=== PATIENT | male | born 1940 | race Caucasian/White ===

== ENCOUNTER → 2016-08-18 | Outpatient (CLI) | payer MEDICARE ==
[~2016-08-18] MED LIST: ACET160S5 PO; ACET65SU PO; ALBU17IN INH; ASPI81TA45 PO; ASPIRIN PO; BACITAB3 PO; CEFD1CAP8 PO; CEPA0.05 PO; COLA100C PO; COUM1TAB14 PO; COUM1TAB17 PO; COUM1TAB19 PO; COUM2TAB10 PO; DULC10SU2 PR; FINA5TAB2 PO; FINACRY PO; FLEEENE4 PR; GABA600T PO; KEFL500C7 PO; LIDO5DIS36 TD; LIPI20TA PO; LISI-542 PO; LOSARTAN PO; LOVA40TA PO; MAGN500T6 PO; META28.35 PO; METO50TA2 PO; METOPROL PO; MILKSUS PO; MIRA3350 PO; MULTCAP PO; PLAV75TA38 PO; PROS5TAB OR; PROT1TAB2 PO; PROTPAK PO; SENITAB2 PO; SENN-23 PO; SENO8.6T2 PO; STOO100C PO; TAMS0.4C2 PO; TRAM50TA2 PO; TRAMADOL PO; TYLE167L OR; TYLE325T5 PO; TYLE500T78 PO; ULTR50TA PO; VICO5TAB16 PO; VICO7.5T11 PO; ZOFR20TA PO; [UNRECOGNIZED DRUG - CODE] PO
--- NOTE | 2016-09-07 02:12 | ECWPNPC ---
PATIENT NAME: NAYA MCMAHON : 1940 GENDER: MALE VISIT DATE: 08/18/2016 DISCHARGE DATE: 08/18/16 1249 VISIT LOCKED DATE TIME: PHYSICIAN: BISI BARROS PHYSICIAN PAGER NO: [phone] RESOURCE: BISI BARROS REASON FOR APPOINTMENT 1. TRIGEMINAL NEURALGIA HISTORY OF PRESENT ILLNESS FALL RISK SCREENIN76 Y/O WITH LONG HISTORY OF LEFT NECK AND LEFT SHOULDER PAIN.FELL ON SHOULDE AT HOME APROXIMATLEY SIX YEARS AGO.HAD LEFT SHOULDE SURGERY IN 2013.HAS HAD MULTIPLE MEDICATION TRIALS AND CONSERVATIVE CARE WITHOUT IMPROVEMENT.HISTORY OF CARDIAC VALVE SURGERY O 2015 AND ALSO PACEMEAKER INSERTION IN 2015.THERE WAS LENGTHY HOSPITAL STAY AND COMPLICATIONS AFTER THIS SURGERY.PAIN HAS BECOME DISABLING LATELY.ALSO SUFFERS FROM DIMENTIA.ACCOMPANIED IN ROOM WITH AND SON.RECENT TRIALS OF MEDICATION HAVE BEEN UNSUCCESSFUL.RATING PAIN VAS 7/10.CURRENTLY USING TRAMADOL 100MG TID. SCREENING :NO FALLS IN THE PAST YEAR PAIN SCREENING: PATIENT HAS A COMPLAINT OF ACUTE OR CHRONIC PAIN YES CURRENT MEDICATIONS TAKING LIPITOR 40 MG TABLET 1 TABLET ORALLY ONCE A DAY TAKING ASPIRIN 81 MG TABLET 1 TABLET ORALLY ONCE A DAY TAKING MULTIVITAMINS TABLET 1TAB ORALLY DAILY TAKING COLACE 100 MG CAPSULE 2 CAPSULE ORALLY ONCE A DAY TAKING MIRALAX - POWDER DIRECTED ORALLY TAKING FLOMAX 0.4 MG CAPSULE 1 CAPSULE ORALLY AT BEDTIME TAKING FINASTERIDE 5 MG TABLET 1 TABLET ORALLY ONCE A DAY TAKING TYLENOL 500 MG TABLET 2 TABLET ORALLY 3 TIMES A DAY TAKING TRAMADOL HCL 50 MG TABLET 2 TABLET ORALLY TID TAKING PLAVIX 75 MG TABLET 1 TABLET ORALLY ONCE A DAY NOT-TAKING CARBAMAZEPINE 100 MG TABLET CHEWABLE 1/2 TABLET ORALLY BEFORE BEDTIME MEDICATION LIST REVIEWED AND RECONCILED WITH THE PATIENT PAST MEDICAL HISTORY CAD S/P CABG 1995-DR. 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 RAMUS BRANCH-11/2015 [facility]SHA CAROTID ARTERY DISEASE S/P B CEA (L X 2) OA, MULTI-JOINT MAGDALENA L SHOULDER BPH C LUTS CH/O URINARY RETENTION C MCNEAL PLACEMENT 07/2013 HYPERLIPIDEMIA 2B H/O NICOTINE [id number] YO, SOLELY PIPE IRON DEFIECIENCY-NO PREVIOUS EGD/COLONOSCOPY SCALP AKS MCI-12/16/2013 MRI MILD GENERALIZED ATROPHY, OLD R BG CVA ESSENTIAL HYPERTENSION H/O ORSTATIC HYPOTENSION WHILE ON BP RX PROBABLY MAINLY 2 MODERATE ATAXIA H/O R FOOT CELLULITIS RXED 11/2013 C IV ANCEF CERVICAL CNS-BUAKB-XSKWO, WORST C5/6 C R HNP DORSALLY DISPLACING CORD BY 03/2015 MRI CRITCIAL AND SA NODE DYSFUNCTION S/P TAVR/DUAL [id number]-01/2016 ALLERGIES CIPRO: FRAYING OF ACHILLES TENDON - PER DR BAUER DO NOT TAKE: CONTRAINDICATION LEVAQUIN: FRAYING OF ACHILLES TENDON - PER DR BAUER DO NOT TAKE: CONTRAINDICATION AVELOX: FRAYING OF ACHILLES TENDON - PER DR BAUER DO NOT TAKE: CONTRAINDICATION SURGICAL HISTORY APPENDECTOMY TONSILLECTOMY KNEE SURGERY - LEFT CABG X 4-NAZEM C POSTOPMEDIASTINAL WOUND INFECTION REQUIRING PARTIAL STERNECOMY, RIB REMOVAL, MUSCLE FLAP 1995 R CEA-[facility] WITH POST-OP HEMATOMA S/P EVACUATION S ACTIVE BLEEDING//11/07/14 CTA NECK EBER 80% STENOSIS, LICA OCCLUSION, DECREASED L VERTEBRAL CALIBER, THEREFORE S/P R ICA STENT 11/13/14-LASHONDA 07/17/13, 11/13/14 L CEA X 2-11/11/2013 SECOND L CEA COMPLICATED BY 2L BLOOD LOSS/HYPOTENSION/NQWMI C PEAK TROPONIN 3.8 1993, 11/11/2013 R FEMORAL NECK FRACTURE - S/P CLOSED REDUCTION, PERCUTANEOUS PINNING-JOSELINE LAWSON 01/21/14 L SHOULDER REVERSE TOTAL ARTHROPLASTY-LESLIE 07/15/14 RIGHT CHOROID ARTERY 06/2013 LEFT CHOROID ARTERY 10/2013 RIGHT CAROTID STENT PLACED 10/2014 L MANDIBULAR WISDOM TOOTH EXTRACTION- ALFONZO DONE 2 L MANDIBULAR PAIN 03/16/2015 AORTIC VALVE REPLACED 02/05/2016 PACEMAKER INSERTED 02/07/2016 FAMILY HISTORY FATHER: , DIAGNOSED WITH HEART DISEASE, STROKE MOTHER: , DIAGNOSED WITH HEART DISEASE SON(S): ALIVE, DIAGNOSED WITH HYPERTENSION, HEART DISEASE DAUGHTER(S): ALIVE 2DAUGHTER(S) - HEALTHY. 1ST SON HTN,SVT2ND SON HTN AND CILIAC DISEASE. SOCIAL HISTORY GENERAL: TOBACCO USE ARE YOU A:: FORMER SMOKER , HOW LONG HAS IT BEEN SINCE YOU LAST SMOKED?: > 10 YEARS, ADDITIONAL FINDINGS: TOBACCO USER: PIPE SMOKER. ALCOHOL SCREENING POINTS: 1, INTERPRETATION: NEGATIVE. RECREATIONAL DRUG USE DENIES. CAFFEINE 1-2/DAY. SEXUAL HX HAD SEX IN THE LAST 12 MONTHS (VAGINAL, ORAL, OR ANAL)?: NO, HAVE YOU EVER HAD AN STD?: NO. 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 DIET: LOW FAT, LOW CHOLESTEROL. EXERCISE: NO REGULAR EXERCISE. MARITAL STATUS: /LIZETTE DE LA CRUZ 1962. BUDDHISM: NO GNOSTICISM BELIEFS THAT WOULD IMPACT HEALTH CARE. LANGUAGE: LATVIAN. EDUCATION: PLAN OF CARE FOR PAIN CLINIC REVIEWED WITH PATIENT AND FAMILY. . LEARNING BARRIERS / SPECIAL NEEDS CHANGE FROM LAST VISIT?YES EAR PAIN BARRIERS TO LEARNING?NO HEARING IMPAIRED?YES :HEARING AIDES DOSENT USE VISION IMPAIRED?YES :CORRECTIVE LENSES MISCELLANEOUS: HE IDENTIFIES LIZETTE MCMAHON, , JOSE MCMAHON, , HIS ALTERNATE DECISION-MAKER SHOULD HE BE UNABLE TO MAKE HIS OWN MEDICAL DECISIONS.. ADVANCED DIRECTIVES HEALTH CARE PROXY?YES NAME OF HCP LIZETTE BENITO CONTACT # FOR HCP [phone] IF YES, DO YOU HAVE A COPY WITH YOU?NO POWER OF TENNIS BALL COVERER HAND?YES NAME OF POA? 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 TRAVEL OUTSIDE US: DENIES. DOMESTIC VIOLENCE: NONE. PATIENT IS FULL CODE. HOSPITALIZATION/MAJOR DIAGNOSTIC PROCEDURE GENERALIZED WEAKNESS-BB DISCONTINUED 12/10/2013 R FOOT CELLULITIS-RXED C ANCEF 12/14- R FEMORAL NECK FRACTURE S/P MECHANICAL FALL 01/18/2014 OBSTIPATION 2 POST-OP TSR HYDROCODONE, DEVELOPED URINARY RETENTION FOR WHICH MCNEAL WAS PLACED, CT A/P C RECTAL IMPACTION, UCX >100K E. FAECALIS RXED C CEPHALEXIN 10D 08/01-01/12 [facility]-PACEMAKER/TAVR-MARSHA 02/04-02/09/16 REVIEW OF SYSTEMS CONSTITUTIONAL: RECENT ILLNESS DENIES . ANY CHANGE IN YOUR MEDICAL CONDITION? NO . CHILLS NO . FEVER NO, DENIES . WEIGHT LOSS DENIES . INFECTION: DO YOU HAVE NEW INFECTIONS? NO . DO YOU HAVE HISTORY OF MRSA? NO . MUSCULOSKELETAL: ANY NEW PATTERNS OF PAIN OR NUMBNESS? NO . SYTEMIC LUPUS NO . JOINT PAIN DENIES . JOINT STIFFNESS DENIES . GASTROENTEROLOGY: BOWEL INCONTINENCE DENIES . ANY NEW CHANGE IN BOWEL CONTROL? NO . BARRETTS ESOPHAGUS NO . CIRRHOSIS NO . HEPATITIS NO . LIVER FAILURE NO . ACID REFLUX NO . BLOOD IN STOOL DENIES . UNEXPLAINED WEIGHT LOSS NO . GENITOURINARY: ANY NEW CHANGE IN BLADDER CONTROL? NO . IS THERE A CHANCE YOU COULD BE ? NO . HEMATOLOGY/LYMPH: DENIES . BLEEDING DISORDER DENIES . DO YOU TAKE ANY BLOOD THINNERS? (FOR EXAMPLE- COUMADIN, PLAVIX, AGGRENOX, PLATEL, PRADAXA, OR XARELTO) YES, PLAVIX . WHEN WAS YOUR LAST DOSE? DATE: TIME: . LOW PLATELET COUNT NO . SICKLE CELL DISEASE NO . VON WILLIEBRANDS NO . FACTOR V LEIDEN NO . THALLASEMIA NO . ANEMIA NO . EASY BRUISING ON ANTICOAGULANTS, ON ASPIRIN . NEUROLOGY: HAVE YOU FALLEN IN THE PAST 6 MONTHS? NO . ANY NEW EXTREMITY NUMBNESS OR WEAKNESS? NO . HEAD INJURY NO . DEMENTIA YES . CEREBRAL PALSY NO . MULTIPLE SCLEROSIS NO . DIZZINESS INTERMITTENT OFTEN TIMES WHEN HE IS GETTING UP . HEADACHE NO, DENIES . SEIZURES DENIES . STROKES NO . VERTIGO NO . CARDIOLOGY: DO YOU HAVE A PACEMAKER OR DEFIBRILLATOR? YES, PACEMAKER . ANGINA NO . HEART ATTACK YES, SILENT ONE PRIOR TO 1984 . HEART SURGERY YES, BYPASS GRAFTS, STENTS PLACED . CONGESTIVE HEART FAILURE/FLUID OVERLOAD NO . CHEST PAIN NO, DENIES . HIGH BLOOD PRESSURE NO . IRREGULAR HEART BEAT YES STATES IT IS CONSTANT . SHORTNESS OF BREATH DENIES . RESPIRATORY: HAVE YOU BEEN SICK IN THE PAST WEEK? NO . FEVER NO . FLU LIKE SYMPTOMS? NO . CPAP NO . BYPAP NO . ASTHMA NO . EMPHYSEMA NO . CHRONIC LUNG DISEASES NO . SHORTNESS OF BREATH ON EXERTION NO . COUGH NO, DENIES . SHORTNESS OF BREATH DENIES . SNORING NO . INTEGUMENTARY: DO YOU HAVE ANY RASHES OR OPEN SORES? NO . ALLERGIC/IMMUNO: ARE YOU ALLERGIC TO SHELLFISH OR IV DYE? NO . ANY NEW ALLERGIES? NO . PSYCHIATRIC: DO YOU HAVE THOUGHTS OF HURTING YOURSELF OR SOMEONE ELSE? NO DOES HAVE DEPRESSION . ARE YOU ABUSED, NEGLECTED, OR IN AN UNSAFE ENVIRONMENT? NO . ENDOCRINOLOGY: THYROID DISEASE DENIES . ARE YOU DIABETIC? NO . DIABETES DENIES . THYROID DISORDER NO . OTHER: DO YOU NEED ANY PRESCRIPTIONS? NO . IF YES, PLEASE LIST: ____ . ANY NEW PROBLEMS WITH YOUR MEDICATIONS? NO . WHEN DID YOU LAST EAT? ____ . WHEN DID YOU LAST DRINK? ____ . WHAT DID YOU LAST DRINK? ____ . NAME OF PERSON DRIVING YOU HOME? ____ . DO YOU HAVE ANY OTHER QUESTIONS OR CONCERNS NO . HEENT: CHANGE IN VISION DENIES . LOSS OF HEARING DENIES . TROUBLE SWALLOWING DENIES . PSYCHOLOGY: ANXIETY DENIES . DEPRESSION DENIES . UROLOGY: URINARY INCONTINENCE DENIES . BLOOD IN URINE DENIES . REVIEWED BY: PROVIDER: BISI ROMERO . VITAL SIGNS WT 173.4 LBS, HT 70 IN, BMI 24.88 INDEX, BP 150/71 MM HG, HR 61 /MIN, RR 18 /MIN, TEMP 97.1 F, OXYGEN SAT % 94%, NA INITIALS SC SC 11:33, REVIEWED BY: AD. EXAMINATION GENERAL EXAMINATION: HEENT:HEAD:, NORMOCEPHALIC, EYES:, EYES NORMAL, NOSE:, NOSE CLEAR, THROAT: NORMAL. LUNGS:LUNG SOUNDS ARE CLEAR. HEART:HEART RATE REGULAR. ABDOMEN:SOFT AND NOT TENDER, NON-DISTENDED. MUSCULOSKELETAL:*. LUMBAR SACRAL SPINEMUSCLE STRENGTH TESTING 5/5 BILATERAL, PALPATION: NEGATIVE FOR PAIN OVER L/S SPINE. NEGATIVE FOR PAIN OVER L/S PARSPINALS. THORACIC SPINENEGATIVE FOR PAIN WITH PALPATION OF THORACIC SPINE. NEGATIVE FOR PAIN WITH PALPATION OF THORACIC PARASPINAL. CERVICALPOSITIVE FOR PAIN WITH PALPATION OF CERVICAL SPINE. POSITIVE FOR PAIN WITH PALPATION OF CERVICAL PARASPINALS. POSITIVE FOR PAIN WITH PALPATION OF TRAPEZIUS BILAT L>R.. SKIN:NORMAL, NO RASH. NEUROLOGIC EXAM:ALERT AND ORIENTED X 3, DTRS 1-2+ IN ALL 4 EXTREMITIES, DENIES UPPER EXTREMETIES SENSORY LOSS, DENIES LOWER EXTREMETIES SENSORY LOSS. ASSESSMENTS PAIN IN LEFT SHOULDER - M25.512 (PRIMARY) MYALGIA - M79.1 TREATMENT PAIN IN LEFT SHOULDER START BUTRANS PATCH WEEKLY, 5 MCG/HR, 1 PATCH TO SKIN, TRANSDERMAL, 1 PATCH Q7 DAYS=MDD, 30 DAY(S), 4, REFILLS 1 PREVENTIVE MEDICINE PAIN CLINIC TEACHING: MEDICATIONS PRINTED INFORMATION ON BUTRANS PATCH GIVEN TO AND REVIEWED WITH PATEINT.. PROCEDURE CODES FA211 ESTABILISHED PATIENT THE [facility] FACILITY CHARGE G8730 PAIN ASSESS POS TOOL F/U PLAN DOC G8427 DOC MEDS VERIFIED W/PT OR RE FOLLOW UP 10 DAYS ELECTRONICALLY SIGNED BY HEATHER LEE ON 09/06/2016 AT 03:01 PM EST DISCLAIMER : THIS IS A VISIT SUMMARY EXTRACTED FROM THE [employer] CHART. IT IS NOT A COPY OF THE [employer] PROGRESS NOTE. JENNIFER
== END ==
LOC: M PAIN 11:20
PROVIDERS: ATTEND Nurse Practitioner Family
DX: Z09 Encounter for follow-up examination after completed treatment for conditions other than malignant neoplasm (principal); G89.29 Other chronic pain; M79.1 Myalgia; M25.512 Pain in left shoulder; F03.90 Unspecified dementia, unspecified severity, without behavioral disturbance, psychotic disturbance, mood disturbance, and anxiety; I25.10 Atherosclerotic heart disease of native coronary artery without angina pectoris; I10 Essential (primary) hypertension; M19.212 Secondary osteoarthritis, left shoulder; E78.5 Hyperlipidemia, unspecified; E61.1 Iron deficiency; R27.0 Ataxia, unspecified; M50.30 Other cervical disc degeneration, unspecified cervical region; Z88.8 Allergy status to other drugs, medicaments and biological substances; Z79.82 Long term (current) use of aspirin; Z79.891 Long term (current) use of opiate analgesic; Z79.899 Other long term (current) drug therapy; Z87.891 Personal history of nicotine dependence; Z87.2 Personal history of diseases of the skin and subcutaneous tissue; Z95.0 Presence of cardiac pacemaker

== ENCOUNTER 2016-08-19 08:21 | Emergency (ER) | payer MEDICARE ==
--- NOTE | 2016-08-19 09:40 | REP ---
CT HEAD WITHOUT CONTRAST: HISTORY: Trauma. COMPARISON: 07/01/2016. An area of decreased attenuation is present in the right basal ganglia. This represents an old lacunar infarction. Areas of decreased attenuation are present in the periventricular white matter. This represents small vessel ischemic disease. There is no intraparenchymal hemorrhage, mass or midline shift. The ventricular system and cortical sulci are dilated consistent with mild volume loss. There is no extracerebral collection. There is no fracture. Mucosal thickening is present in the ethmoid sinuses. IMPRESSION: 1. 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 2. Small vessel ischemic disease. 3. Mild volume loss. Signed by Kj Bobby MD 08/19/2016 10:06 A
[2016-08-19 09:43] LABS: BASO # 0.1 K/mm3 (0.0-0.2); BASO % 1.2 % (0.0-1.0); EOS # 0.6 K/mm3 (0.0-0.50); EOS % 5.9 % (0.0-3.0); LARGE UNSTAINED CELL # 0.2 K/mm3 (0.0-0.4); LARGE UNSTAINED CELL % 1.6 % (0.0-4.0); LYMPH # 1.4 K/mm3 (1.5-4.5); LYMPH % 12.9 % (24.0-44.0); MEAN CORPUSCULAR HEMOGLOBIN 31.2 pg (27.0-33.0); MEAN CORPUSCULAR VOLUME 97.6 fl (80.0-96.0); MONO # 0.7 K/mm3 (0.0-0.8); MONO % 7.5 % (0.0-5.0); NEUTROPHILS # 6.7 K/mm3 (1.8-7.7); NEUTROPHILS % 70.9 % (36.0-66.0); PLATELET COUNT, AUTOMATED 169 k/mm3 (150-450); RED CELL DISTRIBUTION WIDTH 13.9 % (11.5-14.5); WHITE BLOOD COUNT 9.5 K/mm3 (4.0-10.0)
--- NOTE | 2016-08-19 09:45 | REP ---
CT CERVICAL SPINE WITHOUT CONTRAST: HISTORY: Trauma. There is no acute fracture or subluxation. The disc bulges are present at the C3-4 and C4-5 levels. Disc bulges with associated osteophyte formation are present at the C5-6 and C6-7 levels. There is minimal narrowing of the spinal canal. Uncinate process and/or facet hypertrophy are present at the C2-3 through C6-7 levels. These findings produce minimal to severe narrowing of the neural foramina. The C2-3 through C6-7 intervertebral discs are decreased in height consistent with disc degeneration. There is loss of the normal lordotic curve. There is loss of the normal lordotic curve. The patient is status post stenting of the right common internal carotid arteries. IMPRESSION: 1. There is no acute fracture or subluxation. 2. There is cervical spondylosis at the C2-3 through C6-7 levels. Signed by Kj Bobby MD 08/19/2016 10:06 A
[2016-08-19] MEDS ORDERED: MORPHINE 2 MG/ML 1ML SYRINGE As Ordered ONE (09:47)
[2016-08-19 10:06] LABS: ANION GAP 6 MEQ/L (8-16); BLOOD UREA NITROGEN 16 MG/DL (7-18); CALCIUM LEVEL 9.5 MG/DL (8.8-10.2); CARBON DIOXIDE LEVEL 32 MEQ/L (21-32); CHLORIDE LEVEL 105 MEQ/L (98-107); CREATININE FOR GFR 0.66 MG/DL (0.70-1.30); GLOMERULAR FILTRATION RATE > 60.0 (>42); GLUCOSE, FASTING 82 MG/DL (83-110); POTASSIUM SERUM 4.5 MEQ/L (3.5-5.1); SODIUM LEVEL 143 MEQ/L (136-145)
[2016-08-19] MEDS ORDERED: ISOVUE-370 76% 100ML VIAL (Q9967) As Ordered ONE (10:38)
--- NOTE | 2016-08-19 11:11 | REP ---
Left shoulder series: Four views. History: Trauma. Findings: Four views of the left shoulder demonstrate a left shoulder arthroplasty in place. A dual lead pacemaker is noted on the left as well. There are surgical clips in the soft tissues of the left neck. The prosthetic shoulder joint and the AC joint are normally aligned. There is an area of heterotopic bone formation at the inferior and medial aspect of the left shoulder joint. This is visible on prior chest x-ray from February 2016. Impression: Left shoulder arthroplasty in place. Heterotopic bone formation adjacent to the shoulder joint. No acute fracture. Signed by Rojas Pro MD 08/19/2016 02:39 P
--- NOTE | 2016-08-19 11:13 | REP ---
LEFT FOREARM: Two views. HISTORY: Trauma. FINDINGS: AP and lateral views of the left forearm demonstrate an intravenous cannula in the dorsal soft tissues at the wrist. There is diffuse osteopenia. 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 No fracture or subluxation is seen. IMPRESSION: No fracture noted. Signed by Rojas Pro MD 08/19/2016 02:39 P
--- NOTE | 2016-08-19 11:38 | REP ---
CT study of the abdomen and pelvis with IV but without oral contrast: History: Trauma. Comparison CT study is from August 01, 2014. CT contrast dose: 100 ml of Isovue [address] findings: Lung bases show mild fibrotic changes but are otherwise clear. No pleural effusion is seen. The liver and the spleen are normal in size, homogeneous in texture. There is a small accessory splenule noted in the left upper quadrant unchanged. The gallbladder is unremarkable. No adrenal lesion is seen. No pancreatic abnormality is observed. Normal caliber aorta is seen. There is a cyst in the upper pole of the left kidney measuring 2.4 cm again noted unchanged. There is minimal hydronephrosis affecting the right kidney unchanged from the prior study. No hydronephrosis noted on the left. Small and large intestinal bowel loops are normal in the abdomen. In the pelvis, there is left colonic diverticulosis without CT evidence of diverticulitis. Dystrophic calcifications are seen in the prostate. Urinary bladder is intact. Bone window settings demonstrate osteoporosis. There is osteoporotic wedge compression deformity at L3 unchanged from the August 01, 2014 prior study. There is approximately 50% loss of anterior vertebral body height due to wedging at T12. This is new from the July 2014 prior study although I do not see any acute step-off or perivertebral swelling to suggest that this is an acute fracture. No pelvic fracture seen or sacral fracture. There are pins in the right hip. No hip fracture is appreciated. Impression: Diffuse osteopenia. Wedging at L3 which is old and at T12 which does not appear to be acute although it is a change from July 2014 prior study. Small left renal cyst noted. No other significant abnormality. Signed by Rojas Pro MD 08/19/2016 02:40 P
--- NOTE | 2016-08-19 13:16 | EDDOCDS ---
Physician Documentation Name: Manuel Christina Age: 76 yrs Sex: Male : 1940 Arrival Date: 08/19/2016 Time: 08:21 Bed 17 Private MD: Fredy Suárez Disposition: 08/19/16 12:57 Discharged to Home/Self Care. Impression: Unspecified injury of head, Abrasion of forearm. - Condition is Stable. - Discharge Instructions: Head Injury, Adult, Skin Tear Care. - Medication Reconciliation, Local Pharmacy Hours form. - Follow up: Fredy Suárez MD; When: 2 - 3 days; Reason: Recheck today's complaints. - Problem is new. - Symptoms have improved. - Notes: You were seen in the ED for a fall. CT scan of the head and neck showed along with CT of the abdomen, Xray of the shoulder, elbow, forearm, ribs, and hip showed no other acute injuries. Keep the skin tears clean and dry with a clean dressing daily. Call your primary doctor to arrange to be seen this week for recheck in the office. Return to the ED for any new pain, worse pain, confusion, vomiting, or any other concerns. Historical: - Allergies: Ciprofloxacin; moxifloxacin; Levofloxacin; Oxycodone HCl; - Home Meds: 1. aspirin 81 mg Oral chew 1 tab once daily (Last dose: 08/19/2016) 2. finasteride 1 mg oral tab 1 tab once daily (Last dose: 08/18/2016) 3. Flomax 0.4 mg Oral cp24 2 caps once daily (Last dose: 08/19/2016) 4. Lipitor 40 mg Oral tab 1 tab once daily (Last dose: 08/18/2016) 5. multivitamin Oral tab daily (Last dose: 08/19/2016) 6. Plavix 75 mg Oral tab 1 tab once daily (Last dose: 08/18/2016) 7. tramadol 100 mg oral TM24 tid (Last dose: 08/19/2016) - PMHx: BPH; Hypercholesterolemia; Hypertension; - PSHx: Aortic valve replacent 2015; Pacemaker insertion 2015; CABG; Bilateral carotid endarderectomy; Right femur repair; Left shoulder replacement; - Social history: Smoking status: Patient states former smoker of tobacco. No barriers to communication noted, The patient speaks fluent [place]. - Family history: Not pertinent. - : The pt / caregiver states he / she is on anticoagulants: Plavix. Home medication list is obtained from the patient. - Exposure Risk Screening:: None identified. Vital Signs: 08/19 08:35 BP 133 / 73; Pulse 61; Resp 16; Temp 97.4(T); Pulse Ox 94% on R/A; Weight 78.93 kg / dwg 174.01 lbs; Height 5 ft. 10 in. (177.80 cm); Pain 8/10; 08:49 BP 127 / 60 (auto/); pml 08:50 Pulse Ox 92% ; pml 09:49 Pulse Ox 94% ; pml 09:49 BP 127 / 63 (auto/); pml 10:04 Pulse Ox 95% ; pml 10:04 BP 125 / 71 (auto/); pml 10:19 Pulse Ox 97% ; pml 10:19 BP 143 / 68 (auto/); pml 10:34 Pulse Ox 98% ; pml 10:34 BP 140 / 71 (auto/); pml 13:13 BP 138 / 72; Pulse 65; Resp 18; Temp 97.0; Pulse Ox 95% on R/A; Pain 4/10; ttb 08:35 Body Mass Index 24.97 (78.93 kg, 177.80 cm) dwg MDM: 08:41 CT Head Without Contrast Ordered. EDMS 08:42 CT Spine,Cervical W/o Contrast Ordered. EDMS 09:16 IV Saline Lock ordered. br1 09:17 Rib Unilat W/PA Chest Only Ordered. EDMS 09:17 Hip,AP,LAT to include Pelvis Ordered. EDMS 09:17 Shoulder, Complete Ordered. EDMS 09:17 morphine 2 mg IVP once ordered. br1 09:18 Misc. Nursing Order ordered. br1 09:18 CBC with Diff Ordered. EDMS 09:18 BMP Ordered. EDMS 09:18 Elbow, Complete Ordered. EDMS 09:18 Forearm (radius/ulna) Ordered. EDMS 09:18 CT ABD & PELVIS: IV Contrast Only Ordered. EDMS 10:09 CBC with Diff Reviewed. br1 10:09 CT Head Without Contrast Reviewed. br1 10:51 Financial registration complete. mm15 11:42 [facility] [place] Agreement was scanned into [employer] and attached to record. mm15 11:58 BMP Reviewed. br1 11:58 CT Head Without Contrast Reviewed. br1 11:58 CT Spine,Cervical W/o Contrast Reviewed. br1 11:58 Shoulder, Complete Reviewed. br1 11:58 Forearm (radius/ulna) Reviewed. br1 12:05 Ambulate Patient to Assess Patient Safety ordered. br1 Administered Medications: 09:51 Drug: morphine 2 mg [morphine 2 mg/mL intravenous cartridge (1 mL)] Route: IVP; Site: [facility] left hand; Signatures: Dispatcher [employer] Pradeep Basilio RN RN dwg Roggie, Brian, MD MD br1 Dayanna Rueda RN RN pml Emely Kate RN RN ttJavon Tinoco mm15 The chart was reviewed and I authenticate all verbal orders and agree with the evaluation and treatment provided.Attachments: 11:42 [facility] Payment Agreement mm15 MTDD
--- NOTE | 2016-08-19 13:16 | EDDOCDS ---
Nurse's Notes [facility] Name: Manuel Christina Age: 76 yrs Sex: Male : 1940 Arrival Date: 08/19/2016 Time: 08:21 Bed 17 Private MD: Fredy Suárez Diagnosis: Unspecified injury of head;Abrasion of forearm Presentation: 08/19 08:28 Presenting complaint: Patient states: Fell at 630AM today, pain to left shoulder and dwg hip, also hit left side of head, on Plavix. Presenting complaint: Patient states: No LOC. Adult Sepsis Screening: The patient does not have new or worsening altered mentation. Patient's respiratory rate is less than 22. Systolic blood pressure is greater than 100. Patient has a qSOFA score of 0- Negative Sepsis Screen. Suicide/Homicide risk assessment- the patient denies having any suicidal and/or homicidal ideations and does not present with any other emotional, behavioral or mental health complaints. Status: Patient is not a early childhood services coordinator or dependent. Transition of care: patient was not received from another setting of care. Red Flag criteria, patient assessed and taken directly to a bed. 08:28 Acuity: IGGY Level 2 dwg 08:28 Method Of Arrival: Wheelchair dwg Triage Assessment: 08:35 General: Appears in no apparent distress. Pain: Pain currently is 8 out of 10 on a pain dwg scale. Historical: - Allergies: Ciprofloxacin; moxifloxacin; Levofloxacin; Oxycodone HCl; - Home Meds: 1. aspirin 81 mg Oral chew 1 tab once daily (Last dose: 08/19/2016) 2. finasteride 1 mg oral tab 1 tab once daily (Last dose: 08/18/2016) 3. Flomax 0.4 mg Oral cp24 2 caps once daily (Last dose: 08/19/2016) 4. Lipitor 40 mg Oral tab 1 tab once daily (Last dose: 08/18/2016) 5. multivitamin Oral tab daily (Last dose: 08/19/2016) 6. Plavix 75 mg Oral tab 1 tab once daily (Last dose: 08/18/2016) 7. tramadol 100 mg oral TM24 tid (Last dose: 08/19/2016) - PMHx: BPH; Hypercholesterolemia; Hypertension; - PSHx: Aortic valve replacent 2016; Pacemaker insertion 2016; CABG; Bilateral carotid endarderectomy; Right femur repair; Left shoulder replacement; - Social history: Smoking status: Patient states former smoker of tobacco. No barriers to communication noted, The patient speaks fluent Setswana. - Family history: Not pertinent. - : The pt / caregiver states he / she is on anticoagulants: Plavix. Home medication list is obtained from the patient. - Exposure Risk Screening:: None identified. Screenin:50 Screening information is obtained from the patient. Fall risk: No risks identified. pml Assistance ADL's: requires no assistance with activities of daily living. Abuse/DV Screen: The patient / caregiver reports he/she is: not in a situation that causes fear, pain or injury. Nutritional screening: No deficits noted. Advance Directives: Currently, there is no health care proxy. home support is adequate. Assessment: 08:50 General: Appears in no apparent distress, comfortable, Behavior is appropriate for age, pml cooperative. Pain: Location: anterior aspect of left shoulder Pain currently is 8 out of 10 on a pain scale. Neurological: Level of Consciousness is awake, alert, Oriented to person, place, time. Neurological: Denies blurred vision dizziness. Neurological: Speech is normal, Pupils are PERRLA. Cardiovascular: Capillary refill < 3 seconds. Respiratory: Airway is patent Respiratory effort is even, unlabored. GI: Abdomen is non- distended. Derm: Skin is pink, warm & dry. Musculoskeletal: Circulation, motion, and sensation intact Capillary refill < 3 seconds. Injury Description: Laceration sustained to palmar aspect of left forearm is jagged, superficial, 2.6 to 7.5 cm long, not bleeding, skin tears is bleeding a small amount. 09:54 General: resting on stretcher, resps easy and unlabored, skin p/w/d. pml 10:37 General: Appears in no apparent distress, comfortable, Behavior is appropriate for age, pml cooperative. Pain: Location: anterior aspect of left shoulder Pain currently is 5 out of 10 on a pain scale. Neurological: Level of Consciousness is awake, alert, Oriented to person, place, time. Cardiovascular: Capillary refill < 3 seconds. Respiratory: Airway is patent Respiratory effort is even, unlabored. Derm: Skin is pink, warm & dry. 11:06 General: pt to CT tolerated without complaints. . pml 11:30 General: report received from DANELLE Alan to continue care. Pt resting on stretcher ttb with family at bedside. NAD noted.. Pain: Location: left arm. Neurological: Level of Consciousness is awake, alert, Oriented to person, place, time, Speech is normal, Facial symmetry appears normal, Pupils are PERRLA. Cardiovascular: Heart tones S1 S2 present Chest pain is denied. Respiratory: Airway is patent Respiratory effort is even, unlabored, Respiratory pattern is regular, symmetrical, Breath sounds are clear bilaterally. Denies cough, shortness of breath. GI: Abdomen is non- distended. Derm: Skin is normal. Musculoskeletal: Range of motion limited in left shoulder. Injury Description: pt fell from standing Laceration sustained to left arm is superficial, not bleeding. 12:22 General: Appears ambulated approx 50 feet with cane and stand by assist, shuffling jjr gait, pt denies pain. 13:13 Reassessment: Patient appears in no apparent distress at this time. Patient states ttb feeling better. Patient states symptoms have improved. pt continues to complain of shoulder pain -- instructed on meds for today and to f/u with MD and pain clinic.. General: Appears in no apparent distress, comfortable, Behavior is appropriate for age, cooperative, pleasant, quiet. Neurological: Level of Consciousness is awake, alert, Oriented to person, place, time, Speech is normal. Cardiovascular: Chest pain is denied. Respiratory: No deficits noted. Airway is patent Respiratory effort is even, unlabored. Vital Signs: 08:35 BP 133 / 73; Pulse 61; Resp 16; Temp 97.4(T); Pulse Ox 94% on R/A; Weight 78.93 kg; dwg Height 5 ft. 10 in. (177.80 cm); Pain 8/10; 08:49 BP 127 / 60 (auto/); pml 08:50 Pulse Ox 92% ; pml 09:49 Pulse Ox 94% ; pml 09:49 BP 127 / 63 (auto/); pml 10:04 Pulse Ox 95% ; pml 10:04 BP 125 / 71 (auto/); pml 10:19 Pulse Ox 97% ; pml 10:19 BP 143 / 68 (auto/); pml 10:34 Pulse Ox 98% ; pml 10:34 BP 140 / 71 (auto/); pml 13:13 BP 138 / 72; Pulse 65; Resp 18; Temp 97.0; Pulse Ox 95% on R/A; Pain 4/10; ttb 08:35 Body Mass Index 24.97 (78.93 kg, 177.80 cm) [facility] Vitals: 08:35 Log In Time: August 19, 2016 at 08:20. [facility] ED Course: 08:22 Patient visited by Javon Welch. mm15 08:22 Fredy Suárez MD is Private Physician. mm15 08:22 Patient moved to Waiting mm15 08:27 Patient moved to Triage 1 dwg 08:31 Triage Initiated dwg 08:37 Patient moved to 17 dwg 08:47 Stanford Redmond MD is Attending Physician. br1 08:50 The patient / caregiver is instructed regarding the plan of care and ED course. Patient pml has correct armband on for positive identification. Placed in gown. Bed in low position. Call light in reach. Side rails up X2. 08:52 Patient visited by Dayanna Rueda RN. pml 09:15 Patient visited by Stanford Redmond MD. br1 09:45 CT Head Without Contrast Returned. EDMS 09:55 Patient visited by Dayanna Rueda RN. pml 10:30 CT Head Without Contrast Returned. EDMS 10:30 CT Spine,Cervical W/o Contrast Returned. EDMS 11:06 Patient visited by Dayanna Rueda RN. pml 11:17 Shoulder, Complete Returned. EDMS 11:17 Forearm (radius/ulna) Returned. EDMS 11:30 Inserted peripheral IV: 20gauge IV in left forearm. Labs drawn. (by ED staff). ttb 11:33 Patient visited by Emely Kate RN. ttb 11:42 [facility] Payment Agreement was scanned into [employer] and attached to record. mm15 12:05 CT ABD & PELVIS: IV Contrast Only Returned. EDMS 12:22 Patient visited by Rita Banks RN. jjr 12:54 Patient visited by Stanford Redmond MD. br1 12:55 Fredy Suárez MD is Referral Physician. br1 13:02 Patient visited by Emely Kate RN. ttb 13:02 Discontinued IV lock intact, bleeding controlled, pressure dressing applied, No ttb redness/swelling at site. No procedures done that require assistance. 13:15 Patient visited by Emely Kate RN. ttb Administered Medications: 09:51 Drug: morphine 2 mg [morphine 2 mg/mL intravenous cartridge (1 mL)] Route: IVP; Site: pml left hand; Order Results: Lab Order: CBC with Diff; SPEC'M 08/19/16 09:30 Test: WHITE BLOOD COUNT; Value: 9.5; Range: 4.0-10.0; Units: K/mm3; Status: F Test: RED BLOOD COUNT; Value: 4.87; Range: 4.30-6.10; Units: M/mm3; Status: F Test: HEMOGLOBIN; Value: 15.2; Range: 14.0-18.0; Units: g/dl; Status: F Test: HEMATOCRIT; Value: 47.6; Range: 42.0-52.0; Units: %; Status: F Test: MEAN CORPUSCULAR VOLUME; Value: 97.6; Range: 80.0-96.0; Abnormal: Above high normal; Units: fl; Status: F Test: MEAN CORPUSCULAR HEMOGLOBIN; Value: 31.2; Range: 27.0-33.0; Units: pg; Status: F Test: MEAN CORPUSCULAR HGB CONC; Value: 32.0; Range: 32.0-36.5; Units: g/dl; Status: F Test: RED CELL DISTRIBUTION WIDTH; Value: 13.9; Range: 11.5-14.5; Units: %; Status: F Test: PLATELET COUNT, AUTOMATED; Value: 169; Range: 150-450; Units: k/mm3; Status: F Test: NEUTROPHILS %; Value: 70.9; Range: 36.0-66.0; Abnormal: Above high normal; Units: %; Status: F Test: LYMPH %; Value: 12.9; Range: 24.0-44.0; Abnormal: Below low normal; Units: %; Status: F Test: MONO %; Value: 7.5; Range: 0.0-5.0; Abnormal: Above high normal; Units: %; Status: F Test: EOS %; Value: 5.9; Range: 0.0-3.0; Abnormal: Above high normal; Units: %; Status: F Test: BASO %; Value: 1.2; Range: 0.0-1.0; Abnormal: Above high normal; Units: %; Status: F Test: LARGE UNSTAINED CELL %; Value: 1.6; Range: 0.0-4.0; Units: %; Status: F Test: NEUTROPHILS #; Value: 6.7; Range: 1.8-7.7; Units: K/mm3; Status: F Test: LYMPH #; Value: 1.4; Range: 1.5-4.5; Abnormal: Below low normal; Units: K/mm3; Status: F Test: MONO #; Value: 0.7; Range: 0.0-0.8; Units: K/mm3; Status: F Test: EOS #; Value: 0.6; Range: 0.0-0.50; Abnormal: Above high normal; Units: K/mm3; Status: F Test: BASO #; Value: 0.1; Range: 0.0-0.2; Units: K/mm3; Status: F Test: LARGE UNSTAINED CELL #; Value: 0.2; Range: 0.0-0.4; Units: K/mm3; Status: F Lab Order: [facility]; SPEC'M 08/19/16 09:30 Test: GLUCOSE, FASTING; Value: 82; Range: 83-110; Abnormal: Below low normal; Units: MG/DL; Status: F Test: BLOOD UREA NITROGEN; Value: 16; Range: 7-18; Units: MG/DL; Status: F Test: CREATININE FOR GFR; Value: 0.66; Range: 0.70-1.30; Abnormal: Below low normal; Units: MG/DL; Status: F Test: GLOMERULAR FILTRATION RATE; Value: > 60.0; Range: >42; Status: F Test: SODIUM LEVEL; Value: 143; Range: 136-145; Units: MEQ/L; Status: F Test: POTASSIUM SERUM; Value: 4.5; Range: 3.5-5.1; Units: MEQ/L; Status: F Test: CHLORIDE LEVEL; Value: 105; Range: 98-107; Units: MEQ/L; Status: F Test: CARBON DIOXIDE LEVEL; Value: 32; Range: 21-32; Units: MEQ/L; Status: F Test: ANION GAP; Value: 6; Range: 8-16; Abnormal: Below low normal; Units: MEQ/L; Status: F Test: CALCIUM LEVEL; Value: 9.5; Range: 8.8-10.2; Units: MG/DL; Status: F Test Note: ; Units are mL/min/1.73 m2 Chronic Kidney Disease Staging per NKF: Stage I & II GFR >=60 Normal to Mildly Decreased Stage III GFR 30-59 Moderately Decreased Stage IV GFR 15-29 Severely Decreased Stage V GFR <15 Very Little GFR Left ESRD GFR <15 on CMA Radiology Order: CT Head Without Contrast Test: CT Head Without Contrast REASON FOR EXAMINATION: Fall on Plavix; CT HEAD WITHOUT CONTRAST:; ; HISTORY: Trauma.; ; COMPARISON: 07/01/2016.; ; An area of decreased attenuation is present in the right basal ganglia. This; represents an old lacunar infarction. Areas of decreased attenuation are present; in the periventricular white matter. This represents small vessel ischemic; disease. There is no intraparenchymal hemorrhage, mass or midline shift. The; ventricular system and cortical sulci are dilated consistent with mild volume; loss. There is no extracerebral collection. There is no fracture. Mucosal; thickening is present in the ethmoid sinuses.; ; IMPRESSION:; ; 1. 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 Small vessel ischemic disease.; ; 3. Mild volume loss.; ; ; Signed by; Kj Bobby MD 08/19/2016 10:06 A; Radiology Order: CT Spine,Cervical W/o Contrast Test: CT Spine,Cervical W/o Contrast REASON FOR EXAMINATION: Trauma; CT CERVICAL SPINE WITHOUT CONTRAST:; ; HISTORY: Trauma.; ; There is no acute fracture or subluxation. The disc bulges are present at the; C3-4 and C4-5 levels. Disc bulges with associated osteophyte formation are; present at the C5-6 and C6-7 levels. There is minimal narrowing of the spinal; canal. Uncinate process and/or facet hypertrophy are present at the C2-3 through; C6-7 levels. These findings produce minimal to severe narrowing of the neural; foramina. The C2-3 through C6-7 intervertebral discs are decreased in height; consistent with disc degeneration. There is loss of the normal lordotic curve.; There is loss of the normal lordotic curve. The patient is status post stenting; of the right common internal carotid arteries.; ; IMPRESSION:; ; 1. There is no acute fracture or subluxation.; ; 2. There is cervical spondylosis at the C2-3 through C6-7 levels.; ; ; Signed by; Kj Bobby MD 08/19/2016 10:06 A; Radiology Order: Shoulder, Complete Test: Shoulder, Complete REASON FOR EXAMINATION: Trauma; Left shoulder series: Four views.; ; History: Trauma.; ; Findings: Four views of the left shoulder demonstrate a left shoulder; arthroplasty in place. A dual lead pacemaker is noted on the left as well.; There are surgical clips in the soft tissues of the left neck. The prosthetic; shoulder joint and the AC joint are normally aligned. There is an area of; heterotopic bone formation at the inferior and medial aspect of the left shoulder; joint. This is visible on prior chest x-ray from February 2016.; ; Impression:; ; Left shoulder arthroplasty in place. Heterotopic bone formation adjacent to the; shoulder joint. No acute fracture.; ; ; ; ; Unreviewed; Radiology Order: Forearm (radius/ulna) Test: Forearm (radius/ulna) REASON FOR EXAMINATION: Trauma; LEFT FOREARM:; ; Two views.; ; HISTORY: Trauma.; ; FINDINGS: AP and lateral views of the left forearm demonstrate an intravenous; cannula in the dorsal soft tissues at the wrist. 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 No fracture or; subluxation is seen.; ; IMPRESSION:; No fracture noted.; ; ; ; ; Unreviewed; Radiology Order: CT ABD & PELVIS: IV Contrast Only Test: CT ABD & PELVIS: IV Contrast Only REASON FOR EXAMINATION: Trauma; CT study of the abdomen and pelvis with IV but without oral contrast:; ; History: Trauma. Comparison CT study is from August 01, 2014.; ; CT contrast dose: 100 ml of Isovue 370 is administered intravenously.; ; CT findings: Lung bases show mild fibrotic changes but are otherwise clear. No; pleural effusion is seen. The liver and the spleen are normal in size,; homogeneous in texture. There is a small accessory splenule noted in the left; upper quadrant unchanged. The gallbladder is unremarkable. No adrenal lesion is; seen. No pancreatic abnormality is observed. Normal caliber aorta is seen.; There is a cyst in the upper pole of the left kidney measuring 2.4 cm again noted; unchanged. There is minimal hydronephrosis affecting the right kidney unchanged; from the prior study. No hydronephrosis noted on the left. Small and large; intestinal bowel loops are normal in the abdomen. In the pelvis, there is left; colonic diverticulosis without CT evidence of diverticulitis. Dystrophic; calcifications are seen in the prostate. Urinary bladder is intact.; ; Bone window settings demonstrate osteoporosis. There is osteoporotic wedge; compression deformity at L3 unchanged from the August 01, 2014 prior study.; There is approximately 50% loss of anterior vertebral body height due to wedging; at T12. This is new from the July 2014 prior study although I do not see any; acute step-off or perivertebral swelling to suggest that this is an acute; fracture. No pelvic fracture seen or sacral fracture. There are pins in the; right hip. No hip fracture is appreciated.; ; Impression:; ; Diffuse osteopenia. Wedging at L3 which is old and at T12 which does not appear; to be acute although it is a change from July 2014 prior study. Small left; renal cyst noted. No other significant abnormality.; ; ; ; ; Unreviewed; Outcome: 11:30 CT Study completed. ttb 12:57 Discharge ordered by Provider. br1 13:13 Discharge Assessment: Patient awake, alert and oriented x 3. No cognitive and/or ttb functional deficits noted. Patient verbalized understanding of disposition instructions. Patient awake and alert. patient administered narcotics - yes. Pt provided with safe discharge. The following High Risk Discharge criteria are identified: None. Discharged to home ambulatory, via wheelchair, with family, with significant other. Condition: good Condition: stable Condition: improved. Discharge instructions given to patient, family, significant other, Instructed on discharge instructions, follow up and referral plans. medication usage, wound care, safety practices, Demonstrated understanding of instructions, medications, wound care, safety, supplies given Pt was receptive of discharge instructions/ teaching. Property :Personal belongings accompany Pt. 13:15 Patient left the ED. ttb Signatures: Dispatcher [employer] Pradeep Basilio RN RN dwg Roggie, Brian, MD MD br1 Rita Banks RN RN jjr Quay, Paulina, RN RN pml Conner, Teresa, RN RN ttb Javon Welch mm15 ALPHONSED
--- NOTE | 2016-08-19 15:37 | REP ---
Supine chest radiograph and supine left rib series 08/19/2016 Indication trauma Comparison: Portable sitting chest radiograph 03/05/2016 Findings: Right atrial and ventricular pacer leads are again identified satisfactory position. Intravascular stent is projected over the heart, possibly within the aortic outflow tract. This represents interval change. There is ectasia and tortuosity within the thoracic aorta. The lung swartz are clear bilaterally. The left ribs are without acute fracture or displacement. Deformity within the left fourth lateral rib is most compatible with an old healed fracture. There has been previous left total shoulder arthroplasty which is unchanged. Visualized portions of the left clavicle and scapula are within normal limits. Surgical clips are seen within the left lower neck. Impression: ectatic tortuous thoracic aorta with atherosclerotic changes and right atrial and ventricular pacer leads, unchanged . Intravascular stent. likely within the aortic outflow tract. Lungs are clear. If however there is any clinical concern for pneumothorax, then consider upright chest radiograph. Left ribs without acute fracture or displacement. Contour deformity in the left 4th lateral rib most compatible with old healed fracture Signed by Patricia Coelho MD 08/19/2016 03:28 P
--- NOTE | 2016-08-19 16:32 | REP ---
Left hip series to include AP and frog-leg views left hip and AP pelvis 08/19/[address] abdomen pelvis also performed 08/19/2016 Findings: The bony pelvic ring is intact. There is no pelvic diastases. The left hip is without acute fracture or dislocation. There has been previous ORIF of the right hip with three fixation screws. Alignment is anatomic. Impression: Left hip without acute fracture dislocation. Bony pelvic ring is intact. Previous ORIF of the right hip with three fixation screws Signed by Patricia Coelho MD 08/19/2016 04:24 P
--- NOTE | 2016-08-20 22:06 | REP ---
Four view left elbow series, Indication: Trauma Findings: Left elbow is without acute fracture subluxation or dislocation. Small amount of dystrophic calcifications/ chondrocalcinosis noted at elbow joint . There is no elbow joint effusion. Impression: mild osteoarthritic changes/ chondrocalcinosis in the left elbow. No acute fracture or joint effusion. Signed by Patricia Coelho MD 08/20/2016 09:58 P
--- NOTE | 2016-08-21 14:16 | EDDOCDS ---
Physician Documentation [facility] Name: Manuel Christina Age: 76 yrs Sex: Male : 1940 Arrival Date: 08/19/2016 Time: 08:21 Bed 17 Private MD: Fredy Suárez Disposition: 08/19/16 12:57 Discharged to Home/Self Care. Impression: Unspecified injury of head, Abrasion of forearm. - Condition is Stable. - Discharge Instructions: Head Injury, Adult, Skin Tear Care. - Medication Reconciliation, Local Pharmacy Hours form. - Follow up: Fredy Suárez MD; When: 2 - 3 days; Reason: Recheck today's complaints. - Problem is new. - Symptoms have improved. - Notes: You were seen in the ED for a fall. CT scan of the head and neck showed along with CT of the abdomen, Xray of the shoulder, elbow, forearm, ribs, and hip showed no other acute injuries. Keep the skin tears clean and dry with a clean dressing daily. Call your primary doctor to arrange to be seen this week for recheck in the office. Return to the ED for any new pain, worse pain, confusion, vomiting, or any other concerns. Historical: - Allergies: Ciprofloxacin; moxifloxacin; Levofloxacin; Oxycodone HCl; - Home Meds: 1. aspirin 81 mg Oral chew 1 tab once daily (Last dose: 08/19/2016) 2. finasteride 1 mg oral tab 1 tab once daily (Last dose: 08/18/2016) 3. Flomax 0.4 mg Oral cp24 2 caps once daily (Last dose: 08/19/2016) 4. Lipitor 40 mg Oral tab 1 tab once daily (Last dose: 08/18/2016) 5. multivitamin Oral tab daily (Last dose: 08/19/2016) 6. Plavix 75 mg Oral tab 1 tab once daily (Last dose: 08/18/2016) 7. tramadol 100 mg oral TM24 tid (Last dose: 08/19/2016) - PMHx: BPH; Hypercholesterolemia; Hypertension; - PSHx: Aortic valve replacent 2015; Pacemaker insertion 2015; CABG; Bilateral carotid endarderectomy; Right femur repair; Left shoulder replacement; - Social history: Smoking status: Patient states former smoker of tobacco. No barriers to communication noted, The patient speaks fluent [place]. - Family history: Not pertinent. - : The pt / caregiver states he / she is on anticoagulants: Plavix. Home medication list is obtained from the patient. - Exposure Risk Screening:: None identified. Vital Signs: 08/19 08:35 BP 133 / 73; Pulse 61; Resp 16; Temp 97.4(T); Pulse Ox 94% on R/A; Weight 78.93 kg / dwg 174.01 lbs; Height 5 ft. 10 in. (177.80 cm); Pain 8/10; 08:49 BP 127 / 60 (auto/); pml 08:50 Pulse Ox 92% ; pml 09:49 Pulse Ox 94% ; pml 09:49 BP 127 / 63 (auto/); pml 10:04 Pulse Ox 95% ; pml 10:04 BP 125 / 71 (auto/); pml 10:19 Pulse Ox 97% ; pml 10:19 BP 143 / 68 (auto/); pml 10:34 Pulse Ox 98% ; pml 10:34 BP 140 / 71 (auto/); pml 13:13 BP 138 / 72; Pulse 65; Resp 18; Temp 97.0; Pulse Ox 95% on R/A; Pain 4/10; ttb 08:35 Body Mass Index 24.97 (78.93 kg, 177.80 cm) dwg MDM: 08:41 CT Head Without Contrast Ordered. EDMS 08:42 CT Spine,Cervical W/o Contrast Ordered. EDMS 09:16 IV Saline Lock ordered. br1 09:17 Rib Unilat W/PA Chest Only Ordered. EDMS 09:17 Hip,AP,LAT to include Pelvis Ordered. EDMS 09:17 Shoulder, Complete Ordered. EDMS 09:17 morphine 2 mg IVP once ordered. br1 09:18 Misc. Nursing Order ordered. br1 09:18 CBC with Diff Ordered. EDMS 09:18 BMP Ordered. EDMS 09:18 Elbow, Complete Ordered. EDMS 09:18 Forearm (radius/ulna) Ordered. EDMS 09:18 CT ABD & PELVIS: IV Contrast Only Ordered. EDMS 10:09 CBC with Diff Reviewed. br1 10:09 CT Head Without Contrast Reviewed. br1 10:51 Financial registration complete. mm15 11:42 [facility] was scanned into [employer] and attached to record. mm15 11:58 BMP Reviewed. br1 11:58 CT Head Without Contrast Reviewed. br1 11:58 CT Spine,Cervical W/o Contrast Reviewed. br1 11:58 Shoulder, Complete Reviewed. br1 11:58 Forearm (radius/ulna) Reviewed. br1 12:05 Ambulate Patient to Assess Patient Safety ordered. br1 14:19 T-Sheet-- Draft Copy was scanned into [employer] and attached to record. gb 14:19 Radiology Report was scanned into [employer] and attached to record. gb Administered Medications: 09:51 Drug: morphine 2 mg [morphine 2 mg/mL intravenous cartridge (1 mL)] Route: IVP; Site: [facility] left hand; Signatures: Dispatcher [employer] EDMS Pradeep Avalos RN RN dwg Barnhardt, Gloria, Reg Reg gb Stanford Redmond MD MD br1 Dayanna Rueda RN RN pml Conner, Teresa, RN RN ttb Javon Welch mm15 The chart was reviewed and I authenticate all verbal orders and agree with the evaluation and treatment provided.Attachments: 11:42 [facility] Payment Agreement mm15 14:19 T-Sheet-- Draft Copy gb Chart Complete [facility]
--- NOTE | 2016-08-21 14:16 | EDDOCDS ---
Nurse's Notes [facility] Name: Manuel Christina Age: 76 yrs Sex: Male : 1940 Arrival Date: 08/19/2016 Time: 08:21 Bed 17 Private MD: Fredy Suárez Diagnosis: Unspecified injury of head;Abrasion of forearm Presentation: 08/19 08:28 Presenting complaint: Patient states: Fell at 630AM today, pain to left shoulder and dwg hip, also hit left side of head, on Plavix. Presenting complaint: Patient states: No LOC. Adult Sepsis Screening: The patient does not have new or worsening altered mentation. Patient's respiratory rate is less than 22. Systolic blood pressure is greater than 100. Patient has a qSOFA score of 0- Negative Sepsis Screen. Suicide/Homicide risk assessment- the patient denies having any suicidal and/or homicidal ideations and does not present with any other emotional, behavioral or mental health complaints. 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 Transition of care: patient was not received from another setting of care. Red Flag criteria, patient assessed and taken directly to a bed. 08:28 Acuity: IGGY Level 2 dwg 08:28 Method Of Arrival: Wheelchair dwg Triage Assessment: 08:35 General: Appears in no apparent distress. Pain: Pain currently is 8 out of 10 on a pain dwg scale. Historical: - Allergies: Ciprofloxacin; moxifloxacin; Levofloxacin; Oxycodone HCl; - Home Meds: 1. aspirin 81 mg Oral chew 1 tab once daily (Last dose: 08/19/2016) 2. finasteride 1 mg oral tab 1 tab once daily (Last dose: 08/18/2016) 3. Flomax 0.4 mg Oral cp24 2 caps once daily (Last dose: 08/19/2016) 4. Lipitor 40 mg Oral tab 1 tab once daily (Last dose: 08/18/2016) 5. multivitamin Oral tab daily (Last dose: 08/19/2016) 6. Plavix 75 mg Oral tab 1 tab once daily (Last dose: 08/18/2016) 7. tramadol 100 mg oral TM24 tid (Last dose: 08/19/2016) - PMHx: BPH; Hypercholesterolemia; Hypertension; - PSHx: Aortic valve replacent 2016; Pacemaker insertion 2016; CABG; Bilateral carotid endarderectomy; Right femur repair; Left shoulder replacement; - Social history: Smoking status: Patient states former smoker of tobacco. No barriers to communication noted, The patient speaks fluent Frisian. - Family history: Not pertinent. - : The pt / caregiver states he / she is on anticoagulants: Plavix. Home medication list is obtained from the patient. - Exposure Risk Screening:: None identified. Screenin:50 Screening information is obtained from the patient. Fall risk: No risks identified. pml Assistance ADL's: requires no assistance with activities of daily living. Abuse/DV Screen: The patient / caregiver reports he/she is: not in a situation that causes fear, pain or injury. Nutritional screening: No deficits noted. Advance Directives: Currently, there is no health care proxy. home support is adequate. Assessment: 08:50 General: Appears in no apparent distress, comfortable, Behavior is appropriate for age, pml cooperative. Pain: Location: anterior aspect of left shoulder Pain currently is 8 out of 10 on a pain scale. Neurological: Level of Consciousness is awake, alert, Oriented to person, place, time. Neurological: Denies blurred vision dizziness. Neurological: Speech is normal, Pupils are PERRLA. Cardiovascular: Capillary refill < 3 seconds. Respiratory: Airway is patent Respiratory effort is even, unlabored. GI: Abdomen is non- distended. Derm: Skin is pink, warm & dry. Musculoskeletal: Circulation, motion, and sensation intact Capillary refill < 3 seconds. Injury Description: Laceration sustained to palmar aspect of left forearm is jagged, superficial, 2.6 to 7.5 cm long, not bleeding, skin tears is bleeding a small amount. 09:54 General: resting on stretcher, resps easy and unlabored, skin p/w/d. pml 10:37 General: Appears in no apparent distress, comfortable, Behavior is appropriate for age, pml cooperative. Pain: Location: anterior aspect of left shoulder Pain currently is 5 out of 10 on a pain scale. Neurological: Level of Consciousness is awake, alert, Oriented to person, place, time. Cardiovascular: Capillary refill < 3 seconds. Respiratory: Airway is patent Respiratory effort is even, unlabored. Derm: Skin is pink, warm & dry. 11:06 General: pt to CT tolerated without complaints. . pml 11:30 General: report received from DANELLE Alan to continue care. Pt resting on stretcher ttb with family at bedside. NAD noted.. Pain: Location: left arm. Neurological: Level of Consciousness is awake, alert, Oriented to person, place, time, Speech is normal, Facial symmetry appears normal, Pupils are PERRLA. Cardiovascular: Heart tones S1 S2 present Chest pain is denied. Respiratory: Airway is patent Respiratory effort is even, unlabored, Respiratory pattern is regular, symmetrical, Breath sounds are clear bilaterally. Denies cough, shortness of breath. GI: Abdomen is non- distended. Derm: Skin is normal. Musculoskeletal: Range of motion limited in left shoulder. Injury Description: pt fell from standing Laceration sustained to left arm is superficial, not bleeding. 12:22 General: Appears ambulated approx 50 feet with cane and stand by assist, shuffling jjr gait, pt denies pain. 13:13 Reassessment: Patient appears in no apparent distress at this time. Patient states ttb feeling better. Patient states symptoms have improved. pt continues to complain of shoulder pain -- instructed on meds for today and to f/u with MD and pain clinic.. General: Appears in no apparent distress, comfortable, Behavior is appropriate for age, cooperative, pleasant, quiet. Neurological: Level of Consciousness is awake, alert, Oriented to person, place, time, Speech is normal. Cardiovascular: Chest pain is denied. Respiratory: No deficits noted. Airway is patent Respiratory effort is even, unlabored. Vital Signs: 08:35 BP 133 / 73; Pulse 61; Resp 16; Temp 97.4(T); Pulse Ox 94% on R/A; Weight 78.93 kg; dwg Height 5 ft. 10 in. (177.80 cm); Pain 8/10; 08:49 BP 127 / 60 (auto/); pml 08:50 Pulse Ox 92% ; pml 09:49 Pulse Ox 94% ; pml 09:49 BP 127 / 63 (auto/); pml 10:04 Pulse Ox 95% ; pml 10:04 BP 125 / 71 (auto/); pml 10:19 Pulse Ox 97% ; pml 10:19 BP 143 / 68 (auto/); pml 10:34 Pulse Ox 98% ; pml 10:34 BP 140 / 71 (auto/); pml 13:13 BP 138 / 72; Pulse 65; Resp 18; Temp 97.0; Pulse Ox 95% on R/A; Pain 4/10; ttb 08:35 Body Mass Index 24.97 (78.93 kg, 177.80 cm) [facility] Vitals: 08:35 Log In Time: August 19, 2016 at 08:20. [facility] ED Course: 08:22 Patient visited by Javon Welch. mm15 08:22 Fredy Suárez MD is Private Physician. mm15 08:22 Patient moved to Waiting mm15 08:27 Patient moved to Triage 1 dwg 08:31 Triage Initiated dwg 08:37 Patient moved to 17 dwg 08:47 Stanford Redmond MD is Attending Physician. br1 08:50 The patient / caregiver is instructed regarding the plan of care and ED course. Patient pml has correct armband on for positive identification. Placed in gown. Bed in low position. Call light in reach. Side rails up X2. 08:52 Patient visited by Dayanna Rueda RN. pml 09:15 Patient visited by Stanford Redmond MD. br1 09:45 CT Head Without Contrast Returned. EDMS 09:55 Patient visited by Dayanna Rueda RN. pml 10:30 CT Head Without Contrast Returned. EDMS 10:30 CT Spine,Cervical W/o Contrast Returned. EDMS 11:06 Patient visited by Dayanna Rueda RN. pml 11:17 Shoulder, Complete Returned. EDMS 11:17 Forearm (radius/ulna) Returned. EDMS 11:30 Inserted peripheral IV: 20gauge IV in left forearm. Labs drawn. (by ED staff). ttb 11:33 Patient visited by Emely Kate RN. ttb 11:42 [facility] Payment Agreement was scanned into [employer] and attached to record. mm15 12:05 CT ABD & PELVIS: IV Contrast Only Returned. EDMS 12:22 Patient visited by Rita Banks RN. jjr 12:54 Patient visited by Stanford Redmond MD. br1 12:55 Fredy Suárez MD is Referral Physician. br1 13:02 Patient visited by Emely Kate RN. ttb 13:02 Discontinued IV lock intact, bleeding controlled, pressure dressing applied, No ttb redness/swelling at site. No procedures done that require assistance. 13:15 Patient visited by Emely Kate RN. ttb 14:19 T-Sheet-- Draft Copy was scanned into [employer] and attached to record. gb 14:19 Radiology Report was scanned into [employer] and attached to record. gb 15:30 Shoulder, Complete Returned. EDMS 15:30 Forearm (radius/ulna) Returned. EDMS 16:26 Rib Unilat W/PA Chest Only Returned. EDMS 17:23 Hip,AP,LAT to include Pelvis Returned. EDMS 08/20 22:57 Elbow, Complete Returned. EDMS Administered Medications: 08/19 09:51 Drug: morphine 2 mg [morphine 2 mg/mL intravenous cartridge (1 mL)] Route: IVP; Site: pml left hand; Order Results: Lab Order: CBC with Diff; SPEC'M 08/19/16 09:30 Test: WHITE BLOOD COUNT; Value: 9.5; Range: 4.0-10.0; Units: K/mm3; Status: F Test: RED BLOOD COUNT; Value: 4.87; Range: 4.30-6.10; Units: M/mm3; Status: F Test: HEMOGLOBIN; Value: 15.2; Range: 14.0-18.0; Units: g/dl; Status: F Test: HEMATOCRIT; Value: 47.6; Range: 42.0-52.0; Units: %; Status: F Test: MEAN CORPUSCULAR VOLUME; Value: 97.6; Range: 80.0-96.0; Abnormal: Above high normal; Units: fl; Status: F Test: MEAN CORPUSCULAR HEMOGLOBIN; Value: 31.2; Range: 27.0-33.0; Units: pg; Status: F Test: MEAN CORPUSCULAR HGB CONC; Value: 32.0; Range: 32.0-36.5; Units: g/dl; Status: F Test: RED CELL DISTRIBUTION WIDTH; Value: 13.9; Range: 11.5-14.5; Units: %; Status: F Test: PLATELET COUNT, AUTOMATED; Value: 169; Range: 150-450; Units: k/mm3; Status: F Test: NEUTROPHILS %; Value: 70.9; Range: 36.0-66.0; Abnormal: Above high normal; Units: %; Status: F Test: LYMPH %; Value: 12.9; Range: 24.0-44.0; Abnormal: Below low normal; Units: %; Status: F Test: MONO %; Value: 7.5; Range: 0.0-5.0; Abnormal: Above high normal; Units: %; Status: F Test: EOS %; Value: 5.9; Range: 0.0-3.0; Abnormal: Above high normal; Units: %; Status: F Test: BASO %; Value: 1.2; Range: 0.0-1.0; Abnormal: Above high normal; Units: %; Status: F Test: LARGE UNSTAINED CELL %; Value: 1.6; Range: 0.0-4.0; Units: %; Status: F Test: NEUTROPHILS #; Value: 6.7; Range: 1.8-7.7; Units: K/mm3; Status: F Test: LYMPH #; Value: 1.4; Range: 1.5-4.5; Abnormal: Below low normal; Units: K/mm3; Status: F Test: MONO #; Value: 0.7; Range: 0.0-0.8; Units: K/mm3; Status: F Test: EOS #; Value: 0.6; Range: 0.0-0.50; Abnormal: Above high normal; Units: K/mm3; Status: F Test: BASO #; Value: 0.1; Range: 0.0-0.2; Units: K/mm3; Status: F Test: LARGE UNSTAINED CELL #; Value: 0.2; Range: 0.0-0.4; Units: K/mm3; Status: F Lab Order: [facility]; SPEC'M 08/19/16 09:30 Test: GLUCOSE, FASTING; Value: 82; Range: 83-110; Abnormal: Below low normal; Units: MG/DL; Status: F Test: BLOOD UREA NITROGEN; Value: 16; Range: 7-18; Units: MG/DL; Status: F Test: CREATININE FOR GFR; Value: 0.66; Range: 0.70-1.30; Abnormal: Below low normal; Units: MG/DL; Status: F Test: GLOMERULAR FILTRATION RATE; Value: > 60.0; Range: >42; Status: F Test: SODIUM LEVEL; Value: 143; Range: 136-145; Units: MEQ/L; Status: F Test: POTASSIUM SERUM; Value: 4.5; Range: 3.5-5.1; Units: MEQ/L; Status: F Test: CHLORIDE LEVEL; Value: 105; Range: 98-107; Units: MEQ/L; Status: F Test: CARBON DIOXIDE LEVEL; Value: 32; Range: 21-32; Units: MEQ/L; Status: F Test: ANION GAP; Value: 6; Range: 8-16; Abnormal: Below low normal; Units: MEQ/L; Status: F Test: CALCIUM LEVEL; Value: 9.5; Range: 8.8-10.2; Units: MG/DL; Status: F Test Note: ; Units are mL/min/1.73 m2 Chronic Kidney Disease Staging per NKF: Stage I & II GFR >=60 Normal to Mildly Decreased Stage III GFR 30-59 Moderately Decreased Stage IV GFR 15-29 Severely Decreased Stage V GFR <15 Very Little GFR Left ESRD GFR <15 on PROBATION MANAGER Radiology Order: CT Head Without Contrast Test: CT Head Without Contrast REASON FOR EXAMINATION: Fall on Plavix; CT HEAD WITHOUT CONTRAST:; ; HISTORY: Trauma.; ; COMPARISON: 07/01/2016.; ; An area of decreased attenuation is present in the right basal ganglia. This; represents an old lacunar infarction. Areas of decreased attenuation are present; in the periventricular white matter. This represents small vessel ischemic; disease. There is no intraparenchymal hemorrhage, mass or midline shift. The; ventricular system and cortical sulci are dilated consistent with mild volume; loss. There is no extracerebral collection. There is no fracture. Mucosal; thickening is present in the ethmoid sinuses.; ; IMPRESSION:; ; 1. 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 Small vessel ischemic disease.; ; 3. Mild volume loss.; ; ; Signed by; Kj Bobby MD 08/19/2016 10:06 A; Radiology Order: CT Spine,Cervical W/o Contrast Test: CT Spine,Cervical W/o Contrast REASON FOR EXAMINATION: Trauma; CT CERVICAL SPINE WITHOUT CONTRAST:; ; HISTORY: Trauma.; ; There is no acute fracture or subluxation. The disc bulges are present at the; C3-4 and C4-5 levels. Disc bulges with associated osteophyte formation are; present at the C5-6 and C6-7 levels. There is minimal narrowing of the spinal; canal. Uncinate process and/or facet hypertrophy are present at the C2-3 through; C6-7 levels. These findings produce minimal to severe narrowing of the neural; foramina. The C2-3 through C6-7 intervertebral discs are decreased in height; consistent with disc degeneration. There is loss of the normal lordotic curve.; There is loss of the normal lordotic curve. The patient is status post stenting; of the right common internal carotid arteries.; ; IMPRESSION:; ; 1. There is no acute fracture or subluxation.; ; 2. There is cervical spondylosis at the C2-3 through C6-7 levels.; ; ; Signed by; Kj Bobby MD 08/19/2016 10:06 A; Radiology Order: Rib Unilat W/PA Chest Only Test: Rib Unilat W/PA Chest Only REASON FOR EXAMINATION: Trauma; Supine chest radiograph and supine left rib series 08/19/2016; ; Indication trauma; ; Comparison: Portable sitting chest radiograph 03/05/2016; ; Findings: Right atrial and ventricular pacer leads are again identified; satisfactory position. Intravascular stent is projected over the heart, possibly; within the aortic outflow tract. This represents interval change. There is; ectasia and tortuosity within the thoracic aorta. The lung swartz are clear; bilaterally. The left ribs are without acute fracture or displacement.; Deformity within the left fourth lateral rib is most compatible with an old; healed fracture.; ; There has been previous left total shoulder arthroplasty which is unchanged.; Visualized portions of the left clavicle and scapula are within normal limits.; Surgical clips are seen within the left lower neck.; ; Impression: ectatic tortuous thoracic aorta with atherosclerotic changes and; right atrial and ventricular pacer leads, unchanged . Intravascular stent. likely; within the aortic outflow tract.; ; Lungs are clear. If however there is any clinical concern for pneumothorax, then; consider upright chest radiograph.; ; Left ribs without acute fracture or displacement. Contour deformity in the left; 4th lateral rib most compatible with old healed fracture; ; ; Signed by; Patricia Coelho MD 08/19/2016 03:28 P; Radiology Order: Hip,AP,LAT to include Pelvis Test: Hip,AP,LAT to include Pelvis REASON FOR EXAMINATION: Trauma; Left hip series to include AP and frog-leg views left hip and AP pelvis; 08/19/2016; ; Comparison CT abdomen pelvis also performed 08/19/2016; ; Findings: The bony pelvic ring is intact. There is no pelvic diastases. The; left hip is without acute fracture or dislocation. There has been previous ORIF; of the right hip with three fixation screws. Alignment is anatomic.; ; Impression: Left hip without acute fracture dislocation. Bony pelvic ring is; intact. Previous ORIF of the right hip with three fixation screws; ; ; Signed by; Patricia Coelho MD 08/19/2016 04:24 P; Radiology Order: Shoulder, Complete Test: Shoulder, Complete REASON FOR EXAMINATION: Trauma; Left shoulder series: Four views.; ; History: Trauma.; ; Findings: Four views of the left shoulder demonstrate a left shoulder; arthroplasty in place. A dual lead pacemaker is noted on the left as well.; There are surgical clips in the soft tissues of the left neck. The prosthetic; shoulder joint and the AC joint are normally aligned. There is an area of; heterotopic bone formation at the inferior and medial aspect of the left shoulder; joint. This is visible on prior chest x-ray from February 2016.; ; Impression:; ; Left shoulder arthroplasty in place. Heterotopic bone formation adjacent to the; shoulder joint. No acute fracture.; ; ; Signed by; Rojas Pro MD 08/19/2016 02:39 P; Radiology Order: Elbow, Complete Test: Elbow, Complete REASON FOR EXAMINATION: Trauma; Four view left elbow series, ; ; Indication: Trauma; ; Findings: Left elbow is without acute fracture subluxation or dislocation.; Small amount of dystrophic calcifications/ chondrocalcinosis noted at elbow joint; . 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 No fracture or; subluxation is seen.; ; IMPRESSION: No fracture noted.; ; ; Signed by; Rojas Pro MD 08/19/2016 02:39 P; Radiology Order: CT ABD & PELVIS: IV Contrast Only Test: CT ABD & PELVIS: IV Contrast Only REASON FOR EXAMINATION: Trauma; CT study of the abdomen and pelvis with IV but without oral contrast:; ; History: Trauma. Comparison CT study is from August 01, 2014.; ; CT contrast dose: 100 ml of Isovue 370 is administered intravenously.; ; CT findings: Lung bases show mild fibrotic changes but are otherwise clear. No; pleural effusion is seen. The liver and the spleen are normal in size,; homogeneous in texture. There is a small accessory splenule noted in the left; upper quadrant unchanged. The gallbladder is unremarkable. No adrenal lesion is; seen. No pancreatic abnormality is observed. Normal caliber aorta is seen.; There is a cyst in the upper pole of the left kidney measuring 2.4 cm again noted; unchanged. There is minimal hydronephrosis affecting the right kidney unchanged; from the prior study. No hydronephrosis noted on the left. Small and large; intestinal bowel loops are normal in the abdomen. In the pelvis, there is left; colonic diverticulosis without CT evidence of diverticulitis. Dystrophic; calcifications are seen in the prostate. Urinary bladder is intact.; ; Bone window settings demonstrate osteoporosis. There is osteoporotic wedge; compression deformity at L3 unchanged from the August 01, 2014 prior study.; There is approximately 50% loss of anterior vertebral body height due to wedging; at T12. This is new from the July 2014 prior study although I do not see any; acute step-off or perivertebral swelling to suggest that this is an acute; fracture. No pelvic fracture seen or sacral fracture. There are pins in the; right hip. No hip fracture is appreciated.; ; Impression:; ; Diffuse osteopenia. Wedging at L3 which is old and at T12 which does not appear; to be acute although it is a change from July 2014 prior study. Small left; renal cyst noted. No other significant abnormality.; ; ; Signed by; Rojas Pro MD 08/19/2016 02:40 P; Outcome: 11:30 CT Study completed. ttb 12:57 Discharge ordered by Provider. br1 13:13 Discharge Assessment: Patient awake, alert and oriented x 3. No cognitive and/or ttb functional deficits noted. Patient verbalized understanding of disposition instructions. Patient awake and alert. patient administered narcotics - yes. Pt provided with safe discharge. The following High Risk Discharge criteria are identified: None. Discharged to home ambulatory, via wheelchair, with family, with significant other. Condition: good Condition: stable Condition: improved. Discharge instructions given to patient, family, significant other, Instructed on discharge instructions, follow up and referral plans. medication usage, wound care, safety practices, Demonstrated understanding of instructions, medications, wound care, safety, supplies given Pt was receptive of discharge instructions/ teaching. Property :Personal belongings accompany Pt. 13:15 Patient left the ED. ttb Signatures: Dispatcher [employer] Pradeep Basilio, RN RN Suzette Carvajal, Reg Stanford Holley MD MD br1 Rita Banks RN RN jjr Quay, Paulina, RN RN pml Conner, Teresa, RN RN ttb Javon Welch mm15 Chart Complete JENNIFER
--- NOTE | 2016-08-21 14:16 | EDDOCDS ---
Physician Documentation [facility] Name: Manuel Christina Age: 76 yrs Sex: Male : 1940 Arrival Date: 08/19/2016 Time: 08:21 Bed 17 Private MD: Fredy Suárez Disposition: 08/19/16 12:57 Discharged to Home/Self Care. Impression: Unspecified injury of head, Abrasion of forearm. - Condition is Stable. - Discharge Instructions: Head Injury, Adult, Skin Tear Care. - Medication Reconciliation, Local Pharmacy Hours form. - Follow up: Fredy Suárez MD; When: 2 - 3 days; Reason: Recheck today's complaints. - Problem is new. - Symptoms have improved. - Notes: You were seen in the ED for a fall. CT scan of the head and neck showed along with CT of the abdomen, Xray of the shoulder, elbow, forearm, ribs, and hip showed no other acute injuries. Keep the skin tears clean and dry with a clean dressing daily. Call your primary doctor to arrange to be seen this week for recheck in the office. Return to the ED for any new pain, worse pain, confusion, vomiting, or any other concerns. Historical: - Allergies: Ciprofloxacin; moxifloxacin; Levofloxacin; Oxycodone HCl; - Home Meds: 1. aspirin 81 mg Oral chew 1 tab once daily (Last dose: 08/19/2016) 2. finasteride 1 mg oral tab 1 tab once daily (Last dose: 08/18/2016) 3. Flomax 0.4 mg Oral cp24 2 caps once daily (Last dose: 08/19/2016) 4. Lipitor 40 mg Oral tab 1 tab once daily (Last dose: 08/18/2016) 5. multivitamin Oral tab daily (Last dose: 08/19/2016) 6. Plavix 75 mg Oral tab 1 tab once daily (Last dose: 08/18/2016) 7. tramadol 100 mg oral TM24 tid (Last dose: 08/19/2016) - PMHx: BPH; Hypercholesterolemia; Hypertension; - PSHx: Aortic valve replacent 2015; Pacemaker insertion 2015; CABG; Bilateral carotid endarderectomy; Right femur repair; Left shoulder replacement; - Social history: Smoking status: Patient states former smoker of tobacco. No barriers to communication noted, The patient speaks fluent Micronesian. - Family history: Not pertinent. - : The pt / caregiver states he / she is on anticoagulants: Plavix. Home medication list is obtained from the patient. - Exposure Risk Screening:: None identified. Vital Signs: 08/19 08:35 BP 133 / 73; Pulse 61; Resp 16; Temp 97.4(T); Pulse Ox 94% on R/A; Weight 78.93 kg / dwg 174.01 lbs; Height 5 ft. 10 in. (177.80 cm); Pain 8/10; 08:49 BP 127 / 60 (auto/); pml 08:50 Pulse Ox 92% ; pml 09:49 Pulse Ox 94% ; pml 09:49 BP 127 / 63 (auto/); pml 10:04 Pulse Ox 95% ; pml 10:04 BP 125 / 71 (auto/); pml 10:19 Pulse Ox 97% ; pml 10:19 BP 143 / 68 (auto/); pml 10:34 Pulse Ox 98% ; pml 10:34 BP 140 / 71 (auto/); pml 13:13 BP 138 / 72; Pulse 65; Resp 18; Temp 97.0; Pulse Ox 95% on R/A; Pain 4/10; ttb 08:35 Body Mass Index 24.97 (78.93 kg, 177.80 cm) dwg MDM: 08:41 CT Head Without Contrast Ordered. EDMS 08:42 CT Spine,Cervical W/o Contrast Ordered. EDMS 09:16 IV Saline Lock ordered. br1 09:17 Rib Unilat W/PA Chest Only Ordered. EDMS 09:17 Hip,AP,LAT to include Pelvis Ordered. EDMS 09:17 Shoulder, Complete Ordered. EDMS 09:17 morphine 2 mg IVP once ordered. br1 09:18 Misc. Nursing Order ordered. br1 09:18 CBC with Diff Ordered. EDMS 09:18 BMP Ordered. EDMS 09:18 Elbow, Complete Ordered. EDMS 09:18 Forearm (radius/ulna) Ordered. EDMS 09:18 CT ABD & PELVIS: IV Contrast Only Ordered. EDMS 10:09 CBC with Diff Reviewed. br1 10:09 CT Head Without Contrast Reviewed. br1 10:51 Financial registration complete. mm15 11:42 [facility] [place] Payment Agreement was scanned into [employer] (formerly [employer]) and attached to record. mm15 11:58 BMP Reviewed. br1 11:58 CT Head Without Contrast Reviewed. br1 11:58 CT Spine,Cervical W/o Contrast Reviewed. br1 11:58 Shoulder, Complete Reviewed. br1 11:58 Forearm (radius/ulna) Reviewed. br1 12:05 Ambulate Patient to Assess Patient Safety ordered. br1 14:19 T-Sheet-- Draft Copy was scanned into [employer] (formerly [employer]) and attached to record. gb 14:19 Radiology Report was scanned into [employer] (formerly [employer]) and attached to record. gb Administered Medications: 09:51 Drug: morphine 2 mg [morphine 2 mg/mL intravenous cartridge (1 mL)] Route: IVP; Site: [facility] left hand; Signatures: Dispatcher [employer] EDMS Pradeep Avalos RN RN dwg Barnhardt, Gloria, Reg Reg gb Stanford Redmond MD MD br1 Dayanna Rueda RN RN pml Conner, Teresa, RN RN ttb Javon Welch mm15 The chart was reviewed and I authenticate all verbal orders and agree with the evaluation and treatment provided.Attachments: 11:42 [facility] Payment Agreement mm15 14:19 T-Sheet-- Draft Copy gb Chart Complete [facility]
== END 2016-08-19 13:15 | disposition home or self-care (01) ==
LOC: M ED 08:21
DX: S09.90XA Unspecified injury of head, initial encounter (principal); S50.812A Abrasion of left forearm, initial encounter; W06.XXXA Fall from bed, initial encounter; Y92.013 Bedroom of single-family (private) house as the place of occurrence of the external cause; Y93.89 Activity, other specified; I10 Essential (primary) hypertension; E78.00 Pure hypercholesterolemia, unspecified; N40.0 Benign prostatic hyperplasia without lower urinary tract symptoms; Z87.891 Personal history of nicotine dependence; Z95.1 Presence of aortocoronary bypass graft; Z95.0 Presence of cardiac pacemaker; Z79.899 Other long term (current) drug therapy; Z79.82 Long term (current) use of aspirin; Z79.01 Long term (current) use of anticoagulants; Z88.1 Allergy status to other antibiotic agents; Z88.5 Allergy status to narcotic agent
CPT/HCPCS: 36415; 70450; 71101; 72125; 73030; 73080; 73090; 73502; 74177; 80048; 85025; 96374; 99284; Q9967

== ENCOUNTER 2016-08-24 09:05 | Emergency (ER) | payer MEDICARE ==
[2016-08-24 09:55] LABS: BASO % 0.4 % (0.0-1.0); EOS # 0.6 K/mm3 (0.0-0.50); EOS % 8.3 % (0.0-3.0); LARGE UNSTAINED CELL # 0.1 K/mm3 (0.0-0.4); LARGE UNSTAINED CELL % 2.1 % (0.0-4.0); LYMPH # 1.1 K/mm3 (1.5-4.5); LYMPH % 16.1 % (24.0-44.0); MEAN CORPUSCULAR HEMOGLOBIN 32.3 pg (27.0-33.0); MEAN CORPUSCULAR HGB CONC 33.8 g/dl (32.0-36.5); MEAN CORPUSCULAR VOLUME 95.6 fl (80.0-96.0); MONO # 0.4 K/mm3 (0.0-0.8); MONO % 6.4 % (0.0-5.0); NEUTROPHILS # 4.5 K/mm3 (1.8-7.7); NEUTROPHILS % 66.7 % (36.0-66.0); PLATELET COUNT, AUTOMATED 186 k/mm3 (150-450); WHITE BLOOD COUNT 6.7 K/mm3 (4.0-10.0)
[2016-08-24] MEDS ORDERED: ISOVUE-370 76% 100ML VIAL (Q9967) As Ordered ONE (10:05)
[2016-08-24 10:28] LABS: ANION GAP 6 MEQ/L (8-16); BLOOD UREA NITROGEN 13 MG/DL (7-18); CALCIUM LEVEL 9.4 MG/DL (8.8-10.2); CARBON DIOXIDE LEVEL 32 MEQ/L (21-32); CHLORIDE LEVEL 105 MEQ/L (98-107); CREATININE FOR GFR 0.78 MG/DL (0.70-1.30); GLOMERULAR FILTRATION RATE > 60.0 (>42); GLUCOSE, FASTING 84 MG/DL (83-110); POTASSIUM SERUM 4.1 MEQ/L (3.5-5.1); SODIUM LEVEL 143 MEQ/L (136-145)
--- NOTE | 2016-08-24 10:56 | REP ---
Chest x-ray: Two views. History: Shortness of breath. Comparison chest x-ray is from August 19, 2016. A bipolar pacemaker is seen in place. There is a stent graft device in the aortic root at the level of the aortic valve suggesting aortic valve replacement. Heart is not enlarged. The aorta is calcific and tortuous as before. There is no evidence of pneumothorax or hydrothorax. Lung swartz are clear. Pleural angles are sharp. A prosthetic shoulder joint is noted on the left. There are clips in the soft tissues of the left neck. Impression: No active disease. The patient is status post aortic root stent graft versus aortic valve replacement. Pacemaker. Signed by Rojas Pro MD 08/24/2016 06:34 P
--- NOTE | 2016-08-24 10:56 | REP ---
CT ANGIO CHEST: HISTORY: Shortness of breath. CONTRAST: Isovue 370, 75 mL. There are no filling defects in the main , right and left pulmonary arteries or their branches. Calcified granuloma are present in the lungs. There is no pleural effusion. Calcified lymph nodes are present in the mediastinum. The patient is status post aortic valve replacement . Atherosclerotic calcification is present in the thoracic aorta. There is aneurysmal dilatation of the thoracic aorta measuring 3.5 cm. IMPRESSION: 1. There is no pulmonary embolism. 2. Old granulomatous disease. 3. There is aneurysmal dilatation of the thoracic aorta measuring 3.5 cm. Signed by Kj Bobby MD 08/24/2016 10:57 A
--- NOTE | 2016-08-24 12:02 | EDDOCDS ---
Physician Documentation [facility] Name: Manuel Christina Age: 76 yrs Sex: Male : 1940 Arrival Date: 08/24/2016 Time: 09:05 Bed 9 Private MD: Fredy Suárez Disposition: 08/24/16 11:27 Discharged to Home/Self Care. Impression: Acute combined systolic (congestive) and diastolic (congestive) heart failure, Shortness of breath. - Condition is Stable. - Discharge Instructions: Heart Failure, Shortness of Breath, [id number]. - Prescriptions for Lasix 20 mg Oral Tablet - take 1 tablet by ORAL route once daily; 10 tablet. Potassium Chloride 10 mEq Oral Capsule, Sustained Release - take 1 tablet by ORAL route once daily; 10 tablet. - Medication Reconciliation, Local Pharmacy Hours form. - Follow up: Raghu Orellana; When: Call to arrange an appointment; Reason: Further diagnostic work-up, Recheck today's complaints, Continuance of care. - Problem is new. - Symptoms are unchanged. Historical: - Allergies: Ciprofloxacin; Levofloxacin; moxifloxacin; Oxycodone HCl; - Home Meds: 1. aspirin 81 mg Oral chew 1 tab once daily 2. finasteride 1 mg oral tab 1 tab once daily 3. Flomax 0.4 mg Oral cp24 2 caps once daily 4. Lipitor 40 mg Oral tab 1 tab once daily 5. multivitamin Oral tab daily 6. Plavix 75 mg Oral tab 1 tab once daily 7. tramadol 100 mg Oral tab tid - PMHx: BPH; Hypercholesterolemia; Hypertension; - PSHx: Aortic valve replacent 2015; Pacemaker insertion 2015; CABG; Bilateral carotid endarderectomy; Right femur repair; Left shoulder replacement; - Social history: Smoking status: Patient states former smoker of tobacco. No barriers to communication noted, The patient speaks fluent Telugu. - Family history: Not pertinent. - : The pt / caregiver states he / she is on anticoagulants: Plavix. Home medication list is obtained from the patient, family members. - Exposure Risk Screening:: None identified. Vital Signs: 08/24 09:14 BP 116 / 60; Pulse 62; Resp 18; Temp 96.9; Pulse Ox 96% on R/A; Weight 77.11 kg / 170 mcp lbs; Height 5 ft. 9 in. (175.26 cm); Pain 810; 09:40 BP 145 / 71 (auto/); dsf 09:42 Pulse 70 MON; Pulse Ox 92% ; dsf 09:55 BP 134 / 62 (auto/); dsf 09:56 Pulse 68 MON; Pulse Ox 95% ; dsf 10:10 BP 144 / 68 (auto/); dsf 10:10 Pulse 66 MON; Pulse Ox 96% ; dsf 10:25 BP 166 / 80 (auto/); dsf 10:25 Pulse 70 MON; Pulse Ox 99% ; dsf 10:40 BP 150 / 81 (auto/); dsf 10:40 Pulse 66 MON; Pulse Ox 96% ; dsf 11:43 BP 143 / 100 RA Supine (auto/reg); Pulse 67; Resp 18; Temp 96.7; Pulse Ox 97% on 2 lpm jrd NC; Pain 8; 09:14 Body Mass Index 25.10 (77.11 kg, 175.26 cm) mcp MDM: 09:29 Financial registration complete. lg 09:32 -Blood Culture (Adults Only), peripheral from different site, or from device/port/PICC btw etc. if present ordered. 09:32 Improvement Coordinator/Pulse Ox/q 15 min VS ordered. btw 09:32 IV Saline Lock ordered. btw 09:32 Oxygen at 4L/Min NC or Home dosage ordered. btw 09:32 Rhythm Strip to chart ordered. btw 09:33 -Blood Culture Ordered. EDMS 09:33 B-Type Natiuretic Peptide Ordered. EDMS 09:33 Basic Metabolic Profile Ordered. EDMS 09:33 CBC with Diff Ordered. EDMS 09:33 Cardiac Injury Profile Ordered. EDMS 09:33 D-Dimer Quant Ordered. EDMS 09:33 Troponin Ordered. EDMS 09:34 Chest, 2 View (pa\E\lat) Ordered. EDMS 09:34 ECG WITH READING ER PHYS+CARDIAG ordered. EDMS 09:34 [facility] Payment Agreement was scanned into [employer] and attached to record. lg 09:38 -Blood Culture (Adults Only), peripheral from different site, or from device/port/PICC lbd etc. if present complete. 09:41 BLOOD CULTURES Ordered. EDMS 09:47 CT Chest Angio R/O PE Ordered. EDMS 10:02 CBC with Diff Reviewed. btw 10:20 B-Type Natiuretic Peptide Reviewed. btw 10:20 D-Dimer Quant Reviewed. btw 10:52 Basic Metabolic Profile Reviewed. btw 10:52 Cardiac Injury Profile Reviewed. btw 10:52 Troponin Reviewed. btw 11:08 Chest, 2 View (pa\E\lat) Reviewed. btw 11:08 CT Chest Angio R/O PE Reviewed. btw Signatures: Dispatcher [employer] EDMS Priscilla Pritchett, Upsetter Unit lbd Ricarda Vaughan, RN RN Maurice Moreno, Reg Reg lg Alfonso Arreguin PA PA btw Jacqueline Manuel RN RN dsf The chart was reviewed and I authenticate all verbal orders and agree with the evaluation and treatment provided.Attachments: 09:34 [facility] Payment Agreement lg MTDD
--- NOTE | 2016-08-24 12:02 | EDDOCDS ---
Nurse's Notes [facility] Name: Manuel Christina Age: 76 yrs Sex: Male : 1940 Arrival Date: 08/24/2016 Time: 09:05 Bed 9 Private MD: Fredy Suárez Diagnosis: Acute combined systolic (congestive) and diastolic (congestive) heart failure;Shortness of breath Presentation: 08/24 09:10 Presenting complaint: Patient states: Was seen here Monday after falling--xrays mcp negative per . Left arm and hand swollen--yellow ring removed from left ring finger and given to . Open areas on elbow with gauze dressings dry and intact. also states pt having difficulty taking deep breath--resp unlabored in triage. Adult Sepsis Screening: The patient does not have new or worsening altered mentation. Patient's respiratory rate is less than 22. Systolic blood pressure is greater than 100. Patient has a qSOFA score of 0- Negative Sepsis Screen. Suicide/Homicide risk assessment- the patient denies having any suicidal and/or homicidal ideations and does not present with any other emotional, behavioral or mental health complaints. Status: Patient is not a customer service dispatcher or dependent. Transition of care: patient was not received from another setting of care. 09:10 Acuity: IGGY Level 4 [facility] 09:10 Method Of Arrival: Wheelchair [facility] 09:32 Acuity level changed due to complexity of care. [facility] 09:32 Acuity: IGGY Level 3 [facility] Triage Assessment: 09:16 General: Appears uncomfortable, Behavior is cooperative. Pain: Location: left arm Pain [facility] currently is 8 out of 10 on a pain scale. Neurological: No deficits noted. Respiratory: Airway is patent Respiratory effort is even, unlabored. Derm: Skin is pink, warm & dry. Bruising that is dark purple, on left hand and left arm. Musculoskeletal: Circulation, motion, and sensation intact Swelling present in left hand and left arm. Historical: - Allergies: Ciprofloxacin; Levofloxacin; moxifloxacin; Oxycodone HCl; - Home Meds: 1. aspirin 81 mg Oral chew 1 tab once daily 2. finasteride 1 mg oral tab 1 tab once daily 3. Flomax 0.4 mg Oral cp24 2 caps once daily 4. Lipitor 40 mg Oral tab 1 tab once daily 5. multivitamin Oral tab daily 6. Plavix 75 mg Oral tab 1 tab once daily 7. tramadol 100 mg Oral tab tid - PMHx: BPH; Hypercholesterolemia; Hypertension; - PSHx: Aortic valve replacent 2015; Pacemaker insertion 2016; CABG; Bilateral carotid endarderectomy; Right femur repair; Left shoulder replacement; - Social history: Smoking status: Patient states former smoker of tobacco. No barriers to communication noted, The patient speaks fluent Sinhala. - Family history: Not pertinent. - : The pt / caregiver states he / she is on anticoagulants: Plavix. Home medication list is obtained from the patient, family members. - Exposure Risk Screening:: None identified. Screenin:41 Screening information is obtained from the patient. Fall risk: No risks identified. dsf Assistance ADL's: requires no assistance with activities of daily living. Abuse/DV Screen: The patient / caregiver reports he/she is: not in a situation that causes fear, pain or injury. Nutritional screening: No deficits noted. Advance Directives: Currently, there is no health care proxy. home support is adequate. Assessment: 09:41 Adult Sepsis Screening: The patient does not have new or worsening altered mentation. dsf Patient's respiratory rate is less than 22. Systolic blood pressure is greater than 100. Patient has a qSOFA score of 0- Negative Sepsis Screen. General: Appears in no apparent distress, comfortable, Behavior is appropriate for age, cooperative. Pain: Location: left hand and left arm Pain currently is 7 out of 10 on a pain scale. Quality of pain is described as "cant describe it". Neurological: Level of Consciousness is awake, alert, Oriented to person, place, time. Cardiovascular: Capillary refill < 3 seconds Heart tones S1 S2 present. Respiratory: Airway is patent Respiratory effort is even, unlabored, Respiratory pattern is regular, symmetrical, Breath sounds are clear bilaterally. Denies shortness of breath pain with respiration. GI: Abdomen is non- distended Bowel sounds present X 4 quads. Abd is soft X 4 quads Abd is tender to palpation in right lower quadrant. Derm: Skin is pink, warm & dry. left hand swollen. 10:41 General: Appears in no apparent distress, comfortable, Behavior is appropriate for age, dsf cooperative. Pain: Location: left hand and left arm Pain currently is 7 out of 10 on a pain scale. Quality of pain is described as "cant describe". Neurological: Level of Consciousness is awake, alert, Oriented to person, place, time. Cardiovascular: Capillary refill < 3 seconds Rhythm is sinus rhythm No ectopy. Respiratory: Airway is patent Respiratory effort is even, unlabored, Respiratory pattern is regular, symmetrical. Derm: Skin is pink, warm & dry. 11:41 Adult Sepsis Screening: The patient does not have new or worsening altered mentation. dsf Patient's respiratory rate is less than 22. Systolic blood pressure is greater than 100. Patient has a qSOFA score of 0- Negative Sepsis Screen. General: Appears in no apparent distress, Behavior is appropriate for age, cooperative. Neurological: Level of Consciousness is awake, alert, Oriented to person, place, time. Cardiovascular: Capillary refill < 3 seconds Heart tones S1 S2 present Rhythm is sinus rhythm No ectopy. Respiratory: Airway is patent Respiratory effort is even, unlabored, Respiratory pattern is regular, symmetrical, Breath sounds are clear bilaterally. Derm: Skin is pink, warm & dry. 12:00 General: Appears in no apparent distress, comfortable, Behavior is appropriate for age, dsf cooperative. Neurological: Level of Consciousness is awake, alert. Cardiovascular: Capillary refill < 3 seconds. Respiratory: Airway is patent Respiratory effort is even, unlabored, Respiratory pattern is regular, symmetrical. Derm: Skin is pink, warm & dry. Vital Signs: 09:14 BP 116 / 60; Pulse 62; Resp 18; Temp 96.9; Pulse Ox 96% on R/A; Weight 77.11 kg; Height mcp 5 ft. 9 in. (175.26 cm); Pain 8/10; 09:40 BP 145 / 71 (auto/); dsf 09:42 Pulse 70 MON; Pulse Ox 92% ; dsf 09:55 BP 134 / 62 (auto/); dsf 09:56 Pulse 68 MON; Pulse Ox 95% ; dsf 10:10 BP 144 / 68 (auto/); dsf 10:10 Pulse 66 MON; Pulse Ox 96% ; dsf 10:25 BP 166 / 80 (auto/); dsf 10:25 Pulse 70 MON; Pulse Ox 99% ; dsf 10:40 BP 150 / 81 (auto/); dsf 10:40 Pulse 66 MON; Pulse Ox 96% ; dsf 11:43 BP 143 / 100 RA Supine (auto/reg); Pulse 67; Resp 18; Temp 96.7; Pulse Ox 97% on 2 lpm jrd NC; Pain 8/10; 09:14 Body Mass Index 25.10 (77.11 kg, 175.26 cm) [facility] Vitals: 09:14 Log In Time: August 24, 2016 at 09:00. [facility] ED Course: 09:06 Patient visited by Javon Welch. mm15 09:06 Patient moved to Waiting mm15 09:07 Fredy Suárez MD is Private Physician. mm15 09:10 Patient moved to Triage 1 mcp 09:13 Triage Initiated mcp 09:17 Patient visited by Ricarda Vaughan, DANELLE. mcp 09:26 Alfonso Arreguin PA is PHCP. btw 09:26 Grei Manzo MD is Attending Physician. btw 09:26 Patient visited by Alfonso Arreguin PA. btw 09:32 Kiera Herron,DANELLE is Primary Nurse. ead 09:32 Patient moved to 9 ead 09:34 [facility] Payment Agreement was scanned into [employer] and attached to record. lg 09:43 Pt greeted and oriented to ED. Patient advised of names of staff involved in care, bnb location of call deng, wait times and NPO status. Patient has correct armband on for positive identification. Placed in gown. Bed in low position. Call light in reach. Side rails up X2. system manager on. Pulse ox on. NIBP on. 09:43 EKG done. (by ED staff). Reviewed by Alfonso WILLSON. bnb 09:44 Patient visited by Ely Patton PCA. bnb 09:45 Patient visited by Jacqueline Manuel RN. dsf 09:51 -Blood Culture Sent. dsf 09:51 B-Type Natiuretic Peptide Sent. dsf 09:51 Basic Metabolic Profile Sent. dsf 09:51 CBC with Diff Sent. dsf 09:51 Cardiac Injury Profile Sent. dsf 09:51 D-Dimer Quant Sent. dsf 09:51 Troponin Sent. dsf 09:51 Inserted saline lock: 20 gauge in right antecubital area The patient tolerated the dsf procedure well. started by Meka MCCLENDON. 09:53 O2 via nasal cannula \\T\\ 3L/min. dsf 10:02 Patient visited by Ely Patton PCA. bnb 10:02 BLOOD CULTURES Sent. bnb 10:02 Labs drawn. (by ED staff). Sent per order to lab. Labs/Blood culture drawn. bnb 10:41 The patient / caregiver is instructed regarding the plan of care and ED course. dsf 10:53 Patient visited by Jacqueline Manuel RN. dsf 11:04 CT Chest Angio R/O PE Returned. EDMS 11:04 Chest, 2 View (pa\\E\\lat) Returned. EDMS 11:26 Raghu Orellana is Referral Physician. btw 11:43 Patient visited by Lance Gaona PCA. jrd 11:52 CT Chest Angio R/O PE Returned. EDMS 11:58 Discontinued lock intact, bleeding controlled, pressure dressing applied, No dsf redness/swelling at site. No procedures done that require assistance. Output: 10:58 Urine: 150.00ml (Voided); Total: 150.00ml. dsf Order Results: Lab Order: B-Type Natiuretic Peptide; SPEC'M 08/24/16 09:38 Test: BRAIN NATRIURETIC PEPTIDE; Value: 237; Range: <100; Abnormal: Above high normal; Units: PG/ML; Status: F Lab Order: Basic Metabolic Profile; SPEC'M 08/24/16 09:38 Test: GLUCOSE, FASTING; Value: 84; Range: 83-110; Units: MG/DL; Status: F Test: BLOOD UREA NITROGEN; Value: 13; Range: 7-18; Units: MG/DL; Status: F Test: CREATININE FOR GFR; Value: 0.78; Range: 0.70-1.30; Units: MG/DL; Status: F Test: GLOMERULAR FILTRATION RATE; Value: > 60.0; Range: >42; Status: F Test: SODIUM LEVEL; Value: 143; Range: 136-145; Units: MEQ/L; Status: F Test: POTASSIUM SERUM; Value: 4.1; Range: 3.5-5.1; Units: MEQ/L; Status: F Test: CHLORIDE LEVEL; Value: 105; Range: 98-107; Units: MEQ/L; Status: F Test: CARBON DIOXIDE LEVEL; Value: 32; Range: 21-32; Units: MEQ/L; Status: F Test: ANION GAP; Value: 6; Range: 8-16; Abnormal: Below low normal; Units: MEQ/L; Status: F Test: CALCIUM LEVEL; Value: 9.4; Range: 8.8-10.2; Units: MG/DL; Status: F Test Note: ; Units are mL/min/1.73 m2 Chronic Kidney Disease Staging per NKF: Stage I & II GFR >=60 Normal to Mildly Decreased Stage III GFR 30-59 Moderately Decreased Stage IV GFR 15-29 Severely Decreased Stage V GFR <15 Very Little GFR Left ESRD GFR <15 on DEBURRING MACHINE OPERATOR Lab Order: CBC with Diff; SPEC'M 08/24/16 09:38 Test: WHITE BLOOD COUNT; Value: 6.7; Range: 4.0-10.0; Units: K/mm3; Status: F Test: RED BLOOD COUNT; Value: 4.81; Range: 4.30-6.10; Units: M/mm3; Status: F Test: HEMOGLOBIN; Value: 15.6; Range: 14.0-18.0; Units: g/dl; Status: F Test: HEMATOCRIT; Value: 46.0; Range: 42.0-52.0; Units: %; Status: F Test: MEAN CORPUSCULAR VOLUME; Value: 95.6; Range: 80.0-96.0; Units: fl; Status: F Test: MEAN CORPUSCULAR HEMOGLOBIN; Value: 32.3; Range: 27.0-33.0; Units: pg; Status: F Test: MEAN CORPUSCULAR HGB CONC; Value: 33.8; Range: 32.0-36.5; Units: g/dl; Status: F Test: RED CELL DISTRIBUTION WIDTH; Value: 13.0; Range: 11.5-14.5; Units: %; Status: F Test: PLATELET COUNT, AUTOMATED; Value: 186; Range: 150-450; Units: k/mm3; Status: F Test: NEUTROPHILS %; Value: 66.7; Range: 36.0-66.0; Abnormal: Above high normal; Units: %; Status: F Test: LYMPH %; Value: 16.1; Range: 24.0-44.0; Abnormal: Below low normal; Units: %; Status: F Test: MONO %; Value: 6.4; Range: 0.0-5.0; Abnormal: Above high normal; Units: %; Status: F Test: EOS %; Value: 8.3; Range: 0.0-3.0; Abnormal: Above high normal; Units: %; Status: F Test: BASO %; Value: 0.4; Range: 0.0-1.0; Units: %; Status: F Test: LARGE UNSTAINED CELL %; Value: 2.1; Range: 0.0-4.0; Units: %; Status: F Test: NEUTROPHILS #; Value: 4.5; Range: 1.8-7.7; Units: K/mm3; Status: F Test: LYMPH #; Value: 1.1; Range: 1.5-4.5; Abnormal: Below low normal; Units: K/mm3; Status: F Test: MONO #; Value: 0.4; Range: 0.0-0.8; Units: K/mm3; Status: F Test: EOS #; Value: 0.6; Range: 0.0-0.50; Abnormal: Above high normal; Units: K/mm3; Status: F Test: BASO #; Value: 0.0; Range: 0.0-0.2; Units: K/mm3; Status: F Test: LARGE UNSTAINED CELL #; Value: 0.1; Range: 0.0-0.4; Units: K/mm3; Status: F Lab Order: Cardiac Injury Profile; SPEC'M 08/24/16 09:38 Test: CPK CREATINE PHOSPHOKINASE; Value: 32; Range: 39-308; Abnormal: Below low normal; Units: U/L; Status: F Test: CK-MB VALUE MASS; Value: 1.3; Range: 0.0-3.6; Units: NG/ML; Status: F Test: MB/CK RELATIVE INDEX; Value: 4.06; Range: < OR =4; Abnormal: Above high normal; Status: F Test Note: ; DIAGNOSIS CRITERIA MMB ng/ml Relative Index (RI) NON-AMI < or = 5 N/A MARIE ZONE > 5 < or = 4 AMI > 5 > 4 Lab Order: D-Dimer Quant; SPEC'M 08/24/16 09:38 Test: D-DIMER QUANT; Value: 1123.2; Range: <500; Abnormal: Above high normal; Units: ng/ml; Status: F Lab Order: Troponin; SPEC'M 08/24/16 09:38 Test: TROPONIN I; Value: < 0.02; Range: < 0.10; Units: NG/ML; Status: F Test Note: ; Troponin I Reference Interval for [employer] LOCI: 99th Percentile= 0.00-0.045 ng/ml Risk Stratification: <= 0.10 ng/ml Decreased Risk for Adverse Clinical Events. 0.10-1.50 ng/ml Increased Risk for Adverse Clinical Events. Evaluation of additional criterion and/or repeat testing in 2-6 hours is suggested to rule out myocardial damage. >= 1.50 ng/ml Indicative of Myocardial Injury. Radiology Order: Chest, 2 View (pa\\E\\lat) Test: Chest, 2 View (pa\\E\\lat) REASON FOR EXAMINATION: Shortness of Breath; Chest x-ray: Two views.; ; History: Shortness of breath.; ; Comparison chest x-ray is from August 19, 2016. A bipolar pacemaker is seen in; place. There is a stent graft device in the aortic root at the level of the; aortic valve suggesting aortic valve replacement. Heart is not enlarged. The; aorta is calcific and tortuous as before. There is no evidence of pneumothorax; or hydrothorax. Lung swartz are clear. Pleural angles are sharp. A prosthetic; shoulder joint is noted on the left. There are clips in the soft tissues of the; left neck.; ; Impression:; ; No active disease. The patient is status post aortic root stent graft versus; aortic valve replacement. Pacemaker.; ; ; ; ; Unreviewed; Radiology Order: CT Chest Angio R/O PE Test: CT Chest Angio R/O PE REASON FOR EXAMINATION: Shortness of Breath; CT ANGIO CHEST:; ; HISTORY: Shortness of breath.; ; CONTRAST: Isovue 370, 75 mL.; ; There are no filling defects in the main , right and left pulmonary arteries or; their branches. Calcified granuloma are present in the lungs. There is no; pleural effusion. Calcified lymph nodes are present in the mediastinum. The; patient is status post aortic valve replacement . Atherosclerotic calcification; is present in the thoracic aorta. There is aneurysmal dilatation of the thoracic; aorta measuring 3.5 cm.; ; IMPRESSION:; ; 1. There is no pulmonary embolism.; ; 2. Old granulomatous disease.; ; 3. 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 ck1 11:27 Discharge ordered by Provider. btw 11:58 Discharge Assessment: Patient awake, alert and oriented x 3. No cognitive and/or dsf functional deficits noted. Patient verbalized understanding of disposition instructions. patient administered narcotics - no. The following High Risk Discharge criteria are identified: None. Discharged to home via wheelchair, with family. Condition: good. Discharge instructions given to patient, significant other, Instructed on discharge instructions, follow up and referral plans. medication usage, Demonstrated understanding of instructions, medications, Pt was receptive of discharge instructions/ teaching. Prescriptions given X 2. Property sent home with patient. 12:01 Patient left the ED. dsf Signatures: Dispatcher [employer] EDMS Ricarda Vaughan, RN RN Maurice Moreno, Mark Reg Yanira Gutierres RN RN ck1 Alfonso Arreguin PA PA btJacqueline Mcpherson RN RN dsf Javon Welch mm15 China EasleyRN RN Lance Murry, MILL OPERATOR HELPER MILL OPERATOR HELPER jrd Ely Patton, MILL OPERATOR HELPER MILL OPERATOR HELPER bnb Corrections: (The following items were deleted from the chart) 09:54 09:53 O2 via nasal cannula \\T\\ 4L/min dsf dsf 10:06 09:41 Respiratory: Airway is patent Respiratory effort is even, unlabored, Respiratory dsf pattern is regular, symmetrical, Breath sounds are clear bilaterally. dsf 10:06 09:41 Derm: Skin is pink, warm & dry. dsf dsf MTDD
--- NOTE | 2016-08-25 06:44 | ECGEPIP ---
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
--- NOTE | 2016-08-26 13:01 | EDDOCDS ---
Physician Documentation [facility] Name: Manuel Christina Age: 76 yrs Sex: Male : 1940 Arrival Date: 08/24/2016 Time: 09:05 Bed 9 Private MD: Fredy Suárez Disposition: 08/24/16 11:27 Discharged to Home/Self Care. Impression: Acute combined systolic (congestive) and diastolic (congestive) heart failure, Shortness of breath. - Condition is Stable. - Discharge Instructions: Heart Failure, Shortness of Breath, [id number]. - Prescriptions for Lasix 20 mg Oral Tablet - take 1 tablet by ORAL route once daily; 10 tablet. Potassium Chloride 10 mEq Oral Capsule, Sustained Release - take 1 tablet by ORAL route once daily; 10 tablet. - Medication Reconciliation, Local Pharmacy Hours form. - Follow up: Raghu Orellana; When: Call to arrange an appointment; Reason: Further diagnostic work-up, Recheck today's complaints, Continuance of care. - Problem is new. - Symptoms are unchanged. Historical: - Allergies: Ciprofloxacin; Levofloxacin; moxifloxacin; Oxycodone HCl; - Home Meds: 1. aspirin 81 mg Oral chew 1 tab once daily 2. finasteride 1 mg oral tab 1 tab once daily 3. Flomax 0.4 mg Oral cp24 2 caps once daily 4. Lipitor 40 mg Oral tab 1 tab once daily 5. multivitamin Oral tab daily 6. Plavix 75 mg Oral tab 1 tab once daily 7. tramadol 100 mg Oral tab tid - PMHx: BPH; Hypercholesterolemia; Hypertension; - PSHx: Aortic valve replacent 2015; Pacemaker insertion 2015; CABG; Bilateral carotid endarderectomy; Right femur repair; Left shoulder replacement; - Social history: Smoking status: Patient states former smoker of tobacco. No barriers to communication noted, The patient speaks fluent Maltese. - Family history: Not pertinent. - : The pt / caregiver states he / she is on anticoagulants: Plavix. Home medication list is obtained from the patient, family members. - Exposure Risk Screening:: None identified. Vital Signs: 08/24 09:14 BP 116 / 60; Pulse 62; Resp 18; Temp 96.9; Pulse Ox 96% on R/A; Weight 77.11 kg / 170 mcp lbs; Height 5 ft. 9 in. (175.26 cm); Pain 8/10; 09:40 BP 145 / 71 (auto/); dsf 09:42 Pulse 70 MON; Pulse Ox 92% ; dsf 09:55 BP 134 / 62 (auto/); dsf 09:56 Pulse 68 MON; Pulse Ox 95% ; dsf 10:10 BP 144 / 68 (auto/); dsf 10:10 Pulse 66 MON; Pulse Ox 96% ; dsf 10:25 BP 166 / 80 (auto/); dsf 10:25 Pulse 70 MON; Pulse Ox 99% ; dsf 10:40 BP 150 / 81 (auto/); dsf 10:40 Pulse 66 MON; Pulse Ox 96% ; dsf 10:55 BP 141 / 72 (auto/); dsf 10:56 Pulse 64 MON; Pulse Ox 97% ; dsf 11:10 BP 140 / 70 (auto/); dsf 11:11 Pulse 64 MON; Pulse Ox 96% ; dsf 11:25 BP 139 / 77 (auto/); dsf 11:26 Pulse 66 MON; Pulse Ox 98% ; dsf 11:40 BP 148 / 103 (auto/); dsf 11:40 Pulse 68 MON; Pulse Ox 97% ; dsf 11:43 BP 143 / 100 RA Supine (auto/reg); Pulse 67; Resp 18; Temp 96.7; Pulse Ox 97% on 2 lpm jrd NC; Pain 8/10; 11:53 BP 142 / 71 (auto/); dsf 11:55 Pulse 56 MON; Resp 20; Temp 97.8(O); Pulse Ox 98% on R/A; Pain 7/10; dsf 09:14 Body Mass Index 25.10 (77.11 kg, 175.26 cm) mcp MDM: 09:29 Financial registration complete. lg 09:32 -Blood Culture (Adults Only), peripheral from different site, or from device/port/PICC btw etc. if present ordered. 09:32 Automobile Parts Assembler/Pulse Ox/q 15 min VS ordered. btw 09:32 IV Saline Lock ordered. btw 09:32 Oxygen at 4L/Min NC or Home dosage ordered. btw 09:32 Rhythm Strip to chart ordered. btw 09:33 -Blood Culture Ordered. EDMS 09:33 B-Type Natiuretic Peptide Ordered. EDMS 09:33 Basic Metabolic Profile Ordered. EDMS 09:33 CBC with Diff Ordered. EDMS 09:33 Cardiac Injury Profile Ordered. EDMS 09:33 D-Dimer Quant Ordered. EDMS 09:33 Troponin Ordered. EDMS 09:34 Chest, 2 View (pa\E\lat) Ordered. EDMS 09:34 ECG WITH READING ER PHYS+CARDIAG ordered. EDMS 09:34 [facility] Payment Agreement was scanned into MED[employer] and attached to record. lg 09:38 -Blood Culture (Adults Only), peripheral from different site, or from device/port/PICC lbd etc. if present complete. 09:41 BLOOD CULTURES Ordered. EDMS 09:47 CT Chest Angio R/O PE Ordered. EDMS 10:02 CBC with Diff Reviewed. btw 10:20 B-Type Natiuretic Peptide Reviewed. btw 10:20 D-Dimer Quant Reviewed. btw 10:52 Basic Metabolic Profile Reviewed. btw 10:52 Cardiac Injury Profile Reviewed. btw 10:52 Troponin Reviewed. btw 11:08 Chest, 2 View (pa\E\lat) Reviewed. btw 11:08 CT Chest Angio R/O PE Reviewed. btw 13:59 T-Sheet-- Draft Copy was scanned into [employer] and attached to record. gb 14:00 ECG/EKG was scanned into [employer] and attached to record. gb Signatures: Dispatcher [employer] Priscilla Doe, Talent Coordinator Unit lbd Ricarda Vaughan RN RN mcp Barnhardt, Gloria, Reg Reg gb Maurice Gabriel, Reg Reg lg Alfonso Arreguin PA PA btw Fuller, Desiree, RN RN dsf The chart was reviewed and I authenticate all verbal orders and agree with the evaluation and treatment provided.Attachments: 09:34 [facility] Payment Agreement lg 13:59 T-Sheet-- Draft Copy gb 14:00 ECG/EKG gb Chart Complete MTDD
--- NOTE | 2016-08-26 13:02 | EDDOCDS ---
Physician Documentation [facility] Name: Manuel Christina Age: 76 yrs Sex: Male : 1940 Arrival Date: 08/24/2016 Time: 09:05 Bed 9 Private MD: Fredy Suárez Disposition: 08/24/16 11:27 Discharged to Home/Self Care. Impression: Acute combined systolic (congestive) and diastolic (congestive) heart failure, Shortness of breath. - Condition is Stable. - Discharge Instructions: Heart Failure, Shortness of Breath, [id number]. - Prescriptions for Lasix 20 mg Oral Tablet - take 1 tablet by ORAL route once daily; 10 tablet. Potassium Chloride 10 mEq Oral Capsule, Sustained Release - take 1 tablet by ORAL route once daily; 10 tablet. - Medication Reconciliation, Local Pharmacy Hours form. - Follow up: Raghu Orellana; When: Call to arrange an appointment; Reason: Further diagnostic work-up, Recheck today's complaints, Continuance of care. - Problem is new. - Symptoms are unchanged. Historical: - Allergies: Ciprofloxacin; Levofloxacin; moxifloxacin; Oxycodone HCl; - Home Meds: 1. aspirin 81 mg Oral chew 1 tab once daily 2. finasteride 1 mg oral tab 1 tab once daily 3. Flomax 0.4 mg Oral cp24 2 caps once daily 4. Lipitor 40 mg Oral tab 1 tab once daily 5. multivitamin Oral tab daily 6. Plavix 75 mg Oral tab 1 tab once daily 7. tramadol 100 mg Oral tab tid - PMHx: BPH; Hypercholesterolemia; Hypertension; - PSHx: Aortic valve replacent 2015; Pacemaker insertion 2015; CABG; Bilateral carotid endarderectomy; Right femur repair; Left shoulder replacement; - Social history: Smoking status: Patient states former smoker of tobacco. No barriers to communication noted, The patient speaks fluent Faroese. - Family history: Not pertinent. - : The pt / caregiver states he / she is on anticoagulants: Plavix. Home medication list is obtained from the patient, family members. - Exposure Risk Screening:: None identified. Vital Signs: 08/24 09:14 BP 116 / 60; Pulse 62; Resp 18; Temp 96.9; Pulse Ox 96% on R/A; Weight 77.11 kg / 170 mcp lbs; Height 5 ft. 9 in. (175.26 cm); Pain 8/10; 09:40 BP 145 / 71 (auto/); dsf 09:42 Pulse 70 MON; Pulse Ox 92% ; dsf 09:55 BP 134 / 62 (auto/); dsf 09:56 Pulse 68 MON; Pulse Ox 95% ; dsf 10:10 BP 144 / 68 (auto/); dsf 10:10 Pulse 66 MON; Pulse Ox 96% ; dsf 10:25 BP 166 / 80 (auto/); dsf 10:25 Pulse 70 MON; Pulse Ox 99% ; dsf 10:40 BP 150 / 81 (auto/); dsf 10:40 Pulse 66 MON; Pulse Ox 96% ; dsf 10:55 BP 141 / 72 (auto/); dsf 10:56 Pulse 64 MON; Pulse Ox 97% ; dsf 11:10 BP 140 / 70 (auto/); dsf 11:11 Pulse 64 MON; Pulse Ox 96% ; dsf 11:25 BP 139 / 77 (auto/); dsf 11:26 Pulse 66 MON; Pulse Ox 98% ; dsf 11:40 BP 148 / 103 (auto/); dsf 11:40 Pulse 68 MON; Pulse Ox 97% ; dsf 11:43 BP 143 / 100 RA Supine (auto/reg); Pulse 67; Resp 18; Temp 96.7; Pulse Ox 97% on 2 lpm jrd NC; Pain 8/10; 11:53 BP 142 / 71 (auto/); dsf 11:55 Pulse 56 MON; Resp 20; Temp 97.8(O); Pulse Ox 98% on R/A; Pain 7/10; dsf 09:14 Body Mass Index 25.10 (77.11 kg, 175.26 cm) mcp MDM: 09:29 Financial registration complete. lg 09:32 -Blood Culture (Adults Only), peripheral from different site, or from device/port/PICC btw etc. if present ordered. 09:32 Supervisor [employer]/Pulse Ox/q 15 min VS ordered. btw 09:32 IV Saline Lock ordered. btw 09:32 Oxygen at 4L/Min NC or Home dosage ordered. btw 09:32 Rhythm Strip to chart ordered. btw 09:33 -Blood Culture Ordered. EDMS 09:33 B-Type Natiuretic Peptide Ordered. EDMS 09:33 Basic Metabolic Profile Ordered. EDMS 09:33 CBC with Diff Ordered. EDMS 09:33 Cardiac Injury Profile Ordered. EDMS 09:33 D-Dimer Quant Ordered. EDMS 09:33 Troponin Ordered. EDMS 09:34 Chest, 2 View (pa\E\lat) Ordered. EDMS 09:34 ECG WITH READING ER PHYS+CARDIAG ordered. EDMS 09:34 [facility] [place] Payment Agreement was scanned into [employer] and attached to record. lg 09:38 -Blood Culture (Adults Only), peripheral from different site, or from device/port/PICC lbd etc. if present complete. 09:41 BLOOD CULTURES Ordered. EDMS 09:47 CT Chest Angio R/O PE Ordered. EDMS 10:02 CBC with Diff Reviewed. btw 10:20 B-Type Natiuretic Peptide Reviewed. btw 10:20 D-Dimer Quant Reviewed. btw 10:52 Basic Metabolic Profile Reviewed. btw 10:52 Cardiac Injury Profile Reviewed. btw 10:52 Troponin Reviewed. btw 11:08 Chest, 2 View (pa\E\lat) Reviewed. btw 11:08 CT Chest Angio R/O PE Reviewed. btw 13:59 T-Sheet-- Draft Copy was scanned into [employer] and attached to record. gb 14:00 ECG/EKG was scanned into [employer] and attached to record. gb Signatures: Dispatcher [employer] Priscilla Doe, Livestock Inspector Unit lbd Ricarda Vaughan RN RN mcp Barnhardt, Gloria, Reg Reg gb Maurice Gabriel, Reg Reg lg Alfonso Arreguin PA PA btw Fuller, Desiree, RN RN dsf The chart was reviewed and I authenticate all verbal orders and agree with the evaluation and treatment provided.Attachments: 09:34 [facility] Payment Agreement lg 13:59 T-Sheet-- Draft Copy gb 14:00 ECG/EKG gb Chart Complete MTDD
--- NOTE | 2016-08-26 13:03 | EDDOCDS ---
Nurse's Notes [facility] Name: Naya Christina Age: 76 yrs Sex: Male : 1940 Arrival Date: 08/24/2016 Time: 09:05 Bed 9 Private MD: Fredy Suárez Diagnosis: Acute combined systolic (congestive) and diastolic (congestive) heart failure;Shortness of breath Presentation: 08/24 09:10 Presenting complaint: Patient states: Was seen here Monday after falling--xrays mcp negative per . Left arm and hand swollen--yellow ring removed from left ring finger and given to . Open areas on elbow with gauze dressings dry and intact. also states pt having difficulty taking deep breath--resp unlabored in triage. Adult Sepsis Screening: The patient does not have new or worsening altered mentation. Patient's respiratory rate is less than 22. Systolic blood pressure is greater than 100. Patient has a qSOFA score of 0- Negative Sepsis Screen. Suicide/Homicide risk assessment- the patient denies having any suicidal and/or homicidal ideations and does not present with any other emotional, behavioral or mental health complaints. Status: Patient is not a room service attendant or dependent. Transition of care: patient was not received from another setting of care. 09:10 Acuity: IGGY Level 4 [facility] 09:10 Method Of Arrival: Wheelchair [facility] 09:32 Acuity level changed due to complexity of care. [facility] 09:32 Acuity: IGGY Level 3 [facility] Triage Assessment: 09:16 General: Appears uncomfortable, Behavior is cooperative. Pain: Location: left arm Pain [facility] currently is 8 out of 10 on a pain scale. Neurological: No deficits noted. Respiratory: Airway is patent Respiratory effort is even, unlabored. Derm: Skin is pink, warm & dry. Bruising that is dark purple, on left hand and left arm. Musculoskeletal: Circulation, motion, and sensation intact Swelling present in left hand and left arm. Historical: - Allergies: Ciprofloxacin; Levofloxacin; moxifloxacin; Oxycodone HCl; - Home Meds: 1. aspirin 81 mg Oral chew 1 tab once daily 2. finasteride 1 mg oral tab 1 tab once daily 3. Flomax 0.4 mg Oral cp24 2 caps once daily 4. Lipitor 40 mg Oral tab 1 tab once daily 5. multivitamin Oral tab daily 6. Plavix 75 mg Oral tab 1 tab once daily 7. tramadol 100 mg Oral tab tid - PMHx: BPH; Hypercholesterolemia; Hypertension; - PSHx: Aortic valve replacent 2015; Pacemaker insertion 2016; CABG; Bilateral carotid endarderectomy; Right femur repair; Left shoulder replacement; - Social history: Smoking status: Patient states former smoker of tobacco. No barriers to communication noted, The patient speaks fluent Kyrgyz. - Family history: Not pertinent. - : The pt / caregiver states he / she is on anticoagulants: Plavix. Home medication list is obtained from the patient, family members. - Exposure Risk Screening:: None identified. Screenin:41 Screening information is obtained from the patient. Fall risk: No risks identified. dsf Assistance ADL's: requires no assistance with activities of daily living. Abuse/DV Screen: The patient / caregiver reports he/she is: not in a situation that causes fear, pain or injury. Nutritional screening: No deficits noted. Advance Directives: Currently, there is no health care proxy. home support is adequate. Assessment: 09:41 Adult Sepsis Screening: The patient does not have new or worsening altered mentation. dsf Patient's respiratory rate is less than 22. Systolic blood pressure is greater than 100. Patient has a qSOFA score of 0- Negative Sepsis Screen. General: Appears in no apparent distress, comfortable, Behavior is appropriate for age, cooperative. Pain: Location: left hand and left arm Pain currently is 7 out of 10 on a pain scale. Quality of pain is described as "cant describe it". Neurological: Level of Consciousness is awake, alert, Oriented to person, place, time. Cardiovascular: Capillary refill < 3 seconds Heart tones S1 S2 present. Respiratory: Airway is patent Respiratory effort is even, unlabored, Respiratory pattern is regular, symmetrical, Breath sounds are clear bilaterally. Denies shortness of breath pain with respiration. GI: Abdomen is non- distended Bowel sounds present X 4 quads. Abd is soft X 4 quads Abd is tender to palpation in right lower quadrant. Derm: Skin is pink, warm & dry. left hand swollen. 10:41 General: Appears in no apparent distress, comfortable, Behavior is appropriate for age, dsf cooperative. Pain: Location: left hand and left arm Pain currently is 7 out of 10 on a pain scale. Quality of pain is described as "cant describe". Neurological: Level of Consciousness is awake, alert, Oriented to person, place, time. Cardiovascular: Capillary refill < 3 seconds Rhythm is sinus rhythm No ectopy. Respiratory: Airway is patent Respiratory effort is even, unlabored, Respiratory pattern is regular, symmetrical. Derm: Skin is pink, warm & dry. 11:41 Adult Sepsis Screening: The patient does not have new or worsening altered mentation. dsf Patient's respiratory rate is less than 22. Systolic blood pressure is greater than 100. Patient has a qSOFA score of 0- Negative Sepsis Screen. General: Appears in no apparent distress, Behavior is appropriate for age, cooperative. Neurological: Level of Consciousness is awake, alert, Oriented to person, place, time. Cardiovascular: Capillary refill < 3 seconds Heart tones S1 S2 present Rhythm is sinus rhythm No ectopy. Respiratory: Airway is patent Respiratory effort is even, unlabored, Respiratory pattern is regular, symmetrical, Breath sounds are clear bilaterally. Derm: Skin is pink, warm & dry. 12:00 General: Appears in no apparent distress, comfortable, Behavior is appropriate for age, dsf cooperative. Neurological: Level of Consciousness is awake, alert. Cardiovascular: Capillary refill < 3 seconds. Respiratory: Airway is patent Respiratory effort is even, unlabored, Respiratory pattern is regular, symmetrical. Derm: Skin is pink, warm & dry. Vital Signs: 09:14 BP 116 / 60; Pulse 62; Resp 18; Temp 96.9; Pulse Ox 96% on R/A; Weight 77.11 kg; Height mcp 5 ft. 9 in. (175.26 cm); Pain 8/10; 09:40 BP 145 / 71 (auto/); dsf 09:42 Pulse 70 MON; Pulse Ox 92% ; dsf 09:55 BP 134 / 62 (auto/); dsf 09:56 Pulse 68 MON; Pulse Ox 95% ; dsf 10:10 BP 144 / 68 (auto/); dsf 10:10 Pulse 66 MON; Pulse Ox 96% ; dsf 10:25 BP 166 / 80 (auto/); dsf 10:25 Pulse 70 MON; Pulse Ox 99% ; dsf 10:40 BP 150 / 81 (auto/); dsf 10:40 Pulse 66 MON; Pulse Ox 96% ; dsf 10:55 BP 141 / 72 (auto/); dsf 10:56 Pulse 64 MON; Pulse Ox 97% ; dsf 11:10 BP 140 / 70 (auto/); dsf 11:11 Pulse 64 MON; Pulse Ox 96% ; dsf 11:25 BP 139 / 77 (auto/); dsf 11:26 Pulse 66 MON; Pulse Ox 98% ; dsf 11:40 BP 148 / 103 (auto/); dsf 11:40 Pulse 68 MON; Pulse Ox 97% ; dsf 11:43 BP 143 / 100 RA Supine (auto/reg); Pulse 67; Resp 18; Temp 96.7; Pulse Ox 97% on 2 lpm jrd NC; Pain 8/10; 11:53 BP 142 / 71 (auto/); dsf 11:55 Pulse 56 MON; Resp 20; Temp 97.8(O); Pulse Ox 98% on R/A; Pain 7/10; dsf 09:14 Body Mass Index 25.10 (77.11 kg, 175.26 cm) [facility] Vitals: 09:14 Log In Time: August 24, 2016 at 09:00. [facility] ED Course: 09:06 Patient visited by Javon Welch. mm15 09:06 Patient moved to Waiting mm15 09:07 Fredy Suárez MD is Private Physician. mm15 09:10 Patient moved to Triage 1 mcp 09:13 Triage Initiated mcp 09:17 Patient visited by Ricarda Vaughan, DANELLE. mcp 09:26 Jacqueline Arreguin PA is PHCP. btw 09:26 Geri Manzo MD is Attending Physician. btw 09:26 Patient visited by Jacqueline Arreguin PA. btw 09:32 Kiera Herron,RN is Primary Nurse. ead 09:32 Patient moved to 9 ead 09:34 [facility] Payment Agreement was scanned into [employer] and attached to record. lg 09:43 Pt greeted and oriented to ED. Patient advised of names of staff involved in care, bnb location of call deng, wait times and NPO status. Patient has correct armband on for positive identification. Placed in gown. Bed in low position. Call light in reach. Side rails up X2. monitor and storage bin tender on. Pulse ox on. NIBP on. 09:43 EKG done. (by ED staff). Reviewed by Jacqueline WILLSON. bnb 09:44 Patient visited by Ely Patton PCA. bnb 09:45 Patient visited by Jacqueline Manuel RN. dsf 09:51 -Blood Culture Sent. dsf 09:51 B-Type Natiuretic Peptide Sent. dsf 09:51 Basic Metabolic Profile Sent. dsf 09:51 CBC with Diff Sent. dsf 09:51 Cardiac Injury Profile Sent. dsf 09:51 D-Dimer Quant Sent. dsf 09:51 Troponin Sent. dsf 09:51 Inserted saline lock: 20 gauge in right antecubital area The patient tolerated the dsf procedure well. started by Meka MCCLENDON. 09:53 O2 via nasal cannula \\T\\ 3L/min. dsf 10:02 Patient visited by Ely Patton PCA. bnb 10:02 BLOOD CULTURES Sent. bnb 10:02 Labs drawn. (by ED staff). Sent per order to lab. Labs/Blood culture drawn. bnb 10:41 The patient / caregiver is instructed regarding the plan of care and ED course. dsf 10:53 Patient visited by Jacqueline Manuel RN. dsf 11:04 CT Chest Angio R/O PE Returned. EDMS 11:04 Chest, 2 View (pa\\E\\lat) Returned. EDMS 11:26 Raghu Orellana is Referral Physician. btw 11:43 Patient visited by Lance Gaona PCA. jrd 11:52 CT Chest Angio R/O PE Returned. EDMS 11:58 Discontinued lock intact, bleeding controlled, pressure dressing applied, No dsf redness/swelling at site. No procedures done that require assistance. 13:59 T-Sheet-- Draft Copy was scanned into [employer] and attached to record. gb 14:00 ECG/EKG was scanned into [employer] and attached to record. gb 19:10 Chest, 2 View (pa\\E\\lat) Returned. EDMS 01 06:53 EKG-ADULT Returned. EDMS Output: 08/24 10:58 Urine: 150.00ml (Voided); Total: 150.00ml. dsf Order Results: Lab Order: -Blood Culture; SPEC'M 08/24/16 09:38 Test: BLOOD CULTURE; Value: No growth after 24 hours . All specimens observed; Status: F Test: BLOOD CULTURE; Value: for 5 days. Results final at that time.; Status: F Test: BLOOD CULTURE; Value: No Growth after 48 hours. All Specimens observed; Status: F Test: BLOOD CULTURE; Value: for 7 days. Results final at that time.; Status: F Lab Order: B-Type Natiuretic Peptide; SPEC'M 08/24/16 09:38 Test: BRAIN NATRIURETIC PEPTIDE; Value: 237; Range: <100; Abnormal: Above high normal; Units: PG/ML; Status: F Lab Order: Basic Metabolic Profile; SPEC'M 08/24/16 09:38 Test: GLUCOSE, FASTING; Value: 84; Range: 83-110; Units: MG/DL; Status: F Test: BLOOD UREA NITROGEN; Value: 13; Range: 7-18; Units: MG/DL; Status: F Test: CREATININE FOR GFR; Value: 0.78; Range: 0.70-1.30; Units: MG/DL; Status: F Test: GLOMERULAR FILTRATION RATE; Value: > 60.0; Range: >42; Status: F Test: SODIUM LEVEL; Value: 143; Range: 136-145; Units: MEQ/L; Status: F Test: POTASSIUM SERUM; Value: 4.1; Range: 3.5-5.1; Units: MEQ/L; Status: F Test: CHLORIDE LEVEL; Value: 105; Range: 98-107; Units: MEQ/L; Status: F Test: CARBON DIOXIDE LEVEL; Value: 32; Range: 21-32; Units: MEQ/L; Status: F Test: ANION GAP; Value: 6; Range: 8-16; Abnormal: Below low normal; Units: MEQ/L; Status: F Test: CALCIUM LEVEL; Value: 9.4; Range: 8.8-10.2; Units: MG/DL; Status: F Test Note: ; Units are mL/min/1.73 m2 Chronic Kidney Disease Staging per NKF: Stage I & II GFR >=60 Normal to Mildly Decreased Stage III GFR 30-59 Moderately Decreased Stage IV GFR 15-29 Severely Decreased Stage V GFR <15 Very Little GFR Left ESRD GFR <15 on SURFACE BOSS Lab Order: CBC with Diff; SPEC'M 08/24/16 09:38 Test: WHITE BLOOD COUNT; Value: 6.7; Range: 4.0-10.0; Units: K/mm3; Status: F Test: RED BLOOD COUNT; Value: 4.81; Range: 4.30-6.10; Units: M/mm3; Status: F Test: HEMOGLOBIN; Value: 15.6; Range: 14.0-18.0; Units: g/dl; Status: F Test: HEMATOCRIT; Value: 46.0; Range: 42.0-52.0; Units: %; Status: F Test: MEAN CORPUSCULAR VOLUME; Value: 95.6; Range: 80.0-96.0; Units: fl; Status: F Test: MEAN CORPUSCULAR HEMOGLOBIN; Value: 32.3; Range: 27.0-33.0; Units: pg; Status: F Test: MEAN CORPUSCULAR HGB CONC; Value: 33.8; Range: 32.0-36.5; Units: g/dl; Status: F Test: RED CELL DISTRIBUTION WIDTH; Value: 13.0; Range: 11.5-14.5; Units: %; Status: F Test: PLATELET COUNT, AUTOMATED; Value: 186; Range: 150-450; Units: k/mm3; Status: F Test: NEUTROPHILS %; Value: 66.7; Range: 36.0-66.0; Abnormal: Above high normal; Units: %; Status: F Test: LYMPH %; Value: 16.1; Range: 24.0-44.0; Abnormal: Below low normal; Units: %; Status: F Test: MONO %; Value: 6.4; Range: 0.0-5.0; Abnormal: Above high normal; Units: %; Status: F Test: EOS %; Value: 8.3; Range: 0.0-3.0; Abnormal: Above high normal; Units: %; Status: F Test: BASO %; Value: 0.4; Range: 0.0-1.0; Units: %; Status: F Test: LARGE UNSTAINED CELL %; Value: 2.1; Range: 0.0-4.0; Units: %; Status: F Test: NEUTROPHILS #; Value: 4.5; Range: 1.8-7.7; Units: K/mm3; Status: F Test: LYMPH #; Value: 1.1; Range: 1.5-4.5; Abnormal: Below low normal; Units: K/mm3; Status: F Test: MONO #; Value: 0.4; Range: 0.0-0.8; Units: K/mm3; Status: F Test: EOS #; Value: 0.6; Range: 0.0-0.50; Abnormal: Above high normal; Units: K/mm3; Status: F Test: BASO #; Value: 0.0; Range: 0.0-0.2; Units: K/mm3; Status: F Test: LARGE UNSTAINED CELL #; Value: 0.1; Range: 0.0-0.4; Units: K/mm3; Status: F Lab Order: Cardiac Injury Profile; [facility] 08/24/16 09:38 Test: CPK CREATINE PHOSPHOKINASE; Value: 32; Range: 39-308; Abnormal: Below low normal; Units: U/L; Status: F Test: CK-MB VALUE MASS; Value: 1.3; Range: 0.0-3.6; Units: NG/ML; Status: F Test: MB/CK RELATIVE INDEX; Value: 4.06; Range: < OR =4; Abnormal: Above high normal; Status: F Test Note: ; DIAGNOSIS CRITERIA MMB ng/ml Relative Index (RI) NON-AMI < or = 5 N/A MARIE ZONE > 5 < or = 4 AMI > 5 > 4 Lab Order: D-Dimer Quant; [facility] 08/24/16 09:38 Test: D-DIMER QUANT; Value: 1123.2; Range: <500; Abnormal: Above high normal; Units: ng/ml; Status: F Lab Order: Troponin; [facility] 08/24/16 09:38 Test: TROPONIN I; Value: < 0.02; Range: < 0.10; Units: NG/ML; Status: F Test Note: ; Troponin I Reference Interval for [employer] LOCI: 99th Percentile= 0.00-0.045 ng/ml Risk Stratification: <= 0.10 ng/ml Decreased Risk for Adverse Clinical Events. 0.10-1.50 ng/ml Increased Risk for Adverse Clinical Events. Evaluation of additional criterion and/or repeat testing in 2-6 hours is suggested to rule out myocardial damage. >= 1.50 ng/ml Indicative of Myocardial Injury. Lab Order: BLOOD CULTURES; [facility] 08/24/16 10:01 Test: BLOOD CULTURE; Value: No growth after 24 hours . All specimens observed; Status: F Test: BLOOD CULTURE; Value: for 5 days. Results final at that time.; Status: F Test: BLOOD CULTURE; Value: No Growth after 48 hours. All Specimens observed; Status: F Test: BLOOD CULTURE; Value: for 7 days. Results final at that time.; Status: F Radiology Order: Chest, 2 View (pa\\E\\lat) Test: Chest, 2 View (pa\\E\\lat) REASON FOR EXAMINATION: Shortness of Breath; Chest x-ray: Two views.; ; History: Shortness of breath.; ; Comparison chest x-ray is from August 19, 2016. A bipolar pacemaker is seen in; place. There is a stent graft device in the aortic root at the level of the; aortic valve suggesting aortic valve replacement. Heart is not enlarged. The; aorta is calcific and tortuous as before. There is no evidence of pneumothorax; or hydrothorax. Lung swartz are clear. Pleural angles are sharp. A prosthetic; shoulder joint is noted on the left. There are clips in the soft tissues of the; left neck.; ; Impression:; ; No active disease. The patient is status post aortic root stent graft versus; aortic valve replacement. Pacemaker.; ; ; Signed by; Rojas Pro MD 08/24/2016 06:34 P; Radiology Order: EKG-ADULT Test: EKG-ADULT REASON FOR EXAMINATION: Shortness of Breath; Stationary ECG Study; [facility] - ED; ; Test Date: 2016-08-24; Pat Name: NAYA CHRISTINA Department:; Room: -; Gender: M Straw Baler: vidal; : 1940 Requested By: JACQUELINE Hong PA-C; Order Number: [id number] Reading MD: Carri Henderson; Measurements; Intervals [place]; Rate: 76 P: 11; OK: 253 QRS: -80; QRSD: 142 T: 73; QT: 436; QTc: 493; Interpretive Statements; SINUS RHYTHM WITH FIRST DEGREE AV BLOCK WITH FREQUENT VENTRICULAR PREMATURE; COMPLEXES; RIGHT BUNDLE BRANCH BLOCK; MINIMAL VOLTAGE CRITERIA FOR LVH, CONSIDER NORMAL VARIANT; INFERIOR MYOCARDIAL INFARCTION, OF INDETERMINATE AGE; ; Electronically Signed On 08-25-2016 6:44:09 EST by Carri Henderson; Radiology Order: CT Chest Angio R/O PE Test: CT Chest Angio R/O PE REASON FOR EXAMINATION: Shortness of Breath; CT ANGIO CHEST:; ; HISTORY: Shortness of breath.; ; CONTRAST: Isovue 370, 75 mL.; ; There are no filling defects in the main , right and left pulmonary arteries or; their branches. Calcified granuloma are present in the lungs. There is no; pleural effusion. Calcified lymph nodes are present in the mediastinum. The; patient is status post aortic valve replacement . Atherosclerotic calcification; is present in the thoracic aorta. There is aneurysmal dilatation of the thoracic; aorta measuring 3.5 cm.; ; IMPRESSION:; ; 1. There is no pulmonary embolism.; ; 2. Old granulomatous disease.; ; 3. 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 ck1 11:27 Discharge ordered by Provider. btw 11:58 Discharge Assessment: Patient awake, alert and oriented x 3. No cognitive and/or dsf functional deficits noted. Patient verbalized understanding of disposition instructions. patient administered narcotics - no. The following High Risk Discharge criteria are identified: None. Discharged to home via wheelchair, with family. Condition: good. Discharge instructions given to patient, significant other, Instructed on discharge instructions, follow up and referral plans. medication usage, Demonstrated understanding of instructions, medications, Pt was receptive of discharge instructions/ teaching. Prescriptions given X 2. Property sent home with patient. 12:01 Patient left the ED. dsf Signatures: Dispatcher [employer] Ricarda Weber, RN RN Suzette Escalera, Reg Reg gb Maurice Gabriel, Reg Reg lg Yanira Gutierres RN RN ck1 Jacqueline Arreguin PA PA btw Jacqueline Manuel RN RN dsf Javon Welch mm15 China Easley,DANELLE RN Lance Murry, PILL MAKER PILL MAKER jrEly Barahona, PILL MAKER PILL MAKER bnb Corrections: (The following items were deleted from the chart) 09:54 09:53 O2 via nasal cannula \\T\\ 4L/min dsf dsf Respiratory: Airway is patent Respiratory effort is even, unlabored, Respiratory dsf pattern is regular, symmetrical, Breath sounds are clear bilaterally. dsf Derm: Skin is pink, warm & dry. dsf dsf Chart Complete MTDD
--- NOTE | 2016-08-29 13:38 | EDDOCDS ---
Physician Documentation [facility] Name: Manuel Christina Age: 76 yrs Sex: Male : 1940 Arrival Date: 08/24/2016 Time: 09:05 Bed 9 Private MD: Fredy Suárez Disposition: 08/24/16 11:27 Discharged to Home/Self Care. Impression: Acute combined systolic (congestive) and diastolic (congestive) heart failure, Shortness of breath. - Condition is Stable. - Discharge Instructions: Heart Failure, Shortness of Breath, Alfj-oe-Srho. - Prescriptions for Lasix 20 mg Oral Tablet - take 1 tablet by ORAL route once daily; 10 tablet. Potassium Chloride 10 mEq Oral Capsule, Sustained Release - take 1 tablet by ORAL route once daily; 10 tablet. - Medication Reconciliation, Local Pharmacy Hours form. - Follow up: Raghu Orellana; When: Call to arrange an appointment; Reason: Further diagnostic work-up, Recheck today's complaints, Continuance of care. - Problem is new. - Symptoms are unchanged. Historical: - Allergies: Ciprofloxacin; Levofloxacin; moxifloxacin; Oxycodone HCl; - Home Meds: 1. aspirin 81 mg Oral chew 1 tab once daily 2. finasteride 1 mg oral tab 1 tab once daily 3. Flomax 0.4 mg Oral cp24 2 caps once daily 4. Lipitor 40 mg Oral tab 1 tab once daily 5. multivitamin Oral tab daily 6. Plavix 75 mg Oral tab 1 tab once daily 7. tramadol 100 mg Oral tab tid - PMHx: BPH; Hypercholesterolemia; Hypertension; - PSHx: Aortic valve replacent 2015; Pacemaker insertion 2015; CABG; Bilateral carotid endarderectomy; Right femur repair; Left shoulder replacement; - Social history: Smoking status: Patient states former smoker of tobacco. No barriers to communication noted, The patient speaks fluent Spanish. - Family history: Not pertinent. - : The pt / caregiver states he / she is on anticoagulants: Plavix. Home medication list is obtained from the patient, family members. - Exposure Risk Screening:: None identified. Vital Signs: 08/24 09:14 BP 116 / 60; Pulse 62; Resp 18; Temp 96.9; Pulse Ox 96% on R/A; Weight 77.11 kg / 170 mcp lbs; Height 5 ft. 9 in. (175.26 cm); Pain 8/10; 09:40 BP 145 / 71 (auto/); dsf 09:42 Pulse 70 MON; Pulse Ox 92% ; dsf 09:55 BP 134 / 62 (auto/); dsf 09:56 Pulse 68 MON; Pulse Ox 95% ; dsf 10:10 BP 144 / 68 (auto/); dsf 10:10 Pulse 66 MON; Pulse Ox 96% ; dsf 10:25 BP 166 / 80 (auto/); dsf 10:25 Pulse 70 MON; Pulse Ox 99% ; dsf 10:40 BP 150 / 81 (auto/); dsf 10:40 Pulse 66 MON; Pulse Ox 96% ; dsf 10:55 BP 141 / 72 (auto/); dsf 10:56 Pulse 64 MON; Pulse Ox 97% ; dsf 11:10 BP 140 / 70 (auto/); dsf 11:11 Pulse 64 MON; Pulse Ox 96% ; dsf 11:25 BP 139 / 77 (auto/); dsf 11:26 Pulse 66 MON; Pulse Ox 98% ; dsf 11:40 BP 148 / 103 (auto/); dsf 11:40 Pulse 68 MON; Pulse Ox 97% ; dsf 11:43 BP 143 / 100 RA Supine (auto/reg); Pulse 67; Resp 18; Temp 96.7; Pulse Ox 97% on 2 lpm jrd NC; Pain 8/10; 11:53 BP 142 / 71 (auto/); dsf 11:55 Pulse 56 MON; Resp 20; Temp 97.8(O); Pulse Ox 98% on R/A; Pain 7/10; dsf 09:14 Body Mass Index 25.10 (77.11 kg, 175.26 cm) mcp MDM: 09:29 Financial registration complete. lg 09:32 -Blood Culture (Adults Only), peripheral from different site, or from device/port/PICC btw etc. if present ordered. 09:32 Public Safety Teacher/Pulse Ox/q 15 min VS ordered. btw 09:32 IV Saline Lock ordered. btw 09:32 Oxygen at 4L/Min NC or Home dosage ordered. btw 09:32 Rhythm Strip to chart ordered. btw 09:33 -Blood Culture Ordered. EDMS 09:33 B-Type Natiuretic Peptide Ordered. EDMS 09:33 Basic Metabolic Profile Ordered. EDMS 09:33 CBC with Diff Ordered. EDMS 09:33 Cardiac Injury Profile Ordered. EDMS 09:33 D-Dimer Quant Ordered. EDMS 09:33 Troponin Ordered. EDMS 09:34 Chest, 2 View (pa\E\lat) Ordered. EDMS 09:34 ECG WITH READING ER PHYS+CARDIAG ordered. EDMS 09:34 [facility] Payment Agreement was scanned into [employer] and attached to record. lg 09:38 -Blood Culture (Adults Only), peripheral from different site, or from device/port/PICC lbd etc. if present complete. 09:41 BLOOD CULTURES Ordered. EDMS 09:47 CT Chest Angio R/O PE Ordered. EDMS 10:02 CBC with Diff Reviewed. btw 10:20 B-Type Natiuretic Peptide Reviewed. btw 10:20 D-Dimer Quant Reviewed. btw 10:52 Basic Metabolic Profile Reviewed. btw 10:52 Cardiac Injury Profile Reviewed. btw 10:52 Troponin Reviewed. btw 11:08 Chest, 2 View (pa\E\lat) Reviewed. btw 11:08 CT Chest Angio R/O PE Reviewed. btw 13:59 T-Sheet-- Draft Copy was scanned into [employer] and attached to record. gb 14:00 ECG/EKG was scanned into [employer] and attached to record. gb Addendum: 08/29/2016 13:36 Radiology Callback: Radiology results faxed to primary care physician/provider. dr rebeca suárez and dr orellana faxed formal report of cta for fu mlg. Signatures: Dispatcher [employer] [facility] Mamadou Sanchez MD MD ml Daly, Linda, [facility] Counselor Unit lbd Ricarda Vaughan RN RN mcp Barnhardt, Gloria, Reg Reg gb Maurice Gabriel, Reg Reg lg Alfonso Arreguin PA PA btw Fuller, Desiree, RN RN dsf The chart was reviewed and I authenticate all verbal orders and agree with the evaluation and treatment provided.Attachments: 08/24 09:34 [facility] Payment Agreement lg 13:59 T-Sheet-- Draft Copy gb 14:00 ECG/EKG gb MTDD
--- NOTE | 2016-08-29 13:38 | EDDOCDS ---
Nurse's Notes [facility] Name: Naya Christina Age: 76 yrs Sex: Male : 1940 Arrival Date: 08/24/2016 Time: 09:05 Bed 9 Private MD: Fredy Suárez Diagnosis: Acute combined systolic (congestive) and diastolic (congestive) heart failure;Shortness of breath Presentation: 08/24 09:10 Presenting complaint: Patient states: Was seen here Monday after falling--xrays mcp negative per . Left arm and hand swollen--yellow ring removed from left ring finger and given to . Open areas on elbow with gauze dressings dry and intact. also states pt having difficulty taking deep breath--resp unlabored in triage. Adult Sepsis Screening: The patient does not have new or worsening altered mentation. Patient's respiratory rate is less than 22. Systolic blood pressure is greater than 100. Patient has a qSOFA score of 0- Negative Sepsis Screen. Suicide/Homicide risk assessment- the patient denies having any suicidal and/or homicidal ideations and does not present with any other emotional, behavioral or mental health complaints. Status: Patient is not a service dog trainer or dependent. Transition of care: patient was not received from another setting of care. 09:10 Acuity: IGGY Level 4 [facility] 09:10 Method Of Arrival: Wheelchair [facility] 09:32 Acuity level changed due to complexity of care. [facility] 09:32 Acuity: IGGY Level 3 [facility] Triage Assessment: 09:16 General: Appears uncomfortable, Behavior is cooperative. Pain: Location: left arm Pain [facility] currently is 8 out of 10 on a pain scale. Neurological: No deficits noted. Respiratory: Airway is patent Respiratory effort is even, unlabored. Derm: Skin is pink, warm & dry. Bruising that is dark purple, on left hand and left arm. Musculoskeletal: Circulation, motion, and sensation intact Swelling present in left hand and left arm. Historical: - Allergies: Ciprofloxacin; Levofloxacin; moxifloxacin; Oxycodone HCl; - Home Meds: 1. aspirin 81 mg Oral chew 1 tab once daily 2. finasteride 1 mg oral tab 1 tab once daily 3. Flomax 0.4 mg Oral cp24 2 caps once daily 4. Lipitor 40 mg Oral tab 1 tab once daily 5. multivitamin Oral tab daily 6. Plavix 75 mg Oral tab 1 tab once daily 7. tramadol 100 mg Oral tab tid - PMHx: BPH; Hypercholesterolemia; Hypertension; - PSHx: Aortic valve replacent 2015; Pacemaker insertion 2016; CABG; Bilateral carotid endarderectomy; Right femur repair; Left shoulder replacement; - Social history: Smoking status: Patient states former smoker of tobacco. No barriers to communication noted, The patient speaks fluent Setswana. - Family history: Not pertinent. - : The pt / caregiver states he / she is on anticoagulants: Plavix. Home medication list is obtained from the patient, family members. - Exposure Risk Screening:: None identified. Screenin:41 Screening information is obtained from the patient. Fall risk: No risks identified. dsf Assistance ADL's: requires no assistance with activities of daily living. Abuse/DV Screen: The patient / caregiver reports he/she is: not in a situation that causes fear, pain or injury. Nutritional screening: No deficits noted. Advance Directives: Currently, there is no health care proxy. home support is adequate. Assessment: 09:41 Adult Sepsis Screening: The patient does not have new or worsening altered mentation. dsf Patient's respiratory rate is less than 22. Systolic blood pressure is greater than 100. Patient has a qSOFA score of 0- Negative Sepsis Screen. General: Appears in no apparent distress, comfortable, Behavior is appropriate for age, cooperative. Pain: Location: left hand and left arm Pain currently is 7 out of 10 on a pain scale. Quality of pain is described as "cant describe it". Neurological: Level of Consciousness is awake, alert, Oriented to person, place, time. Cardiovascular: Capillary refill < 3 seconds Heart tones S1 S2 present. Respiratory: Airway is patent Respiratory effort is even, unlabored, Respiratory pattern is regular, symmetrical, Breath sounds are clear bilaterally. Denies shortness of breath pain with respiration. GI: Abdomen is non- distended Bowel sounds present X 4 quads. Abd is soft X 4 quads Abd is tender to palpation in right lower quadrant. Derm: Skin is pink, warm & dry. left hand swollen. 10:41 General: Appears in no apparent distress, comfortable, Behavior is appropriate for age, dsf cooperative. Pain: Location: left hand and left arm Pain currently is 7 out of 10 on a pain scale. Quality of pain is described as "cant describe". Neurological: Level of Consciousness is awake, alert, Oriented to person, place, time. Cardiovascular: Capillary refill < 3 seconds Rhythm is sinus rhythm No ectopy. Respiratory: Airway is patent Respiratory effort is even, unlabored, Respiratory pattern is regular, symmetrical. Derm: Skin is pink, warm & dry. 11:41 Adult Sepsis Screening: The patient does not have new or worsening altered mentation. dsf Patient's respiratory rate is less than 22. Systolic blood pressure is greater than 100. Patient has a qSOFA score of 0- Negative Sepsis Screen. General: Appears in no apparent distress, Behavior is appropriate for age, cooperative. Neurological: Level of Consciousness is awake, alert, Oriented to person, place, time. Cardiovascular: Capillary refill < 3 seconds Heart tones S1 S2 present Rhythm is sinus rhythm No ectopy. Respiratory: Airway is patent Respiratory effort is even, unlabored, Respiratory pattern is regular, symmetrical, Breath sounds are clear bilaterally. Derm: Skin is pink, warm & dry. 12:00 General: Appears in no apparent distress, comfortable, Behavior is appropriate for age, dsf cooperative. Neurological: Level of Consciousness is awake, alert. Cardiovascular: Capillary refill < 3 seconds. Respiratory: Airway is patent Respiratory effort is even, unlabored, Respiratory pattern is regular, symmetrical. Derm: Skin is pink, warm & dry. Vital Signs: 09:14 BP 116 / 60; Pulse 62; Resp 18; Temp 96.9; Pulse Ox 96% on R/A; Weight 77.11 kg; Height mcp 5 ft. 9 in. (175.26 cm); Pain 8/10; 09:40 BP 145 / 71 (auto/); dsf 09:42 Pulse 70 MON; Pulse Ox 92% ; dsf 09:55 BP 134 / 62 (auto/); dsf 09:56 Pulse 68 MON; Pulse Ox 95% ; dsf 10:10 BP 144 / 68 (auto/); dsf 10:10 Pulse 66 MON; Pulse Ox 96% ; dsf 10:25 BP 166 / 80 (auto/); dsf 10:25 Pulse 70 MON; Pulse Ox 99% ; dsf 10:40 BP 150 / 81 (auto/); dsf 10:40 Pulse 66 MON; Pulse Ox 96% ; dsf 10:55 BP 141 / 72 (auto/); dsf 10:56 Pulse 64 MON; Pulse Ox 97% ; dsf 11:10 BP 140 / 70 (auto/); dsf 11:11 Pulse 64 MON; Pulse Ox 96% ; dsf 11:25 BP 139 / 77 (auto/); dsf 11:26 Pulse 66 MON; Pulse Ox 98% ; dsf 11:40 BP 148 / 103 (auto/); dsf 11:40 Pulse 68 MON; Pulse Ox 97% ; dsf 11:43 BP 143 / 100 RA Supine (auto/reg); Pulse 67; Resp 18; Temp 96.7; Pulse Ox 97% on 2 lpm jrd NC; Pain 8/10; 11:53 BP 142 / 71 (auto/); dsf 11:55 Pulse 56 MON; Resp 20; Temp 97.8(O); Pulse Ox 98% on R/A; Pain 7/10; dsf 09:14 Body Mass Index 25.10 (77.11 kg, 175.26 cm) [facility] Vitals: 09:14 Log In Time: August 24, 2016 at 09:00. [facility] ED Course: 09:06 Patient visited by Javon Welch. mm15 09:06 Patient moved to Waiting mm15 09:07 Fredy Suárez MD is Private Physician. mm15 09:10 Patient moved to Triage 1 mcp 09:13 Triage Initiated mcp 09:17 Patient visited by Ricarda Vaughan, DANELLE. mcp 09:26 Jacqueline Arreguin PA is PHCP. btw 09:26 Geri Manzo MD is Attending Physician. btw 09:26 Patient visited by Jacqueline Arreguin PA. btw 09:32 Kiera Herron,RN is Primary Nurse. ead 09:32 Patient moved to 9 ead 09:34 [facility] Payment Agreement was scanned into [employer] and attached to record. lg 09:43 Pt greeted and oriented to ED. Patient advised of names of staff involved in care, bnb location of call deng, wait times and NPO status. Patient has correct armband on for positive identification. Placed in gown. Bed in low position. Call light in reach. Side rails up X2. compliance monitor on. Pulse ox on. NIBP on. 09:43 EKG done. (by ED staff). Reviewed by Jacqueline WILLSON. bnb 09:44 Patient visited by Ely Patton PCA. bnb 09:45 Patient visited by Jacqueline Manuel RN. dsf 09:51 -Blood Culture Sent. dsf 09:51 B-Type Natiuretic Peptide Sent. dsf 09:51 Basic Metabolic Profile Sent. dsf 09:51 CBC with Diff Sent. dsf 09:51 Cardiac Injury Profile Sent. dsf 09:51 D-Dimer Quant Sent. dsf 09:51 Troponin Sent. dsf 09:51 Inserted saline lock: 20 gauge in right antecubital area The patient tolerated the dsf procedure well. started by Meka MCCLENDON. 09:53 O2 via nasal cannula \\T\\ 3L/min. dsf 10:02 Patient visited by Ely Patton PCA. bnb 10:02 BLOOD CULTURES Sent. bnb 10:02 Labs drawn. (by ED staff). Sent per order to lab. Labs/Blood culture drawn. bnb 10:41 The patient / caregiver is instructed regarding the plan of care and ED course. dsf 10:53 Patient visited by Jacqueline Manuel RN. dsf 11:04 CT Chest Angio R/O PE Returned. EDMS 11:04 Chest, 2 View (pa\\E\\lat) Returned. EDMS 11:26 Raghu Orellana is Referral Physician. btw 11:43 Patient visited by Lance Gaona PCA. jrd 11:52 CT Chest Angio R/O PE Returned. EDMS 11:58 Discontinued lock intact, bleeding controlled, pressure dressing applied, No dsf redness/swelling at site. No procedures done that require assistance. 13:59 T-Sheet-- Draft Copy was scanned into [employer] and attached to record. gb 14:00 ECG/EKG was scanned into [employer] and attached to record. gb 19:10 Chest, 2 View (pa\\E\\lat) Returned. EDMS 01 06:53 EKG-ADULT Returned. EDMS Output: 08/24 10:58 Urine: 150.00ml (Voided); Total: 150.00ml. dsf Order Results: Lab Order: -Blood Culture; SPEC'M 08/24/16 09:38 Test: BLOOD CULTURE; Value: No growth after 72 hours . All specimens observed; Status: F Test: BLOOD CULTURE; Value: for 5 days. Results final at that time.; Status: F Test: BLOOD CULTURE; Status: F Test: BLOOD CULTURE; Value: No growth after 48 hours . All specimens observed; Status: F Test: BLOOD CULTURE; Value: for 5 days. Results final at that time.; Status: F Test: BLOOD CULTURE; Status: F Test: BLOOD CULTURE; Value: No growth after 24 hours . All specimens observed; Status: F Test: BLOOD CULTURE; Value: for 5 days. Results final at that time.; Status: F Test: BLOOD CULTURE; Value: NO GROWTH AFTER 5 DAYS; Status: F Lab Order: B-Type Natiuretic Peptide; SPEC'M 08/24/16 09:38 Test: BRAIN NATRIURETIC PEPTIDE; Value: 237; Range: <100; Abnormal: Above high normal; Units: PG/ML; Status: F Lab Order: Basic Metabolic Profile; SPEC'M 08/24/16 09:38 Test: GLUCOSE, FASTING; Value: 84; Range: 83-110; Units: MG/DL; Status: F Test: BLOOD UREA NITROGEN; Value: 13; Range: 7-18; Units: MG/DL; Status: F Test: CREATININE FOR GFR; Value: 0.78; Range: 0.70-1.30; Units: MG/DL; Status: F Test: GLOMERULAR FILTRATION RATE; Value: > 60.0; Range: >42; Status: F Test: SODIUM LEVEL; Value: 143; Range: 136-145; Units: MEQ/L; Status: F Test: POTASSIUM SERUM; Value: 4.1; Range: 3.5-5.1; Units: MEQ/L; Status: F Test: CHLORIDE LEVEL; Value: 105; Range: 98-107; Units: MEQ/L; Status: F Test: CARBON DIOXIDE LEVEL; Value: 32; Range: 21-32; Units: MEQ/L; Status: F Test: ANION GAP; Value: 6; Range: 8-16; Abnormal: Below low normal; Units: MEQ/L; Status: F Test: CALCIUM LEVEL; Value: 9.4; Range: 8.8-10.2; Units: MG/DL; Status: F Test Note: ; Units are mL/min/1.73 m2 Chronic Kidney Disease Staging per NKF: Stage I & II GFR >=60 Normal to Mildly Decreased Stage III GFR 30-59 Moderately Decreased Stage IV GFR 15-29 Severely Decreased Stage V GFR <15 Very Little GFR Left ESRD GFR <15 on LEAD REFINERY SUPERVISOR Lab Order: CBC with Diff; SPEC'M 08/24/16 09:38 Test: WHITE BLOOD COUNT; Value: 6.7; Range: 4.0-10.0; Units: K/mm3; Status: F Test: RED BLOOD COUNT; Value: 4.81; Range: 4.30-6.10; Units: M/mm3; Status: F Test: HEMOGLOBIN; Value: 15.6; Range: 14.0-18.0; Units: g/dl; Status: F Test: HEMATOCRIT; Value: 46.0; Range: 42.0-52.0; Units: %; Status: F Test: MEAN CORPUSCULAR VOLUME; Value: 95.6; Range: 80.0-96.0; Units: fl; Status: F Test: MEAN CORPUSCULAR HEMOGLOBIN; Value: 32.3; Range: 27.0-33.0; Units: pg; Status: F Test: MEAN CORPUSCULAR HGB CONC; Value: 33.8; Range: 32.0-36.5; Units: g/dl; Status: F Test: RED CELL DISTRIBUTION WIDTH; Value: 13.0; Range: 11.5-14.5; Units: %; Status: F Test: PLATELET COUNT, AUTOMATED; Value: 186; Range: 150-450; Units: k/mm3; Status: F Test: NEUTROPHILS %; Value: 66.7; Range: 36.0-66.0; Abnormal: Above high normal; Units: %; Status: F Test: LYMPH %; Value: 16.1; Range: 24.0-44.0; Abnormal: Below low normal; Units: %; Status: F Test: MONO %; Value: 6.4; Range: 0.0-5.0; Abnormal: Above high normal; Units: %; Status: F Test: EOS %; Value: 8.3; Range: 0.0-3.0; Abnormal: Above high normal; Units: %; Status: F Test: BASO %; Value: 0.4; Range: 0.0-1.0; Units: %; Status: F Test: LARGE UNSTAINED CELL %; Value: 2.1; Range: 0.0-4.0; Units: %; Status: F Test: NEUTROPHILS #; Value: 4.5; Range: 1.8-7.7; Units: K/mm3; Status: F Test: LYMPH #; Value: 1.1; Range: 1.5-4.5; Abnormal: Below low normal; Units: K/mm3; Status: F Test: MONO #; Value: 0.4; Range: 0.0-0.8; Units: K/mm3; Status: F Test: EOS #; Value: 0.6; Range: 0.0-0.50; Abnormal: Above high normal; Units: K/mm3; Status: F Test: BASO #; Value: 0.0; Range: 0.0-0.2; Units: K/mm3; Status: F Test: LARGE UNSTAINED CELL #; Value: 0.1; Range: 0.0-0.4; Units: K/mm3; Status: F Lab Order: Cardiac Injury Profile; 08/24/16 09:38 Test: CPK CREATINE PHOSPHOKINASE; Value: 32; Range: 39-308; Abnormal: Below low normal; Units: U/L; Status: F Test: CK-MB VALUE MASS; Value: 1.3; Range: 0.0-3.6; Units: NG/ML; Status: F Test: MB/CK RELATIVE INDEX; Value: 4.06; Range: < OR =4; Abnormal: Above high normal; Status: F Test Note: ; DIAGNOSIS CRITERIA MMB ng/ml Relative Index (RI) NON-AMI < or = 5 N/A MARIE ZONE > 5 < or = 4 AMI > 5 > 4 Lab Order: D-Dimer Quant; 08/24/16 09:38 Test: D-DIMER QUANT; Value: 1123.2; Range: <500; Abnormal: Above high normal; Units: ng/ml; Status: F Lab Order: Troponin; 08/24/16 09:38 Test: TROPONIN I; Value: < 0.02; Range: < 0.10; Units: NG/ML; Status: F Test Note: ; Troponin I Reference Interval for [employer] LOCI: 99th Percentile= 0.00-0.045 ng/ml Risk Stratification: <= 0.10 ng/ml Decreased Risk for Adverse Clinical Events. 0.10-1.50 ng/ml Increased Risk for Adverse Clinical Events. Evaluation of additional criterion and/or repeat testing in 2-6 hours is suggested to rule out myocardial damage. >= 1.50 ng/ml Indicative of Myocardial Injury. Lab Order: BLOOD CULTURES; SPEC'M 08/24/16 10:01 Test: BLOOD CULTURE; Value: No growth after 72 hours . All specimens observed; Status: F Test: BLOOD CULTURE; Value: for 5 days. Results final at that time.; Status: F Test: BLOOD CULTURE; Status: F Test: BLOOD CULTURE; Value: No growth after 48 hours . All specimens observed; Status: F Test: BLOOD CULTURE; Value: for 5 days. Results final at that time.; Status: F Test: BLOOD CULTURE; Status: F Test: BLOOD CULTURE; Value: No growth after 24 hours . All specimens observed; Status: F Test: BLOOD CULTURE; Value: for 5 days. Results final at that time.; Status: F Test: BLOOD CULTURE; Value: NO GROWTH AFTER 5 DAYS; Status: F Radiology Order: Chest, 2 View (pa\\E\\lat) Test: Chest, 2 View (pa\\E\\lat) REASON FOR EXAMINATION: Shortness of Breath; Chest x-ray: Two views.; ; History: Shortness of breath.; ; Comparison chest x-ray is from August 19, 2016. A bipolar pacemaker is seen in; place. There is a stent graft device in the aortic root at the level of the; aortic valve suggesting aortic valve replacement. Heart is not enlarged. The; aorta is calcific and tortuous as before. There is no evidence of pneumothorax; or hydrothorax. Lung swartz are clear. Pleural angles are sharp. A prosthetic; shoulder joint is noted on the left. There are clips in the soft tissues of the; left neck.; ; Impression:; ; No active disease. The patient is status post aortic root stent graft versus; aortic valve replacement. Pacemaker.; ; ; Signed by; Rojas Pro MD 08/24/2016 06:34 P; Radiology Order: EKG-ADULT Test: EKG-ADULT REASON FOR EXAMINATION: Shortness of Breath; Stationary ECG Study; [facility] - ED; ; Test Date: 2016-08-24; Pat Name: NAYA CHRISTINA Department:; Room: -; Gender: M Hse Manager: vidal; : 1940 Requested By: JACQUELINE Hong PA-C; Order Number: [id number] Reading MD: Carri Henderson; Measurements; Intervals [place]; Rate: 76 P: 11; IN: 253 QRS: -80; QRSD: 142 T: 73; QT: 436; QTc: 493; Interpretive Statements; SINUS RHYTHM WITH FIRST DEGREE AV BLOCK WITH FREQUENT VENTRICULAR PREMATURE; COMPLEXES; RIGHT BUNDLE BRANCH BLOCK; MINIMAL VOLTAGE CRITERIA FOR LVH, CONSIDER NORMAL VARIANT; INFERIOR MYOCARDIAL INFARCTION, OF INDETERMINATE AGE; ; Electronically Signed On 08-25-2016 6:44:09 EST by Carri Henderson; Radiology Order: CT Chest Angio R/O PE Test: CT Chest Angio R/O PE REASON FOR EXAMINATION: Shortness of Breath; CT ANGIO CHEST:; ; HISTORY: Shortness of breath.; ; CONTRAST: Isovue 370, 75 mL.; ; There are no filling defects in the main , right and left pulmonary arteries or; their branches. Calcified granuloma are present in the lungs. There is no; pleural effusion. Calcified lymph nodes are present in the mediastinum. The; patient is status post aortic valve replacement . Atherosclerotic calcification; is present in the thoracic aorta. There is aneurysmal dilatation of the thoracic; aorta measuring 3.5 cm.; ; IMPRESSION:; ; 1. There is no pulmonary embolism.; ; 2. Old granulomatous disease.; ; 3. 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 ck1 11:27 Discharge ordered by Provider. btw 11:58 Discharge Assessment: Patient awake, alert and oriented x 3. No cognitive and/or dsf functional deficits noted. Patient verbalized understanding of disposition instructions. patient administered narcotics - no. The following High Risk Discharge criteria are identified: None. Discharged to home via wheelchair, with family. Condition: good. Discharge instructions given to patient, significant other, Instructed on discharge instructions, follow up and referral plans. medication usage, Demonstrated understanding of instructions, medications, Pt was receptive of discharge instructions/ teaching. Prescriptions given X 2. Property sent home with patient. 12:01 Patient left the ED. dsf Signatures: Dispatcher [employer] EDMS Ricarda Vaughan, RN RN mcp Suzette Frey, Reg Reg gb Maurice Gabriel, Reg Reg lg Yanira Gutierres,RN RN ck1 Jacqueline Arreguin, Jacqueline Cox RN RN dsf Javon Welch mm15 China Easley RN RN ead Donoghue, Joseph, ACADEMIC SERVICES PROFESSIONAL ACADEMIC SERVICES PROFESSIONAL jrd Ely Patton, ACADEMIC SERVICES PROFESSIONAL ACADEMIC SERVICES PROFESSIONAL bnb Corrections: (The following items were deleted from the chart) 09:54 09:53 O2 via nasal cannula \\T\\ 4L/min dsf dsf 10: 09:41 Respiratory: Airway is patent Respiratory effort is even, unlabored, Respiratory dsf pattern is regular, symmetrical, Breath sounds are clear bilaterally. dsf : 09:41 Derm: Skin is pink, warm & dry. dsf dsf MTDD
--- NOTE | 2016-08-29 13:38 | EDDOCDS ---
Physician Documentation [facility] Name: Manuel Christina Age: 76 yrs Sex: Male : 1940 Arrival Date: 08/24/2016 Time: 09:05 Bed 9 Private MD: Fredy Suáerz Disposition: 08/24/16 11:27 Discharged to Home/Self Care. Impression: Acute combined systolic (congestive) and diastolic (congestive) heart failure, Shortness of breath. - Condition is Stable. - Discharge Instructions: Heart Failure, Shortness of Breath, [id number]. - Prescriptions for Lasix 20 mg Oral Tablet - take 1 tablet by ORAL route once daily; 10 tablet. Potassium Chloride 10 mEq Oral Capsule, Sustained Release - take 1 tablet by ORAL route once daily; 10 tablet. - Medication Reconciliation, Local Pharmacy Hours form. - Follow up: Raghu Orellana; When: Call to arrange an appointment; Reason: Further diagnostic work-up, Recheck today's complaints, Continuance of care. - Problem is new. - Symptoms are unchanged. Historical: - Allergies: Ciprofloxacin; Levofloxacin; moxifloxacin; Oxycodone HCl; - Home Meds: 1. aspirin 81 mg Oral chew 1 tab once daily 2. finasteride 1 mg oral tab 1 tab once daily 3. Flomax 0.4 mg Oral cp24 2 caps once daily 4. Lipitor 40 mg Oral tab 1 tab once daily 5. multivitamin Oral tab daily 6. Plavix 75 mg Oral tab 1 tab once daily 7. tramadol 100 mg Oral tab tid - PMHx: BPH; Hypercholesterolemia; Hypertension; - PSHx: Aortic valve replacent 2015; Pacemaker insertion 2015; CABG; Bilateral carotid endarderectomy; Right femur repair; Left shoulder replacement; - Social history: Smoking status: Patient states former smoker of tobacco. No barriers to communication noted, The patient speaks fluent Wolof. - Family history: Not pertinent. - : The pt / caregiver states he / she is on anticoagulants: Plavix. Home medication list is obtained from the patient, family members. - Exposure Risk Screening:: None identified. Vital Signs: 08/24 09:14 BP 116 / 60; Pulse 62; Resp 18; Temp 96.9; Pulse Ox 96% on R/A; Weight 77.11 kg / 170 mcp lbs; Height 5 ft. 9 in. (175.26 cm); Pain 8/10; 09:40 BP 145 / 71 (auto/); dsf 09:42 Pulse 70 MON; Pulse Ox 92% ; dsf 09:55 BP 134 / 62 (auto/); dsf 09:56 Pulse 68 MON; Pulse Ox 95% ; dsf 10:10 BP 144 / 68 (auto/); dsf 10:10 Pulse 66 MON; Pulse Ox 96% ; dsf 10:25 BP 166 / 80 (auto/); dsf 10:25 Pulse 70 MON; Pulse Ox 99% ; dsf 10:40 BP 150 / 81 (auto/); dsf 10:40 Pulse 66 MON; Pulse Ox 96% ; dsf 10:55 BP 141 / 72 (auto/); dsf 10:56 Pulse 64 MON; Pulse Ox 97% ; dsf 11:10 BP 140 / 70 (auto/); dsf 11:11 Pulse 64 MON; Pulse Ox 96% ; dsf 11:25 BP 139 / 77 (auto/); dsf 11:26 Pulse 66 MON; Pulse Ox 98% ; dsf 11:40 BP 148 / 103 (auto/); dsf 11:40 Pulse 68 MON; Pulse Ox 97% ; dsf 11:43 BP 143 / 100 RA Supine (auto/reg); Pulse 67; Resp 18; Temp 96.7; Pulse Ox 97% on 2 lpm jrd NC; Pain 8/10; 11:53 BP 142 / 71 (auto/); dsf 11:55 Pulse 56 MON; Resp 20; Temp 97.8(O); Pulse Ox 98% on R/A; Pain 7/10; dsf 09:14 Body Mass Index 25.10 (77.11 kg, 175.26 cm) mcp MDM: 09:29 Financial registration complete. lg 09:32 -Blood Culture (Adults Only), peripheral from different site, or from device/port/PICC btw etc. if present ordered. 09:32 Cardiothoracic Anesthesia Technician/Pulse Ox/q 15 min VS ordered. btw 09:32 IV Saline Lock ordered. btw 09:32 Oxygen at 4L/Min NC or Home dosage ordered. btw 09:32 Rhythm Strip to chart ordered. btw 09:33 -Blood Culture Ordered. EDMS 09:33 B-Type Natiuretic Peptide Ordered. EDMS 09:33 Basic Metabolic Profile Ordered. EDMS 09:33 CBC with Diff Ordered. EDMS 09:33 Cardiac Injury Profile Ordered. EDMS 09:33 D-Dimer Quant Ordered. EDMS 09:33 Troponin Ordered. EDMS 09:34 Chest, 2 View (pa\E\lat) Ordered. EDMS 09:34 ECG WITH READING ER PHYS+CARDIAG ordered. EDMS 09:34 [facility] Payment Agreement was scanned into [employer] and attached to record. lg 09:38 -Blood Culture (Adults Only), peripheral from different site, or from device/port/PICC lbd etc. if present complete. 09:41 BLOOD CULTURES Ordered. EDMS 09:47 CT Chest Angio R/O PE Ordered. EDMS 10:02 CBC with Diff Reviewed. btw 10:20 B-Type Natiuretic Peptide Reviewed. btw 10:20 D-Dimer Quant Reviewed. btw 10:52 Basic Metabolic Profile Reviewed. btw 10:52 Cardiac Injury Profile Reviewed. btw 10:52 Troponin Reviewed. btw 11:08 Chest, 2 View (pa\E\lat) Reviewed. btw 11:08 CT Chest Angio R/O PE Reviewed. btw 13:59 T-Sheet-- Draft Copy was scanned into [employer] and attached to record. gb 14:00 ECG/EKG was scanned into [employer] and attached to record. gb Addendum: 08/29/2016 13:36 Radiology Callback: Radiology results faxed to primary care physician/provider. dr rebeca suárez and dr orellana faxed formal report of cta for fu mlg. Signatures: Dispatcher [employer] [facility] Mamadou Sanchez MD MD ml Daly, Linda, Gear Repairer Unit lbd Ricarda Vaughan RN RN mcp Barnhardt, Gloria, Reg Reg gb Maurice Gabriel, Reg Reg lg Alfonso Arreguin PA PA btw Fuller, Desiree, RN RN dsf The chart was reviewed and I authenticate all verbal orders and agree with the evaluation and treatment provided.Attachments: 08/24 09:34 [facility] Payment Agreement lg 13:59 T-Sheet-- Draft Copy gb 14:00 ECG/EKG gb MTDD
--- NOTE | 2016-08-29 13:39 | EDDOCDS ---
Physician Documentation [facility] Name: Manuel Christina Age: 76 yrs Sex: Male : 1940 Arrival Date: 08/24/2016 Time: 09:05 Bed 9 Private MD: Fredy Suárez Disposition: 08/24/16 11:27 Discharged to Home/Self Care. Impression: Acute combined systolic (congestive) and diastolic (congestive) heart failure, Shortness of breath. - Condition is Stable. - Discharge Instructions: Heart Failure, Shortness of Breath, [id number]. - Prescriptions for Lasix 20 mg Oral Tablet - take 1 tablet by ORAL route once daily; 10 tablet. Potassium Chloride 10 mEq Oral Capsule, Sustained Release - take 1 tablet by ORAL route once daily; 10 tablet. - Medication Reconciliation, Local Pharmacy Hours form. - Follow up: Raghu Orellana; When: Call to arrange an appointment; Reason: Further diagnostic work-up, Recheck today's complaints, Continuance of care. - Problem is new. - Symptoms are unchanged. Historical: - Allergies: Ciprofloxacin; Levofloxacin; moxifloxacin; Oxycodone HCl; - Home Meds: 1. aspirin 81 mg Oral chew 1 tab once daily 2. finasteride 1 mg oral tab 1 tab once daily 3. Flomax 0.4 mg Oral cp24 2 caps once daily 4. Lipitor 40 mg Oral tab 1 tab once daily 5. multivitamin Oral tab daily 6. Plavix 75 mg Oral tab 1 tab once daily 7. tramadol 100 mg Oral tab tid - PMHx: BPH; Hypercholesterolemia; Hypertension; - PSHx: Aortic valve replacent 2015; Pacemaker insertion 2015; CABG; Bilateral carotid endarderectomy; Right femur repair; Left shoulder replacement; - Social history: Smoking status: Patient states former smoker of tobacco. No barriers to communication noted, The patient speaks fluent Lao. - Family history: Not pertinent. - : The pt / caregiver states he / she is on anticoagulants: Plavix. Home medication list is obtained from the patient, family members. - Exposure Risk Screening:: None identified. Vital Signs: 08/24 09:14 BP 116 / 60; Pulse 62; Resp 18; Temp 96.9; Pulse Ox 96% on R/A; Weight 77.11 kg / 170 mcp lbs; Height 5 ft. 9 in. (175.26 cm); Pain 8/10; 09:40 BP 145 / 71 (auto/); dsf 09:42 Pulse 70 MON; Pulse Ox 92% ; dsf 09:55 BP 134 / 62 (auto/); dsf 09:56 Pulse 68 MON; Pulse Ox 95% ; dsf 10:10 BP 144 / 68 (auto/); dsf 10:10 Pulse 66 MON; Pulse Ox 96% ; dsf 10:25 BP 166 / 80 (auto/); dsf 10:25 Pulse 70 MON; Pulse Ox 99% ; dsf 10:40 BP 150 / 81 (auto/); dsf 10:40 Pulse 66 MON; Pulse Ox 96% ; dsf 10:55 BP 141 / 72 (auto/); dsf 10:56 Pulse 64 MON; Pulse Ox 97% ; dsf 11:10 BP 140 / 70 (auto/); dsf 11:11 Pulse 64 MON; Pulse Ox 96% ; dsf 11:25 BP 139 / 77 (auto/); dsf 11:26 Pulse 66 MON; Pulse Ox 98% ; dsf 11:40 BP 148 / 103 (auto/); dsf 11:40 Pulse 68 MON; Pulse Ox 97% ; dsf 11:43 BP 143 / 100 RA Supine (auto/reg); Pulse 67; Resp 18; Temp 96.7; Pulse Ox 97% on 2 lpm jrd NC; Pain 8/10; 11:53 BP 142 / 71 (auto/); dsf 11:55 Pulse 56 MON; Resp 20; Temp 97.8(O); Pulse Ox 98% on R/A; Pain 7/10; dsf 09:14 Body Mass Index 25.10 (77.11 kg, 175.26 cm) mcp MDM: 09:29 Financial registration complete. lg 09:32 -Blood Culture (Adults Only), peripheral from different site, or from device/port/PICC btw etc. if present ordered. 09:32 Joinery Factory Worker/Pulse Ox/q 15 min VS ordered. btw 09:32 IV Saline Lock ordered. btw 09:32 Oxygen at 4L/Min NC or Home dosage ordered. btw 09:32 Rhythm Strip to chart ordered. btw 09:33 -Blood Culture Ordered. EDMS 09:33 B-Type Natiuretic Peptide Ordered. EDMS 09:33 Basic Metabolic Profile Ordered. EDMS 09:33 CBC with Diff Ordered. EDMS 09:33 Cardiac Injury Profile Ordered. EDMS 09:33 D-Dimer Quant Ordered. EDMS 09:33 Troponin Ordered. EDMS 09:34 Chest, 2 View (pa\E\lat) Ordered. EDMS 09:34 ECG WITH READING ER PHYS+CARDIAG ordered. EDMS 09:34 [facility] Payment Agreement was scanned into [employer] and attached to record. lg 09:38 -Blood Culture (Adults Only), peripheral from different site, or from device/port/PICC lbd etc. if present complete. 09:41 BLOOD CULTURES Ordered. EDMS 09:47 CT Chest Angio R/O PE Ordered. EDMS 10:02 CBC with Diff Reviewed. btw 10:20 B-Type Natiuretic Peptide Reviewed. btw 10:20 D-Dimer Quant Reviewed. btw 10:52 Basic Metabolic Profile Reviewed. btw 10:52 Cardiac Injury Profile Reviewed. btw 10:52 Troponin Reviewed. btw 11:08 Chest, 2 View (pa\E\lat) Reviewed. btw 11:08 CT Chest Angio R/O PE Reviewed. btw 13:59 T-Sheet-- Draft Copy was scanned into [employer] and attached to record. gb 14:00 ECG/EKG was scanned into [employer] and attached to record. gb Addendum: 08/29/2016 13:36 Radiology Callback: Radiology results faxed to primary care physician/provider. dr rebeca suárez and dr orellana faxed formal report of cta for fu mlg. Signatures: Dispatcher [employer] [facility] Mamadou Sanchez MD MD ml Daly, Linda, Psychiatric Therapist Unit lbd Ricarda Vaughan RN RN mcp Barnhardt, Gloria, Reg Reg gb Maurice Gabriel, Reg Reg lg Alfonso Arreguin PA PA btw Fuller, Desiree, RN RN dsf The chart was reviewed and I authenticate all verbal orders and agree with the evaluation and treatment provided.Attachments: 08/24 09:34 [facility] Payment Agreement lg 13:59 T-Sheet-- Draft Copy gb 14:00 ECG/EKG gb Chart Complete MTDD
--- NOTE | 2016-08-29 13:39 | EDDOCDS ---
Nurse's Notes [facility] Name: Naya Christina Age: 76 yrs Sex: Male : 1940 Arrival Date: 08/24/2016 Time: 09:05 Bed 9 Private MD: Fredy Suárez Diagnosis: Acute combined systolic (congestive) and diastolic (congestive) heart failure;Shortness of breath Presentation: 08/24 09:10 Presenting complaint: Patient states: Was seen here Monday after falling--xrays mcp negative per . Left arm and hand swollen--yellow ring removed from left ring finger and given to . Open areas on elbow with gauze dressings dry and intact. also states pt having difficulty taking deep breath--resp unlabored in triage. Adult Sepsis Screening: The patient does not have new or worsening altered mentation. Patient's respiratory rate is less than 22. Systolic blood pressure is greater than 100. Patient has a qSOFA score of 0- Negative Sepsis Screen. Suicide/Homicide risk assessment- the patient denies having any suicidal and/or homicidal ideations and does not present with any other emotional, behavioral or mental health complaints. Status: Patient is not a service operator or dependent. Transition of care: patient was not received from another setting of care. 09:10 Acuity: IGGY Level 4 [facility] 09:10 Method Of Arrival: Wheelchair [facility] 09:32 Acuity level changed due to complexity of care. [facility] 09:32 Acuity: IGGY Level 3 [facility] Triage Assessment: 09:16 General: Appears uncomfortable, Behavior is cooperative. Pain: Location: left arm Pain [facility] currently is 8 out of 10 on a pain scale. Neurological: No deficits noted. Respiratory: Airway is patent Respiratory effort is even, unlabored. Derm: Skin is pink, warm & dry. Bruising that is dark purple, on left hand and left arm. Musculoskeletal: Circulation, motion, and sensation intact Swelling present in left hand and left arm. Historical: - Allergies: Ciprofloxacin; Levofloxacin; moxifloxacin; Oxycodone HCl; - Home Meds: 1. aspirin 81 mg Oral chew 1 tab once daily 2. finasteride 1 mg oral tab 1 tab once daily 3. Flomax 0.4 mg Oral cp24 2 caps once daily 4. Lipitor 40 mg Oral tab 1 tab once daily 5. multivitamin Oral tab daily 6. Plavix 75 mg Oral tab 1 tab once daily 7. tramadol 100 mg Oral tab tid - PMHx: BPH; Hypercholesterolemia; Hypertension; - PSHx: Aortic valve replacent 2015; Pacemaker insertion 2016; CABG; Bilateral carotid endarderectomy; Right femur repair; Left shoulder replacement; - Social history: Smoking status: Patient states former smoker of tobacco. No barriers to communication noted, The patient speaks fluent Polish. - Family history: Not pertinent. - : The pt / caregiver states he / she is on anticoagulants: Plavix. Home medication list is obtained from the patient, family members. - Exposure Risk Screening:: None identified. Screenin:41 Screening information is obtained from the patient. Fall risk: No risks identified. dsf Assistance ADL's: requires no assistance with activities of daily living. Abuse/DV Screen: The patient / caregiver reports he/she is: not in a situation that causes fear, pain or injury. Nutritional screening: No deficits noted. Advance Directives: Currently, there is no health care proxy. home support is adequate. Assessment: 09:41 Adult Sepsis Screening: The patient does not have new or worsening altered mentation. dsf Patient's respiratory rate is less than 22. Systolic blood pressure is greater than 100. Patient has a qSOFA score of 0- Negative Sepsis Screen. General: Appears in no apparent distress, comfortable, Behavior is appropriate for age, cooperative. Pain: Location: left hand and left arm Pain currently is 7 out of 10 on a pain scale. Quality of pain is described as "cant describe it". Neurological: Level of Consciousness is awake, alert, Oriented to person, place, time. Cardiovascular: Capillary refill < 3 seconds Heart tones S1 S2 present. Respiratory: Airway is patent Respiratory effort is even, unlabored, Respiratory pattern is regular, symmetrical, Breath sounds are clear bilaterally. Denies shortness of breath pain with respiration. GI: Abdomen is non- distended Bowel sounds present X 4 quads. Abd is soft X 4 quads Abd is tender to palpation in right lower quadrant. Derm: Skin is pink, warm & dry. left hand swollen. 10:41 General: Appears in no apparent distress, comfortable, Behavior is appropriate for age, dsf cooperative. Pain: Location: left hand and left arm Pain currently is 7 out of 10 on a pain scale. Quality of pain is described as "cant describe". Neurological: Level of Consciousness is awake, alert, Oriented to person, place, time. Cardiovascular: Capillary refill < 3 seconds Rhythm is sinus rhythm No ectopy. Respiratory: Airway is patent Respiratory effort is even, unlabored, Respiratory pattern is regular, symmetrical. Derm: Skin is pink, warm & dry. 11:41 Adult Sepsis Screening: The patient does not have new or worsening altered mentation. dsf Patient's respiratory rate is less than 22. Systolic blood pressure is greater than 100. Patient has a qSOFA score of 0- Negative Sepsis Screen. General: Appears in no apparent distress, Behavior is appropriate for age, cooperative. Neurological: Level of Consciousness is awake, alert, Oriented to person, place, time. Cardiovascular: Capillary refill < 3 seconds Heart tones S1 S2 present Rhythm is sinus rhythm No ectopy. Respiratory: Airway is patent Respiratory effort is even, unlabored, Respiratory pattern is regular, symmetrical, Breath sounds are clear bilaterally. Derm: Skin is pink, warm & dry. 12:00 General: Appears in no apparent distress, comfortable, Behavior is appropriate for age, dsf cooperative. Neurological: Level of Consciousness is awake, alert. Cardiovascular: Capillary refill < 3 seconds. Respiratory: Airway is patent Respiratory effort is even, unlabored, Respiratory pattern is regular, symmetrical. Derm: Skin is pink, warm & dry. Vital Signs: 09:14 BP 116 / 60; Pulse 62; Resp 18; Temp 96.9; Pulse Ox 96% on R/A; Weight 77.11 kg; Height mcp 5 ft. 9 in. (175.26 cm); Pain 8/10; 09:40 BP 145 / 71 (auto/); dsf 09:42 Pulse 70 MON; Pulse Ox 92% ; dsf 09:55 BP 134 / 62 (auto/); dsf 09:56 Pulse 68 MON; Pulse Ox 95% ; dsf 10:10 BP 144 / 68 (auto/); dsf 10:10 Pulse 66 MON; Pulse Ox 96% ; dsf 10:25 BP 166 / 80 (auto/); dsf 10:25 Pulse 70 MON; Pulse Ox 99% ; dsf 10:40 BP 150 / 81 (auto/); dsf 10:40 Pulse 66 MON; Pulse Ox 96% ; dsf 10:55 BP 141 / 72 (auto/); dsf 10:56 Pulse 64 MON; Pulse Ox 97% ; dsf 11:10 BP 140 / 70 (auto/); dsf 11:11 Pulse 64 MON; Pulse Ox 96% ; dsf 11:25 BP 139 / 77 (auto/); dsf 11:26 Pulse 66 MON; Pulse Ox 98% ; dsf 11:40 BP 148 / 103 (auto/); dsf 11:40 Pulse 68 MON; Pulse Ox 97% ; dsf 11:43 BP 143 / 100 RA Supine (auto/reg); Pulse 67; Resp 18; Temp 96.7; Pulse Ox 97% on 2 lpm jrd NC; Pain 8/10; 11:53 BP 142 / 71 (auto/); dsf 11:55 Pulse 56 MON; Resp 20; Temp 97.8(O); Pulse Ox 98% on R/A; Pain 7/10; dsf 09:14 Body Mass Index 25.10 (77.11 kg, 175.26 cm) [facility] Vitals: 09:14 Log In Time: August 24, 2016 at 09:00. [facility] ED Course: 09:06 Patient visited by Javon Welch. mm15 09:06 Patient moved to Waiting mm15 09:07 Fredy Suárez MD is Private Physician. mm15 09:10 Patient moved to Triage 1 mcp 09:13 Triage Initiated mcp 09:17 Patient visited by Ricarda Vaughan, DANELLE. mcp 09:26 Jacqueline Arreguin PA is PHCP. btw 09:26 Geri Manzo MD is Attending Physician. btw 09:26 Patient visited by Jacqueline Arreguin PA. btw 09:32 Kiera Herron,RN is Primary Nurse. ead 09:32 Patient moved to 9 ead 09:34 [facility] Payment Agreement was scanned into LOC&ALL and attached to record. lg 09:43 Pt greeted and oriented to ED. Patient advised of names of staff involved in care, bnb location of call deng, wait times and NPO status. Patient has correct armband on for positive identification. Placed in gown. Bed in low position. Call light in reach. Side rails up X2. clinical research monitor on. Pulse ox on. NIBP on. 09:43 EKG done. (by ED staff). Reviewed by Jacqueline WILLSON. bnb 09:44 Patient visited by Ely Patton PCA. bnb 09:45 Patient visited by Jacqueline Manuel RN. dsf 09:51 -Blood Culture Sent. dsf 09:51 B-Type Natiuretic Peptide Sent. dsf 09:51 Basic Metabolic Profile Sent. dsf 09:51 CBC with Diff Sent. dsf 09:51 Cardiac Injury Profile Sent. dsf 09:51 D-Dimer Quant Sent. dsf 09:51 Troponin Sent. dsf 09:51 Inserted saline lock: 20 gauge in right antecubital area The patient tolerated the dsf procedure well. started by Meka MCCLENDON. 09:53 O2 via nasal cannula \\T\\ 3L/min. dsf 10:02 Patient visited by Ely Patton PCA. bnb 10:02 BLOOD CULTURES Sent. bnb 10:02 Labs drawn. (by ED staff). Sent per order to lab. Labs/Blood culture drawn. bnb 10:41 The patient / caregiver is instructed regarding the plan of care and ED course. dsf 10:53 Patient visited by Jacqueline Manuel RN. dsf 11:04 CT Chest Angio R/O PE Returned. EDMS 11:04 Chest, 2 View (pa\\E\\lat) Returned. EDMS 11:26 Raghu Orellana is Referral Physician. btw 11:43 Patient visited by Lance Gaona PCA. jrd 11:52 CT Chest Angio R/O PE Returned. EDMS 11:58 Discontinued lock intact, bleeding controlled, pressure dressing applied, No dsf redness/swelling at site. No procedures done that require assistance. 13:59 T-Sheet-- Draft Copy was scanned into LOC&ALL and attached to record. gb 14:00 ECG/EKG was scanned into LOC&ALL and attached to record. gb 19:10 Chest, 2 View (pa\\E\\lat) Returned. EDMS 01 06:53 EKG-ADULT Returned. EDMS Output: 08/24 10:58 Urine: 150.00ml (Voided); Total: 150.00ml. dsf Order Results: Lab Order: -Blood Culture; SPEC'M 08/24/16 09:38 Test: BLOOD CULTURE; Value: No growth after 72 hours . All specimens observed; Status: F Test: BLOOD CULTURE; Value: for 5 days. Results final at that time.; Status: F Test: BLOOD CULTURE; Status: F Test: BLOOD CULTURE; Value: No growth after 48 hours . All specimens observed; Status: F Test: BLOOD CULTURE; Value: for 5 days. Results final at that time.; Status: F Test: BLOOD CULTURE; Status: F Test: BLOOD CULTURE; Value: No growth after 24 hours . All specimens observed; Status: F Test: BLOOD CULTURE; Value: for 5 days. Results final at that time.; Status: F Test: BLOOD CULTURE; Value: NO GROWTH AFTER 5 DAYS; Status: F Lab Order: B-Type Natiuretic Peptide; SPEC'M 08/24/16 09:38 Test: BRAIN NATRIURETIC PEPTIDE; Value: 237; Range: <100; Abnormal: Above high normal; Units: PG/ML; Status: F Lab Order: Basic Metabolic Profile; SPEC'M 08/24/16 09:38 Test: GLUCOSE, FASTING; Value: 84; Range: 83-110; Units: MG/DL; Status: F Test: BLOOD UREA NITROGEN; Value: 13; Range: 7-18; Units: MG/DL; Status: F Test: CREATININE FOR GFR; Value: 0.78; Range: 0.70-1.30; Units: MG/DL; Status: F Test: GLOMERULAR FILTRATION RATE; Value: > 60.0; Range: >42; Status: F Test: SODIUM LEVEL; Value: 143; Range: 136-145; Units: MEQ/L; Status: F Test: POTASSIUM SERUM; Value: 4.1; Range: 3.5-5.1; Units: MEQ/L; Status: F Test: CHLORIDE LEVEL; Value: 105; Range: 98-107; Units: MEQ/L; Status: F Test: CARBON DIOXIDE LEVEL; Value: 32; Range: 21-32; Units: MEQ/L; Status: F Test: ANION GAP; Value: 6; Range: 8-16; Abnormal: Below low normal; Units: MEQ/L; Status: F Test: CALCIUM LEVEL; Value: 9.4; Range: 8.8-10.2; Units: MG/DL; Status: F Test Note: ; Units are mL/min/1.73 m2 Chronic Kidney Disease Staging per NKF: Stage I & II GFR >=60 Normal to Mildly Decreased Stage III GFR 30-59 Moderately Decreased Stage IV GFR 15-29 Severely Decreased Stage V GFR <15 Very Little GFR Left ESRD GFR <15 on ANNEALER Lab Order: CBC with Diff; SPEC'M 08/24/16 09:38 Test: WHITE BLOOD COUNT; Value: 6.7; Range: 4.0-10.0; Units: K/mm3; Status: F Test: RED BLOOD COUNT; Value: 4.81; Range: 4.30-6.10; Units: M/mm3; Status: F Test: HEMOGLOBIN; Value: 15.6; Range: 14.0-18.0; Units: g/dl; Status: F Test: HEMATOCRIT; Value: 46.0; Range: 42.0-52.0; Units: %; Status: F Test: MEAN CORPUSCULAR VOLUME; Value: 95.6; Range: 80.0-96.0; Units: fl; Status: F Test: MEAN CORPUSCULAR HEMOGLOBIN; Value: 32.3; Range: 27.0-33.0; Units: pg; Status: F Test: MEAN CORPUSCULAR HGB CONC; Value: 33.8; Range: 32.0-36.5; Units: g/dl; Status: F Test: RED CELL DISTRIBUTION WIDTH; Value: 13.0; Range: 11.5-14.5; Units: %; Status: F Test: PLATELET COUNT, AUTOMATED; Value: 186; Range: 150-450; Units: k/mm3; Status: F Test: NEUTROPHILS %; Value: 66.7; Range: 36.0-66.0; Abnormal: Above high normal; Units: %; Status: F Test: LYMPH %; Value: 16.1; Range: 24.0-44.0; Abnormal: Below low normal; Units: %; Status: F Test: MONO %; Value: 6.4; Range: 0.0-5.0; Abnormal: Above high normal; Units: %; Status: F Test: EOS %; Value: 8.3; Range: 0.0-3.0; Abnormal: Above high normal; Units: %; Status: F Test: BASO %; Value: 0.4; Range: 0.0-1.0; Units: %; Status: F Test: LARGE UNSTAINED CELL %; Value: 2.1; Range: 0.0-4.0; Units: %; Status: F Test: NEUTROPHILS #; Value: 4.5; Range: 1.8-7.7; Units: K/mm3; Status: F Test: LYMPH #; Value: 1.1; Range: 1.5-4.5; Abnormal: Below low normal; Units: K/mm3; Status: F Test: MONO #; Value: 0.4; Range: 0.0-0.8; Units: K/mm3; Status: F Test: EOS #; Value: 0.6; Range: 0.0-0.50; Abnormal: Above high normal; Units: K/mm3; Status: F Test: BASO #; Value: 0.0; Range: 0.0-0.2; Units: K/mm3; Status: F Test: LARGE UNSTAINED CELL #; Value: 0.1; Range: 0.0-0.4; Units: K/mm3; Status: F Lab Order: Cardiac Injury Profile; 08/24/16 09:38 Test: CPK CREATINE PHOSPHOKINASE; Value: 32; Range: 39-308; Abnormal: Below low normal; Units: U/L; Status: F Test: CK-MB VALUE MASS; Value: 1.3; Range: 0.0-3.6; Units: NG/ML; Status: F Test: MB/CK RELATIVE INDEX; Value: 4.06; Range: < OR =4; Abnormal: Above high normal; Status: F Test Note: ; DIAGNOSIS CRITERIA MMB ng/ml Relative Index (RI) NON-AMI < or = 5 N/A MARIE ZONE > 5 < or = 4 AMI > 5 > 4 Lab Order: D-Dimer Quant; 08/24/16 09:38 Test: D-DIMER QUANT; Value: 1123.2; Range: <500; Abnormal: Above high normal; Units: ng/ml; Status: F Lab Order: Troponin; 08/24/16 09:38 Test: TROPONIN I; Value: < 0.02; Range: < 0.10; Units: NG/ML; Status: F Test Note: ; Troponin I Reference Interval for [place] LOCI: 99th Percentile= 0.00-0.045 ng/ml Risk Stratification: <= 0.10 ng/ml Decreased Risk for Adverse Clinical Events. 0.10-1.50 ng/ml Increased Risk for Adverse Clinical Events. Evaluation of additional criterion and/or repeat testing in 2-6 hours is suggested to rule out myocardial damage. >= 1.50 ng/ml Indicative of Myocardial Injury. Lab Order: BLOOD CULTURES; SPEC'M 08/24/16 10:01 Test: BLOOD CULTURE; Value: No growth after 72 hours . All specimens observed; Status: F Test: BLOOD CULTURE; Value: for 5 days. Results final at that time.; Status: F Test: BLOOD CULTURE; Status: F Test: BLOOD CULTURE; Value: No growth after 48 hours . All specimens observed; Status: F Test: BLOOD CULTURE; Value: for 5 days. Results final at that time.; Status: F Test: BLOOD CULTURE; Status: F Test: BLOOD CULTURE; Value: No growth after 24 hours . All specimens observed; Status: F Test: BLOOD CULTURE; Value: for 5 days. Results final at that time.; Status: F Test: BLOOD CULTURE; Value: NO GROWTH AFTER 5 DAYS; Status: F Radiology Order: Chest, 2 View (pa\\E\\lat) Test: Chest, 2 View (pa\\E\\lat) REASON FOR EXAMINATION: Shortness of Breath; Chest x-ray: Two views.; ; History: Shortness of breath.; ; Comparison chest x-ray is from August 19, 2016. A bipolar pacemaker is seen in; place. There is a stent graft device in the aortic root at the level of the; aortic valve suggesting aortic valve replacement. Heart is not enlarged. The; aorta is calcific and tortuous as before. There is no evidence of pneumothorax; or hydrothorax. Lung swartz are clear. Pleural angles are sharp. A prosthetic; shoulder joint is noted on the left. There are clips in the soft tissues of the; left neck.; ; Impression:; ; No active disease. The patient is status post aortic root stent graft versus; aortic valve replacement. 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; : 1940 Requested By: JACQUELINE Hong PA-C; Order Number: [id number] Reading MD: Carri Henderson; Measurements; Intervals [place]; Rate: 76 P: 11; IA: 253 QRS: -80; QRSD: 142 T: 73; QT: 436; QTc: 493; Interpretive Statements; SINUS RHYTHM WITH FIRST DEGREE AV BLOCK WITH FREQUENT VENTRICULAR PREMATURE; COMPLEXES; RIGHT BUNDLE BRANCH BLOCK; MINIMAL VOLTAGE CRITERIA FOR LVH, CONSIDER NORMAL VARIANT; INFERIOR MYOCARDIAL INFARCTION, OF INDETERMINATE AGE; ; Electronically Signed On 08-25-2016 6:44:09 EST by Carri Henderson; Radiology Order: CT Chest Angio R/O PE Test: CT Chest Angio R/O PE REASON FOR EXAMINATION: Shortness of Breath; CT ANGIO CHEST:; ; HISTORY: Shortness of breath.; ; CONTRAST: Isovue 370, 75 mL.; ; There are no filling defects in the main , right and left pulmonary arteries or; their branches. Calcified granuloma are present in the lungs. There is no; pleural effusion. Calcified lymph nodes are present in the mediastinum. The; patient is status post aortic valve replacement . Atherosclerotic calcification; is present in the thoracic aorta. There is aneurysmal dilatation of the thoracic; aorta measuring 3.5 cm.; ; IMPRESSION:; ; 1. There is no pulmonary embolism.; ; 2. Old granulomatous disease.; ; 3. 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 ck1 11:27 Discharge ordered by Provider. btw 11:58 Discharge Assessment: Patient awake, alert and oriented x 3. No cognitive and/or dsf functional deficits noted. Patient verbalized understanding of disposition instructions. patient administered narcotics - no. The following High Risk Discharge criteria are identified: None. Discharged to home via wheelchair, with family. Condition: good. Discharge instructions given to patient, significant other, Instructed on discharge instructions, follow up and referral plans. medication usage, Demonstrated understanding of instructions, medications, Pt was receptive of discharge instructions/ teaching. Prescriptions given X 2. Property sent home with patient. 12:01 Patient left the ED. dsf Signatures: Dispatcher [employer] EDMS Ricarda Vaughan, RN RN mcp Suzette Frey, Reg Reg gb Maurice Gabriel, Reg Reg lg Yanira Gutierres,RN RN ck1 Jacqueline Arreguin, Jacqueline Cox RN RN dsf Javon Welch mm15 China Easley RN RN ead Donoghue, Joseph, SANITIZER SANITIZER jrd Ely Patton, SANITIZER SANITIZER bnb Corrections: (The following items were deleted from the chart) 09:54 09:53 O2 via nasal cannula \\T\\ 4L/min dsf dsf 10: 09:41 Respiratory: Airway is patent Respiratory effort is even, unlabored, Respiratory dsf pattern is regular, symmetrical, Breath sounds are clear bilaterally. dsf : 09:41 Derm: Skin is pink, warm & dry. dsf dsf Chart Complete MTDD
--- NOTE | 2016-08-29 13:39 | EDDOCDS ---
Physician Documentation [facility] Name: Manuel Christina Age: 76 yrs Sex: Male : 1940 Arrival Date: 08/24/2016 Time: 09:05 Bed 9 Private MD: Fredy Suárez Disposition: 08/24/16 11:27 Discharged to Home/Self Care. Impression: Acute combined systolic (congestive) and diastolic (congestive) heart failure, Shortness of breath. - Condition is Stable. - Discharge Instructions: Heart Failure, Shortness of Breath, Lsup-an-Nohz. - Prescriptions for Lasix 20 mg Oral Tablet - take 1 tablet by ORAL route once daily; 10 tablet. Potassium Chloride 10 mEq Oral Capsule, Sustained Release - take 1 tablet by ORAL route once daily; 10 tablet. - Medication Reconciliation, Local Pharmacy Hours form. - Follow up: Raghu Orellana; When: Call to arrange an appointment; Reason: Further diagnostic work-up, Recheck today's complaints, Continuance of care. - Problem is new. - Symptoms are unchanged. Historical: - Allergies: Ciprofloxacin; Levofloxacin; moxifloxacin; Oxycodone HCl; - Home Meds: 1. aspirin 81 mg Oral chew 1 tab once daily 2. finasteride 1 mg oral tab 1 tab once daily 3. Flomax 0.4 mg Oral cp24 2 caps once daily 4. Lipitor 40 mg Oral tab 1 tab once daily 5. multivitamin Oral tab daily 6. Plavix 75 mg Oral tab 1 tab once daily 7. tramadol 100 mg Oral tab tid - PMHx: BPH; Hypercholesterolemia; Hypertension; - PSHx: Aortic valve replacent 2015; Pacemaker insertion 2015; CABG; Bilateral carotid endarderectomy; Right femur repair; Left shoulder replacement; - Social history: Smoking status: Patient states former smoker of tobacco. No barriers to communication noted, The patient speaks fluent Czech. - Family history: Not pertinent. - : The pt / caregiver states he / she is on anticoagulants: Plavix. Home medication list is obtained from the patient, family members. - Exposure Risk Screening:: None identified. Vital Signs: 08/24 09:14 BP 116 / 60; Pulse 62; Resp 18; Temp 96.9; Pulse Ox 96% on R/A; Weight 77.11 kg / 170 mcp lbs; Height 5 ft. 9 in. (175.26 cm); Pain 8/10; 09:40 BP 145 / 71 (auto/); dsf 09:42 Pulse 70 MON; Pulse Ox 92% ; dsf 09:55 BP 134 / 62 (auto/); dsf 09:56 Pulse 68 MON; Pulse Ox 95% ; dsf 10:10 BP 144 / 68 (auto/); dsf 10:10 Pulse 66 MON; Pulse Ox 96% ; dsf 10:25 BP 166 / 80 (auto/); dsf 10:25 Pulse 70 MON; Pulse Ox 99% ; dsf 10:40 BP 150 / 81 (auto/); dsf 10:40 Pulse 66 MON; Pulse Ox 96% ; dsf 10:55 BP 141 / 72 (auto/); dsf 10:56 Pulse 64 MON; Pulse Ox 97% ; dsf 11:10 BP 140 / 70 (auto/); dsf 11:11 Pulse 64 MON; Pulse Ox 96% ; dsf 11:25 BP 139 / 77 (auto/); dsf 11:26 Pulse 66 MON; Pulse Ox 98% ; dsf 11:40 BP 148 / 103 (auto/); dsf 11:40 Pulse 68 MON; Pulse Ox 97% ; dsf 11:43 BP 143 / 100 RA Supine (auto/reg); Pulse 67; Resp 18; Temp 96.7; Pulse Ox 97% on 2 lpm jrd NC; Pain 8/10; 11:53 BP 142 / 71 (auto/); dsf 11:55 Pulse 56 MON; Resp 20; Temp 97.8(O); Pulse Ox 98% on R/A; Pain 7/10; dsf 09:14 Body Mass Index 25.10 (77.11 kg, 175.26 cm) mcp MDM: 09:29 Financial registration complete. lg 09:32 -Blood Culture (Adults Only), peripheral from different site, or from device/port/PICC btw etc. if present ordered. 09:32 Backhaul Driver/Pulse Ox/q 15 min VS ordered. btw 09:32 IV Saline Lock ordered. btw 09:32 Oxygen at 4L/Min NC or Home dosage ordered. btw 09:32 Rhythm Strip to chart ordered. btw 09:33 -Blood Culture Ordered. EDMS 09:33 B-Type Natiuretic Peptide Ordered. EDMS 09:33 Basic Metabolic Profile Ordered. EDMS 09:33 CBC with Diff Ordered. EDMS 09:33 Cardiac Injury Profile Ordered. EDMS 09:33 D-Dimer Quant Ordered. EDMS 09:33 Troponin Ordered. EDMS 09:34 Chest, 2 View (pa\E\lat) Ordered. EDMS 09:34 ECG WITH READING ER PHYS+CARDIAG ordered. EDMS 09:34 [facility] Payment Agreement was scanned into [employer] and attached to record. lg 09:38 -Blood Culture (Adults Only), peripheral from different site, or from device/port/PICC lbd etc. if present complete. 09:41 BLOOD CULTURES Ordered. EDMS 09:47 CT Chest Angio R/O PE Ordered. EDMS 10:02 CBC with Diff Reviewed. btw 10:20 B-Type Natiuretic Peptide Reviewed. btw 10:20 D-Dimer Quant Reviewed. btw 10:52 Basic Metabolic Profile Reviewed. btw 10:52 Cardiac Injury Profile Reviewed. btw 10:52 Troponin Reviewed. btw 11:08 Chest, 2 View (pa\E\lat) Reviewed. btw 11:08 CT Chest Angio R/O PE Reviewed. btw 13:59 T-Sheet-- Draft Copy was scanned into [employer] and attached to record. gb 14:00 ECG/EKG was scanned into [employer] and attached to record. gb Addendum: 08/29/2016 13:36 Radiology Callback: Radiology results faxed to primary care physician/provider. dr rebeca suárez and dr orellana faxed formal report of cta for fu mlg. Signatures: Dispatcher [employer] [facility] Mamadou Sanchez MD MD ml Daly, Linda, Pharmacy Affairs Assistant Unit lbd Ricarda Vaughan RN RN mcp Barnhardt, Gloria, Reg Reg gb Maurice Gabriel, Reg Reg lg Alfonso Arreguin PA PA btw Fuller, Desiree, RN RN dsf The chart was reviewed and I authenticate all verbal orders and agree with the evaluation and treatment provided.Attachments: 08/24 09:34 [facility] Payment Agreement lg 13:59 T-Sheet-- Draft Copy gb 14:00 ECG/EKG gb Chart Complete MTDD
== END 2016-08-24 12:01 | disposition home or self-care (01) ==
LOC: M ED 09:05
DX: I50.9 Heart failure, unspecified (principal); I10 Essential (primary) hypertension; E78.00 Pure hypercholesterolemia, unspecified; N40.0 Benign prostatic hyperplasia without lower urinary tract symptoms; Z95.0 Presence of cardiac pacemaker; Z79.899 Other long term (current) drug therapy; Z79.82 Long term (current) use of aspirin; Z79.01 Long term (current) use of anticoagulants; Z88.1 Allergy status to other antibiotic agents; Z88.5 Allergy status to narcotic agent; Z87.891 Personal history of nicotine dependence
CPT/HCPCS: 36415; 71020; 71275; 80048; 82550; 82553; 83880; 84484; 85025; 85379; 87040; 93005; 93041; 99285; Q9967

== ENCOUNTER → 2016-09-14 | Outpatient (CLI) | payer MEDICARE ==
[~2016-09-14] MED LIST changes: +BUPIVACAINE HCL 0.25% 10 ML VIAL As Ordered ONE; +BUPIVACAINE HCL 0.25% 30 ML VIAL As Ordered ONE; +TRIAMCINOLONE ACETONIDE SUSP 40 MG/ML VIAL (J3301) As Ordered ONE
--- NOTE | 2016-09-17 23:34 | ECWPNPC ---
PATIENT NAME: NAYA MCMAHON : 1940 GENDER: MALE VISIT DATE: 09/14/2016 DISCHARGE DATE: 09/14/16 1032 VISIT LOCKED DATE TIME: PHYSICIAN: RITU JOSEPH PHYSICIAN PAGER NO: [phone] RESOURCE: RITU JOSEPH REASON FOR APPOINTMENT 1. TRIGGER POINT INJECTION HISTORY OF PRESENT ILLNESS HISTORY OF PRESENT ILLNESS: PAIN THE PATIENT DESCRIBES THE PAIN... FALL RISK SCREENING: SCREENING :NO FALLS IN THE PAST YEAR CURRENT MEDICATIONS TAKING LIPITOR 40 MG TABLET 1 TABLET ORALLY ONCE A DAY, NOTES: 09-13-2199 TAKING PLAVIX 75 MG TABLET 1 TABLET ORALLY ONCE A DAY, NOTES: 09-06-16 TAKING ASPIRIN 81 MG TABLET 1 TABLET ORALLY ONCE A DAY, NOTES: 09-13-16899 TAKING MULTIVITAMINS TABLET 1TAB ORALLY DAILY, NOTES: 09-13-16899 TAKING COLACE 100 MG CAPSULE 2 CAPSULE ORALLY ONCE A DAY, NOTES: 09-13-16 1200 TAKING MIRALAX - POWDER DIRECTED ORALLY , NOTES: 09-13-16 TAKING FLOMAX 0.4 MG CAPSULE 1 CAPSULE ORALLY AT BEDTIME, NOTES: 09-13-16899 TAKING FINASTERIDE 5 MG TABLET 1 TABLET ORALLY ONCE A DAY, NOTES: 09-13-16899 TAKING TYLENOL 500 MG TABLET 2 TABLET ORALLY 3 TIMES A DAY, NOTES: 09-13-162099 TAKING TRAMADOL HCL 50 MG TABLET 2 ORALLY TID PRN PAIN, MDD 6, NOTES: 09-13-162199 NOT-TAKING PLAVIX 75 MG TABLET 1 TABLET ORALLY ONCE A DAY, NOTES: 09-06-16 MEDICATION LIST REVIEWED AND RECONCILED WITH THE PATIENT PAST MEDICAL HISTORY CAD S/P CABG 1995-DR. 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 BRANCH-11/2015 [facility] CAROTID ARTERY DISEASE S/P B CEA (L X 2) OA, MULTI-JOINT MAGDALENA L SHOULDER BPH C LUTS CH/O URINARY RETENTION C MCNEAL PLACEMENT 07/2013 HYPERLIPIDEMIA 2B H/O NICOTINE [id number] YO, SOLELY PIPE IRON DEFIECIENCY-NO PREVIOUS EGD/COLONOSCOPY SCALP AKS MCI-12/16/2013 MRI MILD GENERALIZED ATROPHY, OLD R BG CVA ESSENTIAL HYPERTENSION H/O ORSTATIC HYPOTENSION WHILE ON BP RX PROBABLY MAINLY 2 MODERATE ATAXIA H/O R FOOT CELLULITIS RXED 11/2013 C IV ANCEF CERVICAL TFC-[id number], WORST C5/6 C R HNP DORSALLY DISPLACING CORD BY 03/2015 MRI CRITCIAL AND SA NODE DYSFUNCTION S/P TAVR/DUAL [id number]-KOZ-01/2016 ALLERGIES CIPRO: FRAYING OF ACHILLES TENDON - PER DR BAUER DO NOT TAKE: CONTRAINDICATION LEVAQUIN: FRAYING OF ACHILLES TENDON - PER DR BAUER DO NOT TAKE: CONTRAINDICATION AVELOX: FRAYING OF ACHILLES TENDON - PER DR BAUER DO NOT TAKE: CONTRAINDICATION SOCIAL HISTORY GENERAL: TOBACCO USE ARE YOU A:NONSMOKER LEARNING BARRIERS / SPECIAL NEEDS ORIENTED TO PLAN OF CARE: PATIENT, PAIN MANAGEMENT PATIENT, ORIENTED TO PLAN OF CARE: PATIENT, PAIN MANAGEMENT PATIENT. NEW PATIENT PAIN DIARY TODAY'S VISITNOTES FROM 0-10, WHAT LEVEL IS YOUR PAIN TODAY?0 PAIN CLINIC PFS, CLERGY, PUBLIC HEALTH REFERRALS PFS REFERRAL NEEDED?NO CLERGY REFERRAL NEEDED?NO PUBLIC HEALTH REFERRAL NEEDED?NO WAS THE PROVIDER NOTIFIED OF ANY PERTINENT INFO?NO PFS REFERRAL NEEDED?NO CLERGY REFERRAL NEEDED?NO PUBLIC HEALTH REFERRAL NEEDED?NO WAS THE PROVIDER NOTIFIED OF ANY PERTINENT INFO?NO REVIEW OF SYSTEMS CONSTITUTIONAL: ANY CHANGE IN YOUR MEDICAL CONDITION? YES CONSTANT PAIN . CHILLS NO . FEVER NO . INFECTION: DO YOU HAVE NEW INFECTIONS? NO . DO YOU HAVE HISTORY OF MRSA? NO . MUSCULOSKELETAL: ANY NEW PATTERNS OF PAIN OR NUMBNESS? NO . GASTROENTEROLOGY: ANY NEW CHANGE IN BOWEL CONTROL? NO . GENITOURINARY: ANY NEW CHANGE IN BLADDER CONTROL? NO . IS THERE A CHANCE YOU COULD BE ? NO . HEMATOLOGY/LYMPH: DO YOU TAKE ANY BLOOD THINNERS? (FOR EXAMPLE- COUMADIN, PLAVIX, AGGRENOX, PLATEL, PRADAXA, OR XARELTO) NO . WHEN WAS YOUR LAST DOSE? DATE: TIME: . NEUROLOGY: HAVE YOU FALLEN IN THE PAST 6 MONTHS? NO . ANY NEW EXTREMITY NUMBNESS OR WEAKNESS? NO . CARDIOLOGY: DO YOU HAVE A PACEMAKER OR DEFIBRILLATOR? YES . RESPIRATORY: HAVE YOU BEEN SICK IN THE PAST WEEK? NO . FEVER NO . FLU LIKE SYMPTOMS? NO . COUGH NO . INTEGUMENTARY: DO YOU HAVE ANY RASHES OR OPEN SORES? NO . ALLERGIC/IMMUNO: ARE YOU ALLERGIC TO SHELLFISH OR IV DYE? NO . ANY NEW ALLERGIES? NO . PSYCHIATRIC: DO YOU HAVE THOUGHTS OF HURTING YOURSELF OR SOMEONE ELSE? NO . ARE YOU ABUSED, NEGLECTED, OR IN AN UNSAFE ENVIRONMENT? NO . ENDOCRINOLOGY: ARE YOU DIABETIC? NO . OTHER: DO YOU NEED ANY PRESCRIPTIONS? NO . IF YES, PLEASE LIST: ____ . ANY NEW PROBLEMS WITH YOUR MEDICATIONS? NO . WHEN DID YOU LAST EAT? ____[id number] . WHEN DID YOU LAST DRINK? ____[id number] . WHAT DID YOU LAST DRINK? ____ . NAME OF PERSON DRIVING YOU HOME? ____ . DO YOU HAVE ANY OTHER QUESTIONS OR CONCERNS NO . REVIEWED BY: PROVIDER: . VITAL SIGNS WT 171 LBS, HT 70 IN, BMI 24.53 INDEX, BP 140/86 MANUAL, HR 84 /MIN, RR 18 /MIN, TEMP 97.7 F, OXYGEN SAT % 93, NA INITIALS TL 0927, REVIEWED BY: KG. ASSESSMENTS MYALGIA - M79.1 (PRIMARY) PROCEDURES PN TRIGGER POINT INJECTION WITH STEROIDS PRE PROCEDURE DIAGNOSIS 1. MYALGIA 2. PAIN AT LEFT NECK AREA AND LEFT SHOULDER AREA POST PROCEDURE DIAGNOSIS 1. MYALGIA 2. PAIN AT LEFT NECK AREA AND LEFT SHOULDER AREA PROCEDURE TRIGGER POINT INJECTION AT LEFT NECK AREA AND LEFT SHOULDER AREA SURGEON DR. RITU JOSEPH SOLAR ENERGY SPECIALIST NONE ANESTHESIA LOCAL PRE PROCEDURE NOTE THE PATIENT HAS A HISTORY OF CHRONIC PAIN AT THE LEFT NECK AREA AND LEFT SHOULDER AREA. I EVALUATE THE PATIENT AND REVIEWED THE CHART. THERE IS EVIDENCE OF BANDS OF TISSUE WITH RESTRICTION OF MOVEMENT AND PRESENCE OF TRIGGER POINT AT THE AFFECTED AREA. I WENT OVER THE RISKS, ALTERNATIVES, AND BENEFITS ASSOCIATED WITH THIS PROCEDURE. THE PATIENT WOULD LIKE TO PROCEED AND GIVE CONSENT TO PERFORMED THE PROCEDURE. THE PATIENT DENIES UNEXPLAINABLE WEIGHT LOSS, FEVER, CHILLS, OR NEW CHANGES IN URINARY OR BOWEL CONTROL DESCRIPTION OF PROCEDURE THE PATIENT WAS BROUGHT TO THE PROCEDURE ROOM AND PLACED IN THE SITTING POSITION. THE AREA WAS CLEANED WITH ALCOHOL. THE PROCEDURE WAS DONE USING ASEPTIC STERILE TECHNIQUE. I CHECKED LATERALITY AND THE LEVEL WHERE THE PROCEDURE WAS GOING TO BE PERFORMED WITH THE PATIENT AND THE SUPPORTING STAFF AT THE MOMENT OF THE TIME OUT IN THE PROCEDURE ROOM. USING A 25-GAUGE NEEDLE, TRIGGER POINTS WERE INJECTED AT THE LEFT NECK AREA AND LEFT SHOULDER AREA WITH A TOTAL OF 40 ML OF BUPIVACAINE 0.25% AND KENALOG 40 MG. THERE WAS NO EVIDENCE OF BLOOD, PARESTHESIA OR CEREBROSPINAL FLUID DURING THE PROCEDURE. THE PATIENT WAS SENT TO THE RECOVERY ROOM. THE PATIENT WAS MOVING THE EXTREMITIES AND DOING WELL. THERE WAS NO COMPLICATION DURING THE PROCEDURE POST PROCEDURE NOTE THE PATIENT WILL BE SEEN IN A FOLLOW UP IN THE NEXT FEW WEEKS. INSTRUCTIONS WERE GIVEN, QUESTIONS WERE ANSWERED, AND THE PATIENT EXPRESSED UNDERSTANDING AND AGREES WITH THE PLAN. I, REJI ALLEN, DOCUMENTED THE ABOVE INFORMATION ACTING A SCRIBE FOR DR. JOSEPH. I HAVE REVIEWED THE ABOVE DOCUMENT, WRITTEN BY REJI LUIS AND I VERIFY THAT IT IS ACCURATE PROCEDURE CODES 07653 INJ TRIGGER POINT 08/01 [facility] [place] DISPOSITION & COMMUNICATION FOLLOW UP 3 WEEKS ELECTRONICALLY SIGNED BY RITU JOSEPH MD ON 09/17/2016 AT 09:22 PM EST DISCLAIMER : THIS IS A VISIT SUMMARY EXTRACTED FROM THE [employer] CHART. IT IS NOT A COPY OF THE [employer] PROGRESS NOTE. JENNIFER
== END ==
LOC: M PAIN 09:00
PROVIDERS: ATTEND Anesthesiology
DX: G89.29 Other chronic pain (principal); M79.1 Myalgia; M25.512 Pain in left shoulder; M50.222 Other cervical disc displacement at C5-C6 level; I25.10 Atherosclerotic heart disease of native coronary artery without angina pectoris; M19.90 Unspecified osteoarthritis, unspecified site; N40.1 Benign prostatic hyperplasia with lower urinary tract symptoms; R33.9 Retention of urine, unspecified; E78.5 Hyperlipidemia, unspecified; I10 Essential (primary) hypertension; R27.0 Ataxia, unspecified; I49.5 Sick sinus syndrome; Z95.0 Presence of cardiac pacemaker; Z79.2 Long term (current) use of antibiotics; Z79.891 Long term (current) use of opiate analgesic; Z79.899 Other long term (current) drug therapy; Z79.82 Long term (current) use of aspirin; Z88.1 Allergy status to other antibiotic agents
CPT/HCPCS: 20552; J3301

== ENCOUNTER → 2016-09-28 | Outpatient (CLI) | payer MEDICARE ==
[~2016-09-28] MED LIST changes: -BUPIVACAINE HCL 0.25% 10 ML VIAL As Ordered ONE; -BUPIVACAINE HCL 0.25% 30 ML VIAL As Ordered ONE; -TRIAMCINOLONE ACETONIDE SUSP 40 MG/ML VIAL (J3301) As Ordered ONE
--- NOTE | 2016-09-29 00:01 | ECWPNPC ---
PATIENT NAME: NAYA MCMAHON : 1940 GENDER: MALE VISIT DATE: 09/28/2016 DISCHARGE DATE: 09/28/16 1057 VISIT LOCKED DATE TIME: PHYSICIAN: BISI BARROS PHYSICIAN PAGER NO: [phone] RESOURCE: BISI BARROS REASON FOR APPOINTMENT 1. POST TPI HISTORY OF PRESENT ILLNESS HISTORY OF PRESENT ILLNESS: HERE FOR POST PROCEDUE F/U.HAD TPI NECK 08-24-16.REPORTS NO IMPROVEMENT IN PAIN POST PROCEDURE.COMPLAINING OF LEFT FACIAL ,NECK AND THORACIC PAIN.RATING PAIN VAS 5/10.SUFFERS FROM DEMENTIA AND IS HERE WITH HIS AND SON.SPOKE AT LENGTH REGARDING POTENTIAL RISKS AND BENEFITS OF INJECTION THERAPY.THIS TOOK GREATER THAN 20 MINUTES OF EXAM TIME.REVIEWED CERVICAL MRI.PATIENT IS PROBABLY SUFFERING FROM TRIGEMINAL NEURALGIA WELL.DEMENTIA MAY BE AGGREVATING SYMPTOMS. FALL RISK SCREENING: SCREENING :NO FALLS IN THE PAST YEAR CURRENT MEDICATIONS TAKING LIPITOR 40 MG TABLET 1 TABLET ORALLY ONCE A DAY TAKING PLAVIX 75 MG TABLET 1 TABLET ORALLY ONCE A DAY TAKING ASPIRIN 81 MG TABLET 1 TABLET ORALLY ONCE A DAY TAKING MULTIVITAMINS TABLET 1TAB ORALLY DAILY TAKING COLACE 100 MG CAPSULE 2 CAPSULE ORALLY ONCE A DAY TAKING MIRALAX - POWDER DIRECTED ORALLY TAKING FLOMAX 0.4 MG CAPSULE 1 CAPSULE ORALLY AT BEDTIME TAKING FINASTERIDE 5 MG TABLET 1 TABLET ORALLY ONCE A DAY TAKING TYLENOL 500 MG TABLET 2 TABLET ORALLY 3 TIMES A DAY TAKING TRAMADOL HCL 50 MG TABLET 2 ORALLY TID PRN PAIN, MDD 6 NOT-TAKING PLAVIX 75 MG TABLET 1 TABLET ORALLY ONCE A DAY, NOTES: 09-06-16 MEDICATION LIST REVIEWED AND RECONCILED WITH THE PATIENT PAST MEDICAL HISTORY CAD S/P CABG 1995-DR. GRAHAM, 05/2013 CATHERIZATION PATENT FRAZIER TO LAD, OCCLUDED SVG TO CIRCUMFLEX, PATENT TO D1, MEDICAL RX RECOMMENDED-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 BRANCH-11/2015 MARSHA CAROTID ARTERY DISEASE S/P B CEA (L X 2) OA, MULTI-JOINT MAGDALENA L SHOULDER BPH C LUTS CH/O URINARY RETENTION C MCNEAL PLACEMENT 07/2013 HYPERLIPIDEMIA 2B H/O NICOTINE ECQSLJINS-62-16 YO, SOLELY PIPE IRON DEFIECIENCY-NO PREVIOUS EGD/COLONOSCOPY SCALP AKS MCI-12/16/2013 MRI MILD GENERALIZED ATROPHY, OLD R BG CVA ESSENTIAL HYPERTENSION H/O ORSTATIC HYPOTENSION WHILE ON BP RX PROBABLY MAINLY 2 MODERATE ATAXIA H/O R FOOT CELLULITIS RXED 11/2013 C IV ANCEF CERVICAL [id number], WORST C5/6 C R HNP DORSALLY DISPLACING CORD BY 03/2015 MRI CRITCIAL AND SA NODE DYSFUNCTION S/P TAVR/DUAL OTDIN-[id number]-EAO-01/2016 ALLERGIES CIPRO: FRAYING OF ACHILLES TENDON - PER DR BAUER DO NOT TAKE: CONTRAINDICATION LEVAQUIN: FRAYING OF ACHILLES TENDON - PER DR BAUER DO NOT TAKE: CONTRAINDICATION AVELOX: FRAYING OF ACHILLES TENDON - PER DR BAUER DO NOT TAKE: CONTRAINDICATION SOCIAL HISTORY GENERAL: TOBACCO USE ARE YOU A:NONSMOKER LEARNING BARRIERS / SPECIAL NEEDS ORIENTED TO PLAN OF CARE: PATIENT, PAIN MANAGEMENT PATIENT, ORIENTED TO PLAN OF CARE: PATIENT, PAIN MANAGEMENT PATIENT. NEW PATIENT PAIN DIARY TODAY'S VISITNOTES FROM 0-10, WHAT LEVEL IS YOUR PAIN TODAY?0 PAIN CLINIC PFS, CLERGY, PUBLIC HEALTH REFERRALS PFS REFERRAL NEEDED?NO CLERGY REFERRAL NEEDED?NO PUBLIC HEALTH REFERRAL NEEDED?NO WAS THE PROVIDER NOTIFIED OF ANY PERTINENT INFO?NO PFS REFERRAL NEEDED?NO CLERGY REFERRAL NEEDED?NO PUBLIC HEALTH REFERRAL NEEDED?NO WAS THE PROVIDER NOTIFIED OF ANY PERTINENT INFO?NO REVIEW OF SYSTEMS CONSTITUTIONAL: ANY CHANGE IN YOUR MEDICAL CONDITION? NO . CHILLS NO . FEVER NO . INFECTION: DO YOU HAVE NEW INFECTIONS? NO . DO YOU HAVE HISTORY OF MRSA? NO . MUSCULOSKELETAL: ANY NEW PATTERNS OF PAIN OR NUMBNESS? NO . GASTROENTEROLOGY: ANY NEW CHANGE IN BOWEL CONTROL? NO . GENITOURINARY: ANY NEW CHANGE IN BLADDER CONTROL? NO . IS THERE A CHANCE YOU COULD BE ? NO . HEMATOLOGY/LYMPH: DO YOU TAKE ANY BLOOD THINNERS? (FOR EXAMPLE- COUMADIN, PLAVIX, AGGRENOX, PLATEL, PRADAXA, OR XARELTO) NO . WHEN WAS YOUR LAST DOSE? DATE: TIME: . NEUROLOGY: HAVE YOU FALLEN IN THE PAST 6 MONTHS? NO . ANY NEW EXTREMITY NUMBNESS OR WEAKNESS? NO . CARDIOLOGY: DO YOU HAVE A PACEMAKER OR DEFIBRILLATOR? YES . RESPIRATORY: HAVE YOU BEEN SICK IN THE PAST WEEK? NO . FEVER NO . FLU LIKE SYMPTOMS? NO . COUGH NO . INTEGUMENTARY: DO YOU HAVE ANY RASHES OR OPEN SORES? NO . ALLERGIC/IMMUNO: ARE YOU ALLERGIC TO SHELLFISH OR IV DYE? NO . ANY NEW ALLERGIES? NO . PSYCHIATRIC: DO YOU HAVE THOUGHTS OF HURTING YOURSELF OR SOMEONE ELSE? NO . ARE YOU ABUSED, NEGLECTED, OR IN AN UNSAFE ENVIRONMENT? NO . ENDOCRINOLOGY: ARE YOU DIABETIC? NO . OTHER: DO YOU NEED ANY PRESCRIPTIONS? NO . IF YES, PLEASE LIST: ____ . ANY NEW PROBLEMS WITH YOUR MEDICATIONS? NO . WHEN DID YOU LAST EAT? ____ . WHEN DID YOU LAST DRINK? ____ . WHAT DID YOU LAST DRINK? ____ . NAME OF PERSON DRIVING YOU HOME? ____ . DO YOU HAVE ANY OTHER QUESTIONS OR CONCERNS NO . REVIEWED BY: PROVIDER: BISI ROMERO . VITAL SIGNS WT 169.8 LBS, HT 70 IN, BMI 24.36 INDEX, BP 121/69 MM HG, HR 66 /MIN, RR 16 /MIN, TEMP 97.2 F, OXYGEN SAT % 93, NA INITIALS TL 1011. EXAMINATION GENERAL EXAMINATION: HEENT:HEAD:, NORMOCEPHALIC, EYES:, EYES NORMAL, NOSE:, NOSE CLEAR, THROAT: NORMAL. LUNGS:LUNG SOUNDS ARE CLEAR. HEART:HEART RATE REGULAR. ABDOMEN:SOFT AND NOT TENDER, NON-DISTENDED. MUSCULOSKELETAL:*. LUMBAR SACRAL SPINEMUSCLE STRENGTH TESTING 5/5 BILATERAL, PALPATION: NEGATIVE FOR PAIN OVER L/S SPINE. NEGATIVE FOR PAIN OVER L/S PARSPINALS. THORACIC SPINENEGATIVE FOR PAIN WITH PALPATION OF THORACIC SPINE. NEGATIVE FOR PAIN WITH PALPATION OF THORACIC PARASPINAL. CERVICALPOSITIVE FOR PAIN WITH PALPATION OF CERVICAL SPINE. POSITIVE FOR PAIN WITH PALPATION OF CERVICAL PARASPINALS. POSITIVE FOR PAIN WITH PALPATION OF TRAPEZIUS BILAT L>R.. SKIN:NORMAL, NO RASH. NEUROLOGIC EXAM:ALERT AND ORIENTED X 3, DTRS 1-2+ IN ALL 4 EXTREMITIES, DENIES UPPER EXTREMETIES SENSORY LOSS, DENIES LOWER EXTREMETIES SENSORY LOSS. DIAGNOSTIC DATA-MRI C-SPINE-. ASSESSMENTS PAIN IN LEFT SHOULDER - M25.512 (PRIMARY) MYALGIA - M79.1 OSTEOARTHRITIS OF SPINE WITH RADICULOPATHY, CERVICAL REGION - M47.22 TREATMENT PAIN IN LEFT SHOULDER CERVICAL EPIDURAL RIGHT NOTES: STOP PLAVIX X7 DAYS SCHEDULE DAY 8. PROCEDURE CODES FA211 ESTABILISHED PATIENT [facility] CHARGE G8730 PAIN ASSESS POS TOOL F/U PLAN DOC G8427 DOC MEDS VERIFIED W/PT OR RE DISPOSITION & COMMUNICATION FOLLOW UP 2WK POST (REASON: ESTELLA) ELECTRONICALLY SIGNED BY HEATHER LEE ON 09/28/2016 AT 01:26 PM EST DISCLAIMER : THIS IS A VISIT SUMMARY EXTRACTED FROM THE [employer] CHART. IT IS NOT A COPY OF THE [employer] PROGRESS NOTE. JENNIFER
== END ==
LOC: M PAIN 10:00
PROVIDERS: ATTEND Nurse Practitioner Family
DX: M25.512 Pain in left shoulder (principal); M79.1 Myalgia; M47.22 Other spondylosis with radiculopathy, cervical region; M19.019 Primary osteoarthritis, unspecified shoulder; G89.29 Other chronic pain; Z79.2 Long term (current) use of antibiotics; Z79.891 Long term (current) use of opiate analgesic; Z79.899 Other long term (current) drug therapy; F03.90 Unspecified dementia, unspecified severity, without behavioral disturbance, psychotic disturbance, mood disturbance, and anxiety; I25.10 Atherosclerotic heart disease of native coronary artery without angina pectoris; I48.2 Chronic atrial fibrillation; I77.1 Stricture of artery; I35.0 Nonrheumatic aortic (valve) stenosis; N40.1 Benign prostatic hyperplasia with lower urinary tract symptoms; E78.5 Hyperlipidemia, unspecified; D50.9 Iron deficiency anemia, unspecified; K59.09 Other constipation; Z88.1 Allergy status to other antibiotic agents

== ENCOUNTER → 2016-10-13 | Outpatient (CLI) | payer MEDICARE ==
[2016-10-13 18:58] LABS: FERRITIN 60 NG/ML (26-388); PERCENT SATURATION 28.4 % (19.7-37.4); TOTAL IRON BINDING CAPACITY 303 UG/DL (250-450); TOTAL PROTEIN 6.9 GM/DL (6.4-8.2)
[2016-10-13 19:14] LABS: BASO % 0.4 % (0.0-1.0); EOS # 0.2 K/mm3 (0.0-0.50); EOS % 2.9 % (0.0-3.0); LARGE UNSTAINED CELL # 0.1 K/mm3 (0.0-0.4); LARGE UNSTAINED CELL % 1.8 % (0.0-4.0); LYMPH # 1.3 K/mm3 (1.5-4.5); LYMPH % 15.9 % (24.0-44.0); MEAN CORPUSCULAR HEMOGLOBIN 30.7 pg (27.0-33.0); MEAN CORPUSCULAR HGB CONC 31.2 g/dl (32.0-36.5); MEAN CORPUSCULAR VOLUME 98.4 fl (80.0-96.0); MONO # 0.4 K/mm3 (0.0-0.8); MONO % 4.8 % (0.0-5.0); NEUTROPHILS # 5.3 K/mm3 (1.8-7.7); NEUTROPHILS % 74.1 % (36.0-66.0); PLATELET COUNT, AUTOMATED 189 k/mm3 (150-450); WHITE BLOOD COUNT 7.1 K/mm3 (4.0-10.0)
[2016-10-17 11:54] LABS: ALBUMIN 4.02 GM/DL (3.29-5.55); ALBUMIN % 58.2 % (55.8-66.1); GAMMA GLOBULIN % 10.9 % (11.1-18.8)
== END ==
LOC: M WUC 12:22
PROVIDERS: ATTEND Family Medicine
DX: D50.9 Iron deficiency anemia, unspecified (principal)

== ENCOUNTER → 2016-11-10 | Outpatient (CLI) | payer MEDICARE ==
[~2016-11-10] MED LIST changes: -COLA100C PO; +COLA100C3 PO
--- NOTE | 2016-11-10 11:26 | REP ---
Maxillofacial CT study without contrast: History: Severe left temporomandibular joint pain. Comparison study is from July 12, 2016. Findings: No mandibular destructive lesion is seen. Mandibular condyles are normal. There is some joint space narrowing in the left temporomandibular joint. No remodeling is seen. Vascular calcification is again noted. No bony destructive lesion is seen in the maxillary bone components. Maxillary sinuses are clear. There is evidence of an old healed fracture of the anterior wall of the left maxillary sinus unchanged. No sinusitis is observed in the frontal, ethmoid or sphenoid sinuses. Mastoid aeration is normal and symmetric. No intraorbital lesion is seen. Visualized intracranial structures are unremarkable. Impression: Mild joint space narrowing in the temporomandibular joint on the left. No acute bony abnormality seen. Signed by Rojas Pro MD 11/10/2016 01:10 P
== END ==
LOC: M RAD 09:04
PROVIDERS: ATTEND Psychiatry & Neurology Neurology
DX: M26.609 Unspecified temporomandibular joint disorder, unspecified side (principal)

== ENCOUNTER 2016-11-30 08:38 | Inpatient (IN) | payer MEDICARE ==
[~2016-11-30] VITALS: Ht 177.8 cm; Wt 75.6 kg
[2016-11-30] MEDS ORDERED: ASPI81TA21 PO (08:56)
[2016-11-30] MEDS ORDERED: TRAM50TA2 PO ×2 (08:56→09:56)
[2016-11-30] MEDS ORDERED: TAMSULOSIN (08:56)
[2016-11-30] MEDS ORDERED: NORT10CA2 PO ×2 (08:56→09:56)
[2016-11-30 09:36] LABS: INR 0.95
[2016-11-30 09:38] LABS: BASO % 0.7 % (0.0-1.0); EOS # 0.6 K/mm3 (0.0-0.50); EOS % 7.8 % (0.0-3.0); LARGE UNSTAINED CELL # 0.1 K/mm3 (0.0-0.4); LARGE UNSTAINED CELL % 1.9 % (0.0-4.0); LYMPH # 1.6 K/mm3 (1.5-4.5); LYMPH % 19.9 % (24.0-44.0); MEAN CORPUSCULAR HEMOGLOBIN 32.1 pg (27.0-33.0); MEAN CORPUSCULAR HGB CONC 32.3 g/dl (32.0-36.5); MEAN CORPUSCULAR VOLUME 99.3 fl (80.0-96.0); MONO # 0.4 K/mm3 (0.0-0.8); NEUTROPHILS # 4.5 K/mm3 (1.8-7.7); NEUTROPHILS % 63.6 % (36.0-66.0); PLATELET COUNT, AUTOMATED 173 k/mm3 (150-450); RED CELL DISTRIBUTION WIDTH 13.3 % (11.5-14.5); WHITE BLOOD COUNT 7.1 K/mm3 (4.0-10.0)
[2016-11-30 09:45] LABS: ANION GAP 4 MEQ/L (8-16); BLOOD UREA NITROGEN 14 MG/DL (7-18); CALCIUM LEVEL 8.9 MG/DL (8.8-10.2); CARBON DIOXIDE LEVEL 35 MEQ/L (21-32); CHLORIDE LEVEL 102 MEQ/L (98-107); CREATININE FOR GFR 0.71 MG/DL (0.70-1.30); GLOMERULAR FILTRATION RATE > 60.0 (>42); GLUCOSE, FASTING 101 MG/DL (83-110); POTASSIUM SERUM 4.2 MEQ/L (3.5-5.1); SODIUM LEVEL 141 MEQ/L (136-145)
[2016-11-30] MEDS ORDERED: FINA5TAB2 PO (09:56)
[2016-11-30] MEDS ORDERED: MIRA33504 PO (09:56)
[2016-11-30] MEDS ORDERED: ASPI1TAB PO (09:56)
[2016-11-30] MEDS ORDERED: FLOM5CAP PO (09:56)
[2016-11-30] MEDS ORDERED: VITMTA PO (09:56)
[2016-11-30] MEDS ORDERED: CLOP75TA2 PO (09:56)
[2016-11-30] MEDS ORDERED: COLA100C3 PO (09:56)
[2016-11-30] MEDS ORDERED: TYLE500T78 PO (09:56)
[2016-11-30] MEDS ORDERED: ATOR40TA PO (09:56)
--- NOTE | 2016-11-30 10:04 | REP ---
Chest one-view HISTORY: Infarction Comparison: 08/24/2016 The lungs are clear. The heart is normal in size. The pulmonary vasculature is normal in appearance. A cardiac pacemaker is present. The patient is status post left shoulder arthroplasty. Impression: No acute disease. Signed by Kj Bobby MD 11/30/2016 09:56 A
--- NOTE | 2016-11-30 10:06 | REP ---
CT HEAD WITHOUT CONTRAST: HISTORY: Infarction. COMPARISON: 08/19/2016 An area of decreased attenuation is present in the right basal ganglia. This represents an old lacunar infarction. Areas of decreased attenuation are present in the periventricular white matter. This represents small vessel ischemic disease. There is no intraparenchymal hemorrhage, mass, or midline shift. The ventricular system and cortical sulci are dilated consistent with mild volume loss. There is no extracerebral collection. Mucosal thickening is present in the ethmoid sinuses. IMPRESSION: 1. Old right basal ganglia lacunar infarction. 2. Small vessel ischemic disease. 3. Mild volume loss. Signed by Kj Bobby MD 11/30/2016 10:12 A
[2016-11-30] MEDS ORDERED: NS 500 ML IV ONE (10:15)
[2016-11-30] MEDS: MIRALAX *UNIT DOSE* 17GM PACKET PO SCH (12:00)
[2016-11-30] MEDS: DOCUSATE SODIUM 100 MG CAP PO SCH (12:00)
[2016-11-30] MEDS ORDERED: MECLIZINE 25 MG TABLET PO ONE (12:15)
[2016-11-30] MEDS ORDERED: ACETAMINOPHEN TAB 650MG DOSE (2X325MG) PO ONE (12:15)
[2016-11-30] MEDS ORDERED: ACETAMINOPHEN TAB 650MG DOSE (2X325MG) PO PRN (13:00)
[2016-11-30] MEDS ORDERED: NS 1,000 ML IV SCH (13:00)
--- NOTE | 2016-11-30 13:21 | HPEPDOC ---
Medical History and Physical Date of Admission History and Physical PRIMARY CARE PROVIDER: Dr. Suárez ATTENDING: Dr. Nanci Saeed CHIEF COMPLAINT: Dizziness HISTORY OF PRESENT ILLNESS: This is a 68-year-old male past medical history of CAD status post CABG, bilateral carotid disease, aortic valve replacement, PPM, CVA, history of short- term memory loss, hypertension hyperlipidemia, orthostatic hypotension presents complaining of dizziness upon standing. Patient states that's he has a history of trigeminal neuralgia and has been transitioned from carbamazepine to nortriptyline by Dr. Manley 2 weeks ago. Patient states he is also on tramadol for the trigeminal neuralgia pain. Patient has a history of orthostatic hypotension which is being managed by Dr. Suárez. Patient states that he woke up at midnight to use the bathroom and was very unsteady on his feet, he then woke up twice again and had symptoms of orthostatic hypotension. Patient denied chest pain/shortness of breath/palpitations. No focal weakness. No syncopal episode, convulsions, urinary or fecal incontinence. In the ED patient was found to have positive orthostatic vitals. PAST MEDICAL HISTORY: As per HPI PAST SURGICAL HISTORY: Left carotid endarterectomy, right carotid stent, bypass , AVR, PPM, right total knee, right femoral neck fracture status post repair, left shoulder surgery SOCIAL HISTORY: Denies tobacco, alcohol, illicit drug use. Lives with . FAMILY HISTORY: Non contributory ALLERGIES: Please see below. REVIEW OF SYSTEMS: HEENT: Denies sore throat/headache CARDIOVASCULAR: Denies chest pain/palpitations RESPIRATORY: No shortness of breath/cough GASTROINTESTINAL: denies nausea/vomiting GENITOURINARY: Denies dysuria/urinary urgency. MUSCULOSKELETAL: Denies myalgias/arthralgias NEUROLOGICAL: Denies any focal weakness Rest of ROS negative. HOME MEDICATIONS: Please see below. PHYSICAL EXAMINATION: Vitals: (see below) General: No acute distress, laying comfortably in bed. HEENT: Moist mucous membranes. Neck: No JVD or lymphadenopathy. Left carotid bruit Cardiac: RRR, No murmurs. sternal scar from prior bypass Pulm: Clear to auscultation b/l. No wheezing, rhonchi Abd: NT/ND + BS Ext: No edema or cyanosis Neuro: Strength 5/5 BUE and BLE. CN 2-12 intact. F to N - mild left dysmetria Negative Babinki. Sensation to fine touch/pinprick intact. LABORATORY DATA: See below. IMAGING: CT Head 11/30/16 IMPRESSION: 1. Old right basal ganglia lacunar infarction. 2. Small vessel ischemic disease. 3. Mild volume loss. CXR 11/30/16 Impression: No acute disease. EKG 11/30/16 with normal sinus rhythm, PAC, right bundle-branch block, left anterior fascicular block, first degree AV block, LVH MICROBIOLOGY: Please see below. ASSESSMENT/PLAN: 1. Lightheadedness upon standing- likely secondary to orthostatic hypotension. We'll start patient on IV fluids. Certainly his home medications may be contributing to this including tramadol nortriptyline, finasteride, and Flomax. In the setting of mild dysmetria on the left, will obtain CT angiography of the head and neck as we're unable to obtain MRI given the PPM. Neuro checks every 4h. Orthostatics every 8h. Physical therapy. Will taper down tramadol and nortriptyline as pt is not getting any relief from them. Tylenol as needed for pain. 2. History of CVA, as well as bilateral carotid disease- on aspirin and Plavix, as well as statin. Recently seen by vascular surgery on Monday, until no new changes to be made. 3. Hypertension- controlled continue home meds. 4. Hyperlipidemia continue statin- 5. CAD status post CABG - aspirin, statin 6. SSS status post PPM 7. History of aortic valve replacement 8. BPH- on Flomax as well as finasteride DVT prophylaxis- enoxaparin I have discussed the the above plan with the patient, , as well as son. Patient be followed by Dr. Saeed starting 12/01/16 at 7 AM. Vital Signs Vital Signs Date Time Temp Pulse Resp B/P (MAP) Pulse Ox O2 Delivery O2 Flow Rate FiO2 11/30/16 12:10 155/73 (100) 11/30/16 12:08 62 94 11/30/16 08:49 97.8 16 Room Air Laboratory Data Labs 24H Laboratory Tests 2 11/30/16 09:13: White Blood Count 7.1, Red Blood Count 4.86, Hemoglobin 15.6, Hematocrit 48.3, Mean Corpuscular Volume 99.3H, Mean Corpuscular Hemoglobin 32.1, Mean Corpuscular Hemoglobin Concent 32.3, Red Cell Distribution Width 13.3, Platelet Count 173, Neutrophils (%) (Auto) 63.6, Lymphocytes (%) (Auto) 19.9L, Monocytes (%) (Auto) 6.0H, Eosinophils (%) (Auto) 7.8H, Basophils (%) (Auto) 0.7, Neutrophils # (Auto) 4.5, Lymphocytes # (Auto) 1.6, Monocytes # (Auto) 0.4, Eosinophils # (Auto) 0.6H, Basophils # (Auto) 0.0, Large Unclassified Cells % 1.9, Large Unclassified Cells # 0.1, Prothrombin Time 12.8, Prothromb Time International Ratio 0.95, Activated Partial Thromboplast Time 24.0L, Anion Gap 4L, Glomerular Filtration Rate > 60.0, Blood Urea Nitrogen 14, Creatinine 0.71, Sodium Level 141, Potassium Level 4.2, Chloride Level 102, Carbon Dioxide Level 35H, Calcium Level 8.9, Total Creatine Kinase 40, Creatine Kinase MB 1.4, Creatine Kinase MB Relative Index 3.50, Troponin I < 0.02 11/30/16 10:02: Bedside Glucose (Misc Panel) 80L CBC/BMP Laboratory Tests 11/30/16 09:13 Red Blood Count 4.86, Mean Corpuscular Volume 99.3 H, Mean Corpuscular Hemoglobin 32.1, Mean Corpuscular Hemoglobin Concent 32.3, Red Cell Distribution Width 13.3, Neutrophils (%) (Auto) 63.6, Lymphocytes (%) (Auto) 19.9 L, Monocytes (%) (Auto) 6.0 H, Eosinophils (%) (Auto) 7.8 H, Basophils (%) (Auto) 0.7, Neutrophils # (Auto) 4.5, Lymphocytes # (Auto) 1.6, Monocytes # ( Auto) 0.4, Eosinophils # (Auto) 0.6 H, Basophils # (Auto) 0.0, Calcium Level 8.9 , Total Creatine Kinase 40 Home Medications Scheduled Aspirin (Aspirin 81) 81 Mg Tab, 81 MG PO DAILY Atorvastatin Calcium (Atorvastatin Calcium) 40 Mg Tab, 40 MG PO QHS Clopidogrel Bisulfate (Clopidogrel) 75 Mg Tab, 75 MG PO DAILY TAKES AT NOONTIME Docusate Sodium (Colace) 100 Mg Cap, 100 MG PO DAILY TAKES AT NOONTIME Finasteride (Finasteride) 5 Mg Tab, 5 MG PO QPM TAKES AT DINNERTIME Multivitamins *[facility] STOCKED* (Thera M Plus *[facility] STOCKED*) 1 Tab Tab, 1 TAB PO DAILY Nortriptyline HCl (Nortriptyline HCl) 10 Mg Cap, 20 MG PO QHS Polyethylene Glycol (Miralax) 1 Pow Pow, 17 GM PO DAILY TAKES AT NOON Tamsulosin Hydrochloride (Flomax) 0.4 Mg Cap, 0.4 MG PO DAILY Tramadol HCl (Tramadol HCl) 50 Mg Tab, 100 MG PO TID Scheduled PRN Acetaminophen (Tylenol Extra Strength) 500 Mg Tab, 1,000 MG PO Q6H PRN for PAIN Allergies Coded Allergies: Ciprofloxacin (Unverified Allergy, Unknown, NOT KNOWN, 12/10/13) Levofloxacin (Unverified Allergy, Unknown, UNKNOWN, 12/10/13) Moxifloxacin (Unverified Allergy, Unknown, NOT KNOWN, 12/10/13) Oxycodone (Unverified Adverse Reaction, Mild, becomes very agitated per family, 01/21/14) JOEL PADGETT MD November 30, 2016 13:21
[2016-11-30] MEDS ORDERED: ISOVUE-370 76% 100ML VIAL (Q9967) As Ordered ONE (13:37)
--- NOTE | 2016-11-30 14:45 | ECGEPIP ---
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
--- NOTE | 2016-11-30 14:51 | REP ---
CT ANGIO HEAD: HISTORY: Infarction. CONTRAST: Isovue-370, 100 mL. There is no aneurysm or arteriovenous malformation. The distal cervical internal carotid artery is not seen. This is secondary to occlusion of the left internal carotid artery at its origin. There is reconstitution of the left internal carotid artery at the level of the horizontal petrous segment of the left internal carotid artery. Calcified atherosclerotic plaques are present in the cavernous and supraclinoid internal carotid arteries. These produce at least moderate stenosis. The left anterior and middle cerebral arteries are decreased in caliber, secondary to stenosis of the left internal carotid artery at its origin. Calcified atherosclerotic plaque is present in the distal vertebral artery at the cranio vertebral junction. This produces at least moderate stenosis. The right vertebral artery is dominant. The left vertebral artery terminates in the left posterior-inferior cerebellar artery. Major intracranial vessels are patent. IMPRESSION: 1. There is no aneurysm or arteriovenous malformation. 2. Atherosclerotic disease, as described above. Signed by Kj Bobby MD 11/30/2016 02:55 P
--- NOTE | 2016-11-30 15:29 | REP ---
CT ANGIO NECK: HISTORY: Infarction. CONTRAST: Isovue 370, 100 mL. The patient is status post stenting of the proximal old right internal carotid artery. The stent is patent. There is moderate stenosis of 50% of the right external carotid artery at its origin. 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 There is moderate stenosis of 65% of the left external carotid artery at its origin. There is mild focal ectasia of the left external carotid artery immediately distal to the stenosis. A calcified atherosclerotic plaque is present in the distal cervical right internal carotid artery. There is no significant stenosis. There is reconstitution of the left internal carotid artery at the level of the horizontal petrous segment of the left internal carotid canal. Several calcified atherosclerotic plaques are present throughout the course of the carotid arteries. These produce minimal to mild stenosis. A calcified atherosclerotic plaque is present in the proximal right vertebral artery. There is no significant stenosis. Calcified atherosclerotic plaques are present at the origins of the great vessels. There is at least mild stenosis of the origins of the left subclavian, right common carotid, and right subclavian arteries. A calcified atherosclerotic plaque is present at the origin of the left vertebral artery. There is no definite stenosis. An 8 mm hypodensity containing a punctate calcification is present in the left thyroid lobe. This may represent a cyst. IMPRESSION: 1. The patient is status post stenting of the proximal right internal carotid artery. The stent is patent. 2. 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 Signed by Kj Bobby MD 11/30/2016 03:44 P
[2016-11-30 16:15] VITALS: BP 154/71
[2016-11-30] MEDS: FINASTERIDE 5 MG TAB PO SCH (18:14)
[2016-11-30] MEDS: CLOPIDOGREL 75 MG TAB PO SCH (18:14)
[2016-11-30] MEDS: ENOXAPARIN 40 MG/0.4 ML SYRINGE (J1650) SC SCH (18:14)
[2016-11-30 20:33] VITALS: BP_SYST 127; BP_SYST 128; BP_SYST 131; BP_DIAS 66; BP_DIAS 67
[2016-11-30] MEDS: NORTRIPTYLINE 10 MG CAP PO SCH (21:27)
[2016-11-30] MEDS: traMADol 50 MG TAB PO SCH (21:27)
[2016-11-30] MEDS: ATORVASTATIN 20 MG TAB PO SCH (21:27)
--- NOTE | 2016-11-30 22:07 | ECHO ---
DATE OF PROCEDURE: 11/30/2016 REFERRING PHYSICIAN: Marcin Guido MD INDICATION: Hypotension HEIGHT: 178 cm WEIGHT: 77 kg 2D MEASUREMENTS: Ventricular septum: 1.24 cm Posterior wall: 1.21 cm Left ventricle diastole: 4.6 cm Left atrium: 4.2 cm DOPPLER MEASUREMENTS: Trace aortic regurgitation. No aortic stenosis. Aortic valve velocity: 226 cm/s LVOT velocity: 107 cm/s Aortic valve VTI: 42.7 cm LVOT VTI: 19.7 cm Very mild mitral regurgitation. Mitral E velocity: 64.7 cm/s Mitral A velocity: 105 cm/s Mitral deceleration time: 296 ms Mild tricuspid regurgitation. Estimated right ventricle systolic pressure 29 mmHg assuming a right atrial pressure of 5 mmHg. MITRAL ANNULAR TISSUE DOPPLER: E prime septal: 5.2 cm/s E prime lateral: 6.5 cm/s DESCRIPTION: Rhythm was sinus with a left bundle branch block type morphology. No pericardial effusion. This was a moderately technically difficult echocardiogram. No pericardial effusion. CONCLUSIONS: 1. Mild-moderate reduction overall left ventricle (LV) systolic function. Left ventricular ejection fraction (LVEF) 45% by visual estimate. Paradoxical septal motion. Akinesis of the basal inferior and basal inferolateral LV segments; severe hyperkinesis of the mid inferior and mid inferolateral LV segments. Probably normal LV wall motion elsewhere, but moderately technically difficult for endocardial visualization. Slight concentric left ventricle hypertrophy. 2. Grade 1 LV diastolic dysfunction (impaired relaxation filling pattern). 3. Mild left atrial dilatation. 4. Normal right ventricle size and systolic function. 5. Normally functioning and well-seated aortic valve bioprosthesis. Trace aortic regurgitation. No aortic stenosis. 6. Dilated coronary sinus. 7. Presence of endocardial cardiac rhythm management leads.
[2016-12-01] VITALS (8 sets, daily range): BP systolic 98–150; BP diastolic 64–86
[2016-12-01 06:11] LABS: ANION GAP 6 MEQ/L (8-16); BLOOD UREA NITROGEN 11 MG/DL (7-18); CALCIUM LEVEL 8.3 MG/DL (8.8-10.2); CARBON DIOXIDE LEVEL 30 MEQ/L (21-32); CHLORIDE LEVEL 107 MEQ/L (98-107); CREATININE FOR GFR 0.62 MG/DL (0.70-1.30); GLOMERULAR FILTRATION RATE > 60.0 (>42); GLUCOSE, FASTING 92 MG/DL (83-110); MAGNESIUM LEVEL 2.1 MG/DL (1.8-2.4); POTASSIUM SERUM 4.3 MEQ/L (3.5-5.1); SODIUM LEVEL 143 MEQ/L (136-145)
[2016-12-01 06:16] LABS: MEAN CORPUSCULAR HEMOGLOBIN 31.7 pg (27.0-33.0); MEAN CORPUSCULAR HGB CONC 31.7 g/dl (32.0-36.5); MEAN CORPUSCULAR VOLUME 99.9 fl (80.0-96.0); RED CELL DISTRIBUTION WIDTH 13.3 % (11.5-14.5); WHITE BLOOD COUNT 6.9 K/mm3 (4.0-10.0)
[2016-12-01] MEDS ORDERED: TAMSULOSIN 0.4 MG CAP PO SCH (09:00)
--- NOTE | 2016-12-01 09:17 | IPNPDOC ---
Subjective Date Seen The patient was seen on 12/01/16. Subjective Chief Complaint/HPI The patient is a 76-year-old male admitted with a reason for visit of Orthostatic Hypotension. Events since last encounter Pt this morning is feeling well. He has been moving around his room without difficulty. He has had a BM. He denies light headedness, dizziness with position change this morning. General: Denies: Fatigue Constitutional: Denies: Chills, Fever ENT: Denies: Head Aches Pulmonary: Denies: Dyspnea, Cough Cardiovascular: Denies: Chest Pain, Palpitations Gastrointestinal: Denies: Nausea, Vomiting, Diarrhea Neurological: Denies: Weakness Psych: Reports: Mood Normal Objective Physical Examination General Exam: Positive: Alert, No Acute Distress ENT Exam: Positive: Mucous membr. moist/pink Neck Exam: Positive: Supple Chest Exam: Positive: Clear to auscultation Heart Exam: Positive: Rate Normal, Normal S1, Normal S2 Abdomen Exam: Positive: Normal bowel sounds, Soft, Negative: Tenderness Extremity Exam: Negative: Edema Neuro Exam: Positive: Normal Gait, Normal Speech Psych Exam: Positive: Mental status NL, Oriented x 3 Assessment /Plan Problems (1) Orthostatic hypotension Problem Text: favor 2 baseline autonomic dysfunction, alpha-joni use (did improve in past dropping 0.8 to 0.4 qhs) Orthostatic this morning with pressure check, although pt denies symptoms, his orthostatics last night however were normal. He does need to be seen by PT. 12/01/16 stopped Flomax 0.4 qhs-instructed on manuevers to reduce OH 11/30/16 CT head NAD, CTA head NAD , CTA neck with occlusion on the L and patent stent on the R-chronic 11/30/16 TTE stable: Mild-moderate reduction overall left ventricle (LV) systolic function. Left ventricular ejection fraction (LVEF) 45% by visual estimate. Paradoxical septal motion. Akinesis of the basal inferior and basal inferolateral LV segments; severe hyperkinesis of the mid inferior and mid inferolateral LV segments. Probably normal LV wall motion elsewhere, but moderately technically difficult for endocardial visualization. Slight concentric left ventricle hypertrophy. 2. Grade 1 LV diastolic dysfunction (impaired relaxation filling pattern). 3. Mild left atrial dilatation. 4. Normal right ventricle size and systolic function. 5. Normally functioning and well-seated aortic valve bioprosthesis. Trace aortic regurgitation. No aortic stenosis. 6. Dilated coronary sinus. 7. Presence of endocardial cardiac rhythm management leads. (2) CAD (coronary artery disease) Onset Date: 01/23/2014 Status: Chronic Response to Treatment: Stable Discussed With: Patient Problem Specific Plan: Monitor Clinically Problem Text: Cont with ASA, Plavix, Statin, currently with controlled pressure off meds. Asymptomatic. Plan/VTE VTE Prophylaxis Ordered?: Yes VS, I&O, 24H, Fishbone Vital Signs/I&O Vital Signs Date Time Temp Pulse Resp B/P (MAP) Pulse Ox O2 Delivery O2 Flow Rate FiO2 12/01/16 05:01 67 127/74 (91) 76 121/67 (85) 79 98/64 (75) 12/01/16 05:01 98.1 18 92 Room Air I&O- Last 24 Hours up to 6 AM 12/01/16 06:00 Intake Total 2180 ml Output Total 1300 ml Balance 880 ml Laboratory Data 24H LABS Laboratory Tests 2 11/30/16 09:13: White Blood Count 7.1, Red Blood Count 4.86, Hemoglobin 15.6, Hematocrit 48.3, Mean Corpuscular Volume 99.3H, Mean Corpuscular Hemoglobin 32.1, Mean Corpuscular Hemoglobin Concent 32.3, Red Cell Distribution Width 13.3, Platelet Count 173, Neutrophils (%) (Auto) 63.6, Lymphocytes (%) (Auto) 19.9L, Monocytes (%) (Auto) 6.0H, Eosinophils (%) (Auto) 7.8H, Basophils (%) (Auto) 0.7, Neutrophils # (Auto) 4.5, Lymphocytes # (Auto) 1.6, Monocytes # (Auto) 0.4, Eosinophils # (Auto) 0.6H, Basophils # (Auto) 0.0, Large Unclassified Cells % 1.9, Large Unclassified Cells # 0.1, Prothrombin Time 12.8, Prothromb Time International Ratio 0.95, Activated Partial Thromboplast Time 24.0L, Anion Gap 4L, Glomerular Filtration Rate > 60.0, Blood Urea Nitrogen 14, Creatinine 0.71, Sodium Level 141, Potassium Level 4.2, Chloride Level 102, Carbon Dioxide Level 35H, Calcium Level 8.9, Total Creatine Kinase 40, Creatine Kinase MB 1.4, Creatine Kinase MB Relative Index 3.50, Troponin I < 0.02 11/30/16 10:02: Bedside Glucose (Misc Panel) 80L 11/30/16 16:51: Total Creatine Kinase 39, Creatine Kinase MB 2.0, Creatine Kinase MB Relative Index 5.12H, Troponin I < 0.02 12/01/16 00:37: Total Creatine Kinase 33L, Creatine Kinase MB 1.2, Creatine Kinase MB Relative Index 3.63, Troponin I < 0.02 12/01/16 05:27: Anion Gap 6L, Glomerular Filtration Rate > 60.0, Blood Urea Nitrogen 11, Creatinine 0.62L, Sodium Level 143, Potassium Level 4.3, Chloride Level 107, Carbon Dioxide Level 30, Calcium Level 8.3L, Magnesium Level 2.1 CBC/BMP Laboratory Tests 11/30/16 09:13 Red Blood Count 4.86, Mean Corpuscular Volume 99.3 H, Mean Corpuscular Hemoglobin 32.1, Mean Corpuscular Hemoglobin Concent 32.3, Red Cell Distribution Width 13.3, Neutrophils (%) (Auto) 63.6, Lymphocytes (%) (Auto) 19.9 L, Monocytes (%) (Auto) 6.0 H, Eosinophils (%) (Auto) 7.8 H, Basophils (%) (Auto) 0.7, Neutrophils # (Auto) 4.5, Lymphocytes # (Auto) 1.6, Monocytes # ( Auto) 0.4, Eosinophils # (Auto) 0.6 H, Basophils # (Auto) 0.0, Calcium Level 8.9 , Total Creatine Kinase 40 12/01/16 05:27 Red Blood Count 4.88, Mean Corpuscular Volume 99.9 H, Mean Corpuscular Hemoglobin 31.7, Mean Corpuscular Hemoglobin Concent 31.7 L, Red Cell Distribution Width 13.3, Calcium Level 8.3 L HO ERICKSON PA-C December 01, 2016 09:17 Fredy Suárez M.D. December 01, 2016 15:31
[2016-12-01] MEDS: ASPIRIN 81 MG ENTERIC TAB PO SCH (09:44)
[2016-12-01] MEDS: MULTIVITAMINS/MINERALS THERAP 1 TAB PO SCH (09:45)
[2016-12-01] MEDS: traMADol 50 MG TAB PO SCH ×2 (09:45→20:22)
[2016-12-01] MEDS: ENOXAPARIN 40 MG/0.4 ML SYRINGE (J1650) SC SCH (09:45)
[2016-12-01] MEDS: CLOPIDOGREL 75 MG TAB PO SCH (12:03)
[2016-12-01] MEDS: MIRALAX *UNIT DOSE* 17GM PACKET PO SCH (12:03)
[2016-12-01] MEDS: DOCUSATE SODIUM 100 MG CAP PO SCH (12:03)
[2016-12-01] MEDS: FINASTERIDE 5 MG TAB PO SCH (17:24)
[2016-12-01] MEDS: ATORVASTATIN 20 MG TAB PO SCH (20:21)
[2016-12-01] MEDS: NORTRIPTYLINE 10 MG CAP PO SCH (20:21)
[2016-12-02] MEDS ORDERED: SLF 3 ML SYR IV PRN (00:15)
[2016-12-02 04:53] VITALS: BP_SYST 110; BP_SYST 111; BP_SYST 148; BP_DIAS 68; BP_DIAS 72; BP_DIAS 85
[2016-12-02 05:36] LABS: MEAN CORPUSCULAR HEMOGLOBIN 32.4 pg (27.0-33.0); MEAN CORPUSCULAR HGB CONC 32.4 g/dl (32.0-36.5); MEAN CORPUSCULAR VOLUME 99.8 fl (80.0-96.0); RED CELL DISTRIBUTION WIDTH 13.5 % (11.5-14.5); WHITE BLOOD COUNT 7.1 K/mm3 (4.0-10.0)
[2016-12-02 05:55] LABS: ANION GAP 6 MEQ/L (8-16); BLOOD UREA NITROGEN 11 MG/DL (7-18); CARBON DIOXIDE LEVEL 30 MEQ/L (21-32); CHLORIDE LEVEL 107 MEQ/L (98-107); GLOMERULAR FILTRATION RATE > 60.0 (>42); GLUCOSE, FASTING 95 MG/DL (83-110); MAGNESIUM LEVEL 2.3 MG/DL (1.8-2.4); POTASSIUM SERUM 4.5 MEQ/L (3.5-5.1); SODIUM LEVEL 143 MEQ/L (136-145)
[2016-12-02] MEDS ORDERED: SLF 3 ML SYR IV SCH (06:00)
[2016-12-02] MEDS: ASPIRIN 81 MG ENTERIC TAB PO SCH (07:49)
[2016-12-02] MEDS: MULTIVITAMINS/MINERALS THERAP 1 TAB PO SCH (07:50)
[2016-12-02] MEDS: ENOXAPARIN 40 MG/0.4 ML SYRINGE (J1650) SC SCH (07:50)
[2016-12-02] MEDS: traMADol 50 MG TAB PO SCH (07:50)
[2016-12-02 08:00] VITALS: BP 137/90
--- NOTE | 2016-12-02 09:35 | DSES ---
DATE OF ADMISSION: 11/30/2016 DATE OF DISCHARGE: PRIMARY CARE PHYSICIAN: Fredy Suárez MD ATTENDING TODAY: Fredy Suárez MD HISTORY: This is a 76-year-old male patient who presented to [facility] emergency room after complaining of dizziness upon standing. He has a history of orthostatic hypotension managed by Dr. Suárez, recently been transitioned from carbamazepine to nortriptyline for trigeminal neuralgia but Dr. Manley. He also takes tramadol for this pain as well. He was admitted to the hospital, started on IV fluids for further management and monitoring. Telemetry was benign. He was transferred to the floor. He underwent CT scan of the head in the emergency room, which was suggestive of an old right basal ganglia lacunar infarct, small vessel ischemic disease. Chest x-ray was benign. He underwent a CT angiogram of the neck, which revealed a patent stent in the proximal right internal carotids, an occlusion of the left internal carotid artery. CT angiogram of the head revealed no aneurysm or chronic atherosclerotic disease. He has been evaluated by physical therapy who feel as though he is safe to return home. His Flomax has been discontinued. He does intermittently have orthostasis with blood pressure checks. These ten to be first thing in the morning. The patient has been counseled on the risks associated with this and expresses understanding. DISCHARGE DIAGNOSES: Orthostatic hypotension. Coronary artery disease. DISCHARGE MEDICATIONS: Include: - acetaminophen 1000 mg every 6 hours as needed for pain - aspirin 81 mg daily - atorvastatin 40 mg before bed - Plavix 75 mg daily - Colace 100 mg daily - finasteride 5 mg before bed - multivitamin one tablet daily - nortriptyline 20 mg before bed - MiraLAX 1 capsule daily - tramadol 100 mg by mouth three times a day DISCHARGE PLAN: Followup with Dr. Suárez in one week. Activity should be as tolerated. Diet should be no added salt, low cholesterol.
[2016-12-02] MEDS: MIRALAX *UNIT DOSE* 17GM PACKET PO SCH (12:01)
[2016-12-02] MEDS: DOCUSATE SODIUM 100 MG CAP PO SCH (12:01)
[2016-12-02] MEDS: CLOPIDOGREL 75 MG TAB PO SCH (12:01)
== END 2016-12-02 14:20 | disposition home or self-care (01) | DRG 312 ==
LOC: M ED 10:18 → M ED INP 13:00 → M PCU 15:46
PROVIDERS: ADMIT Internal Medicine; ATTEND Family Medicine
DX: I95.1 Orthostatic hypotension (principal); I10 Essential (primary) hypertension; E78.5 Hyperlipidemia, unspecified; G50.0 Trigeminal neuralgia; I65.22 Occlusion and stenosis of left carotid artery; L57.0 Actinic keratosis; I25.10 Atherosclerotic heart disease of native coronary artery without angina pectoris; N40.0 Benign prostatic hyperplasia without lower urinary tract symptoms; Z95.2 Presence of prosthetic heart valve; Z95.0 Presence of cardiac pacemaker; Z86.73 Personal history of transient ischemic attack (TIA), and cerebral infarction without residual deficits; Z96.651 Presence of right artificial knee joint; Z95.828 Presence of other vascular implants and grafts; Z79.891 Long term (current) use of opiate analgesic; Z79.82 Long term (current) use of aspirin; Z88.5 Allergy status to narcotic agent; Z88.1 Allergy status to other antibiotic agents

== ENCOUNTER → 2016-12-20 | Outpatient (CLI) | payer MEDICARE ==
[~2016-12-20] MED LIST changes: +ASPI1TAB PO; +ASPI81TA21 PO; +ATOR40TA PO; +CLOP75TA2 PO; +FLOM5CAP PO; +ISOVUE-M 300 61% 15ML VIAL (Q9967) As Ordered ONE; +LIDOCAINE 1% SDV INJ 30 ML VIAL As Ordered ONE; +MIRA33504 PO; +NORT10CA2 PO; +TAMSULOSIN; +VITMTA PO; +methylPREDNISolone SUSP 40 MG/ML (DEPO-medrol) VIAL (J1030) As Ordered ONE
--- NOTE | 2016-12-20 14:31 | REP ---
PARTIAL CERVICAL SPINE SERIES: Single view. HISTORY: Injection procedure for pain. 33 seconds of fluoroscopy time is reported. FINDINGS: A single fluoroscopically obtained last image hold intraprocedural spot radiographs of the cervicothoracic junction document needle position and contrast injection associated with cervical epidural injection procedure. Signed by Rojas Pro MD 12/20/2016 05:08 P
--- NOTE | 2017-01-01 23:48 | ECWPNPC ---
PATIENT NAME: NAYA MCMAHON : 1940 GENDER: MALE VISIT DATE: 12/20/2016 DISCHARGE DATE: 12/20/16 1158 VISIT LOCKED DATE TIME: PHYSICIAN: RITU JOSEPH PHYSICIAN PAGER NO: [phone] RESOURCE: RITU JOSEPH REASON FOR APPOINTMENT 1. CE HISTORY OF PRESENT ILLNESS HISTORY OF PRESENT ILLNESS: PAIN THE PATIENT DESCRIBES THE PAIN... FALL RISK SCREENING: SCREENING :NO FALLS IN THE PAST YEAR CURRENT MEDICATIONS TAKING PLAVIX 75 MG TABLET 1 TABLET ORALLY ONCE A DAY, NOTES: 12/12 12NOON TAKING ASPIRIN 81 MG TABLET 1 TABLET ORALLY ONCE A DAY, NOTES: 12/19 7AM TAKING MULTIVITAMINS TABLET 1TAB ORALLY DAILY, NOTES: 12/19 7AM TAKING COLACE 100 MG CAPSULE 2 CAPSULE ORALLY ONCE A DAY, NOTES: 12/19 12NOON TAKING MIRALAX - POWDER DIRECTED ORALLY , NOTES: 12/19 12NOON TAKING TYLENOL 500 MG TABLET 2 TABLET ORALLY 3 TIMES A DAY, NOTES: 12/19 12NOON TAKING NORTRIPTYLINE HCL 50 MG CAPSULE 2 CAPSULES AT BEDTIME ORALLY AT BEDTIME, NOTES: 12/19 9PM TAKING TRAMADOL HCL 50 MG TABLET 2 ORALLY BID PRN PAIN, MDD 4, NOTES: 12/19 7PM TAKING FINASTERIDE 5 MG TABLET 1 TABLET ORALLY ONCE A DAY, NOTES: 12/19 5PM TAKING LIPITOR 40 MG TABLET 1 TABLET ORALLY ONCE A DAY, NOTES: 12/19 9PM TAKING DEBROX 6.5 % SOLUTION 5 DROPS INTO AFFECTED EAR OTIC TWICE A DAY, NOTES: 12/19 7AM MEDICATION LIST REVIEWED AND RECONCILED WITH THE PATIENT PAST MEDICAL HISTORY CAD S/P CABG 1995-DR. 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-11/2015 MARSHA CAROTID ARTERY DISEASE S/P B CEA (L X 2) OA, MULTI-JOINT MAGDALENA L SHOULDER BPH C LUTS CH/O URINARY RETENTION C MCNEAL PLACEMENT 07/2013 HYPERLIPIDEMIA 2B H/O NICOTINE [id number] YO, SOLELY PIPE IRON DEFIECIENCY-NO PREVIOUS EGD/COLONOSCOPY SCALP AKS MCI-12/16/2013 MRI MILD GENERALIZED ATROPHY, OLD R BG CVA ESSENTIAL HYPERTENSION H/O ORSTATIC HYPOTENSION WHILE ON BP RX PROBABLY MAINLY 2 MODERATE ATAXIA H/O R FOOT CELLULITIS RXED 11/2013 C IV ANCEF CERVICAL [id number], WORST C5/6 C R HNP DORSALLY DISPLACING CORD BY 03/2015 MRI CRITCIAL AND SA NODE DYSFUNCTION S/P TAVR/DUAL [id number]-01/2016 ALLERGIES CIPRO: FRAYING OF ACHILLES TENDON - PER DR BAUER DO NOT TAKE: CONTRAINDICATION LEVAQUIN: FRAYING OF ACHILLES TENDON - PER DR BAUER DO NOT TAKE: CONTRAINDICATION AVELOX: FRAYING OF ACHILLES TENDON - PER DR BAUER DO NOT TAKE: CONTRAINDICATION REVIEW OF SYSTEMS CONSTITUTIONAL: ANY CHANGE IN YOUR MEDICAL CONDITION? YES, PT STATES THAT HE IS HAVING ISSUES WITH SHORT TERM MEMORY, AND NOT AMBULATING WELL INDEPENDENTLY. . CHILLS NO . FEVER NO . INFECTION: DO YOU HAVE NEW INFECTIONS? NO . DO YOU HAVE HISTORY OF MRSA? NO . MUSCULOSKELETAL: ANY NEW PATTERNS OF PAIN OR NUMBNESS? NO . GASTROENTEROLOGY: ANY NEW CHANGE IN BOWEL CONTROL? NO . GENITOURINARY: ANY NEW CHANGE IN BLADDER CONTROL? NO . IS THERE A CHANCE YOU COULD BE ? NO . HEMATOLOGY/LYMPH: DO YOU TAKE ANY BLOOD THINNERS? (FOR EXAMPLE- COUMADIN, PLAVIX, AGGRENOX, PLATEL, PRADAXA, OR XARELTO) YES, PT TAKING PLAVIX AND ASA . WHEN WAS YOUR LAST DOSE? DATE: 12/12/16 TIME: 12NOON . NEUROLOGY: HAVE YOU FALLEN IN THE PAST 6 MONTHS? YES, FELL LAST MONDAY, MISSED STEP AT HOME. HIT HEAD. NO REPORT TO EMERGENCY ROOM. STATES THAT HE IS VERY UNSTEADY ON FEET, NOT SLEEPING WELL AT NIGHT. PT GET VERY LIGHT-HEADED AND DIZZY WHEN HE STANDS. . ANY NEW EXTREMITY NUMBNESS OR WEAKNESS? NO . CARDIOLOGY: DO YOU HAVE A PACEMAKER OR DEFIBRILLATOR? YES, PACEMAKER 02/08/16 . RESPIRATORY: HAVE YOU BEEN SICK IN THE PAST WEEK? NO . FEVER NO . FLU LIKE SYMPTOMS? NO . COUGH NO . INTEGUMENTARY: DO YOU HAVE ANY RASHES OR OPEN SORES? NO . ALLERGIC/IMMUNO: ARE YOU ALLERGIC TO SHELLFISH OR IV DYE? NO . ANY NEW ALLERGIES? NO . PSYCHIATRIC: DO YOU HAVE THOUGHTS OF HURTING YOURSELF OR SOMEONE ELSE? NO . ARE YOU ABUSED, NEGLECTED, OR IN AN UNSAFE ENVIRONMENT? NO . ENDOCRINOLOGY: ARE YOU DIABETIC? NO . OTHER: DO YOU NEED ANY PRESCRIPTIONS? NO . IF YES, PLEASE LIST: ____ . ANY NEW PROBLEMS WITH YOUR MEDICATIONS? NO . WHEN DID YOU LAST EAT? 12/19 5PM . WHEN DID YOU LAST DRINK? 12/19 10PM . WHAT DID YOU LAST DRINK? WATER . NAME OF PERSON DRIVING YOU HOME? . DO YOU HAVE ANY OTHER QUESTIONS OR CONCERNS NO . REVIEWED BY: PROVIDER: . VITAL SIGNS WT 170 LBS, HT 70 IN, BMI 24.39 INDEX, BP 153/90 MM HG, HR 78 /MIN, RR 16 /MIN, TEMP 97.6 F, OXYGEN SAT % 97%, SAFE IN ENV? (Y/N) Y, NA INITIALS MA 09:01, REVIEWED BY: ANDREA. 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 RITU JOSEPH BRASS CHASER NONE ANESTHESIA LOCAL PRE PROCEDURE NOTE THE PATIENT HAS A HISTORY OF CHRONIC CERVICAL PAIN. I EVALUATE THE PATIENT AND REVIEWED THE CHART. I WENT OVER THE RISKS, ALTERNATIVES, AND BENEFITS ASSOCIATED WITH THIS PROCEDURE. THE PATIENT WOULD LIKE TO PROCEED AND GIVE CONSENT TO PERFORMED THE PROCEDURE. THE PATIENT DENIES UNEXPLAINABLE WEIGHT LOSS, FEVER, CHILLS, OR NEW CHANGES IN URINARY OR BOWEL CONTROL DESCRIPTION OF PROCEDURE THE PATIENT WAS BROUGHT TO THE PROCEDURE ROOM AND PLACED IN THE PRONE POSITION. THE CERVICOTHORACIC AREA WAS CLEANED WITH BETADINE SOLUTION AND DRAPED ASEPTICALLY. THE PROCEDURE WAS DONE UNDER STERILE CONDITIONS. I CHECKED LATERALITY AND THE LEVEL WHERE THE PROCEDURE WAS GOING TO BE PERFORMED WITH THE PATIENT AND THE SUPPORTING STAFF AT THE MOMENT OF THE TIME OUT IN THE PROCEDURE ROOM. UNDER FLUOROSCOPIC GUIDANCE, THE TARGET WAS SELECTED AT THE INTERLAMINAR LEVEL OF C7-T1. LIDOCAINE WAS USED TO NUMB THE SKIN AND THE SUBCUTANEOUS TISSUE BELOW IT. EPIDURAL TUOHY NEEDLE 17-GAUGE WAS ADVANCED UNDER FLUOROSCOPIC GUIDANCE AND FOLLOWING PATIENT FEEDBACK UNTIL THE EPIDURAL SPACE WAS REACHED 6 CM DEEP INTO THE SKIN BY THE LOSS OF RESISTANCE TECHNIQUE. ISOVUE M DYE 30%, 0.25 ML, WAS INJECTED SHOWING ADEQUATE SPREAD OF THE DYE. THEN, A SOLUTION OF 3 ML OF NORMAL SALINE WITH DEPO-MEDROL 60 MG WAS INJECTED SLOWLY FOLLOWING PATIENT FEEDBACK. THERE WAS NO EVIDENCE OF BLOOD, PARESTHESIA OR CEREBROSPINAL FLUID DURING THE PROCEDURE. THE PATIENT WAS SENT TO THE RECOVERY ROOM. THE PATIENT WAS MOVING THE EXTREMITIES AND DOING WELL. THERE WAS NO COMPLICATION DURING THE PROCEDURE. FLUOROSCOPY TIME WAS 33 SECONDS POST PROCEDURE NOTE THE PATIENT WILL BE SEEN IN A FOLLOW UP IN THE NEXT FEW WEEKS. INSTRUCTIONS WERE GIVEN, QUESTIONS WERE ANSWERED, AND THE PATIENT EXPRESSED UNDERSTANDING AND AGREES WITH THE PLAN. I, REJI ALLEN, DOCUMENTED THE ABOVE INFORMATION ACTING A SCRIBE FOR DR. JOSEPH. I HAVE REVIEWED THE ABOVE DOCUMENT, WRITTEN BY REJI GALVANIBEugenio AND I VERIFY THAT IT IS ACCURATE DIAGNOSTIC IMAGING [facility] FLUORO GUIDE SPINE INJECTION (PAIN)[id number] PROCEDURE CODES 47841 CERVICAL/THORACIC W/ IMAGING 6045F RADXPS IN END [id number] PXD DISPOSITION & COMMUNICATION FOLLOW UP 3 WEEKS ELECTRONICALLY SIGNED BY RITU JOSEPH MD ON 01/01/2017 AT 05:45 PM EDT DISCLAIMER : THIS IS A VISIT SUMMARY EXTRACTED FROM THE [facility] CHART. IT IS NOT A COPY OF THE [facility] PROGRESS NOTE. MTDD
== END ==
LOC: M PAIN 09:00
PROVIDERS: ATTEND Anesthesiology
DX: G89.29 Other chronic pain (principal); M50.123 Cervical disc disorder at C6-C7 level with radiculopathy; Z79.891 Long term (current) use of opiate analgesic; Z79.899 Other long term (current) drug therapy; Z79.82 Long term (current) use of aspirin; Z88.1 Allergy status to other antibiotic agents
CPT/HCPCS: 62321; J1030; Q9967

== ENCOUNTER → 2017-02-16 | Outpatient (CLI) | payer MEDICARE ==
[~2017-02-16] MED LIST changes: -ATOR40TA PO; +ATOR40TA75 PO; +BACITAB PO; -BACITAB3 PO; -COLA100C3 PO; +COLA100C5 PO; -COUM2TAB10 PO; +COUM2TAB22 PO; -ISOVUE-M 300 61% 15ML VIAL (Q9967) As Ordered ONE; +KEFL500C17 PO; -KEFL500C7 PO; -LIDO5DIS36 TD; +LIDO5DIS41 TD; -LIDOCAINE 1% SDV INJ 30 ML VIAL As Ordered ONE; -METO50TA2 PO; +METO50TA7 PO; +PLAV1TAB2 PO; -PLAV75TA38 PO; -SENO8.6T2 PO; +SENO8.6T5 PO; -ULTR50TA PO; +ULTR50TA8 PO; -methylPREDNISolone SUSP 40 MG/ML (DEPO-medrol) VIAL (J1030) As Ordered ONE
[2017-02-16 09:56] LABS: BASO % 0.4 % (0.0-1.0); EOS # 0.6 K/mm3 (0.0-0.50); EOS % 8.2 % (0.0-3.0); LARGE UNSTAINED CELL # 0.2 K/mm3 (0.0-0.4); LARGE UNSTAINED CELL % 2.9 % (0.0-4.0); LYMPH # 2.2 K/mm3 (1.5-4.5); LYMPH % 26.9 % (24.0-44.0); MEAN CORPUSCULAR HEMOGLOBIN 32.9 pg (27.0-33.0); MEAN CORPUSCULAR HGB CONC 33.2 g/dl (32.0-36.5); MEAN CORPUSCULAR VOLUME 99.1 fl (80.0-96.0); MONO # 0.4 K/mm3 (0.0-0.8); MONO % 5.9 % (0.0-5.0); NEUTROPHILS # 4.1 K/mm3 (1.8-7.7); NEUTROPHILS % 55.7 % (36.0-66.0); PLATELET COUNT, AUTOMATED 190 k/mm3 (150-450); RED CELL DISTRIBUTION WIDTH 13.2 % (11.5-14.5); WHITE BLOOD COUNT 7.3 K/mm3 (4.0-10.0)
[2017-02-16 10:27] LABS: ALBUMIN 3.8 GM/DL (3.2-5.2); ALBUMIN/GLOBULIN RATIO 1.41 (1.00-1.93); ALKALINE PHOSPHATASE 95 U/L (45-117); ALT/SGPT 31 U/L (12-78); ANION GAP 6 MEQ/L (8-16); AST/SGOT 20 U/L (15-37); BILIRUBIN,TOTAL 0.6 MG/DL (0.2-1.0); BLOOD UREA NITROGEN 16 MG/DL (7-18); CALCIUM LEVEL 9.9 MG/DL (8.8-10.2); CARBON DIOXIDE LEVEL 31 MEQ/L (21-32); CHLORIDE LEVEL 105 MEQ/L (98-107); CHOLESTEROL LEVEL 122 MG/DL (<200); CREATININE FOR GFR 0.79 MG/DL (0.70-1.30); FREE T4 1.11 NG/DL (0.76-1.46); GLOMERULAR FILTRATION RATE > 60.0 (>42); GLUCOSE, FASTING 87 MG/DL (83-110); POTASSIUM SERUM 4.5 MEQ/L (3.5-5.1); SODIUM LEVEL 142 MEQ/L (136-145); TOTAL PROTEIN 6.5 GM/DL (6.4-8.2); TRIGLYCERIDES LEVEL 94 MG/DL (<150)
== END ==
LOC: M WUC 08:14
PROVIDERS: ATTEND Family Medicine
DX: E78.5 Hyperlipidemia, unspecified (principal)

== ENCOUNTER 2017-04-04 09:20 | Emergency (ER) | payer MEDICARE ==
[~2017-04-04] VITALS: Ht 177.8 cm; Wt 75.0 kg
--- NOTE | 2017-04-04 10:13 | REP ---
CT Head without contrast HISTORY: Trauma COMPARISON: 08/19/2016 An area of decreased attenuation is present in the right basal ganglia. This represents an old lacunar infarction. Areas of decreased attenuation are present in the periventricular white matter. This represents small-vessel ischemic disease. There is no intraparenchymal hemorrhage, acute infarct, mass or midline shift. The ventricular system and cortical sulci are dilated consistent with mild volume loss. There is no extra cerebral collection. There is no fracture. Mucosal thickening is present in the ethmoid sinuses. IMPRESSION: 1. Old right basal ganglia lacunar infarction. 2. Small vessel ischemic disease. 3. Mild volume loss. Signed by Kj Bobby MD 04/04/2017 10:05 A
--- NOTE | 2017-04-04 10:16 | REP ---
Clinical: Trauma. Technique: AP, lateral, bilateral oblique views of the left elbow. Findings: Age-related osteopenia and degenerative changes are appreciated. No acute fracture or dislocation. No effusion. Lateral view demonstrates posterior swelling. Impression: Posterior swelling. Osteopenia and degenerative changes. No obvious acute fracture or dislocation. Signed by Damien Chowdhury MD 04/04/2017 10:07 A
[2017-04-04 11:31] LABS: BASO % 0.5 % (0.0-1.0); EOS # 0.3 K/mm3 (0.0-0.50); EOS % 3.9 % (0.0-3.0); LARGE UNSTAINED CELL # 0.2 K/mm3 (0.0-0.4); LARGE UNSTAINED CELL % 2.2 % (0.0-4.0); LYMPH # 1.3 K/mm3 (1.5-4.5); LYMPH % 15.4 % (24.0-44.0); MEAN CORPUSCULAR HEMOGLOBIN 32.4 pg (27.0-33.0); MEAN CORPUSCULAR HGB CONC 33.6 g/dl (32.0-36.5); MEAN CORPUSCULAR VOLUME 96.5 fl (80.0-96.0); MONO # 0.5 K/mm3 (0.0-0.8); MONO % 6.4 % (0.0-5.0); NEUTROPHILS # 5.8 K/mm3 (1.8-7.7); NEUTROPHILS % 71.5 % (36.0-66.0); PLATELET COUNT, AUTOMATED 234 k/mm3 (150-450); RED CELL DISTRIBUTION WIDTH 12.7 % (11.5-14.5); WHITE BLOOD COUNT 8.1 K/mm3 (4.0-10.0)
[2017-04-04 11:51] LABS: ALBUMIN 3.3 GM/DL (3.2-5.2); ALBUMIN/GLOBULIN RATIO 1.14 (1.00-1.93); ALKALINE PHOSPHATASE 108 U/L (45-117); ALT/SGPT 31 U/L (12-78); ANION GAP 5 MEQ/L (8-16); AST/SGOT 28 U/L (15-37); BILIRUBIN,DIRECT 0.2 MG/DL (0.0-0.2); BILIRUBIN,TOTAL 0.7 MG/DL (0.2-1.0); BLOOD UREA NITROGEN 15 MG/DL (7-18); CALCIUM LEVEL 9.2 MG/DL (8.8-10.2); CARBON DIOXIDE LEVEL 33 MEQ/L (21-32); CHLORIDE LEVEL 103 MEQ/L (98-107); CREATININE FOR GFR 0.73 MG/DL (0.70-1.30); GLOMERULAR FILTRATION RATE > 60.0 (>42); GLUCOSE, FASTING 85 MG/DL (83-110); POTASSIUM SERUM 4.5 MEQ/L (3.5-5.1); SODIUM LEVEL 141 MEQ/L (136-145); TOTAL PROTEIN 6.2 GM/DL (6.4-8.2)
[2017-04-04 11:53] LABS: URIC ACID 4.4 MG/DL (3.5-7.2)
--- NOTE | 2017-04-04 13:07 | REP ---
Left upper extremity duplex venous ultrasound: History: Swelling and pain question venous thrombosis. Findings: The left internal jugular, axillary, brachial, basilic, and cephalic veins are anechoic and compressible in the left upper extremity. Color flow imaging is homogeneous. Spectral Doppler interrogation is unremarkable. There is no evidence of left upper extremity venous thrombosis. Impression: Negative left upper extremity duplex venous ultrasound. No evidence of venous thrombosis. Signed by Rojas Pro MD 04/04/2017 12:59 P
[2017-04-04 14:06] VITALS: BP 148/72
[2017-04-04 14:32] LABS: CALCIUM OXALATE CRYSTALS SMALL
--- NOTE | 2017-04-04 21:15 | ECGEPIP ---
Stationary ECG Study [facility] - ED Test Date: 2017-04-04 Pat Name: NAYA MCMAHON Department: Room: - Gender: M Registered Medical Transcriptionist: JT : 1940 Requested By: Carri Henderson Order Number: [id number] Reading MD: Carri Henderson Measurements Intervals [place] Rate: 79 P: 128 IN: 179 QRS: -67 QRSD: 182 T: 112 QT: 452 QTc: 520 Interpretive Statements ELECTRONIC ATRIAL PACEMAKER ELECTRONIC VENTRICULAR PACEMAKER ABNORMAL RHYTHM ECG PRIOR 11/30/16 NOT PACED Electronically Signed On 04-04-2017 21:14:43 EDT by Carri Henderson
== END 2017-04-04 14:18 | disposition home or self-care (01) ==
LOC: M ED 09:20
DX: M70.22 Olecranon bursitis, left elbow (principal); I25.10 Atherosclerotic heart disease of native coronary artery without angina pectoris; I10 Essential (primary) hypertension; Z95.1 Presence of aortocoronary bypass graft; Z86.73 Personal history of transient ischemic attack (TIA), and cerebral infarction without residual deficits; M79.632 Pain in left forearm; Z79.899 Other long term (current) drug therapy

== ENCOUNTER → 2017-06-12 | Outpatient (CLI) | payer MEDICARE ==
[2017-06-12 13:05] LABS: BASO # 0.1 10^3/uL (0.0-0.2); BASO % 0.7 % (0.0-1.0); EOS # 0.6 10^3/uL (0.0-0.50); EOS % 5.5 % (0.0-3.0); IMMATURE GRANULOCYTE % 0.3 % (0-0); LYMPH # 1.6 10^3/uL (1.5-4.5); LYMPH % 15.5 % (24.0-44.0); MEAN CORPUSCULAR HEMOGLOBIN 30.4 pg (27.0-33.0); MEAN CORPUSCULAR HGB CONC 31.1 g/dl (32.0-36.5); MEAN CORPUSCULAR VOLUME 97.7 fl (80.0-96.0); MONO # 0.9 10^3/uL (0.0-0.8); MONO % 9.4 % (0.0-5.0); NEUTROPHILS # 6.9 10^3/uL (1.8-7.7); NEUTROPHILS % 68.6 % (36.0-66.0); PLATELET COUNT, AUTOMATED 245 10^3/uL (150-450); RED CELL DISTRIBUTION WIDTH 13.2 % (11.5-14.5)
[2017-06-12 13:34] LABS: ALBUMIN 3.7 GM/DL (3.2-5.2); ALBUMIN/GLOBULIN RATIO 1.23 (1.00-1.93); ALKALINE PHOSPHATASE 98 U/L (45-117); ALT/SGPT 33 U/L (12-78); ANION GAP 4 MEQ/L (8-16); AST/SGOT 16 U/L (7-37); BILIRUBIN,TOTAL 0.6 MG/DL (0.2-1.0); BLOOD UREA NITROGEN 15 MG/DL (7-18); CARBON DIOXIDE LEVEL 36 MEQ/L (21-32); CHLORIDE LEVEL 100 MEQ/L (98-107); CREATININE FOR GFR 0.68 MG/DL (0.70-1.30); FREE T4 1.14 NG/DL (0.76-1.46); GLOMERULAR FILTRATION RATE > 60.0 (>42); GLUCOSE, FASTING 69 MG/DL (83-110); POTASSIUM SERUM 4.8 MEQ/L (3.5-5.1); SODIUM LEVEL 140 MEQ/L (136-145); TOTAL PROTEIN 6.7 GM/DL (6.4-8.2)
== END ==
LOC: M WUC 10:42
PROVIDERS: ATTEND Family Medicine
DX: I25.10 Atherosclerotic heart disease of native coronary artery without angina pectoris (principal); E04.1 Nontoxic single thyroid nodule; N40.1 Benign prostatic hyperplasia with lower urinary tract symptoms

== ENCOUNTER → 2017-06-17 | Outpatient (CLI) | payer MEDICARE ==
[2017-06-17 13:24] LABS: ALBUMIN 3.7 GM/DL (3.2-5.2); ALBUMIN/GLOBULIN RATIO 1.19 (1.00-1.93); ALKALINE PHOSPHATASE 105 U/L (45-117); ALT/SGPT 36 U/L (12-78); ANION GAP 6 MEQ/L (8-16); AST/SGOT 21 U/L (7-37); BILIRUBIN,TOTAL 0.7 MG/DL (0.2-1.0); BLOOD UREA NITROGEN 13 MG/DL (7-18); CALCIUM LEVEL 9.3 MG/DL (8.8-10.2); CARBON DIOXIDE LEVEL 33 MEQ/L (21-32); CHLORIDE LEVEL 103 MEQ/L (98-107); CREATININE FOR GFR 0.83 MG/DL (0.70-1.30); GLOMERULAR FILTRATION RATE > 60.0 (>42); GLUCOSE, FASTING 89 MG/DL (83-110); POTASSIUM SERUM 4.6 MEQ/L (3.5-5.1); SODIUM LEVEL 142 MEQ/L (136-145); TOTAL PROTEIN 6.8 GM/DL (6.4-8.2)
== END ==
LOC: M WUC 09:00
PROVIDERS: ATTEND Family Medicine
DX: E21.3 Hyperparathyroidism, unspecified (principal)

== ENCOUNTER → 2017-10-09 | Outpatient (CLI) | payer MEDICARE ==
[2017-10-09 09:40] LABS: CHOLESTEROL LEVEL 118 MG/DL (<200); CHOLESTEROL RISK RATIO 1.966 (<5); CPK CREATINE PHOSPHOKINASE 35 U/L (39-308); HDL CHOLESTEROL 60 MG/DL (>40); NON-HDL-C 58 MG/DL; TRIGLYCERIDES LEVEL 100 MG/DL (<150)
[2017-10-09 11:12] LABS: ESTIMATED AVERAGE GLUCOSE 114 MG/DL (60-110); HEMOGLOBIN A1c 5.6 %
[2017-10-10 14:17] LABS: INSULIN LEVEL 14.9 uIU/mL (2.6-24.9)
== END ==
LOC: M WUC 08:11
DX: E78.5 Hyperlipidemia, unspecified (principal); D75.89 Other specified diseases of blood and blood-forming organs; R73.01 Impaired fasting glucose
CPT/HCPCS: 82550

== ENCOUNTER → 2017-11-02 | Outpatient (CLI) | payer MEDICARE | LOC: M RAD 12:05 | DX: E04.1 Nontoxic single thyroid nodule (principal) | CPT/HCPCS: 76536 ==

== ENCOUNTER → 2017-11-24 | Outpatient (CLI) | payer MEDICARE | LOC: M RAD 12:55 | DX: M47.22 Other spondylosis with radiculopathy, cervical region (principal) | CPT/HCPCS: 72125 ==

== ENCOUNTER → 2018-05-21 | Outpatient (REF) | payer MEDICARE ==
[2018-05-21 19:00] LABS: BASO # 0.1 10^3/uL (0.0-0.2); BASO % 0.6 % (0.0-1.0); EOS # 0.2 10^3/uL (0.0-0.50); EOS % 1.9 % (0.0-3.0); HEMATOCRIT 51.7 % (42.0-52.0); HEMOGLOBIN 16.6 g/dl (13.5-17.5); IMMATURE GRANULOCYTE % 0.5 % (0-3.0); LYMPH # 2.2 10^3/uL (1.5-4.5); LYMPH % 22.3 % (24.0-44.0); MEAN CORPUSCULAR HEMOGLOBIN 31.5 pg (27.0-33.0); MEAN CORPUSCULAR HGB CONC 32.1 g/dl (32.0-36.5); MEAN CORPUSCULAR VOLUME 98.1 fl (80.0-96.0); MONO # 0.9 10^3/uL (0.0-0.8); NEUTROPHILS # 6.6 10^3/uL (1.8-7.7); NEUTROPHILS % 65.7 % (36.0-66.0); PLATELET COUNT, AUTOMATED 262 10^3/uL (150-450); RED BLOOD COUNT 5.27 10^6/uL (4.30-6.10); RED CELL DISTRIBUTION WIDTH 13.9 % (11.5-14.5)
[2018-05-21 19:07] LABS: ALBUMIN 4.2 GM/DL (3.2-5.2); ALBUMIN/GLOBULIN RATIO 1.31 (1.00-1.93); ALKALINE PHOSPHATASE 113 U/L (45-117); ALT/SGPT 34 U/L (12-78); ANION GAP 6 MEQ/L (8-16); AST/SGOT 25 U/L (7-37); BILIRUBIN,TOTAL 0.6 MG/DL (0.2-1.0); BLOOD UREA NITROGEN 19 MG/DL (7-18); CALCIUM LEVEL 10.5 MG/DL (8.8-10.2); CARBON DIOXIDE LEVEL 34 MEQ/L (21-32); CHLORIDE LEVEL 101 MEQ/L (98-107); CREATININE FOR GFR 0.94 MG/DL (0.70-1.30); GLOMERULAR FILTRATION RATE > 60.0 (>35); GLUCOSE, FASTING 100 MG/DL (70-100); LIPASE 46 U/L (73-393); POTASSIUM SERUM 4.3 MEQ/L (3.5-5.1); SODIUM LEVEL 141 MEQ/L (136-145); TOTAL PROTEIN 7.4 GM/DL (6.4-8.2)
[2018-05-22 12:18] LABS: APPEARANCE, URINE CLEAR (CLEAR); BACTERIA, URINE AUTO NEGATIVE (NEGATIVE); BILIRUBIN, URINE AUTO NEGATIVE (NEGATIVE); BLOOD, URINE BLOOD NEGATIVE (NEGATIVE); COLOR, URINE YELLOW (YELLOW); GLUCOSE, URINE (UA) AUTO NEGATIVE (NEGATIVE); KETONE, URINE AUTO NEGATIVE (NEGATIVE); LEUKOCYTE ESTERASE, URINE AUTO NEGATIVE (NEGATIVE); NITRITE, URINE AUTO NEGATIVE (NEGATIVE); PROTEIN, URINE AUTO NEGATIVE (NEGATIVE); RBC, URINE AUTO 1 /HPF (0-3); SPECIFIC GRAVITY URINE AUTO 1.011 (1.002-1.035); SQUAMOUS EPITHELIAL CELL UR AU 0 /HPF (0-6); UROBILINOGEN, URINE AUTO 0.2 mg/dL (0.0-2.0); WBC, URINE AUTO 1 /HPF (0-3)
== END ==
LOC: M SFHCPLAZ 15:06
DX: R10.9 Unspecified abdominal pain (principal); R19.7 Diarrhea, unspecified
CPT/HCPCS: 83690

== ENCOUNTER → 2018-05-21 | Outpatient (REF) | payer MEDICARE | LOC: M SFHCPLAZ 17:13 | DX: R19.7 Diarrhea, unspecified (principal) | CPT/HCPCS: 87507 ==

== ENCOUNTER → 2018-06-05 | Outpatient (CLI) | payer MEDICARE | LOC: M LAB 11:17 | DX: R10.9 Unspecified abdominal pain (principal); Z95.0 Presence of cardiac pacemaker; Z95.818 Presence of other cardiac implants and grafts | CPT/HCPCS: 74019 ==

== ENCOUNTER → 2018-06-29 | Outpatient (CLI) | payer MEDICARE ==
[~2018-06-29] MED LIST changes: -ACET160S5 PO; -ACET65SU PO; -ALBU17IN INH; -ASPI1TAB PO; -ASPI81TA21 PO; -ASPI81TA45 PO; -ASPIRIN PO; -ATOR40TA75 PO; -BACITAB PO; -CEFD1CAP8 PO; -CEPA0.05 PO; -CLOP75TA2 PO; -COLA100C5 PO; -COUM1TAB14 PO; -COUM1TAB17 PO; -COUM1TAB19 PO; -COUM2TAB22 PO; -DULC10SU2 PR; -FINA5TAB2 PO; -FINACRY PO; -FLEEENE4 PR; -FLOM5CAP PO; -GABA600T PO; +GASTROGRAFIN SOLUTION 30ML (Q9963) As Ordered; +ISOVUE-370 76% 100ML VIAL (Q9967) As Ordered; -KEFL500C17 PO; -LIDO5DIS41 TD; -LIPI20TA PO; -LISI-542 PO; -LOSARTAN PO; -LOVA40TA PO; -MAGN500T6 PO; -META28.35 PO; -METO50TA7 PO; -METOPROL PO; -MILKSUS PO; -MIRA3350 PO; -MIRA33504 PO; -MULTCAP PO; -NORT10CA2 PO; -PLAV1TAB2 PO; -PROS5TAB OR; -PROT1TAB2 PO; -PROTPAK PO; -SENITAB2 PO; -SENN-23 PO; -SENO8.6T5 PO; -STOO100C PO; -TAMS0.4C2 PO; -TAMSULOSIN; -TRAM50TA2 PO; -TRAMADOL PO; -TYLE167L OR; -TYLE325T5 PO; -TYLE500T78 PO; -ULTR50TA8 PO; -VICO5TAB16 PO; -VICO7.5T11 PO; -VITMTA PO; -ZOFR20TA PO; -[UNRECOGNIZED DRUG - CODE] PO
== END ==
LOC: M RAD 09:16
DX: N28.1 Cyst of kidney, acquired (principal); K57.30 Diverticulosis of large intestine without perforation or abscess without bleeding; R10.9 Unspecified abdominal pain
CPT/HCPCS: Q9963

== ENCOUNTER 2018-07-08 03:23 | Inpatient (IN) | payer MEDICARE ==
[2018-07-08] MEDS: MORPHINE 4 MG/ML 1ML VIAL/SYRINGE (J2270) IV ×3 (04:32→15:29)
[2018-07-08 05:02] LABS: BASO # 0.1 10^3/uL (0.0-0.2); BASO % 0.3 % (0.0-1.0); EOS # 0.3 10^3/uL (0.0-0.50); EOS % 1.8 % (0.0-3.0); HEMATOCRIT 43.7 % (42.0-52.0); IMMATURE GRANULOCYTE % 0.8 % (0-3.0); LYMPH # 1.1 10^3/uL (1.5-4.5); LYMPH % 6.7 % (24.0-44.0); MEAN CORPUSCULAR HEMOGLOBIN 30.9 pg (27.0-33.0); MEAN CORPUSCULAR VOLUME 96.5 fl (80.0-96.0); MONO # 0.9 10^3/uL (0.0-0.8); MONO % 5.3 % (0.0-5.0); NEUTROPHILS # 14.3 10^3/uL (1.8-7.7); NEUTROPHILS % 85.1 % (36.0-66.0); PLATELET COUNT, AUTOMATED 208 10^3/uL (150-450); RED BLOOD COUNT 4.53 10^6/uL (4.30-6.10); RED CELL DISTRIBUTION WIDTH 13.7 % (11.5-14.5); WHITE BLOOD COUNT 16.8 10^3/uL (4.0-10.0)
[2018-07-08 05:35] LABS: INR 0.99; PROTHROMBIN TIME 13.2 SECONDS (12.1-14.4)
[2018-07-08 05:36] LABS: PARTIAL THROMBOPLASTIN TIME 28.5 SECONDS (25.4-37.6)
[2018-07-08 05:56] LABS: ANION GAP 5 MEQ/L (8-16); BLOOD UREA NITROGEN 17 MG/DL (7-18); CARBON DIOXIDE LEVEL 30 MEQ/L (21-32); CHLORIDE LEVEL 106 MEQ/L (98-107); CREATININE FOR GFR 0.64 MG/DL (0.70-1.30); GLOMERULAR FILTRATION RATE > 60.0 (>35); GLUCOSE, FASTING 95 MG/DL (70-100); POTASSIUM SERUM 5.4 MEQ/L (3.5-5.1); SODIUM LEVEL 141 MEQ/L (136-145)
[2018-07-08] MEDS: MORPHINE 2 MG/ML 1ML SYRINGE (J2270) IV ×2 (06:59→08:00)
[2018-07-08] MEDS: ONDANSETRON 4MG/2ML VIAL (J2405) IV (07:22)
[2018-07-08] MEDS: NS 1,000 ML IV ×3 (07:22→18:35)
[2018-07-08] MEDS: MULTIVITAMINS/MINERALS THERAP 1 TAB PO (09:00)
[2018-07-08] MEDS ORDERED: NORCO, ANEXSIA 5/325MG TABLET (HYDROcodone/ACETAMINOPHEN) PO (09:30)
[2018-07-08] MEDS: PANTOPRAZOLE 40MG TAB (PROTONIX) PO (11:04)
[2018-07-08] MEDS: traMADol 50 MG TAB PO ×2 (11:05→21:06)
[2018-07-08] MEDS: MIRALAX *UNIT DOSE* 17GM PACKET PO (15:28)
[2018-07-08] MEDS: FINASTERIDE 5 MG TAB PO (18:34)
[2018-07-08] MEDS: NORTRIPTYLINE 10 MG CAP PO (18:34)
[2018-07-08] MEDS: ENOXAPARIN 40 MG/0.4 ML SYRINGE (J1650) SC (21:05)
[2018-07-08] MEDS: DOCUSATE SODIUM 100 MG CAP PO (21:05)
[2018-07-08] MEDS: ATORVASTATIN 20 MG TAB PO (21:05)
[2018-07-08] MEDS: ACETAMINOPHEN TAB 650MG DOSE (2X325MG) PO (21:06)
[2018-07-09] MEDS: NS 1,000 ML IV (03:00)
[2018-07-09 07:00] LABS: BASO % 0.3 % (0.0-1.0); EOS # 0.8 10^3/uL (0.0-0.50); EOS % 7.5 % (0.0-3.0); HEMATOCRIT 38.2 % (42.0-52.0); HEMOGLOBIN 12.1 g/dl (13.5-17.5); IMMATURE GRANULOCYTE % 0.4 % (0-3.0); LYMPH # 1.1 10^3/uL (1.5-4.5); LYMPH % 10.9 % (24.0-44.0); MEAN CORPUSCULAR HEMOGLOBIN 31.2 pg (27.0-33.0); MEAN CORPUSCULAR HGB CONC 31.7 g/dl (32.0-36.5); MEAN CORPUSCULAR VOLUME 98.5 fl (80.0-96.0); MONO # 0.9 10^3/uL (0.0-0.8); NEUTROPHILS # 7.5 10^3/uL (1.8-7.7); NEUTROPHILS % 71.9 % (36.0-66.0); PLATELET COUNT, AUTOMATED 158 10^3/uL (150-450); RED BLOOD COUNT 3.88 10^6/uL (4.30-6.10); RED CELL DISTRIBUTION WIDTH 13.7 % (11.5-14.5); WHITE BLOOD COUNT 10.5 10^3/uL (4.0-10.0)
[2018-07-09 07:31] LABS: ALBUMIN 2.8 GM/DL (3.2-5.2); ALBUMIN/GLOBULIN RATIO 1.08 (1.00-1.93); ALKALINE PHOSPHATASE 75 U/L (45-117); ALT/SGPT 33 U/L (12-78); AMYLASE 20 U/L (25-115); ANION GAP 5 MEQ/L (8-16); AST/SGOT 29 U/L (7-37); BILIRUBIN,TOTAL 0.8 MG/DL (0.2-1.0); BLOOD UREA NITROGEN 12 MG/DL (7-18); CALCIUM LEVEL 8.5 MG/DL (8.8-10.2); CARBON DIOXIDE LEVEL 28 MEQ/L (21-32); CHLORIDE LEVEL 107 MEQ/L (98-107); CREATININE FOR GFR 0.59 MG/DL (0.70-1.30); GLOMERULAR FILTRATION RATE > 60.0 (>35); GLUCOSE, FASTING 109 MG/DL (70-100); LIPASE 37 U/L (73-393); SODIUM LEVEL 140 MEQ/L (136-145); TOTAL PROTEIN 5.4 GM/DL (6.4-8.2)
[2018-07-09] MEDS: ACETAMINOPHEN TAB 650MG DOSE (2X325MG) PO ×3 (09:26→21:15)
[2018-07-09] MEDS: DOCUSATE SODIUM 100 MG CAP PO ×2 (09:26→21:14)
[2018-07-09] MEDS: PANTOPRAZOLE 40MG TAB (PROTONIX) PO (09:26)
[2018-07-09] MEDS: MULTIVITAMINS/MINERALS THERAP 1 TAB PO (09:26)
[2018-07-09] MEDS: traMADol 50 MG TAB PO ×3 (09:27→21:16)
[2018-07-09] MEDS: NORTRIPTYLINE 10 MG CAP PO (11:42)
[2018-07-09] MEDS: MIRALAX *UNIT DOSE* 17GM PACKET PO (11:42)
[2018-07-09] MEDS: FINASTERIDE 5 MG TAB PO (18:00)
[2018-07-09] MEDS: ENOXAPARIN 40 MG/0.4 ML SYRINGE (J1650) SC (21:14)
[2018-07-09] MEDS: ATORVASTATIN 20 MG TAB PO (21:14)
[2018-07-10 06:30] LABS: BASO % 0.3 % (0.0-1.0); EOS # 0.9 10^3/uL (0.0-0.50); EOS % 7.8 % (0.0-3.0); HEMATOCRIT 34.3 % (42.0-52.0); HEMOGLOBIN 11.1 g/dl (13.5-17.5); IMMATURE GRANULOCYTE % 0.7 % (0-3.0); LYMPH # 1.7 10^3/uL (1.5-4.5); LYMPH % 15.4 % (24.0-44.0); MEAN CORPUSCULAR HEMOGLOBIN 31.3 pg (27.0-33.0); MEAN CORPUSCULAR HGB CONC 32.4 g/dl (32.0-36.5); MEAN CORPUSCULAR VOLUME 96.6 fl (80.0-96.0); MONO # 0.9 10^3/uL (0.0-0.8); MONO % 8.4 % (0.0-5.0); NEUTROPHILS # 7.3 10^3/uL (1.8-7.7); NEUTROPHILS % 67.4 % (36.0-66.0); PLATELET COUNT, AUTOMATED 145 10^3/uL (150-450); RED BLOOD COUNT 3.55 10^6/uL (4.30-6.10); RED CELL DISTRIBUTION WIDTH 13.5 % (11.5-14.5); WHITE BLOOD COUNT 10.9 10^3/uL (4.0-10.0)
[2018-07-10 06:53] LABS: ALBUMIN 2.5 GM/DL (3.2-5.2); ALBUMIN/GLOBULIN RATIO 0.89 (1.00-1.93); ALKALINE PHOSPHATASE 66 U/L (45-117); ALT/SGPT 33 U/L (12-78); ANION GAP 4 MEQ/L (8-16); AST/SGOT 25 U/L (7-37); BLOOD UREA NITROGEN 13 MG/DL (7-18); CALCIUM LEVEL 8.6 MG/DL (8.8-10.2); CARBON DIOXIDE LEVEL 29 MEQ/L (21-32); CHLORIDE LEVEL 106 MEQ/L (98-107); CREATININE FOR GFR 0.49 MG/DL (0.70-1.30); GLOMERULAR FILTRATION RATE > 60.0 (>35); GLUCOSE, FASTING 99 MG/DL (70-100); POTASSIUM SERUM 3.9 MEQ/L (3.5-5.1); SODIUM LEVEL 139 MEQ/L (136-145); TOTAL PROTEIN 5.3 GM/DL (6.4-8.2)
[2018-07-10] MEDS: PANTOPRAZOLE 40MG TAB (PROTONIX) PO (09:40)
[2018-07-10] MEDS: ACETAMINOPHEN TAB 650MG DOSE (2X325MG) PO (09:41)
[2018-07-10] MEDS: DOCUSATE SODIUM 100 MG CAP PO ×2 (09:41→20:13)
[2018-07-10] MEDS: MULTIVITAMINS/MINERALS THERAP 1 TAB PO (09:41)
[2018-07-10] MEDS: traMADol 50 MG TAB PO (09:42)
[2018-07-10] MEDS: NORTRIPTYLINE 10 MG CAP PO (12:29)
[2018-07-10] MEDS: MIRALAX *UNIT DOSE* 17GM PACKET PO (12:29)
[2018-07-10] MEDS: FINASTERIDE 5 MG TAB PO (17:57)
[2018-07-10] MEDS: ATORVASTATIN 20 MG TAB PO (20:13)
[2018-07-10] MEDS: ENOXAPARIN 40 MG/0.4 ML SYRINGE (J1650) SC (20:14)
[2018-07-11 06:40] LABS: ALBUMIN 2.6 GM/DL (3.2-5.2); ALBUMIN/GLOBULIN RATIO 0.93 (1.00-1.93); ALKALINE PHOSPHATASE 73 U/L (45-117); ALT/SGPT 34 U/L (12-78); ANION GAP 7 MEQ/L (8-16); AST/SGOT 40 U/L (7-37); BILIRUBIN,TOTAL 1.2 MG/DL (0.2-1.0); BLOOD UREA NITROGEN 14 MG/DL (7-18); CALCIUM LEVEL 8.5 MG/DL (8.8-10.2); CARBON DIOXIDE LEVEL 27 MEQ/L (21-32); CHLORIDE LEVEL 107 MEQ/L (98-107); CREATININE FOR GFR 0.49 MG/DL (0.70-1.30); GLOMERULAR FILTRATION RATE > 60.0 (>35); GLUCOSE, FASTING 98 MG/DL (70-100); POTASSIUM SERUM 4.2 MEQ/L (3.5-5.1); SODIUM LEVEL 141 MEQ/L (136-145); TOTAL PROTEIN 5.4 GM/DL (6.4-8.2)
[2018-07-11 08:16] LABS: BASO # 0.1 10^3/uL (0.0-0.2); BASO % 0.4 % (0.0-1.0); EOS # 0.3 10^3/uL (0.0-0.50); EOS % 2.5 % (0.0-3.0); HEMOGLOBIN 10.9 g/dl (13.5-17.5); IMMATURE GRANULOCYTE % 0.4 % (0-3.0); LYMPH # 1.6 10^3/uL (1.5-4.5); LYMPH % 13.9 % (24.0-44.0); MEAN CORPUSCULAR HEMOGLOBIN 31.4 pg (27.0-33.0); MEAN CORPUSCULAR VOLUME 95.1 fl (80.0-96.0); MONO % 8.9 % (0.0-5.0); NEUTROPHILS # 8.4 10^3/uL (1.8-7.7); NEUTROPHILS % 73.9 % (36.0-66.0); PLATELET COUNT, AUTOMATED 185 10^3/uL (150-450); RED BLOOD COUNT 3.47 10^6/uL (4.30-6.10); RED CELL DISTRIBUTION WIDTH 13.9 % (11.5-14.5); WHITE BLOOD COUNT 11.4 10^3/uL (4.0-10.0)
[2018-07-11] MEDS: MULTIVITAMINS/MINERALS THERAP 1 TAB PO (09:51)
[2018-07-11] MEDS: DOCUSATE SODIUM 100 MG CAP PO ×2 (09:51→20:08)
[2018-07-11] MEDS: PANTOPRAZOLE 40MG TAB (PROTONIX) PO (09:51)
[2018-07-11] MEDS: MIRALAX *UNIT DOSE* 17GM PACKET PO ×2 (10:06→12:09)
[2018-07-11] MEDS: NORTRIPTYLINE 10 MG CAP PO (11:53)
[2018-07-11] MEDS ORDERED: ONDANSETRON 4 MG TAB (S0181) PO (12:30)
[2018-07-11] MEDS: FINASTERIDE 5 MG TAB PO (17:38)
[2018-07-11] MEDS: ATORVASTATIN 20 MG TAB PO (20:09)
[2018-07-11] MEDS: risperiDONE 0.25 MG TAB PO (20:09)
[2018-07-11] MEDS: ACETAMINOPHEN TAB 650MG DOSE (2X325MG) PO (20:10)
[2018-07-11] MEDS: ENOXAPARIN 40 MG/0.4 ML SYRINGE (J1650) SC (20:10)
[2018-07-12 06:27] LABS: BASO # 0.1 10^3/uL (0.0-0.2); BASO % 0.4 % (0.0-1.0); EOS # 0.7 10^3/uL (0.0-0.50); EOS % 6.2 % (0.0-3.0); HEMATOCRIT 35.2 % (42.0-52.0); HEMOGLOBIN 11.2 g/dl (13.5-17.5); IMMATURE GRANULOCYTE % 0.5 % (0-3.0); LYMPH # 1.2 10^3/uL (1.5-4.5); LYMPH % 9.9 % (24.0-44.0); MEAN CORPUSCULAR HEMOGLOBIN 31.1 pg (27.0-33.0); MEAN CORPUSCULAR HGB CONC 31.8 g/dl (32.0-36.5); MEAN CORPUSCULAR VOLUME 97.8 fl (80.0-96.0); MONO # 0.9 10^3/uL (0.0-0.8); MONO % 7.7 % (0.0-5.0); NEUTROPHILS # 8.8 10^3/uL (1.8-7.7); NEUTROPHILS % 75.3 % (36.0-66.0); PLATELET COUNT, AUTOMATED 204 10^3/uL (150-450); WHITE BLOOD COUNT 11.7 10^3/uL (4.0-10.0)
[2018-07-12 06:46] LABS: ALBUMIN 2.4 GM/DL (3.2-5.2); ALKALINE PHOSPHATASE 77 U/L (45-117); ALT/SGPT 47 U/L (12-78); ANION GAP 5 MEQ/L (8-16); AST/SGOT 39 U/L (7-37); BILIRUBIN,TOTAL 1.4 MG/DL (0.2-1.0); BLOOD UREA NITROGEN 13 MG/DL (7-18); CALCIUM LEVEL 8.5 MG/DL (8.8-10.2); CARBON DIOXIDE LEVEL 31 MEQ/L (21-32); CHLORIDE LEVEL 107 MEQ/L (98-107); CREATININE FOR GFR 0.53 MG/DL (0.70-1.30); GLOMERULAR FILTRATION RATE > 60.0 (>35); GLUCOSE, FASTING 107 MG/DL (70-100); POTASSIUM SERUM 3.8 MEQ/L (3.5-5.1); SODIUM LEVEL 143 MEQ/L (136-145); TOTAL PROTEIN 5.4 GM/DL (6.4-8.2)
[2018-07-12] MEDS: PANTOPRAZOLE 40MG TAB (PROTONIX) PO (09:47)
[2018-07-12] MEDS: MULTIVITAMINS/MINERALS THERAP 1 TAB PO (09:47)
[2018-07-12] MEDS: DOCUSATE SODIUM 100 MG CAP PO (09:47)
[2018-07-12] MEDS: MIRALAX *UNIT DOSE* 17GM PACKET PO (11:14)
[2018-07-12] MEDS: ACETAMINOPHEN TAB 650MG DOSE (2X325MG) PO (11:14)
[2018-07-12] MEDS: NORTRIPTYLINE 10 MG CAP PO (11:14)
[2018-07-12] MEDS: traMADol 50 MG TAB PO (11:52)
== END 2018-07-12 13:20 | DRG 563 ==
LOC: M ED 03:23 → M ED INP 09:39 → M MS5PR 10:35
DX: S42.292A Other displaced fracture of upper end of left humerus, initial encounter for closed fracture (principal); S32.502A Unspecified fracture of left pubis, initial encounter for closed fracture; M97.32XA Periprosthetic fracture around internal prosthetic left shoulder joint, initial encounter; F03.90 Unspecified dementia, unspecified severity, without behavioral disturbance, psychotic disturbance, mood disturbance, and anxiety; W19.XXXA Unspecified fall, initial encounter; Y92.009 Unspecified place in unspecified non-institutional (private) residence as the place of occurrence of the external cause; I10 Essential (primary) hypertension; R09.02 Hypoxemia; I25.10 Atherosclerotic heart disease of native coronary artery without angina pectoris; E78.5 Hyperlipidemia, unspecified; N40.0 Benign prostatic hyperplasia without lower urinary tract symptoms; M15.0 Primary generalized (osteo)arthritis; I35.8 Other nonrheumatic aortic valve disorders; Z79.02 Long term (current) use of antithrombotics/antiplatelets; Z95.0 Presence of cardiac pacemaker; Z88.1 Allergy status to other antibiotic agents; Z88.5 Allergy status to narcotic agent; Z88.8 Allergy status to other drugs, medicaments and biological substances; Z95.1 Presence of aortocoronary bypass graft

== ENCOUNTER → 2018-07-16 | Outpatient (REF) ==
[2018-07-16 12:09] LABS: ANION GAP 7 MEQ/L (8-16); BLOOD UREA NITROGEN 20 MG/DL (7-18); CALCIUM LEVEL 9.2 MG/DL (8.8-10.2); CARBON DIOXIDE LEVEL 32 MEQ/L (21-32); CHLORIDE LEVEL 102 MEQ/L (98-107); CREATININE FOR GFR 0.57 MG/DL (0.70-1.30); GLOMERULAR FILTRATION RATE > 60.0 (>35); GLUCOSE, FASTING 111 MG/DL (70-100); POTASSIUM SERUM 4.6 MEQ/L (3.5-5.1); SODIUM LEVEL 141 MEQ/L (136-145)
== END ==
LOC: SKLAB5 09:18
DX: I25.10 Atherosclerotic heart disease of native coronary artery without angina pectoris (principal); F03.90 Unspecified dementia, unspecified severity, without behavioral disturbance, psychotic disturbance, mood disturbance, and anxiety

== ENCOUNTER → 2018-07-23 | Outpatient (REF) ==
[~2018-07-23] MED LIST changes: +ACET160S5 PO; +ACET65SU PO; +ALBU17IN INH; +ASPI1TAB PO; +ASPI81TA21 PO; +ASPI81TA45 PO; +ASPIRIN PO; +ATOR40TA75 PO; +BACITAB PO; +CEFD1CAP8 PO; +CEPA0.05 PO; +CLOP75TA2 PO; +COLA100C5 PO; +COUM1TAB14 PO; +COUM1TAB17 PO; +COUM1TAB19 PO; +COUM2TAB22 PO; +DULC10SU2 PR; +FINA5TAB2 PO; +FINACRY PO; +FLEEENE4 PR; +FLOM0.4C39 PO; +GABA600T PO; -GASTROGRAFIN SOLUTION 30ML (Q9963) As Ordered; -ISOVUE-370 76% 100ML VIAL (Q9967) As Ordered; +KEFL500C17 PO; +LIDO5DIS41 TD; +LIPI20TA PO; +LISI-542 PO; +LOSARTAN PO; +LOVA40TA PO; +MAGN500T6 PO; +META28.35 PO; +METO50TA7 PO; +METOPROL PO; +MILK12002 PO; +MIRA3350 PO; +MIRA33504 PO; +MULTCAP PO; +NORT10CA2 PO; +PLAV1TAB2 PO; +PROS5TAB OR; +PROT1TAB2 PO; +PROTPAK PO; +RISP0.2516 PO; +SENITAB2 PO; +SENN-23 PO; +SENO8.6T5 PO; +STOO100C PO; +TAMS0.4C2 PO; +TAMSULOSIN; +TRAM50TA2 PO; +TRAMADOL PO; +TYLE167L OR; +TYLE325T5 PO; +TYLE500T78 PO; +ULTR50TA8 PO; +VICO5TAB16 PO; +VICO7.5T11 PO; +VITMTA PO; +ZOFR4TAB16 PO; +[UNRECOGNIZED DRUG - CODE] PO
[2018-07-23 07:33] LABS: BLOOD UREA NITROGEN 20 MG/DL (7-18); CALCIUM LEVEL 9.5 MG/DL (8.8-10.2); CARBON DIOXIDE LEVEL 33 MEQ/L (21-32); CHLORIDE LEVEL 104 MEQ/L (98-107); CREATININE FOR GFR 0.57 MG/DL (0.70-1.30); GLOMERULAR FILTRATION RATE > 60.0 (>35); GLUCOSE, FASTING 92 MG/DL (70-100); SODIUM LEVEL 140 MEQ/L (136-145)
== END ==
LOC: SKLAB5 07:47
PROVIDERS: ATTEND Family Medicine
DX: F03.90 Unspecified dementia, unspecified severity, without behavioral disturbance, psychotic disturbance, mood disturbance, and anxiety (principal)

== ENCOUNTER → 2018-07-25 | Outpatient (REF) ==
[2018-07-25 12:52] LABS: HEMOGLOBIN 14.8 g/dl (13.5-17.5); MEAN CORPUSCULAR HEMOGLOBIN 30.6 pg (27.0-33.0); MEAN CORPUSCULAR HGB CONC 30.8 g/dl (32.0-36.5); MEAN CORPUSCULAR VOLUME 99.4 fl (80.0-96.0); PLATELET COUNT, AUTOMATED 588 10^3/uL (150-450); RED BLOOD COUNT 4.83 10^6/uL (4.30-6.10); WHITE BLOOD COUNT 11.9 10^3/uL (4.0-10.0)
[2018-07-25 14:05] LABS: MAGNESIUM LEVEL 2.3 MG/DL (1.8-2.4); THYROID STIMULATING HORMONE 2.2 uIU/ML (0.358-3.740)
== END ==
LOC: SKLAB5 11:36
PROVIDERS: ATTEND Family Medicine
DX: R41.82 Altered mental status, unspecified (principal); D64.9 Anemia, unspecified

== ENCOUNTER → 2018-07-26 | Outpatient (REF) | payer MEDICARE ==
[~2018-07-26] MED LIST changes: -GABA600T PO; +GABA600T4 PO; +MILK120011 PO; -MILK12002 PO
--- NOTE | 2018-07-26 08:13 | REP ---
Clinical: Tremors and altered mental status . Comparison: 04/04/2017 Findings: Age-related atrophy with periventricular leukomalacia and microvascular ischemic changes are appreciated. The ventricles and sulci are symmetric. Corey-white differentiation is maintained. There is no evidence for acute intracranial hemorrhage, mass/mass effect, pathology or infarction. No extra-axial fluid collection. Calvarium is intact. Paranasal sinuses and mastoid air cells are clear. Impression: Age related atrophy and microvascular ischemic changes. No acute intracranial hemorrhage, infarction, or mass/mass effect. Electronically Signed by Damien Chowdhury MD 07/26/2018 08:04 A
== END ==
LOC: M RAD 07:16 → EDSTATUS 07:30
PROVIDERS: ATTEND Nurse Practitioner Family
DX: R25.1 Tremor, unspecified (principal); R41.82 Altered mental status, unspecified

== ENCOUNTER → 2018-07-28 | Outpatient (REF) | payer MEDICARE ==
[~2018-07-28] MED LIST changes: +GABA600T PO; -GABA600T4 PO; -MILK120011 PO; +MILK12002 PO
[2018-07-28 22:41] LABS: AMORPHOUS SEDIMENT SMALL (NEGATIVE); APPEARANCE, URINE CLOUDY (CLEAR); BACTERIA, URINE AUTO NEGATIVE (NEGATIVE); BILIRUBIN, URINE AUTO NEGATIVE (NEGATIVE); BLOOD, URINE BLOOD NEGATIVE (NEGATIVE); CALCIUM OXALATE CRYSTALS SMALL; COLOR, URINE AMBER (YELLOW); GLUCOSE, URINE (UA) AUTO NEGATIVE (NEGATIVE); KETONE, URINE AUTO NEGATIVE (NEGATIVE); LEUKOCYTE ESTERASE, URINE AUTO TRACE (NEGATIVE); MUCUS, URINE LARGE (NEGATIVE); NITRITE, URINE AUTO NEGATIVE (NEGATIVE); PROTEIN, URINE AUTO NEGATIVE (NEGATIVE); RBC, URINE AUTO 4 /HPF (0-3); SPECIFIC GRAVITY URINE AUTO 1.029 (1.002-1.035); SQUAMOUS EPITHELIAL CELL UR AU 0 /HPF (0-6); UROBILINOGEN, URINE AUTO 0.2 mg/dL (0.0-2.0); WBC, URINE AUTO 5 /HPF (0-3)
== END ==
LOC: SKLAB5 20:22
PROVIDERS: ATTEND Family Medicine
DX: R41.0 Disorientation, unspecified (principal)

== ENCOUNTER → 2018-07-30 | Outpatient (REF) ==
[2018-07-30 08:14] LABS: BLOOD UREA NITROGEN 13 MG/DL (7-18); CALCIUM LEVEL 9.8 MG/DL (8.8-10.2); CARBON DIOXIDE LEVEL 34 MEQ/L (21-32); CHLORIDE LEVEL 102 MEQ/L (98-107); CREATININE FOR GFR 0.54 MG/DL (0.70-1.30); GLOMERULAR FILTRATION RATE > 60.0 (>35); GLUCOSE, FASTING 90 MG/DL (70-100); POTASSIUM SERUM 5.1 MEQ/L (3.5-5.1); SODIUM LEVEL 141 MEQ/L (136-145)
== END ==
LOC: SKLAB5 13:21
PROVIDERS: ATTEND Family Medicine
DX: F03.90 Unspecified dementia, unspecified severity, without behavioral disturbance, psychotic disturbance, mood disturbance, and anxiety (principal)

== ENCOUNTER → 2018-08-06 | Outpatient (REF) ==
[2018-08-06 07:53] LABS: BLOOD UREA NITROGEN 15 MG/DL (7-18); CALCIUM LEVEL 9.7 MG/DL (8.8-10.2); CARBON DIOXIDE LEVEL 32 MEQ/L (21-32); CHLORIDE LEVEL 103 MEQ/L (98-107); CREATININE FOR GFR 0.48 MG/DL (0.70-1.30); GLOMERULAR FILTRATION RATE > 60.0 (>35); GLUCOSE, FASTING 91 MG/DL (70-100); POTASSIUM SERUM 4.4 MEQ/L (3.5-5.1); SODIUM LEVEL 140 MEQ/L (136-145)
== END ==
LOC: SKLAB5 09:46
PROVIDERS: ATTEND Family Medicine
DX: F03.90 Unspecified dementia, unspecified severity, without behavioral disturbance, psychotic disturbance, mood disturbance, and anxiety (principal)

== ENCOUNTER → 2018-08-13 | Outpatient (REF) ==
[~2018-08-13] MED LIST changes: -GABA600T PO; +GABA600T4 PO; +MILK120011 PO; -MILK12002 PO
[2018-08-13 07:57] LABS: BLOOD UREA NITROGEN 19 MG/DL (7-18); CALCIUM LEVEL 9.7 MG/DL (8.8-10.2); CARBON DIOXIDE LEVEL 24 MEQ/L (21-32); CHLORIDE LEVEL 106 MEQ/L (98-107); CREATININE FOR GFR 0.42 MG/DL (0.70-1.30); GLOMERULAR FILTRATION RATE > 60.0 (>35); GLUCOSE, FASTING 82 MG/DL (70-100); POTASSIUM SERUM 4.5 MEQ/L (3.5-5.1); SODIUM LEVEL 142 MEQ/L (136-145)
== END ==
LOC: SKLAB5 08:34
PROVIDERS: ATTEND Family Medicine
DX: F03.90 Unspecified dementia, unspecified severity, without behavioral disturbance, psychotic disturbance, mood disturbance, and anxiety (principal)

== ENCOUNTER → 2018-08-20 | Outpatient (REF) ==
[2018-08-20 08:02] LABS: BLOOD UREA NITROGEN 16 MG/DL (7-18); CALCIUM LEVEL 9.6 MG/DL (8.8-10.2); CARBON DIOXIDE LEVEL 31 MEQ/L (21-32); CHLORIDE LEVEL 100 MEQ/L (98-107); CREATININE FOR GFR 0.48 MG/DL (0.70-1.30); GLOMERULAR FILTRATION RATE > 60.0 (>35); GLUCOSE, FASTING 91 MG/DL (70-100); POTASSIUM SERUM 4.2 MEQ/L (3.5-5.1); SODIUM LEVEL 138 MEQ/L (136-145)
== END ==
LOC: SKLAB5 07:22
PROVIDERS: ATTEND Family Medicine
DX: F03.90 Unspecified dementia, unspecified severity, without behavioral disturbance, psychotic disturbance, mood disturbance, and anxiety (principal)

== ENCOUNTER 2018-08-23 22:16 | Inpatient (IN) | payer MEDICARE ==
[~2018-08-23] VITALS: Ht 182.9 cm; Wt 78.3 kg
[2018-08-23] MEDS ORDERED: RISP0.253 PO (22:46)
[2018-08-23] MEDS ORDERED: NORT10CA2 PO (22:46)
[2018-08-23] MEDS ORDERED: ACET650S3 PR (22:46)
[2018-08-23] MEDS ORDERED: ACET-683 PO (22:46)
[2018-08-23] MEDS ORDERED: MIRA3350 PO (22:46)
[2018-08-23] MEDS ORDERED: MILK120011 PO (22:46)
[2018-08-23] MEDS ORDERED: ENSULIQ64 PO (22:46)
[2018-08-23] MEDS ORDERED: ASPI81CH PO (22:46)
[2018-08-23] MEDS ORDERED: DULC10SU2 PR (22:46)
[2018-08-23] MEDS ORDERED: ENEMENE4 PR (22:46)
[2018-08-23] MEDS ORDERED: DOCU100C16 PO (22:46)
[2018-08-23 23:17] LABS: AMPHETAMINES LEVEL URINE NEGATIVE (NEGATIVE); BARBITURATES URINE NEGATIVE (NEGATIVE); BENZODIAZEPINES URINE NEGATIVE (NEGATIVE); CANNABINOIDS URINE NEGATIVE (NEGATIVE); COCAINE METABOLITE URINE NEGATIVE (NEGATIVE); METHADONE URINE NEGATIVE (NEGATIVE); OPIATES URINE NEGATIVE (NEGATIVE); PHENCYCLIDINE URINE NEGATIVE (NEGATIVE)
[2018-08-23 23:20] LABS: BASO # 0.1 10^3/uL (0.0-0.2); BASO % 0.5 % (0.0-1.0); EOS # 0.4 10^3/uL (0.0-0.50); EOS % 3.4 % (0.0-3.0); HEMATOCRIT 43.1 % (42.0-52.0); HEMOGLOBIN 13.5 g/dl (13.5-17.5); LYMPH # 1.4 10^3/uL (1.5-4.5); LYMPH % 13.7 % (24.0-44.0); MEAN CORPUSCULAR HEMOGLOBIN 30.8 pg (27.0-33.0); MEAN CORPUSCULAR HGB CONC 31.3 g/dl (32.0-36.5); MEAN CORPUSCULAR VOLUME 98.4 fl (80.0-96.0); MONO # 0.8 10^3/uL (0.0-0.8); MONO % 8.2 % (0.0-5.0); NEUTROPHILS # 7.5 10^3/uL (1.8-7.7); PLATELET COUNT, AUTOMATED 280 10^3/uL (150-450); RED BLOOD COUNT 4.38 10^6/uL (4.30-6.10); WHITE BLOOD COUNT 10.2 10^3/uL (4.0-10.0)
--- NOTE | 2018-08-23 23:31 | REPVR ---
EXAM: CT Head Without Contrast EXAM DATE/TIME: 08/23/2018 10:38 PM CLINICAL HISTORY: 78 years old, male; Signs and symptoms; Altered mental status/memory loss; Confusion or disorientation TECHNIQUE: Axial computed tomography images of the head/brain without contrast. All CT scans at this facility use at least one of these dose optimization techniques: automated exposure control; mA and/or kV adjustment per patient size (includes targeted exams where dose is matched to clinical indication); or iterative reconstruction. COMPARISON: CT Head without contrast 07/26/2018 7:27 AM FINDINGS: There are no intra-or extra-axial hemorrhages or fluid collections. There is no mass effect or midline shift. Ventricles are symmetrical and mildly dilated with associated cortical volume loss consistent with generalized atrophy. Chronic ischemic changes in the periventricular deep white matter. Atherosclerotic changes within intracranial arteries. There are no focal parenchymal abnormalities. No calvarial fractures. IMPRESSION: Generalized atrophy and chronic ischemic changes, similar to previous examination. No acute intracranial process. No intracranial hemorrhage. Electronically signed by: Raghu Padron On 08/23/2018 23:31:01 PM
[2018-08-24 00:43] LABS: ALBUMIN 3.4 GM/DL (3.2-5.2); ALT/SGPT 22 U/L (12-78); BILIRUBIN,DIRECT 0.3 MG/DL (0.0-0.2); BILIRUBIN,TOTAL 0.8 MG/DL (0.2-1.0); BLOOD UREA NITROGEN 19 MG/DL (7-18); CARBON DIOXIDE LEVEL 30 MEQ/L (21-32); CHLORIDE LEVEL 104 MEQ/L (98-107); CPK CREATINE PHOSPHOKINASE 37 U/L (39-308); CREATININE FOR GFR 0.56 MG/DL (0.70-1.30); GLOMERULAR FILTRATION RATE > 60.0 (>35); GLUCOSE, FASTING 100 MG/DL (70-100); MB/CK RELATIVE INDEX 5.14 (< OR =4); SODIUM LEVEL 141 MEQ/L (136-145); TOTAL PROTEIN 6.2 GM/DL (6.4-8.2); TROPONIN I 0.04 NG/ML (< 0.10)
[2018-08-24 00:44] LABS: ETHYL ALCOHOL (ETHANOL) < 0.003 % (0.000-0.010)
[2018-08-24] MEDS ORDERED: cefTRIAXone SOD 1 GM in D5W MINI-BAG PLUS 50 ML IV SCH (02:00)
--- NOTE | 2018-08-24 02:03 | REPVR ---
EXAM: CT Chest Without Contrast EXAM DATE/TIME: 08/24/2018 1:19 AM CLINICAL HISTORY: 78 years old, male; Condition or disease; Lung condition and disease; Pneumonia; Bronchial; Additional info: AMS TECHNIQUE: Axial computed tomography images of the chest without intravenous contrast. All CT scans at this facility use at least one of these dose optimization techniques: automated exposure control; mA and/or kV adjustment per patient size (includes targeted exams where dose is matched to clinical indication); or iterative reconstruction. Coronal and sagittal reformatted images were created and reviewed. MIP reconstructed images were created and reviewed. COMPARISON: CT ANGIO CHEST 08/24/2016 10:14 AM FINDINGS: Examination is limited by patient motion. There is subpleural airspace consolidation in the posterior segment of the left lower lobe suspicious for infiltrate/pneumonia. Mild subpleural consolidation versus atelectasis in the posterior right lung base. No pleural effusion. No pneumothorax. Heart is enlarged. Vascular stent at the aortic valve. Mediastinal structures are otherwise unremarkable. Limited views of the upper abdominal solid organs are grossly normal. IMPRESSION: Subpleural airspace consolidation in the posterior segment of the left lower lobe suspicious for infiltrate/pneumonia. Mild subpleural consolidation versus atelectasis in the posterior right lung base. Followup to resolution is recommended. If this fails to resolve after medical therapy, bronchoscopy should be considered. Electronically signed by: Raghu Padron On 08/24/2018 02:03:14 AM
[2018-08-24] MEDS ORDERED: AZITHROMYCIN INJ 500 MG, VIAL MATE ADAPTER 1 EACH in D5W 250 ML IV ONE (02:15)
[2018-08-24] MEDS ORDERED: NS 250 ML IV SCH (02:30)
--- NOTE | 2018-08-24 02:52 | HPEPDOC ---
[facility] Medical History & Physical Date of Admission Aug 24, 2018 Other Provider Dictating/admitting: Marcello Delaney M.D. Attending Physician: ABBY MESA DO History and Physical CHIEF COMPLAINT: Change in mental status 3 days HISTORY OF PRESENT ILLNESS: Patient is an 78-year-old man with dementia, BPH, hyperlipidemia, chronic back pain, remote history of CVA, hypertension. Patient currently is getting rehabilitation for shoulder injury at the [facility]. He is not a reliable source of history. History obtained from and son. Although has noticed that he has had progressive mental decline for many months now, but his mental decline, not worsened after he was transferred to the [facility] for rehabilitation. She also reported that currently he is more confused and more somnolent than usual. On account of this, he was brought to the emergency room for further evaluation. There is no report of fever or chills. No report of cough. Patient could not respond to further questioning. His labs revealed slightly elevated white count. Chest x-ray done was unequivocal and a chest CT was ordered which did show findings consistent with pneumonia. Hospitalist was called for further patient care. PAST MEDICAL HISTORY: Per HPI PAST SURGICAL HISTORY: 1. CABG 1995. 2. 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 3. Carotid and atherectomy bilaterally. 4. Pacemaker placement. 5. Transcutaneous aortic valve repair. 6. Tonsillectomy. 7. Appendectomy. 8. Stent placement to the left main coronary artery. 9. Carotid stents placements. 10. Left shoulder replacement. 11. Knee surgery. SOCIAL HISTORY: Taken from EMR. Formerly lived with his at [place]. Currently getting rehabilitation at [facility]. No records of current smoking use of alcohol or illicit drugs. FAMILY HISTORY: Father: Mother: Siblings: Children: Hereditary Diseases: Unexpected deaths due to medical reasons: ALLERGIES: Please see below. REVIEW OF SYSTEMS: Undetermined HOME MEDICATIONS: Please see below. PHYSICAL EXAMINATION: VITAL SIGNS: Temperature , pulse , respiratory rate , blood pressure , pulse oximetry % on room air. GENERAL APPEARANCE: Elderly man, sound asleep in bed, sometimes arousable but not communicative, not in any apparent distress. He is not pale, anicteric and afebrile HEENT: Atraumatic. Neck: Supple. LUNGS: Clear to auscultation bilaterally. CARDIOVASCULAR: S1 and 2 heard, no murmurs, rubs or gallops. ABDOMEN: Soft, not tender, not distended. Bowel sounds normoactive. MUSCULOSKELETAL: Apparently within normal limits. EXTREMITIES: No pedal edema, 2+ bilateral pedal pulses noted. NEUROLOGICAL: Sound asleep in bed, sometimes arousable but not communicative,. PSYCHIATRIC: Undetermined LABORATORY DATA: See below. IMAGING: Chest CT: Findings consistent with pneumonia. CT brain: generalized brain atrophy, chronic ischemic changes, no acute intracranial process, no hemorrhage. EKG: Paced rhythm. MICROBIOLOGY: Please see below. ASSESSMENT: 78-year-old man with dementia from [facility] said to have had progressive mental decline chronic. However, mental status, not at baseline. Exam is unremarkable, labs with slightly elevated wbc CT chest findings consistent with pneumonia. DIAGNOSES: 1. Altered mental status. 2. Pneumonia. . PLAN: 1. I will admit patient to the PCU under care of Dr. Mesa. 2. Altered mental status. Patient's dementia may have been worsened by superimposed infection. We should expect some improvement with antibiotic therapy, I have also reduced his dose of tramadol from 100 mg twice a day to 50 mg twice a day. I will continue his risperidone, which she uses for depression. However, nortriptyline held for now. Day team should reevaluate his mental status in the morning and consider restarting nortriptyline when indicated. 3. Pneumonia. I will treat with ceftriaxone IV and Zithromax by mouth. Follow temperature trends, follow blood cultures, make adjustments to antibiotics as needed. 4. Will resume outpatient medications after reconciliation. 5. GI prophylaxis. Pantoprazole. 6. DVT prophylaxis, TEDs. 7. Patient appears slightly dehydrated. Will bolus 250 mils of normal saline. 8. Further management will be per patient's clinical course. Vital Signs Vital Signs Date Time Temp Pulse Resp B/P (MAP) Pulse Ox O2 Delivery O2 Flow Rate FiO2 08/24/18 01:31 80 18 126/60 (82) 91 08/23/18 22:35 99.7 Nasal Cannula 2.0 Laboratory Data Labs 24H Laboratory Tests 2 08/23/18 22:41: Urine Color YELLOW, Urine Appearance CLEAR, Urine pH 6.0, Urine Specific [place] 1.018, Urine Protein NEGATIVE, Urine Glucose (UA) NEGATIVE, Urine Ketones NEGATIVE, Urine Blood NEGATIVE, Urine Nitrite NEGATIVE, Urine Bilirubin NEGATIVE, Urine Urobilinogen 0.2, Urine Leukocyte Esterase NEGATIVE, Urine WBC (Auto) 1, Urine RBC (Auto) 0, Urine Hyaline Casts (Auto) 0, Urine Bacteria (Auto) NEGATIVE, Urine Squamous Epithelial Cells 0, Urine Amorphous Sediment SMALLH, Urine Mucus (Auto) SMALL, Urine Sperm (Auto) , Urine Amphetamines Screen NEGATIVE, Urine Benzodiazepines Screen NEGATIVE, Urine Opiates Screen NEGATIVE, Urine Methadone Screen NEGATIVE, Urine Barbiturates Screen NEGATIVE, Urine Phe ncyclidine Screen NEGATIVE, Urine Cocaine Metabolite Screen NEGATIVE, Urine Cannabinoids Screen NEGATIVE 08/23/18 23:15: Immature Granulocyte % (Auto) 0.2, White Blood Count 10.2H, Red Blood Count 4.38, Hemoglobin 13.5, Hematocrit 43.1, Mean Corpuscular Volume 98.4H, Mean Corpuscular Hemoglobin 30.8, Mean Corpuscular Hemoglobin Concent 31.3L, Red Cell Distribution Width 14.6H, Platelet Count 280, Neutrophils (%) (Auto) 74.0H, Lymphocytes (%) (Auto) 13.7L, Monocytes (%) (Auto) 8.2H, Eosinophils (%) (Auto) 3.4H, Basophils (%) (Auto) 0.5, Neutrophils # (Auto) 7.5, Lymphocytes # (Auto) 1.4L, Monocytes # (Auto) 0.8, Eosinophils # (Auto) 0.4, Basophils # (Auto) 0.1, Nucleated Red Blood Cells % (auto) 0.0, Anion Gap 7L, Glomerular Filtration Rate > 60.0, Calcium Level 10.0, Aspartate Amino Transf (AST/SGOT) 20, Alanine Aminotransferase (ALT/SGPT) 22, Alkaline Phosphatase 123H, Total Bilirubin 0.8, Direct Bilirubin 0.3H, Ammonia 12, Total Creatine Kinase 37L, Creatine Kinase MB 2.0, Creatine Kinase MB Relative Index 5.14H, Troponin I 0.04, Total Protein 6.2L, Albumin 3.4, Albumin/Globulin Ratio 1.21, Thyroid Stimulating Hormone (TSH) 1.980, Ethyl Alcohol Level < 0.003 CBC/BMP Laboratory Tests 08/23/18 23:15 Red Blood Count 4.38, Mean Corpuscular Volume 98.4 H, Mean Corpuscular Hemoglobin 30.8, Mean Corpuscular Hemoglobin Concent 31.3 L, Red Cell Distribution Width 14.6 H, Neutrophils (%) (Auto) 74.0 H, Lymphocytes (%) (Auto) 13.7 L, Monocytes (%) (Auto) 8.2 H, Eosinophils (%) (Auto) 3.4 H, Basophils (%) (Auto) 0.5, Neutrophils # (Auto) 7.5, Lymphocytes # (Auto) 1.4 L, Monocytes # (Auto) 0.8, Eosinophils # (Auto) 0.4, Basophils # (Auto) 0.1 Home Medications Scheduled (Aspirin) 81 Mg Chw, 81 MG PO DAILY (Ensure Enlive) 1 Liq Liq, 1 LIQ PO TID TAKES AT 1000, 1400 AND 2000 Acetaminophen (Tylenol Extra Strength) 500 Mg Tab, 500 MG PO BID TAKES AT 1200 AND 2000 Atorvastatin Calcium (Atorvastatin Calcium) 40 Mg Tab, 40 MG PO QHS Clopidogrel Bisulfate (Clopidogrel) 75 Mg Tab, 75 MG PO DAILY TAKES AT NOON Docusate Sodium (Docusate Sodium) 100 Mg Cap, 100 MG PO BID Finasteride (Finasteride) 5 Mg Tab, 5 MG PO DAILY Multivitamins *[facility] STOCKED* (Thera M Plus *[facility] STOCKED*) 1 Tab Tab, 1 TAB PO DAILY Nortriptyline HCl (Nortriptyline HCl) 10 Mg Cap, 10 MG PO QHS Polyethylene Glycol (Miralax) 1 Pow Pow, 17 GM PO QHS Risperidone (Risperidone) 0.25 Mg Tab, 0.25 MG PO QPM TAKES AT 1700 Tramadol HCl (Tramadol HCl) 50 Mg Tab, 100 MG PO BID TAKES AT 0800 AND 1800 Scheduled PRN Acetaminophen (Acetaminophen) 650 Mg Sup, 650 MG MS Q4H PRN for PAIN / FEVER Acetaminophen (Acetaminophen Extra Stren) 500 Mg Tab, 1,000 MG PO Q6H PRN for PAIN Bisacodyl (Dulcolax) 10 Mg Sup, 10 MG MS DAILY PRN for CONSTIPATION Milk Of Magnesia (Milk of Magnesia) 1,200 Mg/15 Ml Lilia, 30 ML PO DAILY PRN for CONSTIPATION Sodium Phosphate/Biphosphate (Enema 7-19 gm/118Ml) 1 Eloina Eloina, 1 ELOINA MS DAILY PRN for CONSTIPATION Allergies Coded Allergies: Ciprofloxacin (Verified Allergy, Unknown, NOT KNOWN, 04/04/17) Levofloxacin (Verified Allergy, Unknown, UNKNOWN, 04/04/17) Moxifloxacin (Verified Allergy, Unknown, NOT KNOWN, 04/04/17) Oxycodone (Verified Adverse Reaction, Mild, becomes very agitated per family, 04/04/17) MARCELLO DELANEY MD Aug 24, 2018 02:52
[2018-08-24] MEDS ORDERED: METOPROLOL SUCC *XL* 25MG TAB (TopROL *XL*) PO ONE (04:45)
[2018-08-24 05:09] LABS: HEMATOCRIT 41.3 % (42.0-52.0); HEMOGLOBIN 12.8 g/dl (13.5-17.5); MEAN CORPUSCULAR HEMOGLOBIN 30.3 pg (27.0-33.0); MEAN CORPUSCULAR VOLUME 97.6 fl (80.0-96.0); PLATELET COUNT, AUTOMATED 280 10^3/uL (150-450); RED BLOOD COUNT 4.23 10^6/uL (4.30-6.10); WHITE BLOOD COUNT 7.6 10^3/uL (4.0-10.0)
[2018-08-24 05:24] LABS: BLOOD UREA NITROGEN 13 MG/DL (7-18); CALCIUM LEVEL 9.4 MG/DL (8.8-10.2); CARBON DIOXIDE LEVEL 31 MEQ/L (21-32); CHLORIDE LEVEL 105 MEQ/L (98-107); CREATININE FOR GFR 0.44 MG/DL (0.70-1.30); GLOMERULAR FILTRATION RATE > 60.0 (>35); GLUCOSE, FASTING 112 MG/DL (70-100); POTASSIUM SERUM 4.3 MEQ/L (3.5-5.1); SODIUM LEVEL 141 MEQ/L (136-145)
[2018-08-24 08:00] VITALS: BP 151/69
--- NOTE | 2018-08-24 08:32 | REP ---
CHEST X-RAY: Two views. HISTORY: Altered mental status. COMPARISON STUDY: July 08, 2018. FINDINGS: EKG monitoring electrodes overlie the chest. The patient is status post aortic root valve is stent graft. Heart is not felt to be enlarged. The aorta is calcific. There are surgical clips in the soft tissues of the neck on the left. There is a prosthetic shoulder joint on the left and there is evidence of a healing fracture in the proximal humerus on the left partially seen at the edge of the film. No new infiltrate is seen. There is some discoid atelectasis in the right base and left base. IMPRESSION: Mild bibasilar discoid atelectasis. Pacemaker and aortic valve replacement. Healing fracture in the proximal humeral diaphysis on the left. Electronically Signed by Rojas Pro MD 08/24/2018 10:39 A
[2018-08-24] MEDS ORDERED: ASPIRIN 81 MG CHEW TABLET PO SCH (09:00)
[2018-08-24] MEDS: FINASTERIDE 5 MG TAB PO SCH (09:00)
[2018-08-24] MEDS: METOPROLOL SUCC *XL* 25MG TAB (TopROL *XL*) PO SCH (09:00)
[2018-08-24] MEDS: DOCUSATE SODIUM 100 MG CAP PO SCH ×2 (09:00→20:59)
[2018-08-24] MEDS ORDERED: NS 1,000 ML IV SCH (09:15)
[2018-08-24] MEDS: PANTOPRAZOLE 40MG INJ (PROTONIX) (C9113) IV SCH (09:27)
[2018-08-24] MEDS ORDERED: PIPERACILLIN/TAZOBACTAM SOD 4.5 GM in D5W MINI-BAG PLUS 50 ML IV ONE (10:30)
--- NOTE | 2018-08-24 10:46 | ECGEPIP ---
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
[2018-08-24 10:53] VITALS: BP 132/72
--- NOTE | 2018-08-24 10:56 | IPNPDOC ---
Subjective Date Seen The patient was seen on 08/24/18. Subjective Chief Complaint/HPI Patient is examined at bedside with son and [id number]. Pt appears to be obtunded as well as minimally verbal thus majority of HPI obtained from family and medical records. It was note that pt had progressively declining AMS for a week with slurred speech and more somnolent. Family member reports that at baseline he is A&O X3 with no swallowing difficulties. Reports that [facility] found it difficult to wake the pt up thus pt was sent from [facility] to [facility] ER. It was noted that pt desats to the 70s% without oxygen, and after being on oxygen therapy his ox sat returned to wnl. Per [facility], pt is able to carry a conversation but is often confused; he recognizes his family members, and could walk with 1-person assist but need help with ADL. General: Reports: ROS Unobtainable Objective Physical Examination General Exam: Positive: Other (Minimally alert,; somnolent) Eye Exam: Positive: PERRLA; Negative: Sclera icteric ENT Exam: Positive: Atraumatic, Mucous membr. moist/pink, Other ENT (Vemturi mask observed in place) Neck Exam: Positive: Supple Chest Exam: Positive: Clear to auscultation (Pacemaker implantation noted on mid-right sided chest), Normal air movement, Other Heart Exam: Positive: Rate Normal, Regular Rhythm, Other (Pacemaker sound) Abdomen Exam: Positive: Normal bowel sounds, Soft, Other (Unable to assess tenderness) Extremity Exam: Negative: Edema, Tenderness Skin Exam: Positive: Nl turgor and temperature Neuro Exam: Positive: Cranial Nerves 3-12 NL, Other (Only able to assess lens coating technician strength +5/5 b/l; pt not following commands afterwards and appeared jaqueline rgic/somnolent. Unable to assess CN fxn as pt not following comands. Slurred speech noted); Negative: Normal Speech Psych Exam: Negative: Mental status NL, Oriented x 3 Assessment /Plan Problems (1) Metabolic encephalopathy Status: Acute Problem Text: AMS since 1 week ago; obtunded yesterday afternoon. CT with and w/o contrast no acute abnormality; pt not a candidate for MRI/MRA d/t pacemaker. NPO now. Neuro checks 12h; on IV LR. D/c Ceftriaxone and PO Azithromycin; start Zosyn IV as pt has nosocomia pneumonia. Hx of pacemaker placement and aortic valve repair 2016; cardiac echo to r/o endocarditis. Blood Cx pending; UA indicates no UTI. Ammonia lvl wnl. Folate, B12 lvl, and RPR screening pending. Lactic acid wnl; CRP mildly elevated. 100mg Thiamine IM and carotid duplex US ordered. Fall precaution. Seizure precaution as son reported 1 episode of seizure witnessed; no meds as no PMH of prior seizure (2) Pneumonia Status: Acute Problem Text: CT w/o contrast 08/23 showed subpleural airspace consolidation in left lower lobe questionable for infiltrate/pneumonia; mild subpleural consolidation versus atelectasis in right lung base. V/Q mismatch likely d/t PNA; d-dimer to r/o PE. On Zosyn IV as possible nosocomial PNA; pt in [facility] for rehab for R shoulder injury. Oxygen therapy ordered (3) H/O aortic valve replacement Status: Chronic Problem Text: Continue Aspirin, Plavix, and Lipitor (4) CAD (coronary artery disease) Onset Date: 01/23/2014 Status: Chronic Response to Treatment: Stable Problem Text: Hx of CAD s/p CABG. Hold home med Aspirin and Lipitor as pt is NPO now. On SC heparin as for DVT prophylaxis (5) HTN (hypertension) Status: Chronic Response to Treatment: Controlled Problem Specific Plan: Monitor Clinically Problem Text: Pt is NPO now. Last reported BP 125/65. Nursing order to notify provider if SBP>180 or DBP>100; Nitroglycerin one time dose 0.4mg sublingual PRN with parameters may be given as patient is NPO and BP roughly stable now (6) Vascular dementia Status: Chronic Problem Text: AMS questionable d/t worsening of vascular dementia. Hold PO meds as pt is NPO. CT brain with and w/o contrast showed small vessel ischemic changes. Continue to monitor the patient. (7) History of CVA (cerebrovascular accident) Status: Chronic Response to Treatment: Stable Problem Text: CT without contrast showed no hemorrhage; CT with contrast showed old right basal ganglia lacunar infarction (8) Fracture of humerus, proximal, left, closed Status: Chronic Problem Text: Left periprosthetic proximal humerus fracture s/p mechanical fall 07/08/18. Pt previously d/c to [facility] rehab 07/12/18. Brace to left shoulder ordered. Acetaminophen suppos PRN ordered as pt NPO. Plan/VTE VTE Prophylaxis Ordered?: Yes (SC heparin) Plan IVF: Initiate Diet: Continue Current Diagnostics: Repeat Labs in AM Disposition Pending duplex carotid; pending Echo; thiamine 100mg IM ordered. Pt NPO as obtunded/somnolent; PO meds on held. Thiamine lv, PRP, and B12 lvl ordered. on IV LR; IV Zosyn for nosocomial acquired PNA VS, I&O, 24H, Fishbone Vital Signs/I&O Vital Signs Date Time Temp Pulse Resp B/P (MAP) Pulse Ox O2 Delivery O2 Flow Rate FiO2 08/24/18 10:53 80 132/72 (92) 08/24/18 08:00 97.3 24 96 Nasal Cannula 2.0 Laboratory Data 24H LABS Laboratory Tests 2 08/23/18 22:41: Urine Color YELLOW, Urine Appearance CLEAR, Urine pH 6.0, Urine Specific [place] 1.018, Urine Protein NEGATIVE, Urine Glucose (UA) NEGATIVE, Urine Ketones NEGATIVE, Urine Blood NEGATIVE, Urine Nitrite NEGATIVE, Urine Bilirubin N EGATIVE, Urine Urobilinogen 0.2, Urine Leukocyte Esterase NEGATIVE, Urine WBC (Auto) 1, Urine RBC (Auto) 0, Urine Hyaline Casts (Auto) 0, Urine Bacteria (Auto) NEGATIVE, Urine Squamous Epithelial Cells 0, Urine Amorphous Sediment SMALLH, Urine Mucus (Auto) SMALL, Urine Sperm (Auto) , Urine Amphetamines Screen NEGATIVE, Urine Benzodiazepines Screen NEGATIVE, Urine Opiates Screen NEGATIVE, Urine Methadone Screen NEGATIVE, Urine Barbiturates Screen NEGATIVE, Urine Phencyclidine Screen NEGATIVE, Urine Cocaine Metabolite Screen NEGATIVE, Urine Cannabinoids Screen NEGATIVE 08/23/18 23:15: Immature Granulocyte % (Auto) 0.2, White Blood Count 10.2H, Red Blood Count 4.38, Hemoglobin 13.5, Hematocrit 43.1, Mean Corpuscular Volume 98.4H, Mean Corpuscular Hemoglobin 30.8, Mean Corpuscular Hemoglobin Concent 31.3L, Red Cell Distribution Width 14.6H, Platelet Count 280, Neutrophils (%) (Auto) 74.0H, Lymphocytes (%) (Auto) 13.7L, Monocytes (%) (Auto) 8.2H, Eosinophils (%) (Auto) 3.4H, Basophils (%) (Auto) 0.5, Neutrophils # (Auto) 7.5, Lymphocytes # (Auto) 1.4L, Monocytes # (Auto) 0.8, Eosinophils # (Auto) 0.4, Basophils # (Auto) 0.1, Nucleated Red Blood Cells % (auto) 0.0, Anion Gap 7L, Glomerular Filtration Rate > 60.0, Calcium Level 10.0, Aspartate Amino Transf (AST/SGOT) 20, Alanine Aminotransferase (ALT/SGPT) 22, Alkaline Phosphatase 123H, Total Bilirubin 0.8, Direct Bilirubin 0.3H, Ammonia 12, Total Creatine Kinase 37L, Creatine Kinase MB 2.0, Creatine Kinase MB Relative Index 5.14H, Troponin I 0.04, Total Protein 6.2L, Albumin 3.4, Albumin/Globulin Ratio 1.21, Thyroid Stimulating Hormone (TSH) 1.980, Ethyl Alcohol Level < 0.003 08/24/18 04:54: Nucleated Red Blood Cells % (auto) 0.0, Anion Gap 5L, Glomerular Filtration Rate > 60.0, Calcium Level 9.4, Blood Urea Nitrogen 13, Creatinine 0.44L, Sodium Level 141, Potassium Level 4.3, Chloride Level 105, Carbon Dioxide Level 31, Magnesium Level 2.3 08/24/18 10:16: CBC/BMP Laboratory Tests 08/23/18 23:15 Red Blood Count 4.38, Mean Corpuscular Volume 98.4 H, Mean Corpuscular Hemoglobin 30.8, Mean Corpuscular Hemoglobin Concent 31.3 L, Red Cell Distribution Width 14.6 H, Neutrophils (%) (Auto) 74.0 H, Lymphocytes (%) (Auto) 13.7 L, Monocytes (%) (Auto) 8.2 H, Eosinophils (%) (Auto) 3.4 H, Basophils (%) (Auto) 0.5, Neutrophils # (Auto) 7.5, Lymphocytes # (Auto) 1.4 L, Monocytes # (Auto) 0.8, Eosinophils # (Auto) 0.4, Basophils # (Auto) 0.1 08/24/18 04:54 Red Blood Count 4.23 L, Mean Corpuscular Volume 97.6 H, Mean Corpuscular Hemoglobin 30.3, Mean Corpuscular Hemoglobin Concent 31.0 L, Red Cell Distribution Width 14.7 H, Calcium Level 9.4 Microbiology Microbiology 08/24/18 Blood Culture, Received Pending 08/24/18 Blood Culture, Received Pending JEFFREY CUENCA DO Aug 24, 2018 10:56
[2018-08-24 10:58] LABS: ALBUMIN 3.1 GM/DL (3.2-5.2); BILIRUBIN,DIRECT 0.2 MG/DL (0.0-0.2); BILIRUBIN,TOTAL 0.7 MG/DL (0.2-1.0); C REACTIVE PROTEIN QUANTITATIV 2.06 MG/DL (0.00-0.30); TOTAL PROTEIN 5.9 GM/DL (6.4-8.2)
[2018-08-24] MEDS ORDERED: ISOVUE-370 76% 100ML VIAL (Q9967) As Ordered ONE (11:42)
[2018-08-24 12:00] VITALS: BP 125/64
[2018-08-24] MEDS: CLOPIDOGREL 75 MG TAB PO SCH (12:00)
--- NOTE | 2018-08-24 12:54 | REP ---
CT Head without contrast History: Altered mental status Comparison: 12:16 a.m. 08/24/2018 An area of decreased attenuation is present in the right basal ganglia. This represents an old lacunar infarction. Areas of decreased attenuation are present in the periventricular white matter. This represents small-vessel ischemic disease. There is no intraparenchymal hemorrhage, mass or midline shift. There is no abnormal enhancement. The ventricular system and cortical sulci are dilated consistent with mild volume loss. There is no extra cerebral collection. The visualized sinuses are clear. Impression: 1. Old right basal ganglia lacunar infarction. 2. Small vessel ischemic disease. 3. Mild volume loss. Electronically Signed by Kj Bobby MD 08/24/2018 12:46 P
[2018-08-24] MEDS: HEPARIN SOD (PORCINE) 5000 UNITS/ML VIAL SQ SCH ×2 (13:11→21:08)
[2018-08-24] MEDS ORDERED: NITROGLYCERIN 0.3 MG SUBL TAB SL PRN (13:15)
[2018-08-24] MEDS ORDERED: NITROGLYCERIN 0.4 MG SUBL TABLET SL PRN (13:30)
[2018-08-24] MEDS: ACETAMINOPHEN 650 MG SUPP PR PRN ×2 (14:50→21:13)
--- NOTE | 2018-08-24 15:37 | REP ---
Duplex carotid sonography: History: Question CVA. Pacemaker. Right carotid: Antegrade flow is observed in both vertebral arteries. Right vertebral artery velocity is higher than the left. Right carotid: Right common carotid artery shows some circumferential mixed plaquing. There is a patent right internal carotid artery stent. The left external carotid artery is extremely tortuous and difficult to image. Peak systolic flow velocity in the ICA is slightly increased. Velocity chart right carotid: CCA PSV 49 cm/s ICA PSV 161 cm/s ICA EDV 39 cm/s ECA PSV 45 cm/s Right ICA/CCA ratio elevated 3.3. Impression: Patent right ICA stent with systolic velocity elevation consistent with 50-79% category narrowing. The ECA is quite tortuous on the right. Left carotid: The left common carotid artery shows circumferential mixed plaquing. There is stenotic flow in the distal common carotid artery extending to the ECA. There is complete occlusion of the ICA. Velocity chart left carotid: CCA PSV 39 cm/s ECA PSV 123 cm/s ICA PSV 0 cm/s Impression: Complete occlusion of the left internal carotid artery. Electronically Signed by Rojas Pro MD 08/24/2018 04:44 P
[2018-08-24] MEDS ORDERED: LR 1,000 ML IV SCH (16:00)
[2018-08-24] MEDS ORDERED: THIAMINE HCL 200 MG/2 ML VIAL (J3411) IM ONE (16:00)
[2018-08-24 16:07] VITALS: BP 100/58
[2018-08-24] MEDS ORDERED: risperiDONE 0.25 MG TAB PO SCH (17:00)
[2018-08-24] MEDS: PIPERACILLIN/TAZOBACTAM SOD 4.5 GM in D5W MINI-BAG PLUS 50 ML IV SCH ×2 (18:16→23:24)
[2018-08-24] MEDS: D5W/0.45% SODIUM CHLORIDE 1,000 ML IV SCH (19:49)
[2018-08-24 20:00] VITALS: BP 117/65
[2018-08-24] MEDS: ATORVASTATIN 20 MG TAB PO SCH (20:59)
[2018-08-24] MEDS ORDERED: AZITHROMYCIN 250 MG TAB PO SCH (21:00)
[2018-08-25] VITALS (7 sets, daily range): BP systolic 103–139; BP diastolic 55–90
[2018-08-25 04:59] LABS: HEMATOCRIT 38.5 % (42.0-52.0); HEMOGLOBIN 11.8 g/dl (13.5-17.5); MEAN CORPUSCULAR HEMOGLOBIN 29.9 pg (27.0-33.0); MEAN CORPUSCULAR HGB CONC 30.6 g/dl (32.0-36.5); MEAN CORPUSCULAR VOLUME 97.5 fl (80.0-96.0); PLATELET COUNT, AUTOMATED 271 10^3/uL (150-450); RED BLOOD COUNT 3.95 10^6/uL (4.30-6.10); WHITE BLOOD COUNT 6.8 10^3/uL (4.0-10.0)
[2018-08-25 05:22] LABS: BLOOD UREA NITROGEN 9 MG/DL (7-18); CALCIUM LEVEL 8.9 MG/DL (8.8-10.2); CARBON DIOXIDE LEVEL 29 MEQ/L (21-32); CHLORIDE LEVEL 106 MEQ/L (98-107); CREATININE FOR GFR 0.55 MG/DL (0.70-1.30); GLOMERULAR FILTRATION RATE > 60.0 (>35); GLUCOSE, FASTING 96 MG/DL (70-100); POTASSIUM SERUM 3.8 MEQ/L (3.5-5.1); SODIUM LEVEL 140 MEQ/L (136-145)
[2018-08-25] MEDS: D5W/0.45% SODIUM CHLORIDE 1,000 ML IV SCH ×2 (05:54→14:10)
[2018-08-25] MEDS: HEPARIN SOD (PORCINE) 5000 UNITS/ML VIAL SQ SCH ×3 (05:55→21:13)
[2018-08-25] MEDS: PIPERACILLIN/TAZOBACTAM SOD 4.5 GM in D5W MINI-BAG PLUS 50 ML IV SCH ×4 (05:55→23:43)
[2018-08-25] MEDS: ACETAMINOPHEN 650 MG SUPP PR PRN (05:57)
[2018-08-25] MEDS ORDERED: THIAMINE HCL 200 MG/2 ML VIAL (J3411) IM ONE (08:00)
[2018-08-25] MEDS ORDERED: ASPIRIN 81 MG CHEW TABLET PO ONE (08:45)
[2018-08-25] MEDS: PANTOPRAZOLE 40MG INJ (PROTONIX) (C9113) IV SCH (08:46)
[2018-08-25] MEDS: FINASTERIDE 5 MG TAB PO SCH (08:50)
[2018-08-25] MEDS: METOPROLOL SUCC *XL* 25MG TAB (TopROL *XL*) PO SCH (08:50)
[2018-08-25] MEDS: DOCUSATE SODIUM 100 MG CAP PO SCH ×2 (08:52→21:15)
[2018-08-25] MEDS ORDERED: ACETAMINOPHEN 650 MG SUPP PR PRN (09:30)
[2018-08-25] MEDS ORDERED: MOM 30ML SUSPENSION UDC PO PRN (09:30)
--- NOTE | 2018-08-25 09:36 | IPNPDOC ---
Subjective Date Seen The patient was seen on 08/25/18. Subjective Chief Complaint/HPI Patient is examined at bedside with family member in the exam room. Pt states that he is not feeling well; upon further questioning he states his left shoulder hurts and cannot move his right arm. Denies visual deficit and can see both sides of visual field. States SOB but denies chest pain, palpitation. There cough which reported better compared to baseline. Reports right sided frontal headache. General: Denies: Chills Constitutional: Denies: Chills, Fever Eyes: Denies: Vision change ENT: Denies: Dysphagia Skin: Denies: Itching Pulmonary: Reports: Dyspnea, Cough; Denies: Pleuritic Chest Pain Cardiovascular: Denies: Chest Pain, Palpitations Gastrointestinal: Denies: Abdominal Pain Musculoskeletal: Reports: Shoulder Pain (left) Neurological: Reports: Weakness, Incoordination; Denies: Numbness, Change in speech Psych: Reports: Other Psych (frustrated) Objective Physical Examination General Exam: Positive: Alert, Cooperative, Mild Distress, Other Eye Exam: Positive: PERRLA; Negative: Sclera icteric ENT Exam: Positive: Atraumatic, Mucous membr. moist/pink, Nares Patent (NC in place), Other ENT (otoscopic examination of his L ear reveals some retraction of the TM) Neck Exam: Positive: Supple Chest Exam: Positive: Clear to auscultation, Normal air movement, Other (Pacemaker implantation noted on mid-right sided chest) Heart Exam: Positive: Rate Normal, Regular Rhythm Telemetry: Positive: Tachycardia (brief episodes of non-sustained V tach HR 105; lasted 9 sec) Abdomen Exam: Positive: Normal bowel sounds, Soft Male Exam: Positive: Erythema (Mild erthema in b/l inguinal region; no obvious satellite lesion noted) Extremity Exam: Positive: Other ( Grasp strength+4/5 b/l. Thigh strength and calf strength +1/5 b/l; foot strength +5/5 b/l. 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 CN2-12 grossly intact except CN 7 as pt unable to smile. No space/body neglect; clock draw test roughly normal. Dysgraphia which appears to be worse than baseline. Slurred speech, appears to be baseline; otherwise no expressive aphasia; able to repeat some words. No comprehensive aphasia. ); Negative: Normal Speech Psych Exam: Positive: Anxiety (mild-mod); Negative: Mental status NL, Mood NL (appears sad), Oriented x 3 (A&OX2) Assessment /Plan Problems (1) Metabolic encephalopathy Status: Acute Problem Text: 08/25 Pt is A&O to name and place; thought it is Jun 2018. He can answer most questions. Reported weakness on right upper extremity; grasp strength+4/5 b/l. Glascow scale 15; stroke scale 2. Discussed with Dr. Kiran and he will take consultation for complete left internal carotid artery occlusion per carotid US. Zosyn IV day 09/06 for nosocomial PNA; no V/Q mismatch now. Cont Neuro check Q12; may switch to daily starting tmrw. 100mg Thiamine IM daily. Folate, B12 lvl, RPR pending. 2XBlood Cx [id number]. Sputum cx showed moderate gram(+) cocci in pairs and chains as well as mod gram(+) rods; MRSA screen ordered. Echocardiac pending. Pt able to swallow med; start clear liquid diet; swallow eval ordered and may advance diet per ST eval. Start aspiration precaution. Resume PO home med PO Aspirin and Plavix; Zofran ODT PRN. 08/24 AMS since 1 week ago; obtunded yesterday afternoon. CT with and w/o contrast no acute abnormality; pt not a candidate for MRI/MRA d/t pacemaker. NPO now. Neuro checks 12h; on IV LR. D/c Ceftriaxone and PO Azithromycin; start Zosyn IV as pt has nosocomia pneumonia. Hx of pacemaker placement and aortic valve repair 2015; cardiac echo to r/o endocarditis. Blood Cx pending; UA indicates no UTI. Ammonia lvl wnl. Folate, B12 lvl, and RPR screening pending. Lactic acid wnl; CRP mildly elevated. 100mg Thiamine IM and carotid duplex US ordered. Fall precaution. Seizure precaution a s son reported 1 episode of seizure witnessed; no meds as no PMH of prior seizure (2) Pneumonia Status: Acute Problem Text: 08/25: Continue on Zosyn until cx are back. May need to expand to add Vancomycin for HAP, but he seems to be getting better on this regimen. CT w/o contrast 08/23 showed subpleural airspace consolidation in left lower lobe questionable for infiltrate/pneumonia; mild subpleural consolidation versus atelectasis in right lung base. No V/Q mismatch now. d-dimer to r/o PE. On Zosyn IV day 09/06 as possible nosocomial PNA; pt in [facility] for rehab for R shoulder injury. Oxygen therapy ordered (3) Internal carotid artery occlusion Status: Chronic Problem Specific Plan: Consult Specialist Problem Text: This has been present (per family) since at least 2013. He has had procedures on both his carotids in the past. We have asked Dr. Kiran to take a look at him and the imaging to reassure us that there is no acute embolic or thrombotic phenomenon, but I think this is probably old news. (4) H/O aortic valve replacement Status: Chronic Problem Text: Continue Aspirin, Plavix, and Lipitor (5) CAD (coronary artery disease) Onset Date: 01/23/2014 Status: Chronic Response to Treatment: Stable Problem Text: Hx of CAD s/p CABG. Cont home med Aspirin and Lipitor. On SC heparin as for DVT prophylaxis (6) HTN (hypertension) Status: Chronic Response to Treatment: Controlled Problem Specific Plan: Monitor Clinically Problem Text: Resume home PO meds. Vital signs as scheduled (7) Vascular dementia Status: Chronic Problem Text: Continue home meds. CT brain with and w/o contrast showed small vessel ischemic changes. Continue to monitor the patient. (8) History of CVA (cerebrovascular accident) Status: Chronic Response to Treatment: Stable Problem Text: CT without contrast showed no hemorrhage; CT with contrast showed old right basal ganglia lacunar infarction (9) Fracture of humerus, proximal, left, closed Status: Chronic Problem Text: Left periprosthetic proximal humerus fracture s/p mechanical fall 07/08/18. Pt previously d/c to [facility] rehab 07/12/18. Brace to left shoulder in place. Resume home meds. Plan/VTE VTE Prophylaxis Ordered?: Yes (SC heparin) Plan IVF: Continue Diet: Continue Current Activity: Continue Current Therapy: PT Medications: Change to PO Diagnostics: Check Labs, Repeat Labs in AM, Obtain Cultures Family Medicine Attending Note: I was present on site to supervise VERNON Kelly. We discussed the history and exam. I confirmed the sol elements during my [id number] encounter with the patient. We conferred on the assessment and plan; I agree with the note as documented. The family would like some Ultracet added back for his pain control. I will move cautiously with this because he is here for altered mental status. I suspect the alteration in his mental status is related to toxic metabolic encephalopathy from his pneumonia, nonetheless we need to be careful with medications that could cause the same thing. 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 Zosyn day 09/06; MRSA screen ordered. PT and ST ordered. Diet per ST and Activity per PT. Currently Clear liquid diet with PO meds; resume home PO med with some held meds (notably dementia medication that gave him side effects) VS, I&O, 24H, Fishbone Vital Signs/I&O Vital Signs Date Time Temp Pulse Resp B/P (MAP) Pulse Ox O2 Delivery O2 Flow Rate FiO2 08/25/18 08:50 79 136/60 08/25/18 08:00 96.7 15 98 Venturi Mask 15.0 40 I&O- Last 24 Hours up to 6 AM 08/25/18 06:00 Intake Total 1320 ml Output Total 825 ml Balance 495 ml Laboratory Data 24H LABS Laboratory Tests 2 08/24/18 10:16: Lactic Acid Level 1.0, Aspartate Amino Transf (AST/SGOT) 21, Alanine Aminotransferase (ALT/SGPT) 19, Alkaline Phosphatase 104, Total Bilirubin 0.7, Direct Bilirubin 0.2, C-Reactive Protein, Quantitative 2.06H, Total Protein 5.9L, Albumin 3.1L, Albumin/Globulin Ratio 1.11 08/24/18 16:18: Bedside Glucose (Misc Panel) 80L 08/24/18 16:30: D-Dimer, Quantitative 968.17H 08/24/18 23:30: Bedside Glucose (Misc Panel) 102 08/25/18 04:32: Nucleated Red Blood Cells % (auto) 0.0, Anion Gap 5L, Glomerular Filtration Rate > 60.0, Blood Urea Nitrogen 9, Creatinine 0.55L, Sodium Level 140, Potassium Level 3.8, Chloride Level 106, Carbon Dioxide Level 29, Calcium Level 8.9 08/25/18 07:58: CBC/BMP Laboratory Tests 08/25/18 04:32 Red Blood Count 3.95 L, Mean Corpuscular Volume 97.5 H, Mean Corpuscular Hemoglobin 29.9, Mean Corpuscular Hemoglobin Concent 30.6 L, Red Cell Distribution Width 14.6 H, Calcium Level 8.9 Microbiology Microbiology 08/24/18 Blood Culture - Preliminary, Resulted No growth after 24 hours . All specim... 08/24/18 Blood Culture - Preliminary, Resulted No growth after 24 hours . All specim... 08/24/18 Gram Stain, Received Pending 08/24/18 Sputum Culture, Received Pending JEFFREY CUENCA DO Aug 25, 2018 09:36 Trey Rivers MD Aug 26, 2018 13:36
[2018-08-25] MEDS: CLOPIDOGREL 75 MG TAB PO SCH (12:12)
[2018-08-25] MEDS: ACETAMINOPHEN 500 MG TAB PO PRN ×2 (12:18→21:14)
--- NOTE | 2018-08-25 12:58 | ECHO ---
DATE OF PROCEDURE: 08/24/2018 Date of : 1940 Age: 78 Gender: Male Height: 72 inches Weight: 156 pounds Body surface area: 1.92 meters squared Inpatient: Room 3215. REFERRING PHYSICIAN: Tabatha Jose INDICATION: Abnormal EKG. Bioprosthetic aortic valve. MEASUREMENTS: 2D measurements: RV: Unable to measure. LV: 4.2 cm Septum: 1.3 cm Posterior wall: 1.2 cm Aortic root: 3.7 cm LA: 4.4 cm LVEF: 40% Doppler measurements: AV: 1.97 meters per second LVOT: 0.99 meters per second Mean AV systolic gradient: 9 mmHg MV-E: 48, A: 113, E/A ratio: 0.4 Early mitral deceleration time: Unable to measure. E prime: 6 A prime: 10 E/E prime ratio: 8 Pulmonary capillary wedge pressure: 12.7 mmHg PV: 0.8 meters per second Pulmonary artery acceleration time: 95 milliseconds PASP: 36 mmHg COMMENTS: Consistent AV sequentially paced rhythm. Paced QRS complexes with left bundle branch block configuration. M-mode and two-dimensional echocardiography was performed with pulse, continuous-wave, and color flow and tissue Doppler studies Technically difficult study but some diagnostically useful information was still obtained. Borderline left ventricular hypertrophy with paradoxical septal wall motion and apical akinesis related to right ventricular pacing. Other murillo appeared to move normally. Mildly dilated left atrium with Doppler evidence of an impairment of LV diastolic function but current estimated mean left atrial pressure upper limits of normal. Normal right heart chambers by visual assessment only, could not clearly see the right ventricular free wall to estimate wall motion but Doppler evidence of at least mild pulmonary hypertension. Unable to visualize his inferior vena cava to estimate his central venous pressure. Bioprosthetic aortic valve with appropriate prosthetic function: No significant left ventricle outflow tract obstruction and only trace insufficiency. Mild degenerative changes of the mitral valvular apparatus without functional valvular abnormality. Normal appearing tricuspid valve with very mild insufficiency. Pacing leads could be visualized traversing right heart structures. No separate intracardiac mass. No pericardial effusion. If this patient's sepsis is believed to be related to his bioprosthetic valve, a transesophageal echocardiogram would be ultrasonic modality of choice to evaluate his aortic valve. ALPHONSED
[2018-08-25] MEDS: traMADol 50 MG TAB PO PRN (16:08)
[2018-08-25] MEDS: NORTRIPTYLINE 10 MG CAP PO SCH (21:14)
[2018-08-25] MEDS: ATORVASTATIN 20 MG TAB PO SCH (21:14)
[2018-08-26] MEDS: D5W/0.45% SODIUM CHLORIDE 1,000 ML IV SCH ×2 (02:51→08:09)
[2018-08-26 04:00] VITALS: BP 121/64
[2018-08-26] MEDS: PIPERACILLIN/TAZOBACTAM SOD 4.5 GM in D5W MINI-BAG PLUS 50 ML IV SCH ×4 (05:11→22:38)
[2018-08-26] MEDS: HEPARIN SOD (PORCINE) 5000 UNITS/ML VIAL SQ SCH ×3 (05:12→21:48)
[2018-08-26] MEDS: traMADol 50 MG TAB PO PRN (05:17)
[2018-08-26 05:39] LABS: HEMATOCRIT 39.4 % (42.0-52.0); HEMOGLOBIN 12.5 g/dl (13.5-17.5); MEAN CORPUSCULAR HEMOGLOBIN 30.3 pg (27.0-33.0); MEAN CORPUSCULAR HGB CONC 31.7 g/dl (32.0-36.5); MEAN CORPUSCULAR VOLUME 95.6 fl (80.0-96.0); PLATELET COUNT, AUTOMATED 270 10^3/uL (150-450); RED BLOOD COUNT 4.12 10^6/uL (4.30-6.10); WHITE BLOOD COUNT 9.4 10^3/uL (4.0-10.0)
[2018-08-26 06:01] LABS: BLOOD UREA NITROGEN 6 MG/DL (7-18); CALCIUM LEVEL 9.2 MG/DL (8.8-10.2); CARBON DIOXIDE LEVEL 30 MEQ/L (21-32); CHLORIDE LEVEL 108 MEQ/L (98-107); CREATININE FOR GFR 0.49 MG/DL (0.70-1.30); GLOMERULAR FILTRATION RATE > 60.0 (>35); GLUCOSE, FASTING 99 MG/DL (70-100); POTASSIUM SERUM 3.4 MEQ/L (3.5-5.1); SODIUM LEVEL 143 MEQ/L (136-145)
[2018-08-26 08:00] VITALS: BP 131/65
[2018-08-26] MEDS ORDERED: ASPIRIN 81 MG CHEW TABLET NG SCH (08:30)
[2018-08-26] MEDS: PANTOPRAZOLE 40MG INJ (PROTONIX) (C9113) IV SCH (09:01)
[2018-08-26] MEDS: MULTIVITAMINS/MINERALS THERAP 1 TAB PO SCH (09:02)
[2018-08-26] MEDS: ACETAMINOPHEN 500 MG TAB PO PRN (09:02)
[2018-08-26] MEDS: THIAMINE HCL 200 MG/2 ML VIAL (J3411) IM SCH (09:02)
[2018-08-26] MEDS: DOCUSATE SODIUM 100 MG CAP PO SCH ×2 (09:03→20:46)
[2018-08-26] MEDS: METOPROLOL SUCC *XL* 25MG TAB (TopROL *XL*) PO SCH (09:03)
[2018-08-26] MEDS: FINASTERIDE 5 MG TAB PO SCH (09:04)
[2018-08-26] MEDS: ASPIRIN 81 MG CHEW TABLET PO SCH (09:04)
[2018-08-26] MEDS: CLOPIDOGREL 75 MG TAB PO SCH (11:35)
[2018-08-26 11:56] VITALS: BP 115/64
[2018-08-26] MEDS: ACETAMINOPHEN 500 MG TAB PO SCH (12:00)
--- NOTE | 2018-08-26 13:36 | IPNPDOC ---
Subjective Date Seen The patient was seen on 08/26/18. Subjective Chief Complaint/HPI Mr. Christina reports that he feels a little better today, although his family reports that he has been complaining almost all day that he hurts in various places. He did not seem to get more confused with the reintroduction of tramadol yesterday. The family also reports that he seems to be coughing up less sputum today, although he still is coughing some up. General: Reports: Normal Appetite Constitutional: Denies: Chills, Fever Pulmonary: Reports: Dyspnea, Cough (improving) Cardiovascular: Denies: Chest Pain, Palpitations Gastrointestinal: Denies: Nausea, Vomiting Psych: Reports: Memory Issues Objective Physical Examination General Exam: Positive: Alert, Cooperative, No Acute Distress, Other Eye Exam: Positive: PERRLA; Negative: Sclera icteric ENT Exam: Positive: Atraumatic, Mucous membr. moist/pink Neck Exam: Positive: Supple; Negative: Lymphadenopathy Chest Exam: Positive: Normal air movement, Rhonchi (few scatterred rhonchi noted in the posterior lung swartz bilaterally), Other (Pacemaker implantation noted on mid-right sided chest) Heart Exam: Positive: Rate Normal, Regular Rhythm Abdomen Exam: Positive: Normal bowel sounds, Soft Extremity Exam: Negative: Edema, Tenderness Skin Exam: Positive: Nl turgor and temperature Neuro Exam: Negative: Normal Speech Psych Exam: Negative: Mental status NL, Mood NL (depressed, but a little better than yesterday), Memory Intact Assessment /Plan Problems (1) Metabolic encephalopathy Status: Acute Problem Text: 08/26: His mood is a bit better today. He has had family visiting most of the day and this clearly pleases him. 08/25 Pt is A&O to name and place; thought it is Jun 2018. He can answer most questions. Reported weakness on right upper extremity; grasp strength+4/5 b/l. Glascow scale 15; stroke scale 2. Discussed with Dr. Kiran and he will take consultation for complete left internal carotid artery occlusion per carotid US. Zosyn IV day 2 for nosocomial PNA; no V/Q mismatch now. Cont Neuro check Q12; may switch to daily starting tmrw. 100mg Thiamine IM daily. Folate, B12 lvl, RPR pending. 2XBlood Cx [id number]. Sputum cx showed moderate gram(+) cocci in pairs and chains as well as mod gram(+) rods; MRSA screen ordered. Echocardiac pending. Pt able to swallow med; start clear liquid diet; swallow eval ordered and may advance diet per ST eval. Start aspiration precaution. Resume PO home med PO Aspirin and Plavix; Zofran ODT PRN. 08/24 AMS since 1 week ago; obtunded yesterday afternoon. CT with and w/o contrast no acute abnormality; pt not a candidate for MRI/MRA d/t pacemaker. NPO now. Neuro checks 12h; on IV LR. D/c Ceftriaxone and PO Azithromycin; start Zosyn IV as pt has nosocomia pneumonia. Hx of pacemaker placement and aortic valve repair 2015; cardiac echo to r/o endocarditis. Blood Cx pending; UA indicates no UTI. Ammonia lvl wnl. Folate, B12 lvl, and RPR screening pending. Lactic acid wnl; CRP mildly elevated. 100mg Thiamine IM and carotid duplex US ordered. Fall precaution. Seizure precaution as son reported 1 episode of seizure witnessed; no meds as no PMH of prior seizure (2) Pneumonia Status: Acute Problem Text: 08/26: Unfortunately the sputum cx only showed oral pa with a few yeast. This means that the Zosyn is working, but also that we don't have any guidance on how to narrow the spectrum of his regimen. He will likely have to complete 10-14 days of Zosyn. 08/25: Continue on Zosyn until cx are back. May need to expand to add Vancomycin for HAP, but he seems to be getting better on this regimen. CT w/o contrast 08/23 showed subpleural airspace consolidation in left lower lobe questionable for infiltrate/pneumonia; mild subpleural consolidation versus atelectasis in right lung base. No V/Q mismatch now. d-dimer to r/o PE. On Zosyn IV day 09/06 as possible nosocomial PNA; pt in [facility] for rehab for R shoulder injury. Oxygen therapy ordered (3) Hypokalemia Status: Acute Discussed With: Nurse, Patient, Family with Pt Consent Problem Specific Plan: Repeat Labs Problem Text: I suspect this is from inadequate intake of potassium. I gave him a one time oral dose. If this is persistent it may merit further investigation. (4) Internal carotid artery occlusion Status: Chronic Problem Specific Plan: Consult Specialist Problem Text: 08/26: At some point Dr. Kiran will see the patient, but this is not an urgent issue in my mind. 08/25: This has been present (per family) since at least 2013. He has had procedures on both his carotids in the past. We have asked Dr. Kiran to take a look at him and the imaging to reassure us that there is no acute embolic or thrombotic phenomenon, but I think this is probably old news. (5) Fracture of humerus, proximal, left, closed Status: Chronic Problem Text: 08/26: I will put him back on his usual regimen of tramadol 100mg BID with 1gm acetaminophen at noon. Monitor his mental status. (previous) Left periprosthetic proximal humerus fracture s/p mechanical fall 07/08/18. Pt previously d/c to [facility] rehab 07/12/18. Brace to left shoulder in place. Resume home meds. (6) H/O aortic valve replacement Status: Chronic Problem Text: Continue Aspirin, Plavix, and Lipitor (7) CAD (coronary artery disease) Onset Date: 01/23/2014 Status: Chronic Response to Treatment: Stable Problem Text: Hx of CAD s/p CABG. Cont home med Aspirin and Lipitor. On SC heparin as for DVT prophylaxis (8) HTN (hypertension) Status: Chronic Response to Treatment: Controlled Problem Specific Plan: Monitor Clinically Problem Text: Resume home PO meds. Vital signs as scheduled (9) Vascular dementia Status: Chronic Problem Text: Continue home meds. CT brain with and w/o contrast showed small vessel ischemic changes. Continue to monitor the patient. (10) History of CVA (cerebrovascular accident) Status: Chronic Response to Treatment: Stable Problem Text: CT without contrast showed no hemorrhage; CT with contrast showed old right basal ganglia lacunar infarction Plan/VTE VTE Prophylaxis Ordered?: Yes (SC heparin) Plan IVF: Continue Diet: Continue Current Activity: Continue Current Therapy: PT Medications: Change to PO Diagnostics: Check Labs, Repeat Labs in AM, Obtain Cultures VS, I&O, 24H, Fishbone Vital Signs/I&O Vital Signs Date Time Temp Pulse Resp B/P (MAP) Pulse Ox O2 Delivery O2 Flow Rate FiO2 08/26/18 11:56 98.1 81 18 115/64 (81) 98 Nasal Cannula 2.0 08/25/18 20:00 I&O- Last 24 Hours up to 6 AM 08/26/18 06:00 Intake Total 2610 ml Output Total 1900 ml Balance 710 ml Laboratory Data 24H LABS Laboratory Tests 2 08/26/18 05:06: Nucleated Red Blood Cells % (auto) 0.0, Anion Gap 5L, Glomerular Filtration Rate > 60.0, Blood Urea Nitrogen 6L, Creatinine 0.49L, Sodium Level 143, Potassium Level 3.4L, Chloride Level 108H, Carbon Dioxide Level 30, Calcium Level 9.2 CBC/BMP Laboratory Tests 08/26/18 05:06 Red Blood Count 4.12 L, Mean Corpuscular Volume 95.6, Mean Corpuscular Hemoglobin 30.3, Mean Corpuscular Hemoglobin Concent 31.7 L, Red Cell Distribution Width 14.3, Calcium Level 9.2 Microbiology Microbiology 08/24/18 Blood Culture - Preliminary, Resulted No Growth after 48 hours. All Specime... 08/24/18 Blood Culture - Preliminary, Resulted No Growth after 48 hours. All Specime... 08/25/18 MRSA Screen, Received Pending 08/24/18 Gram Stain - Final, Complete 08/24/18 Sputum Culture - Final, Complete Yeast Like Organism Trey Rivers MD Aug 26, 2018 13:36
[2018-08-26] MEDS ORDERED: POTASSIUM CHLORIDE 10% LIQ 20 MEQ/15 ML UDC PO ONE (14:00)
[2018-08-26 16:00] VITALS: BP 110/61
[2018-08-26] MEDS: ONDANSETRON 4 MG ORAL DISINTEGRATING TAB (Q0162 PER 1MG) PO PRN (16:36)
[2018-08-26 20:00] VITALS: BP 123/65
[2018-08-26] MEDS: NORTRIPTYLINE 10 MG CAP PO SCH (20:46)
[2018-08-26] MEDS: ATORVASTATIN 20 MG TAB PO SCH (20:46)
[2018-08-26] MEDS: traMADol 50 MG TAB PO SCH (20:47)
[2018-08-26 23:02] VITALS: BP 114/55
[2018-08-27 04:45] VITALS: BP 120/68
[2018-08-27] MEDS: PIPERACILLIN/TAZOBACTAM SOD 4.5 GM in D5W MINI-BAG PLUS 50 ML IV SCH ×4 (04:55→23:36)
[2018-08-27] MEDS: HEPARIN SOD (PORCINE) 5000 UNITS/ML VIAL SQ SCH ×3 (05:55→21:08)
[2018-08-27 06:03] LABS: HEMATOCRIT 40.6 % (42.0-52.0); HEMOGLOBIN 12.5 g/dl (13.5-17.5); MEAN CORPUSCULAR HEMOGLOBIN 30.1 pg (27.0-33.0); MEAN CORPUSCULAR HGB CONC 30.8 g/dl (32.0-36.5); MEAN CORPUSCULAR VOLUME 97.8 fl (80.0-96.0); PLATELET COUNT, AUTOMATED 287 10^3/uL (150-450); RED BLOOD COUNT 4.15 10^6/uL (4.30-6.10); WHITE BLOOD COUNT 7.6 10^3/uL (4.0-10.0)
[2018-08-27 07:43] LABS: VITAMIN B12 LEVEL 530 PG/ML (232-1245)
[2018-08-27 08:00] VITALS: BP 108/56
[2018-08-27] MEDS: PANTOPRAZOLE 40MG INJ (PROTONIX) (C9113) IV SCH (08:21)
[2018-08-27] MEDS: DOCUSATE SODIUM 100 MG CAP PO SCH ×2 (08:23→21:00)
[2018-08-27] MEDS: THIAMINE HCL 200 MG/2 ML VIAL (J3411) IM SCH (08:23)
[2018-08-27] MEDS: ASPIRIN 81 MG CHEW TABLET PO SCH (08:23)
[2018-08-27] MEDS: FINASTERIDE 5 MG TAB PO SCH (08:23)
--- NOTE | 2018-08-27 08:23 | REP ---
Clinical: Follow up pneumonia Comparison: 08/23/2018. Technique: PA and lateral. Findings: Mediastinum is stable and again demonstrates dual lead pacemaker, aortic valve repair, and surgical clips. Atherosclerotic disease to the aortic arch again noted. Left basilar fibro atelectatic changes are identified. Underlying COPD and emphysematous disease noted. No new acute consolidation, effusion, or pneumothorax. Skeletal structures stable. Impression: Mild residual left basilar fibro atelectatic change which appears somewhat improved. No acute process identified. Chronic COPD. Electronically Signed by Damien Chowdhury MD 08/27/2018 08:15 A
[2018-08-27 08:24] VITALS: BP 108/56
[2018-08-27] MEDS: traMADol 50 MG TAB PO SCH ×2 (08:24→21:08)
[2018-08-27] MEDS: METOPROLOL SUCC *XL* 25MG TAB (TopROL *XL*) PO SCH (08:24)
[2018-08-27] MEDS: MULTIVITAMINS/MINERALS THERAP 1 TAB PO SCH (08:24)
[2018-08-27 08:38] LABS: BLOOD UREA NITROGEN 9 MG/DL (7-18); CALCIUM LEVEL 9.4 MG/DL (8.8-10.2); CARBON DIOXIDE LEVEL 31 MEQ/L (21-32); CHLORIDE LEVEL 105 MEQ/L (98-107); CREATININE FOR GFR 0.48 MG/DL (0.70-1.30); GLOMERULAR FILTRATION RATE > 60.0 (>35); GLUCOSE, FASTING 90 MG/DL (70-100); POTASSIUM SERUM 4.5 MEQ/L (3.5-5.1); SODIUM LEVEL 142 MEQ/L (136-145)
[2018-08-27 09:40] LABS: TOTAL 25(OH) VITAMIN D 39.2 NG/ML (30.0-100.0)
--- NOTE | 2018-08-27 11:23 | IPNPDOC ---
Subjective Date Seen The patient was seen on 08/27/18. Subjective Chief Complaint/HPI Patient is examined at bedside. Pt stated that he is very tired. He states that he is having some mild baseline headache on the right and left shoulder pain, but otherwise nothing was bothering him. Denies any fever, chills, abdominal pain, dyspnea, or cough. General: Reports: Fatigue, Normal Appetite; Denies: Chills Constitutional: Denies: Chills, Fever ENT: Reports: Head Aches Pulmonary: Denies: Dyspnea, Cough, Pleuritic Chest Pain Cardiovascular: Denies: Chest Pain, Palpitations Gastrointestinal: Denies: Abdominal Pain Psych: Reports: Memory Issues Objective Physical Examination General Exam: Positive: Alert, Cooperative, No Acute Distress, Other Eye Exam: Positive: PERRLA; Negative: Sclera icteric ENT Exam: Positive: Atraumatic, Mucous membr. moist/pink Neck Exam: Positive: Supple; Negative: Lymphadenopathy Chest Exam: Positive: Normal air movement, Rhonchi (minimal scatterred rhonchi noted in the posterior lung swartz b/l), Other (Pacemaker implantation noted on mid-right sided chest) Heart Exam: Positive: Rate Normal, Regular Rhythm Abdomen Exam: Positive: Normal bowel sounds, Soft; Negative: Tenderness Extremity Exam: Negative: Edema, Tenderness Skin Exam: Positive: Nl turgor and temperature Neuro Exam: Positive: Cranial Nerves 3-12 NL, Other (Strength +5/5 in bilateral upper extremities. +5/5 in bilateral feet; +2/5 in bilatereal thigh and calves ); Negative: Normal Speech Psych Exam: Negative: Mood NL (mildly depressed), Memory Intact, Oriented x 3 (A&O to name and place) Assessment /Plan Problems (1) Physical deconditioning Status: Chronic Problem Text: 08/27/18 long dw and daughter (nurse from [place])-they prefer PMR if possible ("bad" experience [facility])-ordered PMR screen (2) Pneumonia Status: Acute Discussed With: Patient Problem Text: D3/14 pip/christina 08/27 WBC to baseline, AF since admission, O2 req down to 1L NC 08/23 CT chest showed subpleural airspace consolidation in left lower lobe questionable for infiltrate/pneumonia; (3) Metabolic encephalopathy Status: Acute Discussed With: Patient Problem Text: back to baseline-favor AMS 2 PN (4) Hypokalemia Status: Resolved Discussed With: Nurse, Family with Pt Consent Problem Specific Plan: Repeat Labs Problem Text: 08/27 K wnl at 4.5. Continue to f/u with BMP 08/26 I suspect this is from inadequate intake of potassium. I gave him a one time oral dose. If this is persistent it may merit further investigation. (5) Internal carotid artery occlusion Status: Chronic Problem Specific Plan: Consult Specialist Problem Text: patient c chronic L ICA stenosis/ligation sp R ICA stenting 10/[address] Mansoor Guerra (previous B CEA)-had followed yearly c US (last seen by Dr. Guerra 10/2016)-px and family prefer to fu c Dr. Kiran (rather than drive to [place], if possible) Magno consulted for +/- carotid angiogram (6) Fracture of humerus, proximal, left, closed Status: Chronic Problem Text: 08/27. Pt continues to complain left shoulder pain. Continue current regimen. Pt agreed to work with PT today 08/26: I will put him back on his usual regimen of tramadol 100mg BID with 1gm ac etaminophen at noon. Monitor his mental status. (previous) Left periprosthetic proximal humerus fracture s/p mechanical fall 07/08/18. Pt previously d/c to [facility] rehab 07/12/18. Brace to left shoulder in place. Resume home meds. (7) H/O aortic valve replacement Status: Chronic Problem Text: Continue Aspirin, Plavix, and Lipitor (8) CAD (coronary artery disease) Onset Date: 01/23/2014 Status: Chronic Response to Treatment: Stable Problem Text: Hx of CAD s/p CABG. Cont home med Aspirin and Lipitor. On SC heparin as for DVT prophylaxis (9) HTN (hypertension) Status: Chronic Response to Treatment: Controlled Problem Specific Plan: Monitor Clinically Problem Text: Pt not on BP med as BP soft today in order to ensure adequate perfusion. May resume home med Lopressor later. Vital signs as scheduled (10) Vascular dementia Status: Chronic Problem Text: CT brain with and w/o contrast showed small vessel ischemic changes. 08/27/18 restarted risperidone 0.25 QHS which had helped c probable sundowning at [facility] (11) History of CVA (cerebrovascular accident) Status: Chronic Response to Treatment: Stable Problem Text: CT without contrast showed no hemorrhage; CT with contrast showed old right basal ganglia lacunar infarction. CN2-12 grossly intact. Continue to monitor the pt. Plan/VTE VTE Prophylaxis Ordered?: Yes (SC heparin) Plan IVF: Discontinue Diet: Continue Current Activity: Continue Current Therapy: PT Medications: Change to PO Diagnostics: Check Labs, Repeat Labs in AM, Obtain Cultures, Xrays Disposition IV Zosyn day 4. Transfer to [facility]. Pending Dr. Magno quintana for left internal carotid artery occlusion VS, I&O, 24H, Fishbone Vital Signs/I&O Vital Signs Date Time Temp Pulse Resp B/P (MAP) Pulse Ox O2 Delivery O2 Flow Rate FiO2 08/27/18 08:24 18 08/27/18 08:24 80 108/56 08/27/18 08:00 97.2 95 Nasal Cannula 2.0 08/25/18 20:00 I&O- Last 24 Hours up to 6 AM 08/27/18 06:00 Intake Total 1727 ml Output Total 1375 ml Balance 352 ml Laboratory Data 24H LABS Laboratory Tests 2 08/26/18 20:09: Bedside Glucose (Misc Panel) 96 08/27/18 05:21: Nucleated Red Blood Cells % (auto) 0.0 08/27/18 07:55: Anion Gap 6L, Glomerular Filtration Rate > 60.0, Blood Urea Nitrogen 9, Creatinine 0.48L, Sodium Level 142, Potassium Level 4.5#, Chloride Level 105, Carbon Dioxide Level 31, Calcium Level 9.4 CBC/BMP Laboratory Tests 08/27/18 05:21 Red Blood Count 4.15 L, Mean Corpuscular Volume 97.8 H, Mean Corpuscular Hemoglobin 30.1, Mean Corpuscular Hemoglobin Concent 30.8 L, Red Cell Distribution Width 14.4 08/27/18 07:55 Calcium Level 9.4 Microbiology Microbiology 08/24/18 Blood Culture - Preliminary, Resulted No Growth after 72 hours. All specime... 08/24/18 Blood Culture - Preliminary, Resulted No Growth after 72 hours. All specime... 08/25/18 MRSA Screen - Final, Complete 08/24/18 Gram Stain - Final, Complete 08/24/18 Sputum Culture - Final, Complete Yeast Like Organism JEFFREY CUENCA DO Aug 27, 2018 11:23 Freyd Suárez M.D. Aug 27, 2018 17:13
[2018-08-27] MEDS: CLOPIDOGREL 75 MG TAB PO SCH (11:47)
[2018-08-27] MEDS: ACETAMINOPHEN 500 MG TAB PO SCH (11:48)
[2018-08-27 12:00] VITALS: BP 122/78
[2018-08-27 12:09] LABS: C REACTIVE PROTEIN QUANTITATIV 1.82 MG/DL (0.00-0.30)
[2018-08-27 20:00] VITALS: BP 115/64
[2018-08-27] MEDS: NORTRIPTYLINE 10 MG CAP PO SCH (21:07)
[2018-08-27] MEDS: ATORVASTATIN 20 MG TAB PO SCH (21:07)
[2018-08-27] MEDS: risperiDONE 0.25 MG TAB PO SCH (21:08)
[2018-08-28 01:00] VITALS: BP 120/72
[2018-08-28] MEDS: PIPERACILLIN/TAZOBACTAM SOD 4.5 GM in D5W MINI-BAG PLUS 50 ML IV SCH ×2 (05:48→10:04)
[2018-08-28] MEDS: HEPARIN SOD (PORCINE) 5000 UNITS/ML VIAL SQ SCH ×3 (05:48→21:26)
[2018-08-28 06:00] VITALS: BP 119/71
[2018-08-28 06:27] LABS: HEMATOCRIT 39.6 % (42.0-52.0); HEMOGLOBIN 12.4 g/dl (13.5-17.5); MEAN CORPUSCULAR HEMOGLOBIN 30.2 pg (27.0-33.0); MEAN CORPUSCULAR HGB CONC 31.3 g/dl (32.0-36.5); MEAN CORPUSCULAR VOLUME 96.6 fl (80.0-96.0); PLATELET COUNT, AUTOMATED 279 10^3/uL (150-450); WHITE BLOOD COUNT 6.1 10^3/uL (4.0-10.0)
[2018-08-28 06:50] LABS: BLOOD UREA NITROGEN 15 MG/DL (7-18); CALCIUM LEVEL 9.5 MG/DL (8.8-10.2); CARBON DIOXIDE LEVEL 34 MEQ/L (21-32); CHLORIDE LEVEL 103 MEQ/L (98-107); CREATININE FOR GFR 0.64 MG/DL (0.70-1.30); GLOMERULAR FILTRATION RATE > 60.0 (>35); GLUCOSE, FASTING 91 MG/DL (70-100); POTASSIUM SERUM 4.2 MEQ/L (3.5-5.1); SODIUM LEVEL 140 MEQ/L (136-145)
[2018-08-28] MEDS: PANTOPRAZOLE 40MG INJ (PROTONIX) (C9113) IV SCH (08:45)
[2018-08-28] MEDS: FINASTERIDE 5 MG TAB PO SCH (08:45)
[2018-08-28] MEDS: MULTIVITAMINS/MINERALS THERAP 1 TAB PO SCH (08:47)
[2018-08-28] MEDS: ASPIRIN 81 MG CHEW TABLET PO SCH (08:47)
[2018-08-28] MEDS: traMADol 50 MG TAB PO SCH ×2 (08:47→22:37)
[2018-08-28] MEDS: DOCUSATE SODIUM 100 MG CAP PO SCH ×2 (08:47→21:00)
--- NOTE | 2018-08-28 10:58 | DSES ---
DATE OF ADMISSION: 08/24/2018 DATE OF DISCHARGE: ATTENDING PHYSICIAN: Lance Parrish MD PRIMARY CARE PROVIDER: Ton Pugh MD, at [facility] HISTORY OF PRESENT ILLNESS: This is an 78-year-old gentleman with past medical history of dementia, benign prostatic hypertrophy (BPH), hyperlipidemia, chronic back pain, remote history of cerebrovascular accident (CVA), hypertension, who presented to [facility] Emergency Department (ED) from [facility] for change in mentation. Workup was completed and was consistent with pneumonia. The patient was subsequently admitted for inpatient care. HOSPITAL COURSE: The patient was placed on broad-spectrum antibiotics. He tolerated Zosyn 4.5 grams intravenous (IV) every 6 hours. He has slowly improved. Mentation has returned to normal, and the patient has been deemed back to baseline at this point. Most recent laboratories show white blood cell count of 6000, hemoglobin and hematocrit of 12 and 39. Renal function is stable with a creatinine of 0.64. Electrolytes are stable. Consults during hospitalization include speech therapy. Recommendations included regular solids and thin liquids. Imaging completed during hospitalization includes head CT which proved positive for generalized atrophy and ischemic changes which is similar to prior examination. The patient had chest x-ray on 08/23/2018, as well as 08/27/2018. Most recent chest x-ray noted to have improved appearance of left basilar fibroatelectatic changes. Repeat head CT was completed on 08/24/2018 which showed no changes. Vascular ultrasound was completed of bilateral carotids. The patient has a patent right ICA stent and a tortuous ECA. Left carotid shows circumferential mixed plaquing with stenotic flow in the distal common carotid artery. Chest CT which proved positive for subpleural air space consolidation in the posterior segment of the left lower lobe suspicious for infiltrate/pneumonia. On physical examination today, vital signs are stable. He is afebrile. HEENT: Neck is supple without lymphadenopathy or jugular venous distention (JVD). Cardiovascular: Heart rate and rhythm are regular. Pulmonary: Lungs are clear bilaterally. Abdomen: Soft and nontender with positive bowel sounds times all four quadrants. Neurological: The patient is alert and oriented. Is cooperative to examination. Responses are fairly vague secondary to his dementia. Bilateral lower extremities are without any edema. ASSESSMENT: Discharge diagnoses include: 1. Hospital-acquired pneumonia. 2. Metabolic encephalopathy. 3. Hypokalemia. 4. Physical deconditioning. Secondary diagnoses include: 1. Aortic valve replacement at bedtime. 2. Coronary artery disease (CAD). 3. Hypertension. 4. Vascular dementia. PLAN: Medications on discharge include: - Tylenol 1000 mg by mouth every 6 hours as needed for pain - aspirin 81 mg daily - atorvastatin 40 mg by mouth nightly - Plavix 75 mg by mouth daily - Colace 100 mg by mouth twice a day - finasteride 5 mg by mouth daily - milk of magnesia 30 mL by mouth daily as needed constipation - multivitamin one tablet daily - nortriptyline 10 mg by mouth nightly - risperidone 0.25 mg by mouth nightly - tramadol 100 mg by mouth twice a day Further instructions will be provided on discharge. Anticipate the patient will return to long-term facility. He is medically stable at this point.
[2018-08-28] MEDS: CLOPIDOGREL 75 MG TAB PO SCH (12:19)
[2018-08-28] MEDS: ACETAMINOPHEN 500 MG TAB PO SCH ×2 (12:20→21:25)
[2018-08-28 14:00] VITALS: BP 129/76
[2018-08-28] MEDS: AUGMENTIN 875 MG TAB PO SCH (21:25)
[2018-08-28] MEDS: risperiDONE 0.25 MG TAB PO SCH (21:25)
[2018-08-28] MEDS: NORTRIPTYLINE 10 MG CAP PO SCH (21:25)
[2018-08-28] MEDS: ATORVASTATIN 20 MG TAB PO SCH (21:25)
[2018-08-28] MEDS: NYSTATIN 100,000 UNITS/GM TOPICAL PWD 15 GM TOP SCH (21:26)
[2018-08-28 22:00] VITALS: BP 141/66
[2018-08-29] MEDS: HEPARIN SOD (PORCINE) 5000 UNITS/ML VIAL SQ SCH ×3 (05:29→20:23)
[2018-08-29 06:00] VITALS: BP 123/62
[2018-08-29 07:11] LABS: BLOOD UREA NITROGEN 11 MG/DL (7-18); CALCIUM LEVEL 9.4 MG/DL (8.8-10.2); CARBON DIOXIDE LEVEL 31 MEQ/L (21-32); CHLORIDE LEVEL 102 MEQ/L (98-107); GLOMERULAR FILTRATION RATE > 60.0 (>35); GLUCOSE, FASTING 82 MG/DL (70-100); HEMATOCRIT 40.4 % (42.0-52.0); HEMOGLOBIN 12.6 g/dl (13.5-17.5); MEAN CORPUSCULAR HEMOGLOBIN 30.1 pg (27.0-33.0); MEAN CORPUSCULAR HGB CONC 31.2 g/dl (32.0-36.5); MEAN CORPUSCULAR VOLUME 96.4 fl (80.0-96.0); PLATELET COUNT, AUTOMATED 275 10^3/uL (150-450); POTASSIUM SERUM 4.2 MEQ/L (3.5-5.1); RED BLOOD COUNT 4.19 10^6/uL (4.30-6.10); SODIUM LEVEL 139 MEQ/L (136-145); WHITE BLOOD COUNT 6.5 10^3/uL (4.0-10.0)
[2018-08-29] MEDS: DOCUSATE SODIUM 100 MG CAP PO SCH ×2 (07:28→20:25)
[2018-08-29] MEDS: AUGMENTIN 875 MG TAB PO SCH ×2 (08:50→20:25)
[2018-08-29] MEDS: NYSTATIN 100,000 UNITS/GM TOPICAL PWD 15 GM TOP SCH ×2 (08:50→20:23)
[2018-08-29] MEDS: MULTIVITAMINS/MINERALS THERAP 1 TAB PO SCH (08:50)
[2018-08-29] MEDS: FINASTERIDE 5 MG TAB PO SCH (08:50)
[2018-08-29] MEDS: traMADol 50 MG TAB PO SCH ×2 (08:50→20:24)
[2018-08-29] MEDS: PANTOPRAZOLE 40MG INJ (PROTONIX) (C9113) IV SCH (08:50)
[2018-08-29] MEDS: ASPIRIN 81 MG CHEW TABLET PO SCH (08:50)
[2018-08-29] MEDS: ACETAMINOPHEN 500 MG TAB PO SCH ×2 (12:00→20:25)
[2018-08-29] MEDS: CLOPIDOGREL 75 MG TAB PO SCH (12:00)
[2018-08-29] MEDS: ONDANSETRON 4 MG ORAL DISINTEGRATING TAB (Q0162 PER 1MG) PO PRN (12:08)
[2018-08-29] MEDS: risperiDONE 0.25 MG TAB PO SCH (20:23)
[2018-08-29] MEDS: ATORVASTATIN 20 MG TAB PO SCH (20:24)
[2018-08-29] MEDS: NORTRIPTYLINE 10 MG CAP PO SCH (20:26)
[2018-08-29 22:00] VITALS: BP 143/69
[2018-08-30] MEDS: HEPARIN SOD (PORCINE) 5000 UNITS/ML VIAL SQ SCH (05:37)
[2018-08-30 06:00] VITALS: BP 114/57
[2018-08-30 07:35] LABS: HEMATOCRIT 42.4 % (42.0-52.0); HEMOGLOBIN 13.3 g/dl (13.5-17.5); MEAN CORPUSCULAR HEMOGLOBIN 30.3 pg (27.0-33.0); MEAN CORPUSCULAR HGB CONC 31.4 g/dl (32.0-36.5); MEAN CORPUSCULAR VOLUME 96.6 fl (80.0-96.0); PLATELET COUNT, AUTOMATED 263 10^3/uL (150-450); RED BLOOD COUNT 4.39 10^6/uL (4.30-6.10); WHITE BLOOD COUNT 5.3 10^3/uL (4.0-10.0)
[2018-08-30 07:51] LABS: BLOOD UREA NITROGEN 11 MG/DL (7-18); CALCIUM LEVEL 9.5 MG/DL (8.8-10.2); CARBON DIOXIDE LEVEL 32 MEQ/L (21-32); CHLORIDE LEVEL 103 MEQ/L (98-107); CREATININE FOR GFR 0.56 MG/DL (0.70-1.30); GLOMERULAR FILTRATION RATE > 60.0 (>35); GLUCOSE, FASTING 87 MG/DL (70-100); POTASSIUM SERUM 4.1 MEQ/L (3.5-5.1); SODIUM LEVEL 140 MEQ/L (136-145)
[2018-08-30] MEDS ORDERED: PANTOPRAZOLE 40MG TAB (PROTONIX) PO SCH (09:00)
[2018-08-30] MEDS: AUGMENTIN 875 MG TAB PO SCH (09:38)
[2018-08-30] MEDS: NYSTATIN 100,000 UNITS/GM TOPICAL PWD 15 GM TOP SCH (09:38)
[2018-08-30] MEDS: DOCUSATE SODIUM 100 MG CAP PO SCH (09:38)
[2018-08-30] MEDS: ASPIRIN 81 MG CHEW TABLET PO SCH (09:38)
[2018-08-30] MEDS: traMADol 50 MG TAB PO SCH (09:38)
[2018-08-30] MEDS: FINASTERIDE 5 MG TAB PO SCH (09:38)
[2018-08-30] MEDS: MULTIVITAMINS/MINERALS THERAP 1 TAB PO SCH (09:38)
[2018-08-30] MEDS ORDERED: AMOX875T2 PO (10:08)
--- NOTE | 2018-08-30 13:08 | DSES ---
DATE OF ADMISSION: 08/24/2018 DATE OF DISCHARGE: 08/30/2018 This is an addendum to his prior discharge summary completed on 08/28/2018. The patient has had an uneventful hospitalization since discharge summary was initially dictated. He is planning on going to [facility] today. Additional medications on discharge include: - Augmentin 875 mg one by mouth twice a day for the next 7 days to finish out his course for his pneumonia The patient did complain of some left ear pain today. He does have a mild amount of cerumen and a little bit of fluid in that ear, otherwise the examination was negative. The patient is discharged in stable and satisfactory condition.
== END 2018-08-30 11:05 | DRG 193 ==
LOC: M ED 22:16 → M ED INP 08-24 02:31 → M PCU 08-24 16:07 → M MS5PR 08-28 01:04
PROVIDERS: ADMIT Hospitalist; ATTEND Family Medicine
DX: J18.9 Pneumonia, unspecified organism (principal); G93.41 Metabolic encephalopathy; N40.0 Benign prostatic hyperplasia without lower urinary tract symptoms; E78.5 Hyperlipidemia, unspecified; I10 Essential (primary) hypertension; Z95.0 Presence of cardiac pacemaker; Z95.5 Presence of coronary angioplasty implant and graft; Z96.612 Presence of left artificial shoulder joint; M97.32XD Periprosthetic fracture around internal prosthetic left shoulder joint, subsequent encounter; W19.XXXD Unspecified fall, subsequent encounter; I65.22 Occlusion and stenosis of left carotid artery; Y92.9 Unspecified place or not applicable; Z90.49 Acquired absence of other specified parts of digestive tract; E87.6 Hypokalemia; I25.10 Atherosclerotic heart disease of native coronary artery without angina pectoris; F01.50 Vascular dementia, unspecified severity, without behavioral disturbance, psychotic disturbance, mood disturbance, and anxiety; Z86.73 Personal history of transient ischemic attack (TIA), and cerebral infarction without residual deficits; Z79.82 Long term (current) use of aspirin; Z79.899 Other long term (current) drug therapy; Z95.2 Presence of prosthetic heart valve; Z66 Do not resuscitate; Y95 Nosocomial condition

== ENCOUNTER → 2018-08-27 | Outpatient (REF) ==
[~2018-08-27] MED LIST changes: +ACET-683 PO; +ACET650S3 PR; +AMOX875T2 PO; +ASPI81CH PO; +DOCU100C16 PO; +ENEMENE4 PR; +ENSULIQ64 PO; +RISP0.253 PO
== END ==
LOC: SKLAB5 08:36
PROVIDERS: ATTEND Family Medicine
DX: F03.90 Unspecified dementia, unspecified severity, without behavioral disturbance, psychotic disturbance, mood disturbance, and anxiety (principal)

== ENCOUNTER → 2018-09-04 | Outpatient (REF) ==
[2018-09-04 10:20] LABS: HEMATOCRIT 45.6 % (42.0-52.0); HEMOGLOBIN 14.3 g/dl (13.5-17.5); MEAN CORPUSCULAR HEMOGLOBIN 31.1 pg (27.0-33.0); MEAN CORPUSCULAR HGB CONC 31.4 g/dl (32.0-36.5); MEAN CORPUSCULAR VOLUME 99.1 fl (80.0-96.0); PLATELET COUNT, AUTOMATED 311 10^3/uL (150-450); WHITE BLOOD COUNT 7.6 10^3/uL (4.0-10.0)
[2018-09-04 11:08] LABS: BLOOD UREA NITROGEN 15 MG/DL (7-18); CALCIUM LEVEL 9.8 MG/DL (8.8-10.2); CARBON DIOXIDE LEVEL 33 MEQ/L (21-32); CHLORIDE LEVEL 101 MEQ/L (98-107); CPK CREATINE PHOSPHOKINASE 26 U/L (39-308); CREATININE FOR GFR 0.56 MG/DL (0.70-1.30); GLOMERULAR FILTRATION RATE > 60.0 (>35); GLUCOSE, FASTING 84 MG/DL (70-100); MB/CK RELATIVE INDEX 5.77 (< OR =4); MYOGLOBIN 45 NG/ML (16-116); POTASSIUM SERUM 4.2 MEQ/L (3.5-5.1); SODIUM LEVEL 140 MEQ/L (136-145); TROPONIN I 0.03 NG/ML (< 0.10)
== END ==
PROVIDERS: ATTEND Physician Assistant
DX: J18.9 Pneumonia, unspecified organism (principal)

== ENCOUNTER → 2018-09-12 | Outpatient (CLI) | payer MEDICARE ==
--- NOTE | 2018-09-12 10:09 | REP ---
Chest two views HISTORY: Pneumonia Comparison: 08/27/2018 Linear densities are present in the left lower lobe consistent with atelectasis or scar. The right lung is clear. The heart is normal in size. The pulmonary vasculature is normal in appearance. There is an old compression fracture of an upper thoracic vertebral body. The patient is status post left shoulder arthroplasty. A cardiac pacemaker is present. IMPRESSION: Left lower lobe atelectasis or scar. Electronically Signed by Kj Bobby MD 09/12/2018 10:00 A
== END ==
LOC: M RAD 08:47
DX: J98.4 Other disorders of lung (principal); Z95.0 Presence of cardiac pacemaker; Z96.612 Presence of left artificial shoulder joint

== ENCOUNTER → 2018-10-05 | Outpatient (REF) | payer MEDICARE ==
[~2018-10-05] MED LIST changes: +ACET1TAB55 PO; +ACET500T15 PO; +BACI500O8 TOP; +DESI40PS3 EX; +EUCECRE3 TOP; +NEUR100C PO; +NYST1POW9 TOP; +PROS5TAB PO; +TOPR25TA13 PO
[2018-10-05 18:23] LABS: HEMATOCRIT 47.9 % (42.0-52.0); HEMOGLOBIN 14.9 g/dl (13.5-17.5); MEAN CORPUSCULAR HEMOGLOBIN 30.5 pg (27.0-33.0); MEAN CORPUSCULAR HGB CONC 31.1 g/dl (32.0-36.5); PLATELET COUNT, AUTOMATED 222 10^3/uL (150-450); RED BLOOD COUNT 4.89 10^6/uL (4.30-6.10); WHITE BLOOD COUNT 10.5 10^3/uL (4.0-10.0)
[2018-10-05 18:55] LABS: BLOOD UREA NITROGEN 16 MG/DL (7-18); CALCIUM LEVEL 9.2 MG/DL (8.8-10.2); CARBON DIOXIDE LEVEL 31 MEQ/L (21-32); CHLORIDE LEVEL 103 MEQ/L (98-107); CREATININE FOR GFR 0.64 MG/DL (0.70-1.30); GLOMERULAR FILTRATION RATE > 60.0 (>35); GLUCOSE, FASTING 79 MG/DL (70-100); MAGNESIUM LEVEL 2.1 MG/DL (1.8-2.4); POTASSIUM SERUM 4.5 MEQ/L (3.5-5.1); SODIUM LEVEL 141 MEQ/L (136-145)
[2018-10-05 18:59] LABS: VITAMIN B12 LEVEL 759 PG/ML (247-911)
== END ==
DX: R25.1 Tremor, unspecified (principal)

== ENCOUNTER → 2018-10-06 | Outpatient (REF) | payer MEDICARE | PROVIDERS: ATTEND Internal Medicine | DX: R39.89 Other symptoms and signs involving the genitourinary system (principal) ==

== ENCOUNTER 2018-10-07 10:24 | Emergency (ER) | payer MEDICARE ==
[~2018-10-07] VITALS: Ht 177.8 cm; Wt 70.6 kg
[~2018-10-07 10:24] MED LIST changes: -ACET1TAB55 PO; -ACET500T15 PO; -BACI500O8 TOP; -DESI40PS3 EX; -EUCECRE3 TOP; -NEUR100C PO; -NYST1POW9 TOP; -PROS5TAB PO; -TOPR25TA13 PO
--- NOTE | 2018-10-07 11:18 | REP ---
CT of the cervical spine: Comparison is 11/24/2017. Axial images are acquired helical scanning and a reformatted sagittal and coronal projections. Vertebral body heights and alignment are normal and unchanged. There is multilevel degenerative disc disease with anterior posterior osteophytes, unchanged. The prevertebral soft tissues are unremarkable. The facets are normally aligned. There is facet osteoarthritis throughout the cervical spine, unchanged. There are no posterior element fractures. Impression: There is no fracture or listhesis. There is multilevel degenerative disc disease with anterior posterior osteophytes. Depending on symptomatology consider MRI to evaluate for nerve root compression, spinal cord injury or ligamentous injury. Electronically Signed by Pradeep Hubbard MD 10/07/2018 11:09 A
[2018-10-07] MEDS ORDERED: TOPR25TA13 PO (11:26)
[2018-10-07] MEDS ORDERED: ENSULIQ64 PO (11:26)
[2018-10-07] MEDS ORDERED: ACET1TAB55 PO (11:26)
[2018-10-07] MEDS ORDERED: STOO100C PO (11:26)
[2018-10-07] MEDS ORDERED: DULC10SU2 PR (11:26)
[2018-10-07] MEDS ORDERED: PROS5TAB PO (11:26)
[2018-10-07] MEDS ORDERED: VITMTA PO (11:26)
[2018-10-07] MEDS ORDERED: NYST1POW9 TOP ×2 (11:26)
[2018-10-07] MEDS ORDERED: MILK120011 PO (11:26)
[2018-10-07] MEDS ORDERED: DESI40PS3 EX (11:26)
[2018-10-07] MEDS ORDERED: CLOP75TA2 PO (11:26)
[2018-10-07] MEDS ORDERED: ACET500T15 PO (11:26)
[2018-10-07] MEDS ORDERED: ACET650S3 PR (11:26)
[2018-10-07] MEDS ORDERED: NEUR100C PO (11:26)
[2018-10-07] MEDS ORDERED: EUCECRE3 TOP ×2 (11:26)
[2018-10-07] MEDS ORDERED: ATOR40TA75 PO (11:26)
[2018-10-07] MEDS ORDERED: ULTR50TA8 PO (11:26)
[2018-10-07] MEDS ORDERED: ENEMENE4 PR (11:26)
[2018-10-07] MEDS ORDERED: MIRA3350 PO (11:26)
--- NOTE | 2018-10-07 11:33 | REP ---
Maxillofacial CT: Comparison is 11/10/2016. Axial images are acquired helical scanning and a reformatted sagittal and coronal projections. There is a high left frontal scalp contusion. There is no calvarial fracture. There is no subdural or epidural hematoma. There is no nasal bone fracture. There is no zygoma fracture. There is no orbit fracture. The ocular globes and lenses are unremarkable. The orbits are otherwise unremarkable. The visualized paranasal sinuses are unremarkable except for an old fracture of the anterior wall of the left maxillary sinus, unchanged and a left maxillary sinus lateral wall polyp/cyst, not present previously. The paranasal sinuses and mastoid air cells are, otherwise, clear except for mild mucosal edema in the ethmoid sinuses compatible with mild sinusitis. No mandibular fracture is identified. There is an endovascular stent on the right, likely within the right common carotid artery. This is unchanged. Impression: No facial bone fracture. Left high frontal scalp contusion. Old fracture anterior wall left maxillary sinus. Left maxillary sinus and lateral wall polyp/cyst. Right carotid endovascular stent. Electronically Signed by Pradeep Hubbard MD 10/07/2018 11:24 A
--- NOTE | 2018-10-07 12:32 | REP ---
Left ribs for views: There is a nondisplaced fracture at the anterior portion of the left fifth rib. PA chest: There is no pneumothorax, hemothorax or pulmonary contusion. There is a dual-chamber pacemaker. There is a total left shoulder arthroplasty. There is an endovascular stent in the right carotid artery. There are surgical clips in the neck bilaterally. There has been transcatheter replacement of the aortic valve. Electronically Signed by Pradeep Hubbard MD 10/07/2018 12:24 P
--- NOTE | 2018-10-07 12:34 | REP ---
Left shoulder three views: A comparison is 08/19/2016. There is a total shoulder arthroplasty as previously. However, there is a fracture at the distal tip of the humeral stem with one shaft width lateral displacement of the humeral stem as an interval change. Electronically Signed by Pradeep Hubbard MD 10/07/2018 12:25 P
--- NOTE | 2018-10-07 13:16 | REP ---
CT of the brain without IV contrast: Comparisons are the CT of the brain dated 08/23/2018, 07/26/2018 and 04/04/[address] of the C-spine dated 11/24/2017. There is no subdural or epidural hematoma. There is no acute hemorrhage otherwise. There is an old right basal ganglia lacunar infarct, unchanged. There is no edema, mass effect or midline shift. The sulci are moderately widened diffusely, unchanged, compatible with diffuse volume loss. There is heterogeneity in the deep white matter compatible with chronic microvascular ischemia, unchanged. I suspect there is a soft tissue contusion in the left malar area. This should be confirmed clinically. There is an old fracture of the anterior wall of the left maxillary sinus, unchanged from the C-spine study of 11/24/2017. No acute fractures are identified. Impression: No subdural or epidural hematoma or other acute hemorrhage. No edema, mass effect or shift. Chronic diffuse volume loss. Old basal ganglia lacunar infarct. Soft tissue contusion in the left malar area. Old left maxillary sinus, anterior wall fracture. Electronically Signed by Pradeep Hubbard MD 10/07/2018 01:08 P
[2018-10-07] MEDS ORDERED: NORCO, ANEXSIA 5/325MG TABLET (HYDROcodone/ACETAMINOPHEN) PO ONE (13:30)
[2018-10-07] MEDS ORDERED: BACI500O8 TOP (13:37)
[2018-10-07 13:45] VITALS: BP 120/69
== END 2018-10-07 14:28 | disposition home or self-care (01) ==
LOC: EDBD 10:24 → M ED 10:24
DX: S22.32XA Fracture of one rib, left side, initial encounter for closed fracture (principal); S01.412A Laceration without foreign body of left cheek and temporomandibular area, initial encounter; S01.21XA Laceration without foreign body of nose, initial encounter; S01.81XA Laceration without foreign body of other part of head, initial encounter; S00.03XA Contusion of scalp, initial encounter; W01.198A Fall on same level from slipping, tripping and stumbling with subsequent striking against other object, initial encounter; Y92.199 Unspecified place in other specified residential institution as the place of occurrence of the external cause; Y93.9 Activity, unspecified; Y99.8 Other external cause status; S42.292D Other displaced fracture of upper end of left humerus, subsequent encounter for fracture with routine healing; M50.30 Other cervical disc degeneration, unspecified cervical region; J33.9 Nasal polyp, unspecified; F03.90 Unspecified dementia, unspecified severity, without behavioral disturbance, psychotic disturbance, mood disturbance, and anxiety; I10 Essential (primary) hypertension; I25.10 Atherosclerotic heart disease of native coronary artery without angina pectoris; N40.0 Benign prostatic hyperplasia without lower urinary tract symptoms; Z86.73 Personal history of transient ischemic attack (TIA), and cerebral infarction without residual deficits; Z95.0 Presence of cardiac pacemaker; Z95.1 Presence of aortocoronary bypass graft; Z79.02 Long term (current) use of antithrombotics/antiplatelets; Z79.899 Other long term (current) drug therapy; Z88.1 Allergy status to other antibiotic agents; Z88.5 Allergy status to narcotic agent; Z88.8 Allergy status to other drugs, medicaments and biological substances

== ENCOUNTER 2018-10-20 21:12 | Emergency (ER) | payer MEDICARE ==
[~2018-10-20] VITALS: Ht 180.3 cm; Wt 81.8 kg
[~2018-10-20 21:12] MED LIST changes: +ACET1TAB55 PO; +ACET500T15 PO; +BACI500O8 TOP; +DESI40PS3 EX; +EUCECRE3 TOP; +NEUR100C PO; +NYST1POW9 TOP; +PROS5TAB PO; +TOPR25TA13 PO
[2018-10-20] MEDS ORDERED: NEUR100C PO (21:29)
[2018-10-20] MEDS ORDERED: SCOP1DIS TD (21:29)
[2018-10-20] MEDS ORDERED: MORPHINE 4 MG/ML 1ML VIAL/SYRINGE (J2270) IM ONE (21:45)
[2018-10-20] MEDS ORDERED: FENTANYL REMOVAL DOCUMENTATION MISC XX SCH (22:30)
[2018-10-20] MEDS ORDERED: fentaNYL 12 MCG/HR PATCH TOP ONE (22:30)
[2018-10-20 23:00] VITALS: BP 160/74
[2018-10-20] MEDS ORDERED: LORazepam 2 MG/ML VIAL (J2060) IM STA (23:05)
== END 2018-10-20 23:18 | disposition home or self-care (01) ==
LOC: M ED 21:12 → EDBD 21:12 → EDUNIT# 21:12 → M ED 23:18
DX: Z51.5 Encounter for palliative care (principal); M25.512 Pain in left shoulder; M25.552 Pain in left hip; Z79.899 Other long term (current) drug therapy; Z66 Do not resuscitate; Z88.1 Allergy status to other antibiotic agents; Z88.5 Allergy status to narcotic agent
CPT/HCPCS: 96372; 99284; J2060; J2270